=== PATIENT | male | born 1985 ===

== ENCOUNTER → 2018-02-19 09:27 | Outpatient (CLI) | payer MEDICAID, SELFPAY ==
[2018-02-19 10:21] LABS: Abs Immature Grans 0.01 k/cumm (0.0-0.09); Absolute Basophil Count 0.02 k/cumm (0.0-0.2); Absolute Eosinophil Count 0.19 k/cumm (0.0-0.7); Absolute Lymphocyte Count 2.47 k/cumm (1.2-3.4); Absolute Monocyte Count 0.42 k/cumm (0.11-0.7); Absolute Neutrophil Count 3.96 k/cumm (1.2-6.7); Basophils % 0.3; Eosinophils % 2.7; HCT 43.7 % (40.0-50.0); HGB 14.6 g/dL (13.5-17.5); Immature Grans % 0.1; Lymphocytes % 34.9; Mean Corp. HGB Concentration 33.4 g/dL (32.0-36.0); Mean Corpuscular Hemoglobin 29.4 pg (27.0-33.0); Mean Corpuscular Volume 87.9 fL (80-95); Mean Platelet Volume 10.5 fL (8.0-11.0); Monocytes % 5.9; Neutrophils % 56.1; Platelet Count 153 x1000/uL (130-400); RBC 4.97 m/cumm (4.50-6.00); RBC Distribution Width 15.4 % (11.8-14.1); White Blood Cell Count 7.07 k/cumm (4.4-10.8)
== END ==
PROVIDERS: PCP Nurse Practitioner Family; Visit Provider Nurse Practitioner Psychiatric/Mental Health
DX: F90.2 Attention-deficit hyperactivity disorder, combined type (principal); Z13.6 Encounter for screening for cardiovascular disorders
CPT/HCPCS: 36415; 85025; 93005; 93010

== ENCOUNTER 2018-04-18 22:06 | Emergency (ER) | payer MEDICAID, SELFPAY ==
[2018-04-18 22:11] VITALS: BP 121/86; PULSE 86; RESP 20; TEMP 36.8; O2SAT 100
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
[2018-04-18 22:25] LABS: Abs Immature Grans 0.01 k/cumm (0.0-0.09); Absolute Basophil Count 0.02 k/cumm (0.0-0.2); Absolute Eosinophil Count 0.11 k/cumm (0.0-0.7); Absolute Lymphocyte Count 2.84 k/cumm (1.2-3.4); Absolute Monocyte Count 0.55 k/cumm (0.11-0.7); Absolute Neutrophil Count 4.73 k/cumm (1.2-6.7); Basophils % 0.2; Eosinophils % 1.3; HCT 46.1 % (40.0-50.0); HGB 15.5 g/dL (13.5-17.5); Immature Grans % 0.1; Lymphocytes % 34.4; Mean Corp. HGB Concentration 33.6 g/dL (32.0-36.0); Mean Corpuscular Hemoglobin 30.3 pg (27.0-33.0); Mean Corpuscular Volume 90.2 fL (80-95); Mean Platelet Volume 10.6 fL (8.0-11.0); Monocytes % 6.7; Neutrophils % 57.3; Platelet Count 200 x1000/uL (130-400); RBC 5.11 m/cumm (4.50-6.00); RBC Distribution Width 14.5 % (11.8-14.1); White Blood Cell Count 8.26 k/cumm (4.4-10.8)
[2018-04-18 22:40] LABS: ALT 124 U/L (12-78); AST 61 U/L (15-37); Albumin 3.8 g/dL (3.4-5.0); Alkaline Phosphatase 101 U/L (46-116); Anion Gap 6.6 mmol/L (3-11); BUN 9 mg/dL (7-18); Bilirubin, Direct 0.39 mg/dL (0.00-0.20); Bilirubin, Total 2.4 mg/dL (0.2-1.0); CO2 30.4 mmol/L (21.0-32.0); CREATININE 0.87 mg/dL (0.70-1.30); Calcium 8.7 mg/dL (8.5-10.1); Chloride 100 mmol/L (98-107); Glucose 94 mg/dL (70-100); Lipase 182 U/L (73-393); Potassium 3.4 mmol/L (3.5-5.1); Sodium 137 mmol/L (136-145); Total Protein 7.3 g/dL (6.4-8.2)
[2018-04-18] MEDS: Omnipaque 350 MG/ML 100 ML BTL IJ (23:02)
[2018-04-18] MEDS: Normal Saline 1,000 ML 1000 ML IV (23:03)
[2018-04-18 23:14] LABS: Bilirubin Negative (Negative); Blood Negative (Negative); Clarity Clear; Glucose Negative (Negative); Ketones Negative (Negative); Leukocyte Esterase Negative (Negative); Nitrite Negative (Negative); Urobilinogen 0.2 EU/dL (Up TO 0.2)
--- NOTE | 2018-04-18 23:29 | DI.VRAD_ITS ---
EXAM: CT Abdomen and Pelvis With Intravenous Contrast EXAM DATE/TIME: 04/18/2018 10:17 PM CLINICAL HISTORY: 32 years old, male; Pain; Abdominal pain; Localized; Right TECHNIQUE: Axial computed tomography images of the abdomen and pelvis with intravenous contrast. All CT scans at this facility use at least one of these dose optimization techniques: automated exposure control; mA and/or kV adjustment per patient size (includes targeted exams where dose is matched to clinical indication); or iterative reconstruction. Coronal and sagittal reformatted images were created and reviewed. COMPARISON: No relevant prior studies available. FINDINGS: Lower thorax: There is mild atelectasis and scarring in the right lung base. ABDOMEN: Liver: Normal. No mass. Gallbladder and bile ducts: Status post cholecystectomy. Cholecystectomy. Pancreas: Normal. No ductal dilation. Spleen: Normal. No splenomegaly. Adrenals: Normal. No mass. Kidneys and ureters: Normal. No hydronephrosis. Stomach and bowel: Normal. No obstruction. No mucosal thickening. Appendix: No evidence of appendicitis. PELVIS: Bladder: Unremarkable as visualized. Reproductive: Unremarkable as visualized. ABDOMEN and PELVIS: Intraperitoneal space: Normal. No free air. No significant fluid collection. Bones/joints: Dense foreign bodies are seen in the region of spine at T10 with a large metallic density in the spinal canal at T10. Posttraumatic changes of the left hip and pelvis are noted with heterotopic ossification. Soft tissues: Unremarkable. Vasculature: Normal. No abdominal aortic aneurysm. Lymph nodes: Normal. No enlarged lymph nodes. IMPRESSION: 1. No acute intra-abdominal findings. 2. Metallic foreign body in the spinal canal at T10. Dictated and Authenticated by: Gilberto Pinzon MD. Ordering:CRISTINE DOMINIQUE MD
[2018-04-18 23:30] VITALS: BP 120/59; PULSE 79; RESP 14; TEMP 37.1; O2SAT 100
[2018-04-19 00:12] VITALS: BP 120/59; PULSE 79; RESP 14; O2SAT 100
== END 2018-04-19 00:11 | disposition home or self-care (01) ==
PROVIDERS: Emergency Provider Emergency Medicine; PCP Nurse Practitioner Family
DX: R10.11 Right upper quadrant pain (principal); R11.0 Nausea; G82.20 Paraplegia, unspecified
CPT/HCPCS: 36415; 80053; 80076; 83690; 96360; 99285; 74177; 81003; 85025; J3490

== ENCOUNTER 2018-06-23 14:28 | Emergency (ER) | payer MEDICAID, SELFPAY ==
[2018-06-23 14:45] VITALS: BP 155/92; PULSE 113; RESP 16; TEMP 36; O2SAT 96
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
[2018-06-23 15:50] VITALS: PULSE 103; TEMP 37
[2018-06-23 16:01] VITALS: BP 150/92; PULSE 105; RESP 18; TEMP 37; O2SAT 96
== END 2018-06-23 16:12 | disposition home or self-care (01) ==
PROVIDERS: Emergency Provider Physician Assistant; PCP Nurse Practitioner Family
DX: S80.822A Blister (nonthermal), left lower leg, initial encounter (principal); X58.XXXA Exposure to other specified factors, initial encounter; G82.20 Paraplegia, unspecified; S24.13 Anterior cord syndrome of thoracic spinal cord; W34.00XS Accidental discharge from unspecified firearms or gun, sequela
CPT/HCPCS: 99283; 99284

== ENCOUNTER 2021-02-20 17:26 | Emergency (ER) | payer MEDICAID, SELFPAY ==
[2021-02-20 17:35] VITALS: BP 161/94; PULSE 99; RESP 16; TEMP 36.6; O2SAT 95
[2021-02-20] MEDS: Cephalexin 500 MG CAP PO (18:34)
[2021-02-20 18:42] LABS: Bilirubin Negative (Negative); Blood Negative (Negative); Clarity Clear (Clear); Glucose Negative (Negative); Ketones Negative (Negative); Leukocyte Esterase Small (Negative); Nitrite Negative (Negative); Urobilinogen 0.2 EU/dL (Up TO 0.2)
[2021-02-20 18:42] LABS: Abs Immature Grans 0.03 10^3/uL (0.0-0.06); Absolute Basophil Count 0.08 10^3/uL (0.0-0.2); Absolute Eosinophil Count 0.21 10^3/uL (0.0-0.7); Absolute Lymphocyte Count 2.46 10^3/uL (1.2-3.4); Absolute Monocyte Count 0.57 10^3/uL (0.1-0.8); Absolute Neutrophil Count 4.96 10^3/uL (1.2-6.7); Eosinophils % 2.5; HCT 43.8 % (40.0-50.0); HGB 14.8 g/dL (13.5-17.5); Immature Grans % 0.4; Lymphocytes % 29.6; MCHC 33.8 % (32.0-36.0); MCV 103.5 fL (80-95); MPV 9.9 fL (8.0-11.0); Monocytes % 6.9; Neutrophils % 59.6; Nucleated RBC 0 %; Platelet Count 208 10^3/uL (130-400); RBC 4.23 10^6/uL (4.36-5.78); RDW 14.9 % (11.8-14.1); RDW-SD 56.9 fL; WBC 8.31 10^3/uL (4.4-10.8)
[2021-02-20 18:52] LABS: Bacteria Many HPF (Negative); C & S Indicated? Yes; Crystals Negative HPF (Negative); Epithelial Cells Few HPF (Negative); Mucus Negative (Negative); RBC Negative HPF (0-2)
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
[2021-02-20 19:00] LABS: Anion Gap 12.6 mmol/L (3-11); BUN 2 mg/dL (7-18); CO2 26.4 mmol/L (21.0-32.0); CREATININE 0.8 mg/dL (0.70-1.30); Chloride 97 mmol/L (98-107); Glucose 101 mg/dL (74-106); Sodium 136 mmol/L (136-145)
[2021-02-20] MEDS: Potassium Chloride 20 MEQ TABCR 40 MEQ PO (20:09)
[2021-02-20] MEDS: Cephalexin 500 MG CAP, 2 CAPS/BTL PO (20:09)
== END 2021-02-20 20:20 | disposition home or self-care (01) ==
PROVIDERS: Emergency Provider Emergency Medicine; PCP Nurse Practitioner Family
DX: L03.116 Cellulitis of left lower limb (principal); L03.115 Cellulitis of right lower limb; R60.0 Localized edema; E87.6 Hypokalemia
CPT/HCPCS: 36415; 51701; 80048; 87077; 99283; 81003; 81015; 85025; 87086; 87186

== ENCOUNTER 2021-08-13 15:43 | Outpatient (REF) | payer MEDICAID, SELFPAY ==
[2021-08-13 18:22] LABS: HCT 48.4 % (40.0-50.0); MCH 34.3 pg (27.0-33.0); MCHC 33.1 % (32.0-36.0); MCV 103.6 fL (80-95); MPV 11.1 fL (8.0-11.0); Platelet Count 179 10^3/uL (130-400); RBC 4.67 10^6/uL (4.36-5.78); RDW 13.2 % (11.8-14.1); RDW-SD 50.5 fL; WBC 5.33 10^3/uL (4.4-10.8)
[2021-08-13 18:50] LABS: ALT 60 U/L (16-63); AST 57 U/L (15-37); Albumin 4.3 g/dL (3.4-5.0); Alkaline Phosphatase 96 U/L (46-116); Anion Gap 11.8 mmol/L (3-11); BUN 9 mg/dL (7-18); Bilirubin, Total 2.4 mg/dL (0.2-1.0); CO2 28.2 mmol/L (21.0-32.0); CREATININE 0.9 mg/dL (0.70-1.30); Calcium 9.5 mg/dL (8.5-10.1); Calculated LDL 122 mg/dL (<100); Chloride 100 mmol/L (98-107); Cholesterol 185 mg/dL (<200); Glucose 107 mg/dL (74-106); HDL Cholesterol 39 mg/dL (40-60); Potassium 4.2 mmol/L (3.5-5.1); Sodium 140 mmol/L (136-145); Total Protein 7.8 g/dL (6.4-8.2); Triglyceride 120 mg/dL (<150)
[2021-08-15 11:59] LABS: HCV RNA Qualitative Undetected (Undetected)
== END 2021-08-13 15:44 | disposition home or self-care (01) ==
LOC: NCHCN 15:43
PROVIDERS: PCP Physician Assistant; Visit Provider Physician Assistant
DX: B19.20 Unspecified viral hepatitis C without hepatic coma (principal); I10 Essential (primary) hypertension; F10.20 Alcohol dependence, uncomplicated
CPT/HCPCS: 80053; 80061; 85027; 87522

== ENCOUNTER 2021-10-02 21:16 | Outpatient (REF) | payer MEDICAID, SELFPAY ==
[2021-10-02 21:20] LABS: Bilirubin Negative (Negative); Blood Negative (Negative); Clarity Sl Cloudy (Clear); Glucose Negative (Negative); Ketones Negative (Negative); Leukocyte Esterase Negative (Negative); Nitrite Negative (Negative); Specific Gravity >= 1.030 (1.005-1.025); Urobilinogen 0.2 EU/dL (Up TO 0.2)
== END 2021-10-02 21:17 | disposition home or self-care (01) ==
LOC: NCHCN 21:16
PROVIDERS: PCP Physician Assistant; Visit Provider Physician Assistant
DX: G82.21 Paraplegia, complete (principal)
CPT/HCPCS: 81003

== ENCOUNTER 2022-08-06 17:03 | Outpatient (REF) | payer MEDICAID, SELFPAY ==
[2022-08-06 20:07] LABS: Bilirubin Negative (Negative); Blood Negative (Negative); Clarity Cloudy (Clear); Glucose Negative (Negative); Ketones Negative (Negative); Leukocyte Esterase Small (Negative); Nitrite Positive (Negative); Specific Gravity >= 1.030 (1.005-1.025); pH 5.5 (5-8)
[2022-08-06 20:25] LABS: Bacteria Many HPF (Negative); C & S Indicated? Yes; Crystals Negative HPF (Negative); Epithelial Cells Few HPF (Negative); Mucus Trace (Negative); RBC 0-2 HPF (0-2)
== END 2022-08-06 17:04 | disposition home or self-care (01) ==
LOC: NCHCN 17:03
PROVIDERS: PCP Physician Assistant; Visit Provider Physician Assistant
DX: N31.9 Neuromuscular dysfunction of bladder, unspecified (principal); R82.998 Other abnormal findings in urine
CPT/HCPCS: 87077; 81003; 81015; 87086; 87186

== ENCOUNTER 2022-09-17 17:51 | Outpatient (REF) | payer MEDICAID, SELFPAY | END 2022-09-17 17:52 | disposition home or self-care (01) | LOC: NCHCN 17:51 | PROVIDERS: PCP Physician Assistant; Visit Provider Physician Assistant | DX: N31.9 Neuromuscular dysfunction of bladder, unspecified (principal); R82.998 Other abnormal findings in urine; Z87.440 Personal history of urinary (tract) infections | CPT/HCPCS: 87077; 87086; 87186 ==

== ENCOUNTER 2023-01-28 12:20 | Outpatient (REF) | payer MEDICAID, SELFPAY ==
[2023-01-28 17:20] LABS: Bilirubin Small (Negative); Blood Negative (Negative); Glucose Negative (Negative); Ketones Trace mg/dL (Negative); Leukocyte Esterase Trace (Negative); Nitrite Negative (Negative); Specific Gravity 1.025 (1.005-1.025); pH 5.5 (5-8)
[2023-01-28 17:35] LABS: Clarity Cloudy (Clear)
[2023-01-28 17:36] LABS: Bacteria Few HPF (Negative); C & S Indicated? Yes; Casts Negative LPF (Negative); Crystals Few Calcium Oxalate HPF (Negative); Epithelial Cells Rare HPF (Negative); Mucus Negative (Negative); RBC 0-2 HPF (0-2)
== END 2023-01-28 12:21 | disposition home or self-care (01) ==
LOC: NCHCN 12:20
PROVIDERS: PCP Physician Assistant; Visit Provider Physician Assistant
DX: N39.0 Urinary tract infection, site not specified (principal)
CPT/HCPCS: 87077; 87186; 81003; 81015; 87086

== ENCOUNTER 2023-02-17 14:55 | Outpatient (REF) | payer MEDICAID, SELFPAY ==
[2023-02-17 16:08] LABS: BUN 12 mg/dL (7-18); CREATININE 0.7 mg/dL (0.70-1.30); Calcium 9.2 mg/dL (8.5-10.1); Chloride 100 mmol/L (98-107); Estimated GFR 122.47 (mL/min/1.73m2); Glucose 123 mg/dL (74-106); Sodium 136 mmol/L (136-145)
== END 2023-02-17 14:56 | disposition home or self-care (01) ==
LOC: NCHCN 14:55
PROVIDERS: PCP Physician Assistant; Visit Provider Physician Assistant
DX: I10 Essential (primary) hypertension (principal)
CPT/HCPCS: 80048

== ENCOUNTER 2023-09-23 15:20 | Outpatient (REF) | payer MEDICAID, SELFPAY | END 2023-09-23 15:21 | disposition home or self-care (01) | LOC: NCHCN 15:20 | PROVIDERS: PCP Physician Assistant; Visit Provider Physician Assistant | DX: N39.0 Urinary tract infection, site not specified (principal); R82.89 Other abnormal findings on cytological and histological examination of urine | CPT/HCPCS: 87077; 87086; 87186 ==

== ENCOUNTER 2024-05-25 11:11 | Outpatient (REF) | payer MEDICAID, SELFPAY ==
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
--- OUTSIDE RECORDS SUMMARY | 2024-05-25 11:13 | XMS_ITS | Encounter Summary ---
Author Organization [facility] Address [facility] [place] [address] Care Team Providers Care Electric Meter Repairer Apprentice Name Role Phone Efe Pelletier MD Primary Care Provider Unav ailable Encounter Details Date Type Department Care Team (Latest Contact Info) Description 04/11/2016 - 04/11/2016 11:59 PM EDT Hospital Encounter Radiology Library at [facility] [place] [phone] Efe Pelletier MD Pain Discharge Disposition: Home Social History Tobacco Use Types Packs/Day Years Used Date Smoking Tobacco: Former Smokeless Tobacco: Never Comments:quit november 2013 Alcohol Use Standard Drinks/Week Comments No 0 (1 standard drink = 0.6 oz pur e alcohol) Sex and Gender Information Value Date Recorded Sex Assigned at Not on file Gender Identity Not on file Sexual Orientation Not on file documented as of this encounter Medications at Time of Discharge Medication Sig Dispensed Refills Start Date End Date docusate sodium (COLACE) 100 mg Capsule Take 100 mg by mouth 2 times daily. Reported on 06/25/2016 nortriptyline (PAMELOR) 25 mg Capsule Take 25 mg by mouth every morning. nortriptyline (PAMELOR) 50 mg Capsule Take 50 mg by mouth nightly. cyclobenzaprine (FLEXERIL) 5 mg Tablet Take 5 mg by mouth 3 times daily as needed for Muscle spasms. Reported on 06/25/2016 sertraline (ZOLOFT) 100 mg Tablet Take 200 mg by mouth daily. white petrolatum-mineral oil (EUCERIN) Cream Apply topically 2 times daily. Reported on 09/10/2016 LORazepam (ATIVAN) 0.5 mg tablet Take 1-2 tablets by mouth every 4 hours as needed for Anxiety. 30 tablet 0 01/05/2014 aspirin 81 mg Tablet, Delayed Release (E.C.) Take 81 mg by mouth daily. Reported on 06/25/2016 06/25/2016 pantoprazole (PROTONIX) 40 mg Tablet, Delayed Release (E.C.) Take 40 mg by mouth daily. Reported on 06/25/2016 06/25/2016 ibuprofen (ADVIL;MOTRIN) 600 mg Tablet Take 600 mg by mouth 3 times daily. 08/21/2016 gabapentin (NEURONTIN) 300 mg capsule Take 1 capsule by mouth 3 times daily. 90 capsule 12 01/05/2014 06/25/2016 documented as of this encounter Plan of Treatment Not on file documented as of this encounter Procedures Procedure Name Priority Date/Time Associated Diagnosis Comments FILM LIBRARY STORAGE ONLY CT ABDOMEN AND PELVIS Routine 04/11/2016 12:00 AM EDT Pain documented in this encounter Results * Film Library- Storage Only CT Abdomen & Pelvis (04/11/2016 12:00 AM EDT) Narrative [facility] - 05/28/2016 8:47 AM EST This exam is for storage only and is auto-finalizing. Efe Pelletier MD IMG FILM LIBRARY OR DERABLES [place], [place] documented in this encounter Visit Diagnoses Diagnosis Pain Generalized pain documented in this encounter Care Teams Electric Meter Repairer Apprentice Relationship Specialty Start Date End Date Efe Pelletier MD PCP - General 02/09/15 documented as of this encounter
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
--- OUTSIDE RECORDS SUMMARY | 2024-05-25 11:13 | XMS_ITS | Encounter Summary ---
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 Intravenous, EVERY 6 HOURS SCHEDULED, 20 doses, First dose on Edie 08/21/16 at 1200, Last dose on Thu08/26/16 at 0600, Routine 1139 (Given - Provid er: Karissa Wolff RN) Continuous Medication Order 08/19/2016 08/20/2016 08/21/2016 lactated ringers infusion 1,000 mL 1,000 mL, at 100 mL/hr, Intravenous, CONTINUOUS, Starting on Edie 08/21/16 at 0715, Until Edie 08/21/16 at 1320, Day of Surgery (Day of Procedure) 0715 (New Bag - Prov ider: Genie Saldivar RN)0724 (New Bag - Provider: Sakina Caro CRNA)0800 (Anesthesia Volume Adjustment - Provider: Sakina Caro CRNA)0830 (Anesthesia Volume Adjustment - Provider: Sakina Caro CRNA)0900 (Anesthesia Volume Adjustment - Provider: Sakina Caro CRNA)1000 (Anesthesia Volume Adjustment - Provider: Sakina Caro CRNA)1050 (Stopped - Provider: Sakina Caro CRNA) PRN Medication Order 08/19/2016 08/20/2016 08/21/2016 BUpivacaine (PF) (MARCAINE) 0.25 % (2.5 mg/mL) injection (CANCELED) ONCE PRN, Starting on Edie 08/21/16 at 0834, Until Edie 08/21/16 at 1524, Intra-Operative (Intra-Procedure), Routine 0834 (Given - Provid er: Debbie Romo MD) fentaNYL (PF) 50 mcg/mL 2mL syringe(Linked Group 1) 25 mcg, Intravenous, EVERY 5 MIN PRN, Pain, for 1-4 pain score, Starting on Edie 08/21/16 at 1008, Until Edie 08/21/16 at 1320, for 1-4 pain score Hold for respiratory rate less than 10 per minute. Maximum dose: 250 mcg over one hour., PACU Recovery 1102 (See Alternativ e - Provider: Karissa Wolff RN)1113 (See Alternative - Provider: Karissa Wolff RN)1137 (See Alternative - Provider: Karissa Wolff RN)1157 (See Alternative - Provider: Karissa Wolff RN) fentaNYL (PF) 50 mcg/mL 2mL syringe(Linked Group 1) 50 mcg, Intravenous, EVERY 5 MIN PRN, Pain, for 5-10 pain score, Starting on Edie 08/21/16 at 1008, Until Edie 17 at 1320, for 5-10 pain score Hold for respiratory rate less than 10 per minute. Maximum dose: 250 mcg over one hour., PACU Recovery 1102 (Given - Provid er: Karissa Wolff RN)1113 (Given - Provider: Karissa Wolff RN)1137 (Given - Provider: Karissa Wolff RN)1157 (Given - Provider: Karissa Wolff RN) iohexol (OMNIPAQUE) 300 mg/mL solution (CANCELED) ONCE PRN, Starting on Edie 08/21/16 at 0925, Until Edie 08/21/16 at 1524, Intra-Operative (Intra-Procedure), Routine 0925 (Given - Provid er: Debbie Romo MD) lidocaine (XYLOCAINE) 10 mg/mL (1 %) injection 3 mg 3 mg (0.3 mL), Subcutaneous, ONCE PRN, 1 dose, Starting on Edie 08/21/16 at 0651, Until Edie 08/21/16 at 1320, for discomfort with PIV insertion, Day of Surgery (Day of Procedure), Routine ondansetron (ZOFRAN) injection 4 mg 4 mg, Intravenous, EVERY 30 MIN PRN, Starting on Edie 08/21/16 at 1008, Until Edie 08/21/16 at 1320, Nausea, May repeat 4 mg once in 30 minutes. If multiple antiemetics ordered, use ondansetron first and if ineffective use prochlorperazine second and if ineffective use promethazine, PACU Recovery oxyCODONE (ROXICODONE) immediate release tablet 5-10 mg 5-10 mg, Oral, EVERY 6 HOURS PRN, Starting on Edie 08/21/16 at 1045, Until Edie 08/21/16 at 1524, Pain, Give 5mg for moderate (3-7) and 10mg for severe (8-10) pain, Routine 1122 (Given - Provid er: Karissa Wolff RN) sodium chloride 0.9 % flush 5-20 mL 5-20 mL, Intravenous, EVERY 1 MIN PRN, Starting on Edie 08/21/16 at 0651, Until Edie 08/21/16 at 1320, flush, Flush pertains to all indwelling lines. Flush per protocol found in the job aid using the link provided on this medication record., Day of Surgery (Day of Procedure), Routine No Frequency Medication Order 08/19/2016 08/20/2016 08/21/2016 ketorolac (TORADOL) 15 mg/mL injection 1 dose, Starting on Edie 08/21/16 at 1133, Until Edie 08/21/16 at 1524, KARISSA WOLFF: cabinet override 1145 (Due) Linked Groups Order Group 1: fentaNYL (PF) 50 mcg/mL 2mL syringeJump to med 25 mcg, Intravenous, EVERY 5 MIN PRN, Pain, for 1-4 pain score, Starting on Edie 08/21/16 at 1008, Until Edie 08/21/16 at 1320, for 1-4 pain score Hold for respiratory rate less than 10 per minute. Maximum dose: 250 mcg over one hour., PACU Recovery Or fentaNYL (PF) 50 mcg/mL 2mL syringeJump to med 50 mcg, Intravenous, EVERY 5 MIN PRN, Pain, for 5-10 pain score, Starting on Edie 08/21/16 at 1008, Until Edie 08/21/16 at 1320, for 5-10 pain score Hold for respiratory rate less than 10 per minute. Maximum dose: 250 mcg over one hour., PACU Recovery documented in this encounter Care Teams Machining Supervisor Relationship Specialty Start Date End Date Efe Pelletier MD PCP - General 02/09/15 documented as of this encounter
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
--- OUTSIDE RECORDS SUMMARY | 2024-05-25 11:13 | XMS_ITS | Encounter Summary ---
Author Organization [facility] [place] [address] Care Team Providers Care Car Top Bolter Name Role Phone Efe Pelletier MD Primary Care Provider Unav ailable Encounter Details Date Type Department Care Team (Late st Contact Info) Description 05/09/2016 Abstract [facility] Information Services [address] [place] [phone] Provider, His MD [place] Social History Tobacco Use Types Packs/Day Years [...] Sign Reading Time Taken Comments Blood Pressure 131/87 05/09/2016 9:00 AM EDT Sourced from [place] Conversion Pulse 102 05/09/2016 9:00 AM EDT Sourced from [place] Conversion Temperature - - Respiratory Rate - - Oxygen Saturation - - Inhaled Oxygen Concentration - - Weight 170.1 kg (375 lb) 05/09/2016 9:0 0 AM EDT Sourced from [place] Conversion Height 188 cm (6' 2) 05/09/2016 9:00 AM EDT Sourced from [place] Conversion Body Mass Index 48.15 05/09/2016 9:00 AM EDT documented in this encounter Plan of Treatment Not on file documented as of this encounter Visit Diagnoses Not on filedocumented in this encounter Care Teams Car Top Bolter Relationship Specialty Start Date End Date Efe Pelletier MD PCP - General 02/09/15 documented as of this encounter
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
--- OUTSIDE RECORDS SUMMARY | 2024-05-25 11:13 | XMS_ITS | Encounter Summary ---
Author Organization [facility] Address [facility] [place] [address] Care Team Providers Care Ice Hockey Coach Name Role Phone Efe Pelletier MD Primary Care Provider Unav ailable Encounter Details Date Type Department Care Team (Latest Contact Info) Description 01/21/2018 - 01/21/2018 11:59 PM EDT Hospital Encounter Radiology Library at [facility] [place] [id number] Albert Boogie MD [facility] [place] [place] [address] Discharge Disposition: Home Social History Tobacco Use [...] needed for Anxiety. 30 tablet 0 01/05/2014 documented as of this encounter Plan of Treatment Not on file documented as of this encounter Procedures Procedure Name Priority Date/Time Associated Diagnosis Comments FILM LIBRARY STORAGE ONLY DX SPINE Routine 01/21/2018 12:00 AM EDT documented in this encounter Results * Film Library- Storage Only DX Spine (01/21/2018 12:00 AM EDT) Narrative [facility] - 01/22/2018 2:27 PM EDT This exam is for storage only and is auto-finalizing. Albert Boogie MD IMG FILM LIBRARY ORD ERABLES [place], [place] documented in this encounter Visit Diagnoses Not on filedocumented in this encounter Care Teams Ice Hockey Coach Relationship Specialty Start Date End Date Efe Pelletier MD PCP - General 02/09/15 documented as of this encounter
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
--- OUTSIDE RECORDS SUMMARY | 2024-05-25 11:14 | XMS_ITS | Encounter Summary ---
Author Organization [facility] Address 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, subsequent encounter Julio Mcqueen MD [facility] [place] [address] Referral ID Status Reason Start Date Expiration Date V isits Requested Visits Authorized [id number] Evaluate and Treat 08/16/2015 02/12/2016 12 12 Reason for Visit * Reason Comments Hand Injury Encounter Details Date Type Department Care Team (Late st Contact Info) Description 08/10/2015 3:00 PM EST Office [place] [address] Julio Mcqueen MD [facility] [place] [address] 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 He is known to the plastic surgery clinic from prior treatment with Dr. Abrams. He presents today to discuss further surgery for tendon transfers. He reports that his pain is controlled with nerve pain medication. Examination: Patient is alert, conversant, comfortable, ambulating Full feeling in median dist Good sensation in radial aspect of ring finger Some sensation on ulnar aspect of ring finger No sensation in small finger Weak abduction Wartenberg sign, abduction of small finger hyperexten of ring and little finger at MPJ Flexion of ring and small fingers at IPJ Atrophy of first dorsal interosseous Atrohy of hypothenar Lacks morillo pinch Has froments sign Fingers are supple, full passive ROM Impression: Ulnar nerve palsy, right hand. Plan for multiple tendon transfers to correct his hyperextension of his MPJ ring and small fingers and to provide extension of IP joints or ring and small finger. This would be a transfer of FDS of ring finger to be transfered to ring and small finger. Transfer FDS of long finger to thumb ad ductor. Plan: Schedule for multiple tendon transfers Dr Mcqueen & Jose Alberto Duration: 2 hours Timeframe: Next available Coordinated with: Jose Alberto Procedure: Tendon transfers CPT: 62252, 40726 Surgical site: Hand Side: Right Anesthesia: General Follow up: 2 weeks (ok with alex) coord w/ OT for splint PAT: No I, Rehana Cerna, am acting as scribe for Dr Mcqueen. All work documented was performed by Dr Mcqueen. ???I performed the above scribed service and agree with the accuracy of the note?? 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
--- OUTSIDE RECORDS SUMMARY | 2024-05-25 11:14 | XMS_ITS | Encounter Summary ---
Author Organization [facility] [place] [address] Care Team Providers Care Deoiling Machine Operator Name Role Phone Efe Pelletier MD Primary Care Provider Unav ailable Reason for Referral * Occupational Therapy (Routine) - Closed Specialty Diagnoses / Procedures Referred By Contdebi t Referred To Contact Occupational Therapy Diagnoses Surgery follow-up Isabella Lomeli APRN [facility] [place] [address] [address] [address] [place] [address] Referral ID Status Reason Start Date Expiration Date V isits Requested Visits Authorized [id number] Closed Evaluate and Treat 01/11/2016 01/10/2017 1 1 Reason for Visit * Reason Comments Follow Up Surgery f/u tendon release d os 12/28/15 Encounter Details Date Type Department Care Team (Late st Contact Info) Description 01/11/2016 9:00 AM EDT Office [place] [address] Isabella Lomeli [facility] [address] [place] [address] Surgery follow-up Social History Tobacco Use Types Packs/Day Years Used Date Smoking Tobacco: Former Smokeless Tobacco: Never Comments:quit november 2013 Alcohol Use Standard Drinks/Week Comments No 0 (1 standard drink = 0.6 oz pur e alcohol) Sex and Gender Information Value Date Recorded Sex Assigned at Not on file Gender Identity Not on file Sexual Orientation Not on file documented as of this encounter Patient Instructions * Patient Instructions* Isabella Lomeli APRN - 01/11/2016 9:42 AM EDT 1. Follow up: 2 weeks coordinated with appointment with hand therapy to develop plan to execute at the half-way 2. Continue splint around the clock until next appointment documented in this encounter Progress Notes * Isabella Lomeli APRN - 01/11/2016 9:09 AM EDT Plastic Surgery Post Op Note Reason for visit: F/U status post procedure Date of surgery: 12/28/15 Procedure(s): FDS of the right ring finger to be transferred to the ring and small finger, and a transfer FDS of the long finger to the thumb adductor Complications: None reported Pain: 12/20 HPI: Pt arrives accompanied by guards today. He reports he is doing well. Having moderate pain. Examination: Patient is alert, conversant, comfortable, ambulating Incisions: CDI, healing well. No collection, no erythema, no evidence of cellulitis. Sutures removed today Impression: Joni Ponce is a 30 y.o. male who was seen today for follow-up after the above procedure. Please see the operative note for details. He is doing well without complaints. Plan: 1. Follow up: 2 weeks coordinated with appointment with hand therapy to develop plan to execute at the half-way 2. Continue splint around the clock until next appointment Dr. Bedolla was in to examine the patient today. He agrees with this assessment and plan. I, Celine Goodman, am acting as scribe for Isabella Lomeli APRN . All work documented was performed by Isabella Lomeli APRN. ???I performed the above scribed service and agree with the accuracy of the note?? ISABELLA LOMELI APRN. documented in this encounter Plan of Treatment Scheduled Referrals Name Type Priority Associated Diagnoses Order Schedule Referral to Occupational Therapy Outpatient Referral Routine Surgery follow-up Ordered: 01/11/2016 documented as of this encounter Visit Diagnoses Diagnosis Surgery follow-up Follow-up examination, following unspecified surgery documented in this encounter Care Teams Deoiling Machine Operator Relationship Specialty Start Date End Date Efe Pelletier MD PCP - General 02/09/15 documented as of this encounter
--- OUTSIDE RECORDS SUMMARY | 2024-05-25 11:14 | XMS_ITS | Encounter Summary ---
Author Organization [facility] [place] [address] Care Team Providers Care Mobile Disc Jockey Name Role Phone Efe Pelletier MD Primary Care Provider Unav ailable Reason for Visit * Reason Onset Date Comments Appointment 09/06/2015 missed appointme nt on 09/06/15 at 1pm. Left message with Felisa who schedules his appts and asked if they would like to reschedule and [phone] to call back. Encounter Details Date Type Department Care Team (Late st Contact Info) Description 09/06/2015 Telephone [place] [phone] Starr Demarco Appointment (missed appointment on 09/06/15 at 1pm. Left message with Felisa who schedules his appts and asked if they would like to reschedule and [phone] to call back.) Social History Tobacco Use Types Packs/Day Years Used Date Smoking Tobacco: Former Smokeless Tobacco: Never Comments:quit november 2013 Alcohol Use Standard Drinks/Week Comments No 0 (1 standard drink = 0.6 oz pur e alcohol) Sex and Gender Information Value Date Recorded Sex Assigned at Not on file Gender Identity Not on file Sexual Orientation Not on file documented as of this encounter Miscellaneous Notes * Telephone Encounter - Starr Demarco - 09/06/2015 2:21 PM EST missed appointment on 09/06/15 at 1pm. Left message with Felisa who schedules his appts and asked if they would like to reschedule and [phone] to call back. documented in this encounter Plan of Treatment Not on file documented as of this encounter Visit Diagnoses Not on filedocumented in this encounter Care Teams Mobile Disc Jockey Relationship Specialty Start Date End Date Efe Pelletier MD PCP - General 02/09/15 documented as of this encounter
--- OUTSIDE RECORDS SUMMARY | 2024-05-25 11:14 | XMS_ITS | Encounter Summary ---
Author Organization [facility] Address [facility] [place] [address] Care Team Providers Care Credit Front Office Developer Name Role Phone Efe Pelletier MD Primary Care Provider Unav ailable Reason for Visit * Reason Comments Dressing Change left foot Encounter Details Date Type Department Care Team (Late st Contact Info) Description 11/29/2014 2:00 PM EDT Follow-[place] [address] Diaz Rangel DPM [facility] [place] [address] Bone infection of left foot (Primary Dx); Ulcer of heel and midfoot, left, with necrosis of bone; Spinal cord injury Discharge Disposition: Home Social History Tobacco Use [...] Sign Reading Time Taken Comments Blood Pressure 119/73 11/29/2014 2:37 PM EDT Pulse 92 11/29/2014 2:37 PM EDT Temperature - - Respiratory Rate - - Oxygen Saturation 97% 11/29/2014 2:37 PM EDT Inhaled Oxygen Concentration - - Weight - - Height - - Body Mass Index - - documented in this encounter Patient Instructions * Patient Instructions* Diaz Rangel DPM - 11/29/2014 3:06 PM EDT Wound care instructions: Every day, or prn, based on amount of drainage Remove dressing Irrigate wound with normal saline and gauze. Cut a piece of Aquacel Ag to fill the wound bed. Cover with mepilex 4x4 or 6x6 border dressing or gauze dressing. Can wipe the edges of the dressing on top with skin prep to help it adhere. Tubigrip- size F if this is comfortable, to address the edema. Continue with offloading boot. documented in this encounter Progress Notes * Diaz Rangel DPM - 11/29/2014 3:08 PM EDT Images from the original note were not included. Outpatient Podiatry Clinic Note Name: Joni Ponce Age:29 y.o. MR#: [id number] Date of Service: 11/29/2014 Chief Complaint: Follow up left heel ulceration HPI: Joni Ponce is a 29 y.o. year old incarcerated male who presents today for follow up of left heel ulceration. Patient states he has been receiving wound care at the facility on a regular basis Since his last appointment on 11/09/[address]. Doyle from the orthopedic department wherewe had discussed treatment options moving forward including repeat bone biopsy and IV antibiotic therapy for 6-8 weeks and below-knee amputation. He is currently taking Bactrim for a urinary tract infection. Patient states he has not noticed any significant changes to his left lower extremity. He has no pain to the left foot. He presents today with 2 guards from the facility. Patient states he still has not received new offloading boots for his heels. ROS: Denies F/C/N/V/CP/SOB/cough. Patient's medications, allergies, past medical, surgical, social and family histories were reviewedand updated as appropriate. Physical Exam: Vitals: Blood pressure 119/73, pulse 92, SpO2 97 %. Gen: WD, alert, oriented. NAD. Sitting in wheelchair with handcuffs on. Derm: Ulceration to plantar left heel - wound 1. Skin is otherwise warm dry and supple. No interdigital macerations. Nails appear to be within normal limits with well healed borders of the hallux. Wound 1 Size: 3.4cm x 3.2cm x 0.5cm Location: plantar left heel Base: granulation with some fibrous tissue, calcaneus at base Probing: to calcaneus Undermining: None Drainage: serous, no purulence noted Periwound: no erythema, maceration present Malodor: improved Vasc: DP/PT pulses palpable. CFT < 3 seconds digits 1-5 bilateral. Hair present to digits bilateral. Neuro: Epicritic sensation absent to light touch bilateral. Protective sensation absent to digits with [place] 5.07/10g monofilament. MSK: No gross deformities noted. Muscle strength 0/5 all groups bilateral. Bone biopsy results 07/14/14: Pathology: Ulceration, granulation tissue and underlying bone with changes compatible with subacuteto chronic osteomyelitis. Micro: Rare S. aureus, MSSA S to cefazolin. Assessment/Plan: Joni Ponce is a 29 y.o. year old incarcerated male who presents today for follow up of left heel ulceration and calcaneal osteomyelitis and wound care. The ulceration to the leftheel appears stable and continues to probe to bone. Patient is currently on bactrim for a UTI and has been taking this for about 3 days. Patient is still waiting for his motion to be considered/approved for possibly being transferred home to be able to receive IV antibiotics at home for his calcaneal osteomyelitis. Patient would like to wait for the motion process to be completed and he may know something as early as December 15, 2014. Patient states if he is able to return home he would like to proc eed with surgical debridement and bone biopsy, IV antibiotics for 6-8 weeks in an attempt to eradicate his bone infection. I discussed again with the patient that even with this treatment he may continue to have bone infection of his heel and may end up with a below-knee amputation. Patient relatesunderstanding of this. I debrided the heel ulcer and macerated periwound border, see procedure below. Will continue with local wound care of Aquacel Ag packed into left heel ulcer followed by dry dressing to be changed daily. Patient to have heels offloaded at all times and continue with his current boot. Patient will followup for wound care. Procedure: Performed debridement of ulcer x 1 left foot of non-viable and devitalized tissue down to and including subcutaneous tissue to reveal healthier bleeding base with tissue nipper. documented in this encounter Plan of Treatment Not on file documented as of this encounter Visit Diagnoses Diagnosis Bone infection of left foot- Primary Unspecified infection of bone, ankle and foot Ulcer of heel and midfoot, left, with necrosis of bone Spinal cord injury Unspecified site of spinal cord injury without evidence of spinal bone injury documented in this encounter Care Teams Credit Front Office Developer Relationship Specialty Start Date End Date Efe Pelletier MD PCP - General 10/24/14 02/01/15 documented as of this encounter
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
--- OUTSIDE RECORDS SUMMARY | 2024-05-25 11:14 | XMS_ITS | Encounter Summary ---
Author Organization [facility] [place] [address] Care Team Providers Care Coal And Ash Supervisor Name Role Phone Prabhu De Souza MD, [facility] Primary Care Provider [phone] Encounter Details Date Type Department Care Team (Late st Contact Info) Description 09/25/2014 Orders [place] [address] Sea Abrams MD [facility] [address] Social History Tobacco Use Types Packs/Day Years [...] as of this encounter Plan of Treatment Scheduled Orders Name Type Priority Associated Diagnoses Orde r Schedule SUTURE MAJOR PERIPHERAL NERVE,ARM, W/ TRANSPOSITION, NOT SCIATIC Procedures Routine One Time for 1 Occurrences starting 09/25/2014 until 09/25/2014 documented as of this encounter Visit Diagnoses Not on filedocumented in this encounter Care Teams Coal And Ash Supervisor Relationship Specialty Start Date End Date Gabo Pelletier MD [address] [id number] PCP - General 07/11/14 10/23/14 documented as of this encounter
--- OUTSIDE RECORDS SUMMARY | 2024-05-25 11:14 | XMS_ITS | Encounter Summary ---
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 Unit), Routine 1630 (Not Given - Provider: Angelika Schneider Rn, RN - Reason: Medication not available)2156 (Given - Provider: Sushma Khan RN) 0813 (Given - Provider: Conchis Taylor RN)1534 (Given - Provider: Alma Meyers RN) nortriptyline (PAMELOR) capsule 25 mg (CANCELED) 25 mg, Oral, EVERY MORNING, First dose on Edie 10/26/14 at 0700, Until Discontinued, Recovery (Recovery-Hospital Unit), Routine 0814 (Given - Provid er: Conchis Taylor RN) nortriptyline (PAMELOR) capsule 50 mg (CANCELED) 50 mg, Oral, NIGHTLY, First dose on Thu10/25/14 at 2100, Until Discontinued, Recovery (Recovery-Hospital Unit), Routine 215 (Given - Provider: Sushma Khan, RN) sertraline (ZOLOFT) tablet 200 mg (CANCELED) 200 mg, Oral, DAILY, First dose on Edie 10/26/14 at 0900, Until Discontinued, Recovery (Recovery-Hospital Unit), Routine 0814 (Given - Provid er: Conchis Taylor RN) sodium chloride 0.9 % flush 5 mL (CANCELED) 5 mL, Intravenous, 2 TIMES DAILY, First dose on Thu10/25/14 at 2100, Until Discontinued, Recovery (Recovery-Hospital Unit), Routine 220 (Given - Provider: Sushma Khan RN) 0900 (Not Given - Provider: Conchis Taylor RN - Reason: See comment - Comment: IV fluids infusing) Continuous Medication Order 10/24/2014 10/25/2014 10/26/2014 lactated ringers infusion 1,000 mL (CANCELED) 1,000 mL, at 100 mL/hr, Intravenous, CONTINUOUS, Starting on Thu10/25/14 at 0715, Until Thu10/25/14 at 1748, Day of Surgery (Day of Procedure) 0715 (New Bag - Provider: Hali King, RN) lactated ringers infusion (CANCELED) 50 mL/hr, Intravenous, CONTINUOUS, Starting on Thu10/25/14 at 1630, Until Edie 10/26/14 at 1145, Recovery (Recovery-Hospital Unit) 1638 (New Bag - Provider: Angelika Schneider Rn, RN) morphine 1 mg/mL ENTRY LEVEL PROJECT COORDINATOR 30 mL (CANCELED) Intravenous, ENTRY LEVEL PROJECT COORDINATOR ONLY, Starting on Thu10/25/14 at 1630, Until Edie 10/26/14 at 1015, Recovery (Recovery-Hospital Unit) 1636 (New Syringe/Cartridge - Provider: Angelika Schneider Rn, RN) 0124 (New Syringe/Cartridge - Provider: Sushma Khan, RN) PRN Medication Order 10/24/2014 10/25/2014 10/26/2014 BUpivacaine-EPINEPHrine 0.25 %-1:200,000 injection (CANCELED) ONCE PRN, Starting on Thu10/25/14 at 0850, Until Thu10/25/14 at 1748, Intra-Operative (Intra-Procedure), Routine 0850 (Given - Provider: Sea Abrams MD)1200 (Given - Provider: Sea Abrams MD - Comment: 4 ml injected into right Leg.) cyclobenzaprine (FLEXERIL) tablet 5 mg (CANCELED) 5 mg, Oral, 3 TIMES DAILY PRN, Starting on Thu10/25/14 at 1811, Until Edie 10/26/14 at 1941, Muscle spasms, Recovery (Recovery-Hospital Unit), Routine 0811 (Given - Provid er: Conchis Taylor RN) fentaNYL (PF) 50 mcg/mL 2mL syringe (CANCELED) 25 mcg, Intravenous, EVERY 5 MIN PRN, Pain, for breakthrough pain, Starting on Thu10/25/14 at 1600, Until Thu10/25/14 at 1748, Hold for respiratory rate less than 10 per minute. Maximum dose: 250 mcg over one hour., PACU Recovery 1605 (Given - Provider: Angelika Schneider Rn, RN)1610 (Given - Provider: Angelika Schneider Rn, RN)1615 (Given - Provider: Angelika Schneider Rn, RN)1622 (Given - Provider: Angelika Schneider Rn, RN)1627 (Given - Provider: Angelika Schneider Rn, RN)1631 (Given - Provider: Angelika Schneider Rn, RN)1635 (Given - Provider: Angelika Schneider Rn, RN)1641 (Given - Provider: Angelika Schneider Rn, RN) HYDROmorphone (DILAUDID) syringe 0.2-0.4 mg (CANCELED) 0.2-0.4 mg, Intravenous, EVERY 5 MIN PRN, Pain, Starting on Thu10/25/14 at 1600, Until Thu10/25/14 at 1748, For moderate pain (4-6) give: 0.2 mg every 5 minute prn For severe pain (7-10) give: 0.4 mg every 5 minutes prn Maximum dose: 4 mg per hour Hold for respiratory rate less than 10 per minute., PACU Recovery 1559 (Given - Provider: Angelika Schneider Rn, RN)1605 (Given - Provider: Angelika Schneider Rn, RN)1610 (Given - Provider: Angelika Schneider Rn, RN)1615 (Given - Provider: Angelika Schneider Rn, RN)1620 (Given - Provider: Angelika Schneider Rn, RN)1625 (Given - Provider: Angelika Schneider Rn, RN)1630 (Given - Provider: Angelika Schneider Rn, RN)1651 (Given - Provider: Vanessa Calles RN) LORazepam (ATIVAN) tablet 1 mg (CANCELED) 1 mg, Oral, 2 TIMES DAILY PRN, Starting on Thu10/25/14 at 1609, Until Edie 10/26/14 at 1941, Anxiety, Recovery (Recovery-Hospital Unit), Routine 0813 (Given - Provid er: Conchis Taylor RN) morphine 10 mg/5 mL oral solution 50 mg (CANCELED) 50 mg, Oral, EVERY 4 HOURS PRN, Starting on Thu10/25/14 at 1609, Until Edie 10/26/14 at 1941, Pain, Recovery (Recovery-Hospital Unit), Routine 0923 (Given - Provid er: Conchis Taylor RN)1332 (Given - Provider: Conchis Taylor RN) documented in this encounter Care Teams Spinner Box Relationship Specialty Start Date End Date Efe Calero MD PCP - General 10/24/14 02/01/15 documented as of this encounter
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
--- OUTSIDE RECORDS SUMMARY | 2024-05-25 11:14 | XMS_ITS | Encounter Summary ---
Author Organization [facility] [place] [address] Care Team Providers Care Cardiothoracic Physiotherapist Name Role Phone Efe Pelletier MD Primary Care Provider Unav ailable Encounter Details Date Type Department Care Team (Late st Contact Info) Description 09/20/2015 [place] [address] Starr Demarco Social History Tobacco Use Types Packs/Day Years [...] * Telephone Encounter - Starr Demarco - 09/20/2015 3:15 PM EST Left message on Felisa from coordination at the [facility], Joni missed 2nd appointment at wound center. Left [phone] number to call back. documented in this encounter Plan of Treatment Not on file documented as of this encounter Visit Diagnoses Not on filedocumented in this encounter Care Teams Cardiothoracic Physiotherapist Relationship Specialty Start Date End Date Efe Pelletier MD PCP - General 02/09/15 documented as of this encounter
--- OUTSIDE RECORDS SUMMARY | 2024-05-25 11:14 | XMS_ITS | Encounter Summary ---
Author Organization [facility] [place] [address] Care Team Providers Care Armed Guard Name Role Phone Efe Pelletier MD Primary Care Provider Unav ailable Encounter Details Date Type Department Care Team (Late st Contact Info) Description 01/10/2015 [place] [address] Starr Demarco Social History Tobacco Use Types [...] * Telephone Encounter - Starr Demarco - 01/10/2015 9:52 AM EDT requesting a phone call back from the facility in regards to Mr. Ponce and trying to get an updated phone number for him. We would like to continue care for him at the [facility] even though he is no longer there. documented in this encounter Plan of Treatment Not on file documented as of this encounter Visit Diagnoses Not on filedocumented in this encounter Care Teams Armed Guard Relationship Specialty Start Date End Date Efe Pelletier MD PCP - General 10/24/14 02/01/15 documented as of this encounter
--- OUTSIDE RECORDS SUMMARY | 2024-05-25 11:14 | XMS_ITS | Encounter Summary ---
Author Organization [facility] Address [facility] [place] [address] Care Team Providers Care Poke In Name Role Phone Prabhu De Souza MD, Gabo Primary Care Provider [phone] Reason for Visit * Reason Onset Date Comments New Medication Request 07/24/2014 Encounter Details Date Type Department Care Team (Late st Contact Info) Description 07/24/2014 Telephone Orthopaedics at [facility] [place] [address] Diaz Rangel [facility] [place] [address] New Medication Request Social History Tobacco Use Types Packs/Day Years [...] encounter Miscellaneous Notes * Telephone Encounter - Jamila Hand LPN - 07/24/2014 2:10 PM EST Stephanie at the correctional facility was called. She states that the patient did not get the answer he wanted this morning concerning the start of abx and called his mother. His mother promptly called the hospital. Stephanie states that the correctional facility is waiting to order the correct abx for the patient and will inform him when it is time. * Telephone Encounter - Ally Scruggs - 07/24/2014 11:38 AM EST When was your procedure? 07/17/14 Who was your surgeon? DR. ROBERTS What procedure did you have done? Left heel osteomyelitis What is the question you would like to ask the nurse? CIRILO'S MOTHER CALLED THIS MORNING STATING CIRILO HAS SPOKEN TO HER ABOUT AN ANTIBIOTIC HE SHOULD START WITH THE PICC LINE IN PLACE. I ASSURED THE MOTHER WE WOULD CALL THE FACILITY HE IS CURRENTLY STAYING. I DID NOT DISCLOSE ANY OTHER INFORMATION TO THE MOTHER. Best number to reach you # [facility], ASK FOR [facility] NURSE [phone] The nurse continuously monitors all messages and will return your call before the end of the day. The nurse may need to consult the surgeon about your question which may delay the return call by 24hrs. <DELETE THIS LINE AND BELOW PRIOR TO CLOSING> If this post procedure call fits into any of the other more specific categories then please use that category. documented in this encounter Plan of Treatment Not on file documented as of this encounter Visit Diagnoses Not on filedocumented in this encounter Care Teams Poke In Relationship Specialty Start Date End Date Gabo Pelletier MD [address] [address] PCP - General 07/11/14 10/23/14 documented as of this encounter
--- OUTSIDE RECORDS SUMMARY | 2024-05-25 11:14 | XMS_ITS | Encounter Summary ---
Author Organization [facility] Address [facility] [place] [address] Care Team Providers Care Shift Boss Name Role Phone Prabhu De Souza MD, Gabo Primary Care Provider [phone] Encounter Details Date Type Department Care Team (Late st Contact Info) Description 07/17/2014 Tele[place] [id number] Diaz Rangel DPM [facility] [place] [address] Social History Tobacco Use Types Packs/Day Years [...] encounter Miscellaneous Notes * Telephone Encounter - Diaz Rangel DPM - 07/24/2014 3:00 PM EST . documented in this encounter Plan of Treatment Not on file documented as of this encounter Visit Diagnoses Not on filedocumented in this encounter Care Teams Shift Boss Relationship Specialty Start Date End Date Gabo Pelletier MD [address] [address] PCP - General 07/11/14 10/23/14 documented as of this encounter
--- OUTSIDE RECORDS SUMMARY | 2024-05-25 11:14 | XMS_ITS | Encounter Summary ---
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 Patient is an inmate at the [facility]. CURRENT SYMPTOMS: Patient presents with stiffness and [...] ROM MP PIP DIP DPC thumb 0/45 +10/57 Index 0/80 0/90 0/70 Long +5/95 30/85 0/70 Ring +40/65 30/85 0/70 Small +30/85 90/85 0/60 STRENGTH: Land Economist Testing with Dynamometer setting #2 Pinch Testing with Pinch Gauge TREATMENT TODAY: Seen with 2 guards today from [facility]: ASSESSMENT AT 8 weeks s/p tendon transfer: splint is d/c'ed today. Ready to progress with active and passive mobility of his digits: particularly PIP joint extension - passive and actively Educated patient in etiology and biomechanics as related to patient's symptoms Instructed patient in: joint protection strategies, proper posture and positioning and scar tissue mobilization and desensitization Fabricate a hand based ulnar blocking splint for positioning of his MCP joints to allow for active extension of his IP joints for strengthening and functional use Range of Motion Exercises: of his wrist and digits every 3hours/day See scanned document for home program exercises and restrictions I To discuss with correction facility regarding therapy care. ASSESSMENT: Joni Ponce presents today with functional limitations due to limited active grasp of his right hand. 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 Joni Ponce is able todemonstrate home exercises with written instructions provided. Joni Ponce has fair potential for gains with therapy with identified needs for skilled therapy for treatment. Screen Examiner Goals (to be met by discharge): Date [...] can be offered on-site or transportation to [facility] will be available. (X) Joni Ponce participated in the evaluation, collaborated on treatment goals, and agrees to the treatment plan . 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
--- OUTSIDE RECORDS SUMMARY | 2024-05-25 11:14 | XMS_ITS | Encounter Summary ---
Author Organization [facility] Address [facility] [place] [address] Care Team Providers Care Special Client Bus Driver Name Role Phone Prabhu De Souza MD, Gabo Primary Care Provider [phone] Reason for Visit * Reason Onset Date Comments Other 08/16/2014 Encounter Details Date Type Department Care Team (Late st Contact Info) Description 08/16/2014 Telephone [place] [address] Diaz Rangel [facility] [place] [address] Other Social History Tobacco Use Types Packs/Day Years [...] Telephone Encounter - Jamila Hand LPN - 08/16/2014 10:[address] Rangel will call Ana Elkins and discuss the dressing change and picc line. * Telephone Encounter - Trish Mason - 08/16/2014 9:31 AM EST Ruddy calling from [facility] because patient is messing with his pick line and keeps taking the cap off it. Wondering if they should just stop the antibiotics and take pick line out? Also what they should be doing about wound care changing? Please call Ruddy kay @ [phone] documented in this encounter Plan of Treatment Not on file documented as of this encounter Visit Diagnoses Not on filedocumented in this encounter Care Teams Special Client Bus Driver Relationship Specialty Start Date End Date Gabo Pelletier MD [address] [address] PCP - General 07/11/14 10/23/14 documented as of this encounter
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
--- OUTSIDE RECORDS SUMMARY | 2024-05-25 11:14 | XMS_ITS | Encounter Summary ---
Author Organization [facility] [place] [address] Care Team Providers Care Purchasing Agent Name Role Phone Efe Calero MD Primary Care Provider Unav ailable Reason for Visit * Reason Comments Wound Care Encounter Details Date Type Department Care Team (Late st Contact Info) Description 09/28/2015 2:00 PM EDT Office [place] [address] Leonor Pandya APRN [facility] [place] [address] Ulcer of heel and midfoot, unspecified laterality, limited to breakdown of skin Social History Tobacco Use Types Packs/Day Years [...] Sign Reading Time Taken Comments Blood Pressure 148/92 09/28/2015 2:03 PM EDT Pulse 100 09/28/2015 2:03 PM EDT Temperature 36.8 ??C (98.2 ??F) 09/28/2015 2:03 PM ED T Respiratory Rate - - Oxygen Saturation 100% 09/28/2015 2:03 PM EDT Inhaled Oxygen Concentration - - Weight - - Height - - Body Mass Index - - documented in this encounter Progress Notes * Leonor Pandya APRN - 09/28/2015 2:15 PM EDT Images from the original note were not included. [facility] Progress Note HPI: Joni Ponce is a 30 y.o. male returns for follow up assessment of left plantar heel pressure ulcer. Hx osteomyelitis, treated with surgical debridement and IV, oral abx. [facility] Pertinent labs/tests: 07/17/14- CRP 47.3 ESR 29 Bone culture- no growth 07/17/14 pathology ?---Pathologic Diagnosis--- ?Bone and soft tissue, left heel, debridement: ? - Ulceration, granulation tissue and underlying bone with changes ?compatible with subacute to chronic osteomyelitis, see ?comment ROS: Negative for constitutional symptoms, reports occasional night sweats Appetite:good, denies n, v Pain: denies Wears heel offloading boot at all times when out of bed. Wheelchair bound PE: Pleasant, obese male .in NAD.In wheelchair. Accompanied by 2 guards No edema, erythema. insensate DP/PT pulses: ++ Dry tissue at previous ulcer site, absence of fat pad Treatment: Cleanse the area with normal saline and gauze. Removed loose tissue with forceps. Covered with Mepilex border dressing Assessment/Plan: Joni Ponce is a 30 y.o. male with history of chronic calcaneal osteomyelitis. The ulcer is fully healed and he is feeling well. We have discussed symptoms that would warrant his return: Re-opening of ulcer, erythema, drainage. Follow up: as needed Cc: Efe Calero MD [address] [place] [address] EFE CALERO MD documented in this encounter Plan of Treatment Not on file documented as of this encounter Visit Diagnoses Diagnosis Ulcer of heel and midfoot, unspecified laterality, limited to breakdown of skin documented in this encounter Care Teams Purchasing Agent Relationship Specialty Start Date End Date Efe Calero MD PCP - General 02/09/15 documented as of this encounter
--- OUTSIDE RECORDS SUMMARY | 2024-05-25 11:14 | XMS_ITS | Encounter Summary ---
Author Organization [facility] [place] [address] Care Team Providers Care Jumpbasting Lining Baster Name Role Phone Efe Pelletier MD Primary Care Provider Unav ailable Encounter Details Date Type Department Care Team (Late st Contact Info) Description 11/13/2014 Telephone [place] [phone] Louise Crum, OT [facility] PHYSICAL MEDICINE & [place] [address] Social History Tobacco Use Types Packs/Day Years [...] encounter Miscellaneous Notes * Telephone Encounter - Louise Crum, OT - 11/13/2014 9:16 AM EDT Received a phone call from the [facility]. He had questions about the protocol I had sent him regarding progression of splint use and AROM. 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 The PT seeing him does not fabricate splinst so would need to have him come back to see us to have this made. The next follow up appointment with Dr Abrams is not until February. Plan: I will contact Dr Abrams to request OT orders for hand based anti claw deformity splint post nerve repair/graft. Will then have our secretarial staff call and make an appointment with me to makethe splint. documented in this encounter Plan of Treatment Not on file documented as of this encounter Visit Diagnoses Not on filedocumented in this encounter Care Teams Jumpbasting Lining Baster Relationship Specialty Start Date End Date Efe Pelletier MD PCP - General 10/24/14 02/01/15 documented as of this encounter
--- OUTSIDE RECORDS SUMMARY | 2024-05-25 11:14 | XMS_ITS | Encounter Summary ---
Author Organization [facility] [place] [address] Care Team Providers Care Senior Production Planner Name Role Phone Efe Pelletier MD Primary Care Provider Unav ailable Encounter Details Date Type Department Care Team (Late st Contact Info) Description 08/15/2015 Orders [place] [address] Diaz Rangel, [facility] [place] [address] Social History Tobacco Use Types Packs/Day Years [...] on filedocumented in this encounter Care Teams Senior Production Planner Relationship Specialty Start Date End Date Efe Pelletier MD PCP - General 02/09/15 documented as of this encounter
--- OUTSIDE RECORDS SUMMARY | 2024-05-25 11:14 | XMS_ITS | Encounter Summary ---
Author Organization [facility] Address [facility] [place] [address] Care Team Providers Care Television News Video Editor Name Role Phone Prabhu De Souza MD, Gabo Primary Care Provider [phone] Encounter Details Date Type Department Care Team (Late st Contact Info) Description 08/30/2014 1:45 PM EST Office [place] [phone] Cecil Dean MD [facility] [place] [address] Ulnar neuropathy, right Discharge Disposition: Home Social History Tobacco Use [...] Sign Reading Time Taken Comments Blood Pressure 142/77 08/30/2014 1:35 PM EST Pulse 99 08/30/2014 1:35 PM EST Temperature - - Respiratory Rate - - Oxygen Saturation - - Inhaled Oxygen Concentration - - Weight 127 kg (280 lb) 08/30/2014 1:35 PM EST Height 188 cm (6' 2) 08/30/2014 1:35 PM EST Body Mass Index 35.95 08/30/2014 1:35 PM EST documented in this encounter Progress Notes * Ellie Matias MD - 08/30/2014 2:02 PM EST Joni Ponce referred for EDX studies by Sea Abrams MD [facility] [place] [address] to look for evidence of ulnar neuropathy. Report scanned into EDH. 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 Mild to moderate median neuropathy at the wrist. Gerry Matias DO Clinical Neurophysiology Fellow I participated in the EDX studies and agree with the report. documented in this encounter Plan of Treatment Not on file documented as of this encounter Visit Diagnoses Diagnosis Ulnar neuropathy, right documented in this encounter Care Teams Television News Video Editor Relationship Specialty Start Date End Date Gabo Pelletier MD [address] [address] PCP - General 07/11/14 10/23/14 documented as of this encounter
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
--- OUTSIDE RECORDS SUMMARY | 2024-05-25 11:14 | XMS_ITS | Encounter Summary ---
Author Organization [facility] [place] [address] Care Team Providers Care User Support Specialist Name Role Phone Prabhu De Souza MD, Gabo Primary Care Provider [phone] Encounter Details Date Type Department Care Team ([facility] st Contact Info) Description 10/12/2014 Telephone Plastic Surgery at [facility] [place] [phone] Swapnil White Social History Tobacco Use Types Packs/Day Years [...] encounter Miscellaneous Notes * Telephone Encounter - Swapnil White - 10/12/2014 10:08 AM EDT Called for a 3rd time finally reached Felisa - coordinator for [facility] (she stated she was out sick on Thursday and I was on her call-back list) . She requested that I fax over notes pertaining to the case to have her doctor review and she would call me back later today. documented in this encounter Plan of Treatment Not on file documented as of this encounter Visit Diagnoses Not on filedocumented in this encounter Care Teams User Support Specialist Relationship Specialty Start Date End Date Gabo Pelletier MD [address] [address] PCP - General 07/11/14 10/23/14 documented as of this encounter
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
--- OUTSIDE RECORDS SUMMARY | 2024-05-25 11:14 | XMS_ITS | Encounter Summary ---
Author Organization [facility] Address [facility] [place] [address] Care Team Providers Care Ammonia Print Operator Name Role Phone Efe Pelletier MD Primary Care Provider Unav ailable Reason for Visit * Reason Onset Date Comments Appointment 08/13/2015 Encounter Details Date Type Department Care Team (Late st Contact Info) Description 08/13/2015 Telephone [place] [id number] Diaz Rangel DPM [facility] [place] [address] Appointment Social History Tobacco Use Types Packs/Day Years [...] encounter Miscellaneous Notes * Telephone Encounter - Hattie Urbina - 08/31/2015 8:36 AM EST Not going forward with the MRI, patient having a repeat XR. [facility] * Telephone Encounter - Hattie Urbina - 08/29/2015 11:19 AM EST LM#5 to schedule MRI and lab work * Telephone Encounter - Hattie Urbina - 08/27/2015 9:43 AM EST LM#4 to schedule MRI, LAB - patient has been seen in wound care for follow up * Telephone Encounter - Gianfranco Steve - 08/22/2015 9:46 AM EST LM #3 to schedule * Telephone Encounter - Hattie Urbina - 08/20/2015 9:00 AM EST Spoke with the [facility], faxing over the list of MRI safety questions for them to go over with patient. They will contact back once complete to schedule MRI, labs, and follow up with Dr Rangel same day * Telephone Encounter - Marilu Flores - 08/15/2015 8:49 AM EST LM# 2 to coordinate MRI, Labs and follow up with Dr. Rangel later this week or early next week. * Telephone Encounter - Hattie Urbina - 08/13/2015 1:35 PM EST LM#1 to coordinate MRI, labs, and follow up with Dr Rangel later this week or early next week. documented in this encounter Plan of Treatment Not on file documented as of this encounter Visit Diagnoses Not on filedocumented in this encounter Care Teams Ammonia Print Operator Relationship Specialty Start Date End Date Efe Pelletier MD PCP - General 02/09/15 documented as of this encounter
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
--- OUTSIDE RECORDS SUMMARY | 2024-05-25 11:14 | XMS_ITS | Encounter Summary ---
Author Organization [facility] [place] [address] Care Team Providers Care Labor Relations Consultant Name Role Phone Prabhu De Souza MD, Gabo Primary Care Provider [phone] Encounter Details Date Type Department Care Team (Late st Contact Info) Description 10/11/2014 1:00 PM EDT [place] [address] Diaz Rangel DPM [facility] [place] [address] Bone infection of left foot (Primary Dx); [...] as of this encounter Progress Notes * Diaz Rangel DPM - 10/12/2014 11:39 AM EDT Soft patient in conjunction with Alma Pandya APRN - see note for wound details. In brief, Joni Ponce is a 29 y.o. year old incarcerated male who presents today for follow up of left heel ulceration with calcaneal osteomyelitis. Plan is for patient to discuss treatment options with orthopedic surgeon. He has no pain to the left foot. [facility] presents with an offloading boot. ROS: Denies F/C/N/V/CP/SOB/cough. Bone biopsy results: Pathology: Ulceration, granulation tissue and underlying bone with changes compatible with subacuteto chronic osteomyelitis. Micro: Rare S. aureus, MSSA. S to cefazolin. Assessment/Plan: Joni Ponce is a 29 y.o. year old incarcerated male who presents today for follow up of left heel ulceration and calcaneal osteomyelitis. The ulceration to the left heel continuesto have nonviable base and probe to bone. Patient to have heels offloaded at all times. Will continue with local wound care of [employer] packed into left heel ulcer followed by dry dressing to be changed daily for now until patient can be seen by orthopedic surgeon for possible surgical intervention (amputation). Will work on coordinating this. documented in this encounter Plan of Treatment Not on file documented as of this encounter Visit Diagnoses Diagnosis Bone infection of left foot- Primary Unspecified infection of bone, ankle and foot Ulcer of heel and midfoot, left, with necrosis of bone documented in this encounter Care Teams Labor Relations Consultant Relationship Specialty Start Date End Date Gabo Pelletier MD [address] [address] PCP - General 07/11/14 10/23/14 documented as of this encounter
--- OUTSIDE RECORDS SUMMARY | 2024-05-25 11:14 | XMS_ITS | Encounter Summary ---
Author Organization [facility] [place] [address] Care Team Providers Care Microsoft Dynamics Manager Architect Name Role Phone Prabhu De Souza MD, Gabo Primary Care Provider [phone] Encounter Details Date Type Department Care Team (Late st Contact Info) Description 08/31/2014 External [place] [address] Cecil Dean MD [facility] [place] [place] [address] Social History Tobacco Use Types Packs/Day Years [...] Procedure Name Priority Date/Time Associated Diagnosis Comments EMG SCAN Routine 08/30/2014 documented in this encounter Results * Scan Doc: EMG (08/30/2014) Cecil Dean MD MEDIA MGR SCAN EXT O RDR/RSLT documented in this encounter Visit Diagnoses Not on filedocumented in this encounter Care Teams [employer] Dynamics Manager Architect Relationship Specialty Start Date End Date Gabo Pelletier MD [address] [address] PCP - General 07/11/14 10/23/14 documented as of this encounter
--- OUTSIDE RECORDS SUMMARY | 2024-05-25 11:14 | XMS_ITS | Encounter Summary ---
Author Organization [facility] Address [facility] [place] [address] Care Team Providers Care Food Processing Chemist Name Role Phone Prabhu De Souza MD, Gabo Primary Care Provider Reason for Visit * Reason Comments Dressing Change Left heel Encounter Details Date Type Department Care Team (Late st Contact Info) Description 09/26/2014 2:00 PM EDT [place] [address] Diaz Rangel DPM [facility] [place] [address] Ulcer of heel and midfoot, left, with necrosis of bone (Primary Dx); Bone infection of left foot; Ingrowing nail Discharge Disposition: Home Social History [...] Sign Reading Time Taken Comments Blood Pressure 123/59 09/26/2014 2:36 PM EDT Pulse 94 09/26/2014 2:36 PM EDT Temperature 36.8 ??C (98.2 ??F) 09/26/2014 2:36 PM ED T Respiratory Rate 20 09/26/2014 2:36 PM EDT Oxygen Saturation 99% 09/26/2014 2:36 PM EDT Inhaled Oxygen Concentration - - Weight - - Height - - Body Mass Index - - documented in this encounter Patient Instructions * Patient Instructions* Diaz Rangel DPM - 09/28/2014 9:24 AM EDT Continue with current wound care of Aquacel Ag to left heel followed by dry sterile dressing to be changed daily. Continue with oral antibiotics per Dr. Pelletier. Ok to dress left great toe with antibiotic ointment and bandaid. Continue offloading heels at all times. Facility to order new heel offloading boots. documented in this encounter Progress Notes * Diaz Rangel DPM - 09/28/2014 9:25 AM EDT Outpatient Podiatry Clinic Note Name: Joni Ponce Age:29 y.o. MR#: [id number] Date of Service: 09/26/2014 Chief Complaint: Follow up left heel ulceration, again with new left great ingrown toenail, medial border HPI: Joni Ponce is a 29 y.o. year old incarcerated male who presents today for follow up of left heel ulceration and also has an ingrowing left great toenail on the opposite side compared to lasttime. Patient was last seen here in the wound center on 07/31/14 for further wound care and management of his calcaneal osteomyelitis. Reports from the facility where that the patient was placing himself at risk of infection and a safety concern removing caps off his PICC line. I discussed the case with Ruddy at the facility as well as a nurse practitioner in the wound center here and with infectious disease regarding changes to antibiotic therapy. Patient was placed on Levaquin 750 mg for 6 weeks due to PICC line removal. Patient did have a few followup appointments with me here in the wound center that reportedly he refused to attend. It is now approximately 2 months after the last appointment that I am again seeing Mr. Ponce. Patient states he believes he is still taking the antibiotic, there are no reports/med list for me to confirm whether he is still taking the antibiotic. Again it is approximately 2 months after my last appointment with Mr. Ponce (the original prescriptionwould've been for 6 weeks of oral Levaquin). Patient states that he occasionally picks at his toenails and skin and has noticed some redness anddrainage from around the nail. He believes the nail great toenail started draining and crusting over after he picked at the corner of it. He has no pain to the left foot. He presents today with 2 guards from the facility. Patient states he still has not received new offloading boots for his heels. ROS: Denies F/C/N/V/CP/SOB/cough. Patient's medications, allergies, past medical, surgical, social and family histories were reviewedand updated as appropriate. Physical Exam: Vitals: Blood pressure 123/59, pulse 94, temperature 36.8 ??C (98.2 ??F), temperature source Oral, resp. rate 20, SpO2 99 %. Gen: WD, alert, oriented. NAD. Sitting in wheelchair with handcuffs on. Derm: Medial border left hallux nail only slightly incurvated. Serous drainage and crust present tomedial border. Minimal erythema noted and small amount of purulence expressed from proximal nail fold. After nail avulsion (see procedure below), no additional drainage encountered. No pain due to spinal cord injury. Ulceration to plantar left heel - wound 1. Wound 1 Size: 4.2cm x 3.8cm x 3.5cm Location: plantar left heel Base: mostly lainez, devitalized granulation tissue, calcaneus at base Probing: to calcaneus Undermining: None Drainage: none Periwound: minimal erythema, maceration present Malodor: ++ Vasc: DP/PT pulses palpable. CFT < 3 seconds digits 1-5 bilateral. Hair present to digits bilateral. Neuro: Epicritic sensation absent to light touch bilateral. Protective sensation absent to digits with [place]-Kodi 5.07/10g monofilament. MSK: No gross deformities noted. Muscle strength 0/5 all groups bilateral. Bone biopsy results: Pathology: Ulceration, granulation tissue and underlying bone with changes compatible with subacuteto chronic osteomyelitis. Micro: Rare S. aureus, MSSA. S to cefazolin. Assessment/Plan: Joni Ponce is a 29 y.o. year old incarcerated male who presents today for follow up of left heel ulceration and calcaneal osteomyelitis, wound care and for further evaluation andtreatment of left great ingrowing toenail. The ulceration to the left heel does appear somewhat smaller in size however the base of the ulcer is much more devitalized and has some malodor. I debrideda great deal of the devitalized tissue and macerated periwound border, see procedure below. Will continue with local wound care of Aquacel Ag packed into left heel ulcer followed by dry dressing to be changed daily for now. Unclear at this time as to whether patient is still receiving any antimicrobial therapy for his calcaneal osteomyelitis as it has been 8 weeks since the last time I saw him and prior recommendations were for 6 weeks of oral Levaquin 750 mg per day. Patient to have heels offloaded at all times. Discussed need for removal of offending nail border to relieve issues with greattoe. Patient amenable to nail procedure today, see procedure note below. Left great toe to be dressed with antibiotic ointment and bandaid daily. Patient will followup in one week for further wound care and discussion on future treatment options. Procedure: Performed debridement of ulcer x 1 left foot of non-viable and devitalized tissue down to and including subcutaneous tissue to reveal healthier bleeding base with tissue nipper. Joni Ponce was appropriately identified, allergies reviewed and confirmed prior to procedure and the appropriate toe and nail border(s) identified. Joni Ponce has elected to have a partial temporary nail avulsion of the left hallux medial nailborder. No anesthesia required due to patient's history of spinal cord injury. The affected digit was prepped with betadine solution. A curette was used to free the affected nail border from under- and overlying soft tissue from distal to proximal under the eponychium. Next, an [place] anvil was used to split the affected 1/4 of the nail longitudinally from distal to proximal under the eponychium. A straight hemostat was used to grasp the offending nail border, which was removed from the nail fold. A curette was used to ensure the entire offending border was removed and no nail spicule was left behind. Bacitracin ointment was applied, and a dry, sterile bulky compression dressing was applied. Joni Ponce was instructed and the facility was given orders on proper care of the toe. He is toremove the dressing after about 24 hours. He may shower/bathe/soak the toe in warm, soapy water andremove any crusting material present in the nail fold and can dress the area with an antibiotic ointment and Bandaid daily. Joni Ponce will RTC in 7-10 days for a nail check. documented in this encounter Plan of Treatment Not on file documented as of this encounter Visit Diagnoses Diagnosis Ulcer of heel and midfoot, left, with necrosis of bone- Primary Bone infection of left foot Unspecified infection of bone, ankle and foot Ingrowing nail documented in this encounter Care Teams Food Processing Chemist Relationship Specialty Start Date End [place] [address] PCP - General 07/11/14 10/23/14 documented as of this encounter
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
--- OUTSIDE RECORDS SUMMARY | 2024-05-25 11:14 | XMS_ITS | Encounter Summary ---
Author Organization [facility] [place] [address] Care Team Providers Care It Risk Advisor Name Role Phone Prabhu De Souza MD, Gabo Primary Care Provider [phone] Encounter Details Date Type Department Care Team (Late st Contact Info) Description 08/16/2014 [place] [id number] Diaz Rangel DPM [facility] [place] [address] Social History Tobacco Use Types Packs/Day Years [...] Telephone Encounter - Diaz Rangel DPM - 08/16/2014 5:36 PM EST Discussed Joni Ponce's care with Ruddy at facility. Patient playing and taking caps off PICC line presents patient safety and infection control issue. Facility wondering about potential for change in antibiotics and removal of PICC line. Patient currently refusing to attend wound center appointments but is not refusing IV antibiotics at this time. Discussed with Ruddy that standard of care for infection of bone is 6-8 weeks of IV antibiotics. Discussed case with Alma Pandya APRN and infectious disease re: possible PO antibiotic. Recommendation was levofloxacin 750mg PO daily x 6 weeks. Have also faxed documentation re: length of PICC line (46cm) for verification at time of removal. Joni Ponce to follow up in 1 week for wound care left heel. documented in this encounter Plan of Treatment Not on file documented as of this encounter Visit Diagnoses Not on filedocumented in this encounter Care Teams It Risk Advisor Relationship Specialty Start Date End [place] [address] PCP - General 07/11/14 10/23/14 documented as of this encounter
--- OUTSIDE RECORDS SUMMARY | 2024-05-25 11:14 | XMS_ITS | Encounter Summary ---
Author Organization [facility] [place] [address] Care Team Providers Care Finishing Machine Operator Name Role Phone Efe Pelletier MD Primary Care Provider Unav ailable Reason for Visit * Reason Comments Dressing Change heel ulcer Encounter Details Date Type Department Care Team (Late st Contact Info) Description 08/23/2015 11:00 AM EST Office [place] [address] Susanna Pritchett RN Ingrowing nail; Ulcer of heel and midfoot, unspecified laterality, with unspecified severity Social History Tobacco Use [...] Sign Reading Time Taken Comments Blood Pressure 128/83 08/23/2015 11:11 AM EST Pulse 101 08/23/2015 11:11 AM EST Temperature 36.6 ??C (97.9 ??F) 08/23/2015 11:[address] Respiratory Rate 16 08/23/2015 11:11 AM EST Oxygen Saturation 99% 08/23/2015 11:11 AM EST Inhaled Oxygen Concentration - - Weight - - Height - - Body Mass Index - - documented in this encounter Patient Instructions * Patient Instructions* Susanna Aragon RN - 08/23/2015 11:33 AM EST Ok to stop soaking the left hallux Continue with bacitracin and a band aid daily for an additional week Cleanse area with normal saline, remove any dried exudate or crusting with gauze Apply bacitracin and a band aid Mepilex border dressing to left heel Change every 3 days and as needed We applied silver nitrate to the area today. There may be black/marroquin discoloration on the dressing due to the silver nitrate application. documented in this encounter Progress Notes * Susanna Aragon RN - 08/23/2015 11:07 AM EST Images from the original note were not included. [facility] Progress Note HPI: Cirilo Ponce is a 30 y.o. male referred by Dr. Diaz Rangel DPM for follow up assessment of left hallux. He is s/p temporary?? partial nail avulsion of the medial and lateral nail border of the left Hallux on 08/10/15. He is also returning for follow up assessment of left plantar heel pressure ulcer. He reports labs were drawn at the long-term and he has done the MRI questionnaire. SUBJECTIVE: Offers no complaints [facility] staff have been changing mepilex border dressing to heel daily, soaking left toe and applying abx ointment and a band aid daily Denies fever/chills/sweats Awaiting MRI PE: Alert, in NAD. Arrives via wheelchair, accompanied by 2 long-term guards Band aid removed from left hallux, there is no erythema. Small amount of crusted drainage along both borders. Mepilex border dressing removed from left heel, no drainage. No surrounding erythema, callus present to luciano wound with small area of dark maroon center Treatment Analgesia provided: None, patient insensate Dried crusted exudate removed from bilateral left nail borders. Site cleansed w/NS. Bacitracin and a band aid applied. Left heel wound callus was debrided, revealing a continued small wound. Old maroon colored blood drained from the area with debridement, followed by active bleeding. Wound measures 0.1 cm X 0.5 cm X 0.1 cm. Does not probe deeply, appears to have a thin layer of tissue granulated over the bone. Wound bed is pink and moist. Bleeding treated with silver nitrate. Wound cleansed with NS. Mepilex border 4x4 dressing applied. Pain Reassessment (0-10): 0/10 Left heel Left hallux Assessment/Plan: Cirilo Ponce is a 30 y.o. incarcerated male with history of paraplegia and stageIV left heel pressure ulcer w/history of osteomyelitis. Left hallux is healing well, continue with plan as outlined below. Left plantar heel with small open wound remaining at this time. He is awaiting MRI to assess for continued osteomyelitis. Reviewed labs obtained at long-term on 08/15/15: CRP 0.7 ESR 35 Last set of labs: Results for CIRILO PONCE ( ) as of 08/23/2015 15:55 Ref. Range 06/30/2014 11:50 07/17/2014 10:06 Sed Rate Latest Ref Range: 0-15 mm/hr 30 (H) 29 (H) Results for CIRILO PONCE ( ) as of 08/23/2015 15:55 Ref. Range 12/29/2013 03:14 06/30/2014 11:50 07/17/2014 10:06 CRP High Sens Latest Units: mg/L 53.4 39.3 47.3 Follow Up: 2-3 weeks (difficult to get to weekly appts, wound is stable) Patient was given written instructions on wound care to the guard for the staff at the long-term. Ok to stop soaking the left hallux Continue with bacitracin and a band aid daily for an additional week Cleanse area with normal saline, remove any dried exudate or crusting with gauze Apply bacitracin and a band aid Mepilex border dressing to left heel Change every 3 days and as needed We applied silver nitrate to the area today. There may be black/marroquin discoloration on the dressing due to the silver nitrate application. documented in this encounter Plan of Treatment Not on file documented as of this encounter Visit Diagnoses Diagnosis Ingrowing nail Ulcer of heel and midfoot, unspecified laterality, with unspecified severity documented in this encounter Care Teams Finishing Machine Operator Relationship Specialty Start Date End Date Efe Pelletier MD PCP - General 02/09/15 documented as of this encounter
--- OUTSIDE RECORDS SUMMARY | 2024-05-25 11:14 | XMS_ITS | Encounter Summary ---
Author Organization [facility] Address [facility] [place] [address] Care Team Providers Care Product Manager E Commerce Name Role Phone Efe Pelletier MD Primary Care Provider Unav ailable Reason for Visit * Auth/Cert Specialty Diagnoses / Procedures Referred By Bharath t Referred To Contact Diagnoses ulnar nerve palsy Procedures PRO FINGER TENDON TRANSFER, 4-5 FINGRS TRANSFER TENDON TO RESTORE INSTRINSIC FUNCTION, RING & SMALL FINGER Referral ID Status Reason Start Date Expiration Date Visits Re quested Visits Authorized [id number] 1 1 Encounter Details Date Type Department Care Team (Late st Contact Info) Description 12/28/2015 8:30 AM EDT - 12/28/2015 10:29 AM EDT Surgery [place] [address] Julio Bedolla MD [facility] [place] [address] TRANSFER TENDON TO RESTORE INSTRINSIC FUNCTION, RING & SMALL FINGER (WRVU 9.76) Social History Tobacco Use Types Packs/Day Years [...] Reading Time Taken Comments Blood Pressure 127/62 12/28/2015 8:03 AM EDT Pulse 97 12/28/2015 8:03 AM EDT Temperature 36.8 ??C (98.2 ??F) 12/28/2015 8 :03 AM EDT Respiratory Rate 18 12/28/2015 8:03 AM EDT Oxygen Saturation 97% 12/28/2015 8:0 3 AM EDT Inhaled Oxygen Concentration - - [...] about scheduling, please contact our administrative officesat [phone] For clinical questions, please call our nurses at [phone] Both offices are open Thursday thru Thursday 8a - 5p. With emergencies after hours, call the hospital tractor sweeper operator at [phone] and ask for the Plastic Surgery Resident customer service professional. documented in this encounter Medications at Time [...] Operative Note Patient Name: Joni Ponce : [id number] MR#: [id number] Case Date: 12/28/2015 Surgeon: Surgeon(s) and Role: [...] team members agreed to proceed according to [facility] [place]. The procedure was begun by making [...] Hedrick MD - 12/28/2015 5:22 PM EDT [facility] Oper[place] Note Patient Name: Joni Ponce : [id number] MR#: [id number] Case Date: 12/28/2015 Surgeon: Surgeon(s) and Role: [...] team members agreed to proceed according to [facility] protocol. The procedure was begun by making [...] Operative Note Patient Name: Joni Ponce : [id number] MR#: [id number] Case Date: 12/28/2015 Surgeon: Surgeon(s) and Role: [...] Date Dose Rate Site BUpivacaine (PF) (MARCAINE) 0.5 % (5 mg/mL) injection ONCE PRN, Starting on Thu12/28/15 at 1237, Until Thu12/28/15 at 1746, Intra-Operative (Intra-Procedure), Routine Given 12/28/2015 12:37 PM EDT 20 mLs 19- Surgical Site fentaNYL (PF) 50 mcg/mL 2mL syringe [...] Recovery documented in this encounter Care Teams Product Manager E Commerce Relationship Specialty Start Date End Date Efe Pelletier MD PCP - General 02/09/15 documented as of this encounter
--- OUTSIDE RECORDS SUMMARY | 2024-05-25 11:14 | XMS_ITS | Encounter Summary ---
Author Organization [facility] Address [facility] [place] [address] Care Team Providers Care Clinical Assistant Name Role Phone Efe Pelletier MD Primary Care Provider Unav ailable Reason for Visit * Reason Comments Follow Up Surgery 3 month f/u s/p righ t ulnar nerve graft Encounter Details Date Type Department Care Team (Late st Contact Info) Description 02/26/2015 3:15 PM EDT [place] [address] Sea Abrams MD [facility] [place] [address] Ulnar nerve injury, right, subsequent encounter Discharge [...] Progress Notes * Sea Abrams MD - 02/26/2015 3:38 PM EDT Plastic Surgery Follow Up Note CC:: Right ulnar nerve repair HPI: Patient arrives today accompanied by two guards from the [facility] where he is presently an inmate.Mr. Ponce reports it has been hard for him to keep his weight down and is aware that he is at risk for pressure sores. He checks his buttocks regularly. He also reports that [facility] is being [facility] from [facility] in the near future and will be moving in with his Mother. Examination: Patient is alert, conversant, comfortable Sensation on ulnar aspect of right hand to the mid portion of the hand with a tinels Unable to make a complete fist PIPJ, MCP joints supple-full ROM Impression: Joni Ponce is a 29 y.o. male who was seen today for follow-up. We discussed the importance of watching his diet and calorie intake as he is at high risk for chronic pressure sores. I advised him that we will continue to floow his recovery but it is likely he will need tendon transfers. Plan: 1. Follow up: [address] Abrams 2. Schedule follow up with Dr. Diaz Rangel I , Louise Snyder am acting as [...] encounter documented in this encounter Care Teams Clinical Assistant Relationship Specialty Start Date End Date Efe Pelletier MD PCP - General 02/09/15 documented as of this encounter
--- OUTSIDE RECORDS SUMMARY | 2024-05-25 11:14 | XMS_ITS | Encounter Summary ---
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 [address] [place] [address] Referral ID Status Reason Start Date Expiration Date V isits Requested Visits Authorized [id number] Evaluate and Treat 02/04/2016 02/03/2017 1 1 Encounter Details Date Type Department Care Team (Late st Contact Info) Description 02/04/2016 2:30 PM EDT Office Visit Occupational Therapy at 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 Chioma [...] guards. Patient is an inmate at the [facility]. CURRENT SYMPTOMS: Patient presents with stiffness and limited mobility/range of motion. He has fully healing surgical incisions but they remain tight and his PIP joints rest in flexion contractures of his long, ring, and small fingers. He reports his hand is in a better position than it was prior to surgery. He is seen by his MD today and the protective splint was discharged today. PAIN: (Assessed using the visual analog scale) [...] 4.0cm Small Finger 10/70 45/70 0/10 3.5cm STRENGTH: Maid Housekeeper Testing with Dynamometer setting #2 Pinch Testing with Pinch Gauge TREATMENT TODAY: Evaluation today at 5 weeks s/p tendon transfer: splint is d/c'ed today. Ready to progress with active and passive mobility of his digits: particularly PIP joint extension - passive and actively Educated patient in etiology and biomechanics as related to patient's symptoms Instructed patient in: joint protection strategies, proper posture and positioning and scar tissue mobilization and desensitization Range of Motion Exercises: of his wrist and digits every 3hours/day See scanned document for home program exercises Issued pink sponge for grasping To discuss with correction facility regarding therapy care. Reports they have an in-house physical therapist but may also benefit from hand therapy every 2-3 weeks ; if weekly care can be provided ASSESSMENT: Joni Ponce presents today with functional limitations due to limited active grasp of his right hand. 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 Joni Ponce is able todemonstrate home exercises with written instructions provided. Joni Ponce has fair potential for gains with therapy with identified needs for skilled therapy for treatment of deficits noted during evaluation today, to maximize functional performance during daily activities. Nursing Home Goals (to be met by discharge): [...] The patient would benefit from skill therapy 2-3x/week for next 4 weeks. To determine whethertherapy services can be offered on-site or transportation to [facility] will be available. (X) Joni Ponce participated in the evaluation, collaborated on treatment goals, and agrees to the treatment plan . 

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
--- OUTSIDE RECORDS SUMMARY | 2024-05-25 11:14 | XMS_ITS | Encounter Summary ---
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, unspecified laterality, subsequent encounter Julio Mcqueen MD [facility] [place] [address] [facility] [address] [place] [address] Referral ID Status Reason Start Date Expiration Date V isits Requested Visits Authorized [id number] Evaluate and Treat 02/04/2016 02/03/2017 1 1 Reason for Visit * Reason Comments Follow Up Surgery f/u tendon release Encounter Details Date Type Department Care Team (Late st Contact Info) Description 02/04/2016 1:30 PM EDT Office [place] [address] Julio Mcqueen MD [facility] [place] [address] 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 He reports he has been well, he feels his fingers are improving. Examination: Patient is alert, conversant, comfortable Incisions: CDI, healing well. No collection, no erythema, no evidence of cellulitis. Good ROM Still hyperextension of ring and little fingers Hyperextension not evident with wrist extension Good sensation with decresead little and ulnar side of ring finger 3/5 abduction of fingers Wasting flexor digitorum of FDI 3/5 strength of FDI Lacks adduction of thumb to index finger Impression: Joni Ponce is a 30 y.o. male who was seen today for follow-up after the above procedure. Please see the operative note for details. He will benefit from therapy to increase his ROM. We discussed that after some healing time he may benefit from fat grafting into the areas of hypertrophy. Plan: 1. Follow up: 1 month. My office to call the [facility] to set up. 2. May discontinue splint 3. Referral placed to hand therapy for ROM. I, Sienna Verdin, am acting as scribe for Dr. Mcqueen. All work documented was performed by Dr. Mcqueen. ???I performed the above scribed service [...] encounter documented in this encounter Care Teams Foundry Molder Relationship Specialty Start Date End Date Efe Pelletier MD PCP - General 02/09/15 documented as of this encounter
--- OUTSIDE RECORDS SUMMARY | 2024-05-25 11:14 | XMS_ITS | Encounter Summary ---
Author Organization [facility] [place] [address] Care Team Providers Care Manager Of Network Name Role Phone Prabhu De Souza MD, Gabo Primary Care Provider [phone] Encounter Details Date Type Department Care Team (Late st Contact Info) Description 10/09/2014 Telephone [place] [phone] Swapnil White Social History Tobacco Use Types [...] * Telephone Encounter - Swapnil White - 10/09/2014 1:26 PM EDT Left message on phone number listed to get surgery scheduled for patient. 2nd message left (first message left on 10/05) documented in this encounter Plan of Treatment Not on file documented as of this encounter Visit Diagnoses Not on filedocumented in this encounter Care Teams Manager Of Network Relationship Specialty Start Date End Date Gabo Pelletier MD [address] [address] PCP - General 07/11/14 10/23/14 documented as of this encounter
--- OUTSIDE RECORDS SUMMARY | 2024-05-25 11:14 | XMS_ITS | Encounter Summary ---
Author Organization [facility] [place] [address] Care Team Providers Care Photograph Finisher Name Role Phone Efe Pelletier MD Primary Care Provider Unav ailable Reason for Visit * Reason Onset Date Comments Appointment 03/07/2015 Left msg for Felisa Castano medical coordinator to call and schedule a follow up appointment coordinated with Ortho. Msgs left on 02/27 03/02 (spoke with her on this date, she had closed her computer and was leaving the office) 03/06 and 03/07 letter sent from ED Encounter Details Date Type Department Care Team (Late st Contact Info) Description 03/07/2015 Telephone [place] [phone] Crystal Garcia Appointment (Left msg for Felisa Castano medical coordinator to call and schedule a follow up appointment coordinated with Ortho. Msgs left on 02/27 03/02 (spoke with her on this date, she had closed her computer and was leaving the office) 03/06 and 03/07 letter sent from ED) Social History Tobacco Use Types Packs/Day Years [...] encounter Miscellaneous Notes * Telephone Encounter - Crystal Garcia - 03/07/2015 3:39 PM EDT Trying to schedule a followup Multiple msgs left for Felisa Castano... Sent letter from [facility] documented in this encounter Plan of Treatment Not on file documented as of this encounter Visit Diagnoses Not on filedocumented in this encounter Care Teams Photograph Finisher Relationship Specialty Start Date End Date Efe Pelletier MD PCP - General 02/09/15 documented as of this encounter
--- OUTSIDE RECORDS SUMMARY | 2024-05-25 11:14 | XMS_ITS | Encounter Summary ---
Author Organization [facility] [place] [address] Care Team Providers Care Locomotive Electrician Name Role Phone Efe Pelletier MD Primary Care Provider Unav ailable Encounter Details Date Type Department Care Team (Late st Contact Info) Description 10/25/2014 8:00 AM EDT Procedure [place] [phone] Social History Tobacco Use Types Packs/Day Years [...] on filedocumented in this encounter Care Teams Locomotive Electrician Relationship Specialty Start Date End Date Efe Pelletier MD PCP - General 10/24/14 02/01/15 documented as of this encounter
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
--- OUTSIDE RECORDS SUMMARY | 2024-05-25 11:15 | XMS_ITS | Encounter Summary ---
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 debridement: ?- Ulceration, granulation tissue and underlying bone with changes ? compatible with subacute to chronic osteomyelitis, see ? comment ? 07/20/14 ? KDL ? 07/20/14 Verified by: ? Kaiden HAYNES, Angel Luis Briceño ? Dermatopathologist , Bone & Soft Tissue ? Pathologist ? (Electronic Signature) ? The attending pathologist whose signature appears on this report has ? reviewed all diagnostic slides and has edited the gross and/or ? microscopic portion of the report in rendering the final pathologic ? diagnosis. ? ---Comment--- ? Correlation with microbiological studies is recommended. ? ---Gross Description--- ? A - Labeled/Fixative: Left heel necrotic tissue, rule out osteomyelitis, ? fresh. ? Quantity/Size: Fragments, collectively 2.2 x 1.5 x 0.6 cm. ? Tissue Description: Portions of hemorrhagic, red-ramos soft tissue and ? minimal fragments of bone. ? Sections/Processin g:Blocks submitted for decalcification: ??(A1). ??(T1) ??ejr ? ---Clinical Information--- ? Specimen Submitted: ? A - Left heel necrotic tissue, r/o osteomyelitis ? Clinical History: ? Left heel osteomyelitis ? Clinical Diagnosis: ? Same 07/20/2014 4:38 PM EST [facility] SOFT TISSUE MASS / Unknown 07/17/2014 1:23 PM EST 07/17/2014 1:23 PM EST Froilan Bernard MD PATHOLOGY/CYTOLOGY ORDERABLES Performing Organization Address City/[facility] Co de Phone Number XOCHITL JULIUSTIGISTAV [facility] [place] [place] [address] * Specimen to Pathology (surgical or derm) (07/17/2014 1:23 PM EST) AP Specimen 07/17/2014 1:23 PM EST 07/17/2014 1:23 PM EST Narrative XOCHITL JULIUSTIGISTIUM - 07/17/2014 1:23 PM EST Specimen requisition ordered. ??Separate Pathology report to follow Froilan Bernard MD PATHOLOGY/CYTOLOGY ORDERABLES Performing Organization Address [facility] Phone Number XOCHITL WHITAKER * Protein, total (07/17/2014 10:06 AM EST) Protein, Total 7.6 6.4 - 8.3 gm/dL MARBINHELENA WHITAKER Blood specimen (specimen) 07/17/2014 10:06 AM EST 07/17/2014 10:17 AM EST Narrative Resulting Agency Comment Spec In Lab Dyane E Delray DPM CHEMISTRY ORDERABLES Performing Organization Address [facility] de Phone Number XOCHITL SHELBYIUM * Albumin Level (07/17/2014 10:06 AM EST) Albumin 3.9 3.2 - 5.2 gm/dL XOCHITL JULIANNE Blood specimen (specimen) 07/17/2014 10:06 AM EST 07/17/2014 10:17 AM EST Narrative Resulting Agency Comment Spec In Lab Dyane E Delray DPM CHEMISTRY ORDERABLES Performing Organization Address [facility] Co de Phone Number XOCHITL SHELBYIUM * Prothrombin Time (07/17/2014 10:06 AM EST) Prothrombin Time 14.2 12.5 - 15.5 sec [facility] Comment: [facility] Transfusion Committee Guidelines: INR less than 2.0, PTT less than OR equal to 43.5 seconds, or Fibrinogen greater than or equal to 100 mg/dl indicate adequate procoagulant activity for hemostasis in patients without underlying bleeding disorders. International Normalization Ratio 1.0 0.9 - 1.1 [facility] Blood specimen (specimen) 07/17/2014 10:06 AM EST 07/17/2014 10:17 AM EST Narrative Resulting Agency Comment Spec In Lab [facility] [employer] [facility] HEMATOLOGY ORDERABLE S Performing Organization Address [facility] Phone Number [facility] * (ABNORMAL) Sedimentation rate (07/17/2014 10:06 AM EST) Sedimentation Rate Automated 29(H) 0 - 15 mm/hr [facility] Blood specimen (specimen) 07/17/2014 10:06 AM EST 07/17/2014 10:17 AM EST Narrative Resulting Agency Comment Spec In Lab [facility] HEMATOLOGY ORDERABLE S Performing Organization Address [facility] Phone Number [facility] * High Sensitivity CRP (07/17/2014 10:06 AM EST) C-Reactive Protein High Sensitivity 47.3 mg/L [facility] Comment: Interpretations: 1) For accurate cardiac risk assessment, the average of 2 values >2 weeks apart should be obtained (ref 1&2). A value >10 mg/L indicates an inflammatory condition, concentrations >10 mg/L should not be used for cardiac risk assessment. ?<1.0 mg/L: low risk ?1.0 - 3.0 mg/L: moderate risk ?>3.0 mg/L: high risk groups for future cardiovascular events 2) The general reference range of apparently healthy individuals using this test is <5.0 mg/L (derived from the test package insert) References: 1. Jose Antonio JEAN et. al. ??AHA/CDC Scientific Statement: Markers of Inflammation and Cardiovascular Disease. ??Circulation 2003; 107:499-511 2. Quique PM. ??Clinical applications of C-reactive protein for cardiovascular disease detection and prevention. ??Circulation 2003; 107:363-369 Blood specimen (specimen) 07/17/2014 10:06 AM EST 07/17/2014 10:17 AM EST Narrative Resulting Agency Comment Spec In Lab Popeyedeven Rangel DPLilia CHEMISTRY ORDERABLES CERNER MILLENNIUM * (ABNORMAL) Basic Metabolic Panel (non-fasting) (07/17/2014 10:06 AM EST) Glucose 99 60 - 199 mg/dL [facility] MILLENNIUM Comment:Diabetes: >=200 mg/d L plus symptoms Blood Urea Nitrogen 9(L) 10 - 20 mg/dL CERNER MILLENNIUM Creatinine 0.63(L) 0.80 - 1.50 mg/dL [facility]ERN[facility] MILLENNIUM Comment: Please note that the pediatric reference intervals supplied above were not validated at [facility] [place]. Results from pediatric patients should be interpreted in conjunction to the patient's age, height and muscle mass. Sodium 139 135 - 145 mmol/L CERNER MILLENNIUM Potassium 4.7 3.5 - 5.0 mmol/L [facility]ERN[facility] MILLENNIUM Comment: Please note: ??Patients with WBC >100,000 may have falsely elevated Potassium levels. ??For accurate Potassium quantification in these patients send serum separator tube (gold top) for subsequent determinations. ??Contact the Clinical Chemistry Laboratory if there are any questions. Chloride 96(L) 98 - 107 mmol/L CERNER MILLENNIUM Carbon Dioxide 32(H) 22 - 31 mmol/L CERNER MILLENNIUM Anion Gap 11 5 - 15 mmol/L CERNER MILLENNIUM Calcium 9.8 8.5 - 10.5 mg/dL CERNER MILLENNIUM Est Glomerular Filtration Rate >60 >=60 [facility]ERN[facility] MILLENNIUM Comment: This estimated GFR (eGFR) value was calculated using the MDRD equation which has been validated on patients between the ages of 18 and 70. The MDRD should not be used to assess kidney function in patients < 18 years of age or in patients with extremes of body mass, or in patients with acute kidney failure. This value should be multiplied by 1.2 for patients. For further information please copy and paste the following links into your internet browser. [email or web address] Blood specimen (specimen) 07/17/2014 10:06 AM EST 07/17/2014 10:17 AM EST Narrative Resulting Agency Comment Spec In Lab Diaz Rangel DPLilia CHEMISTRY ORDERABLES XOCHITL MADRIDPhurnace SoftwareFORMERLY [facility] documented in this encounter Visit Diagnoses Not on filedocumented in this encounter Administered Medications Inactive Administered Medications - up to 3 most recent administrations Medication Order MAR Action Action Date Dose Rate Site vancomycin 1 g in dextrose 5% 200 mL 1,000 mg (1 g), Intravenous, ONCE, 1 dose, On Thu07/17/14 at 1400, Maximum infusion rate is 1 gram/hour. If flushing of the face, neck, upper body, arms, and/or back occurs decrease infusion rate by 50% to reduce the severity of symptoms. This medication may have an associated drug lab level. Please see MAR for scheduled level., Routine, Indication for (Active or Suspected): Bone/Joint Given 07/17/2014 1:47 PM EST 1,000 mg documented in this encounter Active and Recently Administered Medications Times are shown in EST. Scheduled Medication Order 07/15/2014 07/16/2014 07/17/2014 vancomycin 1 g in dextrose 5% 200 mL (COMPLETED) 1,000 mg (1 g), Intravenous, ONCE, 1 dose, On Thu07/17/14 at 1400, Maximum infusion rate is 1 gram/hour. If flushing of the face, neck, upper body, arms, and/or back occurs decrease infusion rate by 50% to reduce the severity of symptoms. This medication may have an associated drug lab level. Please see MAR for scheduled level., Routine, Indication for (Active or Suspected): Bone/Joint 1347 (Given - Provid er: Yun Jonas RN) Continuous Medication Order 07/15/2014 07/16/2014 07/17/2014 lactated ringers infusion 1,000 mL (CANCELED) 1,000 mL, at 100 mL/hr, Intravenous, CONTINUOUS, Starting on Thu07/17/14 at 1100, Until Thu07/17/14 at 1545, Day of Surgery (Day of Procedure) 1303 (New Bag - Prov ider: Albert Moore CRNA)1325 (Anesthesia Volume Adjustment - Provider: Albert Moore CRNA) documented in this encounter Care Teams Iron Worker Relationship Specialty Start Date End [place] [address] PCP - General 07/11/14 10/23/14 documented as of this encounter
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
--- OUTSIDE RECORDS SUMMARY | 2024-05-25 11:15 | XMS_ITS | Encounter Summary ---
Author Organization [facility] [place] [address] Care Team Providers Care Charging Machine Operator Name Role Phone None Primary Care Provider Unavailabl e Encounter Details Date Type Department Care Team (Late st Contact Info) Description 05/02/2014 Abstract [place] [address] Quirino Rosa MD [facility] [address] [place] [address] Social History Tobacco Use Types Packs/Day Years [...] on filedocumented in this encounter Care Teams Charging Machine Operator Relationship Specialty Start Date End Date None None PCP - General 12/07/13 07/10/14 documented as of this encounter
--- OUTSIDE RECORDS SUMMARY | 2024-05-25 11:15 | XMS_ITS | Encounter Summary ---
Author Organization [facility] [place] [address] Care Team Providers Care Cocktail Waitress Name Role Phone None Primary Care Provider Unavailabl e Reason for Visit * Reason Comments Blurred Vision NPW - Mac edema OD e pia, sent by Dr White. Distorted Vision Encounter Details Date Type Department Care Team (Late st Contact Info) Description 04/20/2014 9:45 AM EDT Office [place] [address] Mitra Cardenas MD Macular hole of right eye (Primary Dx) Discharge Disposition: Home Social History [...] as of this encounter Progress Notes * Mitra Cardenas MD - 04/20/2014 1:41 PM EDT OD: healed macular commotio. OD: traumatic macular hole with 20.70 vision. Plan: Refer to Dr. Rosa for consideration of macular hole repair per his opinion. documented in this encounter Plan of Treatment Not on file documented as of this encounter Visit Diagnoses Diagnosis Macular hole of right eye- Primary Macular cyst, hole, or pseudohole of retina documented in this encounter Care Teams Cocktail Waitress Relationship Specialty Start Date End Date None None PCP - General 12/07/13 07/10/14 documented as of this encounter
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
--- OUTSIDE RECORDS SUMMARY | 2024-05-25 11:15 | XMS_ITS | Encounter Summary ---
Author Organization [facility] [place] [address] Care Team Providers Care Manager Mobility Name Role Phone Prabhu De Souza MD, Gabo Primary Care Provider [phone] Encounter Details Date Type Department Care Team (Late st Contact Info) Description 07/17/2014 Tele[place] [address] Staci Hurley Social History Tobacco Use Types Packs/Day Years [...] encounter Miscellaneous Notes * Telephone Encounter - Staci Hurley - 07/17/2014 2:34 PM EST Patient is at [facility]. Appointment arranged. Milagros Burden MD - f/u [address] Rangel, no xrays, left foot wound debridement >','<< Less Detail',event) [email or web address];>More Detail >> f/u [address] Rangel, no xrays, left foot wound debridement Milagros Burden MD Sent: ThuJuly 17, 2014 1:39 PM To: [facility] [place] Message Date of Service/Surgery: 07/17/2014 Injury: left foot wound s/p debridement Date of Injury: 07/17/2014 May Need Surgery: Unknown Workers Comp: no Follow Up:f/u [address] Rangel Cast Room / Tech: no Clinic to follow-up in:home documented in this encounter Plan of Treatment Not on file documented as of this encounter Visit Diagnoses Not on filedocumented in this encounter Care Teams Manager Mobility Relationship Specialty Start Date End Date Gabo Pelletier MD [address] [address] PCP - General 07/11/14 10/23/14 documented as of this encounter
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
--- OUTSIDE RECORDS SUMMARY | 2024-05-25 11:15 | XMS_ITS | Encounter Summary ---
Author Organization [facility] [place] [address] Care Team Providers Care Crust Sorter Name Role Phone Prabhu De Souza MD, Gabo Primary Care Provider [phone] Encounter Details Date Type Department Care Team (Latest Contact Info) Description 07/17/2014 9:51 AM EST - 07/17/2014 2:05 PM EST Hospital Encounter [place] [address] Froilan Bernard MD [facility] [place] [address] Ulcer of heel and midfoot, left, with necrosis of bone (Primary Dx); Bone infection of left foot Discharge Disposition: [...] Sign Reading Time Taken Comments Blood Pressure 127/67 07/17/2014 1:45 PM EST Pulse 93 07/17/2014 1:45 PM EST Temperature 36.8 ??C (98.2 ??F) 07/17/2014 1:32 PM ES T Respiratory Rate 17 07/17/2014 1:45 PM EST Oxygen Saturation 99% 07/17/2014 1:45 PM EST Inhaled Oxygen Concentration - - [...] change it as needed. Call your doctor (#[phone]) if you develop: 1. fevers greater than 100.5 2. severe nausea or vomiting 3. increasing pain not controlled by pain medications 4. increasing redness or drainage from incisions 5. Change in sensation FOLLOWUP APPOINTMENTS: 1. You will have followup appointments at [facility] as indicated in Future Appointment and [...] the nurse at the infirmary at the [facility]. Add: Patient sent to xray with [...] to the planned procedure. Hand Hygiene: The computer network and systems engineer did perform hand hygiene prior to line insertion. Catheter type: PICC Lot number: [id number] Procedure Technique: Skin was prepped with chlorhexidine. [...] Health Knowledge, Opportunity for Enhanced (Adult, NICU, , Obstetrics, Pediatric) Goal: Knowledgeable about Health Subject/Topic Patient will demonstrate the desired outcomes. Outcome: Outcome (s) achieved Date Met: 07/17/14 Peripherally Inserted Central Catheter (PICC) Teaching Sheet Peripherally inserted central catheters ([id number]-gd-wulx) (PICC) are used when you need IV [...] midline catheter? PICC lines are used for detention treatments. PICC lines may be used for [...] can be set up via the nurse Pharmacy Technician Trainee to help you. What are possible complications [...] Vascular Access Device Selection, Insertion, and Management, [employer] Access Systems 04/16. A Review of the Efficacy, Safety, Use, and Administration of [employer], [employer] 2005 * Op Note - Froilan Bernard MD - 07/17/2014 2:23 PM EST [facility] Operative Note Patient Name: Cirilo Ponce : [id number] MR#: [id number] Case Date: 07/17/2014 Surgeon: Surgeon(s) and Role: [...] Operative Note Patient Name: Cirilo Ponce : [id number] MR#: [id number] Case Date: 07/17/2014 Surgeon: Surgeon(s) and Role: [...] PONCE ?Ordered By: FROILAN BERNARD ? MR#: [id number] ?LOC: ??SDP ? /Sex: ??1985 (29 years), [...] anaerobic organisms isolated to date ? [facility] MADRIDENNIUM Specimen from bone (specimen) TOPOGRAPHY UNKNOWN / Unknown 07/17/2014 1:34 PM EST 07/17/2014 1:41 PM EST Comment:LEFT CALCANEOUS BONE CULTURE #2 Narrative Resulting Agency Comment Spec In Lab Froilan Bernard MD MICROBIOLOGY - GENE RAL ORDERABLES XOCH[facility]L SHELBYIUM * Bone Culture (07/17/2014 1:34 PM EST) Bone Culture ? Patient Name: CIRILO PONCE ?Ordered By: FROILAN BERNARD ? MR#: [id number] ?LOC: ??SDP ? /Sex: ??1985 (29 years), [...] silvia ? Patient: CIRILO PONCE ? MR#: [id number] ? SUSCEPTIBILITY RESULTS ? Staphylococcus aureus ? [...] (1) ? Gentamicin is not appropriate for Snyder-therapy. ? (2) ? Penicillin resistant, Nafcillin susceptible Staphylococci are resistant to ? B-lactamase labile ? Penicillins including Ampicillin and Piperacillin, but susceptible to B- ? lactamase bjorn Penicillins ? (Nafcillin), B-lactamase inhibitor combinations, first and second ? generation Cephalosporins including ? Cefazolin, and to Cefepime and Meropenem. ? [facility] Specimen from bone (specimen) TOPOGRAPHY UNKNOWN / Unknown 07/17/2014 1:34 PM EST 07/17/2014 1:41 PM EST Comment:LEFT CALCANEOUS BONE CULTURE #2 Narrative Resulting Agency Comment Spec In Lab Froilan Bernard MD MICROBIOLOGY - GENE RAL ORDERABLES [facility] * Anaerobic Culture (07/17/2014 1:34 PM EST) Anaerobic Culture ? Patient Name: CIRILO PONCE ?Ordered By: FROILAN BERNARD ? MR#: [id number] ?LOC: ??SDP ? /Sex: ??1985 (29 years), [...] No anaerobic organisms isolated to date ? CERNER MILLENNIUM Specimen from bone (specimen) TOPOGRAPHY UNKNOWN / Unknown 07/17/2014 1:34 PM EST 07/17/2014 1:43 PM EST Comment:LEFT CALCANEOUS BONE CULTURE Narrative Resulting Agency Comment Spec In Lab Froilan Bernard MD MICROBIOLOGY - GENE RAL ORDERABLES XOCHITL MADRIDENNIUM * Bone Culture (07/17/2014 1:34 PM EST) Bone Culture ? Patient Name: CIRILO PONCE ?Ordered By: FROILAN BERNARD ? MR#: [id number] ?LOC: ??SDP ? /Sex: ??1985 (29 years), [...] Staphylococcus aureus ? Susceptibilities previously reported ? XOCHITL MADRIDENNIUM Specimen from bone (specimen) TOPOGRAPHY UNKNOWN / Unknown 07/17/2014 1:34 PM EST 07/17/2014 1:43 PM EST Comment:LEFT CALCANEOUS BONE CULTURE Narrative Resulting Agency Comment Spec In Lab Froilan Bernard MD MICROBIOLOGY - GENE RAL ORDERABLES XOCHITL WHITAKER * Surgical Pathology Report (07/17/2014 1:23 PM EST) Final Diagnosis ? [facility] ? Provider: ?? FROILAN BERNARD ??Pt. Name: ?? CIRILO PONCE ? Acc #: ?[id number] ?Pt. ? Col Date: ?? 07/17/2014 ?/Sex: [...] Diagnosis: ? Same 07/20/2014 4:38 PM EST [facility] SOFT TISSUE MASS / Unknown 07/17/2014 1:23 PM EST 07/17/2014 1:23 PM EST Froilan Bernard MD PATHOLOGY/CYTOLOGY ORDERABLES Performing Organization Address City/[facility] Co de Phone Number [facility] [place] [address] * Specimen to Pathology (surgical or derm) (07/17/2014 1:23 PM EST) AP Specimen 07/17/2014 1:23 PM EST 07/17/2014 1:23 PM EST Narrative [facility] - 07/17/2014 1:23 PM EST Specimen requisition ordered. ??Separate Pathology report to follow Froilan Bernard MD PATHOLOGY/CYTOLOGY ORDERABLES Performing Organization Address [facility] de Phone Number [facility] * Protein, total (07/17/2014 10:06 AM EST) Protein, Total 7.6 6.4 - 8.3 gm/dL [facility] Blood specimen (specimen) 07/17/2014 10:06 AM EST 07/17/2014 10:17 AM EST Narrative Resulting Agency Comment Spec In Lab Diaz Rangel DPM CHEMISTRY ORDERABLES Performing Organization Address [facility] de Phone Number [facility] * Albumin Level (07/17/2014 10:06 AM EST) Albumin 3.9 3.2 - 5.2 gm/dL [facility] Blood specimen (specimen) 07/17/2014 10:06 AM EST 07/17/2014 10:17 AM EST Narrative Resulting Agency Comment Spec In Lab Diaz Rangel DPM CHEMISTRY ORDERABLES Performing Organization Address [facility] Co de Phone Number XOCHITL WHITAKER * Prothrombin Time (07/17/2014 10:06 AM EST) Prothrombin Time 14.2 12.5 - 15.5 sec XOCHITL WHITAKER Comment: [facility] Transfusion Committee Guidelines: INR less than 2.0, PTT less than OR equal to 43.5 seconds, or Fibrinogen greater than or equal to 100 mg/dl indicate adequate procoagulant activity for hemostasis in patients without underlying bleeding disorders. International Normalization Ratio 1.0 0.9 - 1.1 XOCHITL WHITAKER Blood specimen (specimen) 07/17/2014 10:06 AM EST 07/17/2014 10:17 AM EST Narrative Resulting Agency Comment Spec In Lab [facility] Sonya [facility] HEMATOLOGY ORDERABLE S Performing Organization Address [facility] Co de Phone Number XOCHITL WHITAKER * (ABNORMAL) Sedimentation rate (07/17/2014 10:06 AM EST) Sedimentation Rate Automated 29(H) 0 - 15 mm/hr XOCHITL WHITAKER Blood specimen (specimen) 07/17/2014 10:06 AM EST 07/17/2014 10:17 AM EST Narrative Resulting Agency Comment Spec In Lab [facility] Sonya [facility] HEMATOLOGY ORDERABLE S Performing Organization Address [facility] Co id Phone Number XOCHITL WHITAKER * High Sensitivity CRP (07/17/2014 10:06 AM EST) C-Reactive Protein High Sensitivity 47.3 mg/L XOCHITL WHITAKER Comment: Interpretations: 1) For accurate cardiac risk [...] Resulting Agency Comment Spec In Lab Diaz [place] CHEMISTRY ORDERABLES [facility] * (ABNORMAL) Basic Metabolic Panel (non-fasting) (07/17/2014 10:06 AM EST) Pathologist [facility] Glucose 99 60 - 199 mg/dL CERNER MILLENNIUM Comment:Diabetes: >=200 mg/d L plus symptoms Blood Urea Nitrogen 9(L) 10 - 20 mg/dL CERNER MILLENNIUM Creatinine 0.63(L) 0.80 - 1.50 mg/dL CERNER MILLENNIUM Comment: Please note that the pediatric reference intervals supplied above were not validated at [facility]. Results from pediatric patients should be [...] the following links into your internet browser. [email or web address] Blood specimen (specimen) 07/17/2014 10:06 AM EST 07/17/2014 10:17 AM EST Narrative Resulting Agency Comment Spec In Lab Diaz Rangel DP CHEMISTRY ORDERABLES Performing Organization Address City/State/ZIP Co id Phone Number [facility] documented in this encounter Visit Diagnoses Diagnosis Ulcer of heel and midfoot, left, with necrosis of bone- Primary Bone infection of left foot Unspecified infection of bone, ankle and foot documented in this encounter Administered Medications Inactive [...] CRNA) documented in this encounter Care Teams Crust Sorter Relationship Specialty Start Date End [place] [address] PCP - General 07/11/14 10/23/14 documented as of this encounter
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
--- OUTSIDE RECORDS SUMMARY | 2024-05-25 11:15 | XMS_ITS | Encounter Summary ---
Author Organization [facility] Address [facility] [place] [address] Care Team Providers Care Surface Boss Name Role Phone Prabhu De Souza MD, Gabo Primary Care Provider [phone] Encounter Details Date Type Department Care Team (Latest Contact Info) Description 07/17/2014 9:58 AM EST - 07/17/2014 11:59 PM [facility] Hospital [place] [address] Diaz Rangel DPM [facility] [place] [address] Bone infection of left foot; Ulcer of heel and midfoot, left, with [...] 01/05/2014 10/24/2014 documented as of this encounter Plan of Treatment Not on file documented as of this encounter Procedures Procedure Name Priority Date/Time Associated Diagnosis Comments HEMOGRAM Routine 07/17/2014 10:06 AM EST Bone infection of left foot Ulcer of heel and midfoot, left, with necrosis of bone DIFFERENTIAL, AUTOMATED Routine 07/17/2014 10:06 AM EST Bone infection of left foot Ulcer of heel and midfoot, left, with necrosis of bone SEDIMENTATION RATE Routine 07/17/2014 10 :06 AM EST Bone infection of left foot Ulcer of heel and midfoot, left, with necrosis of bone PROTHROMBIN TIME Routine 07/17/2014 10:0 6 AM EST Bone infection of left foot Ulcer of heel and midfoot, left, with necrosis of bone CBC (WITH DIFF) Routine 07/17/2014 10:06 AM EST Bone infection of left foot Ulcer of heel and midfoot, left, with necrosis of bone CRP, CARDIAC RISK (HS CRP) Routine 07/17/2014 10:06 AM EST Bone infection of left foot Ulcer of heel and midfoot, left, with necrosis of bone PROTEIN, TOTAL Routine 07/17/2014 10:06 AM EST Bone infection of left foot Ulcer of heel and midfoot, left, with necrosis of bone ALBUMIN LEVEL Routine 07/17/2014 10:06 AM EST Bone infection of left foot Ulcer of heel and midfoot, left, with necrosis of bone BASIC METABOLIC PANEL Routine 07/17/2014 10:06 AM EST Bone infection of left foot Ulcer of heel and midfoot, left, with necrosis of bone documented in this encounter Results * Differential, Automated (07/17/2014 10:06 AM EST) Neutrophil % 69.6 % CERNER MILLENNIUM Neutrophil Absolute 4.73 1.50 - 6.30 x10(3)/mcL CERNER MILLENNIUM Lymph % 21.9 % CERNER MILLENNIUM Lymphocytes Abs 1.5 1.0 - 3.6 x10(3)/mcL CERNER MILLENNIUM Monocyte % 5.9 % CERNER MILLENNIUM Monocyte Abs 0.4 0.2 - 1.0 x10(3)/mcL CERNER MILLENNIUM Eos % 2.4 % CERNER MILLENNIUM Eosinophils Abs 0.2 0.0 - 0.5 x10(3)/mcL CERNER MILLENNIUM Basophil % 0.1 % CERNER MILLENNIUM Baso Absolute 0.0 0.0 - 0.2 x10(3)/mcL CERNER MILLENNIUM Immature Gran % 0.10 % CERN ER MILLENNIUM Comment: Immature granulocytes(IG's)percentage and absolute count will include metamyelocytes, myelocytes, and promyelocytes. Blood smears from CBCs yielding IG's will be scanned manually for concordance. If this scan disagrees with the automated IG or if promyelocytes are noted, a manual differential will be performed. Immature Gran Absolute 0.01 0.00 - 0.05 x10(3)/mcL CERNER MILLENNIUM Blood specimen (specimen) 07/17/2014 10:06 AM EST 07/17/2014 10:17 AM EST Narrative Resulting Agency Comment Spec In Lab Popeyedeven Hassan Stuart [facility] ORDERABLE S CERNER MILLENNIUM * (ABNORMAL) Hemogram (07/17/2014 10:06 AM EST) White Blood Cell 6.8 4.0 - 10.0 x10(3)/mc L CERNER MILLENNIUM Red Blood Cell 4.87 4.63 - 6.08 x10(6)/mc L CERNER MILLENNIUM Hemoglobin 11.0(L) 13.7 - 17.5 gm/dL CERNER MILLENNIUM Hematocrit 35.9(L) 40.0 - 51.0 % CERNER MILLENNIUM Mean Cell Volume 73.7(L) 79.0 - 92.0 fL CERNER MILLENNIUM Mean Cell Hemoglobin 22.6(L) 25.6 - 32.2 pg CERNER MILLENNIUM Mean Cell Hemoglobin Concentration 30.6(L) 32.0 - 36.5 gm/dL CERNER MILLENNIUM Platelet 220 145 - 370 x10(3)/mc L CERNER MILLENNIUM RDW Standard Deviation 51.3(H) 35.0 - 46.0 fL CERNER MILLENNIUM RDW coefficient of variation 19.3(H) 10.9 - 14.4 % CERNER MILLENNIUM Mean Platelet Volume 9.6 9.0 - 12.0 fL CERNER MILLENNIUM Blood specimen (specimen) 07/17/2014 10:06 AM EST 07/17/2014 10:17 AM EST Narrative Resulting Agency Comment Spec In Lab Dyane E Stuart DPM HEMATOLOGY ORDERABLE S Performing Organization Address City/State/[facility] Co de Phone Number XOCHITL SHELBYIUM * Protein, total (07/17/2014 10:06 AM EST) Protein, Total 7.6 6.4 - 8.3 gm/dL XOCHITL MADRIDENNIUM Blood specimen (specimen) 07/17/2014 10:06 AM EST 07/17/2014 10:17 AM EST Narrative Resulting Agency Comment Spec In Lab [employer] E Stuart DPM CHEMISTRY ORDERABLES XOCHITL SHELBYIUM * Albumin Level (07/17/2014 10:06 AM EST) Albumin 3.9 3.2 - 5.2 gm/dL CERHELENA MADRIDENNIUM Blood specimen (specimen) 07/17/2014 10:06 AM EST 07/17/2014 10:17 AM EST Narrative Resulting Agency Comment Spec In Lab Diaz Rangel DPM CHEMISTRY ORDERABLES Performing Organization Address [facility] Phone Number XOCHITL WHITAKER * Prothrombin Time (07/17/2014 10:06 AM EST) Prothrombin Time 14.2 12.5 - 15.5 sec XOCHITL WHITAKER Comment: [facility] Transfusion Committee Guidelines: INR less than 2.0, PTT less than OR equal to 43.5 seconds, or Fibrinogen greater than or equal to 100 mg/dl indicate adequate procoagulant activity for hemostasis in patients without underlying bleeding disorders. International Normalization Ratio 1.0 0.9 - 1.1 XOCHITL SHELBYIUM Blood specimen (specimen) 07/17/2014 10:06 AM EST 07/17/2014 10:17 AM EST Narrative Resulting Agency Comment Spec In Lab Diaz Tavareser DPM HEMATOLOGY ORDERABLE S Performing Organization Address [facility] Phone Number XOCHITL WHITAKER * (ABNORMAL) Sedimentation rate (07/17/2014 10:06 AM EST) Sedimentation Rate Automated 29(H) 0 - 15 mm/hr XOCHITL SHELBYIUM Blood specimen (specimen) 07/17/2014 10:06 AM EST 07/17/2014 10:17 AM EST Narrative Resulting Agency Comment Spec In Lab Diaz Tavareser DPM HEMATOLOGY ORDERABLE S Performing Organization Address [facility] Phone Number XOCHITL WHITAKER * High Sensitivity CRP (07/17/2014 10:06 AM EST) C-Reactive Protein High Sensitivity 47.3 mg/L [facility] Comment: Interpretations: 1) For accurate cardiac risk [...] Resulting Agency Comment Spec In Lab Popeyedeven Hassan Stuart [facility] ORDERABLES [facility] TrialScope * (ABNORMAL) Basic Metabolic Panel (non-fasting) (07/17/2014 10:06 AM EST) [facility] Glucose 99 60 - 199 mg/dL CERNER [...] the following links into your internet browser. [email or web address] Blood specimen (specimen) 07/17/2014 10:06 AM EST 07/17/2014 10:17 AM EST Narrative Resulting Agency Comment Spec In Lab Diaz Sonya Juan Carlos DPM CHEMISTRY ORDERABLES XOCHITL WHITAKER documented in this encounter Visit Diagnoses Diagnosis Bone infection of left foot Unspecified infection of bone, ankle and foot Ulcer of heel and midfoot, left, with necrosis of bone documented in this encounter Care Teams Surface Boss Relationship Specialty Start Date [place] [address] PCP - General 07/11/14 10/23/14 documented as of this encounter
--- OUTSIDE RECORDS SUMMARY | 2024-05-25 11:15 | XMS_ITS | Encounter Summary ---
Author Organization Formerly [facility] Address [facility] [place] [address] Care Team Providers Care Director Auto Name Role Phone None Primary Care Provider Unavailabl e Encounter Details Date Type Department Care Team (Latest Contact Info) Description 06/30/2014 11:57 AM EST - 06/30/2014 11:59 PM [facility] Hospital Encounter MRI at [facility] [place] [id number] Foot ulcer, left, with necrosis of muscle Social History Tobacco Use Types Packs/Day Years [...] @ hs 10/24/2014 ciprofloxacin (CIPRO) 500 mg TabletIndications:F oot ulcer, left, with necrosis of muscle,Bone infection of left foot Take 1 tablet by mouth 2 times daily for 42 days. 60 tablet 1 06/30/2014 07/31/2014 morphine (MS CONTIN) 100 mg Tablet Sustained Release Take 100 mg by mouth 3 times daily. 07/11/2014 acetaminophen (TYLENOL) 325 mg tablet Take 650 mg by mouth 2 times daily as needed. 10/24/2014 pantoprazole (PROTONIX) 40 mg tablet Take 40 mg by mouth daily. 07/11/2014 senna (SENOKOT) 8.6 mg tablet Take 1 tablet by mouth daily. 07/31/2014 bisacodyl (DULCOLAX) [address] 1 suppository rectally daily. 60 suppository 3 01/05/2014 07/11/2014 gabapentin (NEURONTIN) 300 mg capsule Take 1 capsule by mouth 3 times daily. 90 capsule 12 01/05/2014 06/25/2016 warfarin (COUMADIN) 5 mg tablet Take 1-3 tablets by mouth daily. 90 tablet 12 01/05/2014 10/24/2014 documented as of this encounter Plan of Treatment Not on file documented as of this encounter Procedures Procedure Name Priority Date/Time Associated Diagnosis Comments MRI FOOT WITH/WO CONTRAST Routine 06/30/2014 2:26 PM EST documented in this encounter Results * MRI foot with/WO contrast (06/30/2014 2:26 PM EST) Anatomical Region Laterality Modality Foot Magnetic Resonan ce 06/30/2014 2:26 PM EST Impressions 06/30/2014 4:50 PM EST IMPRESSION: Heel ulcer not reaching bone. Enhancing inflammatory or infectious heel fat pad deep to the ulcer abuts on the calcaneus which has normal enhancing marrow signal accompanied by destruction of the plantar calcaneal cortex represents osteomyelitis. No abscess seen Interrupted plantar fascia insertion. Narrative 06/30/2014 4:50 PM EST EXAMINATION: MR FOOT WITH/WITHOUT GD CLINICAL HISTORY: Osteomyelitis ??? Extent of disease for surgical planning ulcer [...] likely represents phlegmonous change or necrotic foci. ??The area of abnormal fat signal is at least 44 x 43 mm. This abnormal signal abuts on the plantar calcaneal cortex which has become indistinct. No fluid collections seen. Bone & Marrow: 1. ??Calcaneus-the marrow signal of the body and the posterior calcaneal tuberosity are replaced by enhancing bright STIR signal suggesting osteomyelitis. 2. ??The rest of osseous structures-normal signal. Muscles: Part of the abductor pollicis, flexor digitorum brevis and abductor digiti mini ??muscles located near this ulcer has slightly bright T2 signal with enhancement likely representing reactive inflammation or infection. Plantar fascia: the plantar fascia attachment to the calcaneal tuberosity is interrupted with a 12 mm defect. Tendons: Not interrupted. Procedure Note Noemí Bloom MD - 06/30/2014 EXAMINATION: MR FOOT WITH/WITHOUT GD CLINICAL HISTORY: Osteomyelitis ? Extent of disease for surgical planningulcer in heel COMPARISON: Radiographs from the same date TECHNIQUE: Pre and postcontrast MRI of the left hindfoot was performed. CONTRAST: 11 ml Gadavist was administered FINDINGS: Some series are limited because of motion. Ulcer: The heel ulcer is 34 x 46 mm. It does not reach bone. The fatsignal beneath the ulcer is replaced by dark T1, bright T2 signal that that andhas nonuniform enhancement. The nonenhancing area likely representsphlegmonous change or necrotic foci. The area of abnormal fat signal is at least 44 x43 mm. This abnormal signal abuts on the plantar calcaneal cortex which hasbecome indistinct. No fluid collections seen. Bone & Marrow: 1. Calcaneus-the marrow signal of the body and the posterior calcaneal tuberosity are replaced by enhancing bright STIR signal suggesting osteomyelitis. 2. The rest of osseous structures-normal signal. Muscles: Part of the abductor pollicis, flexor digitorum brevis andabductor digiti mini muscles located near this ulcer has slightly bright T2 signalwith enhancement likely representing reactive inflammation or infection. Plantar fascia: the plantar fascia attachment to the calcaneal tuberosityis interrupted with a 12 mm defect. Tendons: Not interrupted. IMPRESSION IMPRESSION: Heel ulcer not reaching bone. Enhancing inflammatory or infectious heel fat pad deep to the ulcer abutson the calcaneus which has normal enhancing marrow signal accompanied bydestruction of the plantar calcaneal cortex represents osteomyelitis. No abscess seen Interrupted plantar fascia insertion. Jamin Garrett MD IMG MRI ORDERABLES documented in this encounter Visit Diagnoses Diagnosis Foot ulcer, left, with necrosis of muscle documented in this encounter Administered Medications Inactive Administered Medications - up to 3 most recent administrations Medication Order MAR Action Action Date Dose Rate Site gadobutrol (GADAVIST) 10 mmol/10 mL (1 mmol/mL) injection 11.34 mL 11.34 mL (0.1 mL/kg/dose ? 113.4 kg Order-specific weight), Intravenous, ONCE PRN, 1 dose, Starting on Thu06/30/14 at 1355, Until Thu06/30/14 at 1300, Per Protocol, Routine Given 06/30/2014 1:00 PM EST 11 mLs documented in this encounter Care Teams Director Auto Relationship Specialty Start Date End Date None None PCP - General 12/07/13 07/10/14 documented as of this encounter
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
--- OUTSIDE RECORDS SUMMARY | 2024-05-25 11:15 | XMS_ITS | Encounter Summary ---
Author Organization [facility] Address [facility] [place] [place] [address] Care Team Providers Care Campus Supervisor Name Role Phone None Primary Care Provider Unavailabl e Encounter Details Date Type Department Care Team (Latest Contact Info) Description 06/30/2014 10:01 AM EST - 06/30/2014 11:37 AM [facility] Encounter XRay at [address] [place] [address] Foot ulcer, left, with necrosis of muscle [...] Name Priority Date/Time Associated Diagnosis Comments XR FOOT MINIMUM 3 VIEWS Routine 06/30/2014 10:33 AM EST Foot ulcer, left, with necrosis of muscle documented in this encounter Results * XR foot minimum 3 views (06/30/2014 [...] muscle documented in this encounter Care Teams Campus Supervisor Relationship Specialty Start Date End Date None None PCP - General 12/07/13 07/10/14 documented as of this encounter
--- OUTSIDE RECORDS SUMMARY | 2024-05-25 11:15 | XMS_ITS | Encounter Summary ---
Author Organization [facility] Address [facility] [place] [address] Care Team Providers Care Gasoline Service Attendant Name Role Phone Prabhu De Souza MD, Gabo Primary Care Provider [phone] Reason for Visit * Reason Onset Date Comments Follow-up 07/11/2014 Encounter Details Date Type Department Care Team (Late st Contact Info) Description 07/11/2014 Telephone [place] [address] [facility] [place] [address] Follow-up Social History Tobacco Use Types Packs/Day Years [...] encounter Miscellaneous Notes * Telephone Encounter - Trish Stearns - 07/14/2014 1:[address] Rangel is making surgical plans for this patient. Follow up on Thursday is not needed. We will be in contact with Felisa to discuss the surgical booking. * Telephone Encounter - Trish Stearns - 07/11/2014 4:12 PM EST Left message with Felisa at [facility] - this patient MUST be seen back in clinic 1/5at 8am PER DR. RANGEL, she will most likely admit the patient overnight. I have scheduled the appointment and left the information in the message. documented in this encounter Plan of Treatment Not on file documented as of this encounter Visit Diagnoses Not on filedocumented in this encounter Care Teams Gasoline Service Attendant Relationship Specialty Start Date End Date [place] [address] PCP - General 07/11/14 10/23/14 documented as of this encounter
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
--- OUTSIDE RECORDS SUMMARY | 2024-05-25 11:15 | XMS_ITS | Encounter Summary ---
Author Organization [facility] Address [facility] [place] [address] Care Team Providers Care Line Repairer Name Role Phone Prabhu De Souza MD, Gabo Primary Care Provider Reason for Visit * Reason Onset Date Comments Other 07/11/2014 FOOT ULCER Encounter Details Date Type Department Care Team (Late st Contact Info) Description 07/11/2014 Telephone [place] [address] Tim Cary MD [facility] [place] [address] Other (FOOT ULCER) Social History Tobacco Use Types Packs/Day Years [...] encounter Miscellaneous Notes * Telephone Encounter - Tari Ramirez RN - 07/11/2014 9:20 AM EST Discuss with Emil Fink RN and appointment scheduled with Dr. Rangel for 3 pm following appt with Dr. Trevino. * Telephone Encounter - Trish Mason - 07/11/2014 8:20 AM EST [facility] an appointment needs to be set up for as soon as possible with Dr Cary for patient. The ulcer on his heel has got much worse. And she is not sure what the next step Dr Pelletier should take before seeing Dr. Cary Please call Felisa back @ [phone] documented in this encounter Plan of Treatment Not on file documented as of this encounter Visit Diagnoses Not on filedocumented in this encounter Care Teams Line Repairer Relationship Specialty Start Date End [place] [address] PCP - General 07/11/14 10/23/14 documented as of this encounter
--- OUTSIDE RECORDS SUMMARY | 2024-05-25 11:15 | XMS_ITS | Encounter Summary ---
Author Organization [facility] Address [facility] [place] [address] Care Team Providers Care Rest Room Attendant Name Role Phone None Primary Care Provider Unavailabl e Encounter Details Date Type Department Care Team (Latest Contact Info) Description 06/30/2014 11:38 AM EST - 06/30/2014 11:59 PM [facility] [place] [address] Jamin Garrett MD [facility] [place] [address] Foot ulcer, left, with necrosis of muscle; [...] Priority Date/Time Associated Diagnosis Comments HEMOGRAM Routine 06/30/2014 11:50 AM EST Foot ulcer, left, with necrosis of muscle Bone infection of left foot DIFFERENTIAL, AUTOMATED Routine 06/30/2014 11:50 AM EST Foot ulcer, left, with necrosis of muscle Bone infection of left foot SEDIMENTATION RATE Routine 06/30/2014 11 :50 AM EST Foot ulcer, left, with necrosis of muscle Bone infection of left foot CBC (WITH DIFF) Routine 06/30/2014 11:50 AM EST Foot ulcer, left, with necrosis of muscle Bone infection of left foot CRP, CARDIAC RISK (HS CRP) Routine 06/30/2014 11:50 AM EST Foot ulcer, left, with necrosis of muscle Bone infection of left foot documented in this encounter Results * Differential, Automated (06/30/2014 11:50 AM EST) Neutrophil % 59.2 % CERNER MILLENNIUM Neutrophil Absolute 3.10 1.50 - 6.30 x10(3)/mcL CERNER MILLENNIUM Lymph % 33.5 % CERNER MILLENNIUM Lymphocytes Abs 1.8 1.0 - 3.6 x10(3)/mcL CERNER MILLENNIUM Monocyte % 5.0 % CERNER MILLENNIUM Monocyte Abs 0.3 0.2 - 1.0 x10(3)/mcL CERNER MILLENNIUM Eos % 2.1 % CERNER MILLENNIUM Eosinophils Abs 0.1 0.0 - 0.5 x10(3)/mcL CERNER MILLENNIUM Basophil % 0.2 % CERNER MILLENNIUM Baso Absolute 0.0 0.0 - 0.2 x10(3)/mcL CERNER MILLENNIUM Immature Gran % 0.00 % CERN ER MILLENNIUM Comment: Immature granulocytes(IG's)percentage and absolute count will include metamyelocytes, myelocytes, and promyelocytes. Blood smears from CBCs yielding IG's will be scanned manually for concordance. If this scan disagrees with the automated IG or if promyelocytes are noted, a manual differential will be performed. Immature Gran Absolute 0.00 0.00 - 0.05 x10(3)/mcL CERNER MILLENNIUM Blood specimen (specimen) 06/30/2014 11:50 AM EST 06/30/2014 11:57 AM EST Narrative Resulting Agency Comment Spec In Lab Jamin Garrett MD HEMATOLOGY ORDERABLE S CERNER MILLENNIUM * (ABNORMAL) Hemogram (06/30/2014 11:50 AM EST) White Blood Cell 5.2 4.0 - 10.0 x10(3)/mc L CERNER MILLENNIUM Red Blood Cell 5.10 4.63 - 6.08 x10(6)/mc L CERNER MILLENNIUM Hemoglobin 11.4(L) 13.7 - 17.5 gm/dL CERNER MILLENNIUM Hematocrit 37.7(L) 40.0 - 51.0 % CERNER MILLENNIUM Mean Cell Volume 73.9(L) 79.0 - 92.0 fL CERNER MILLENNIUM Mean Cell Hemoglobin 22.4(L) 25.6 - 32.2 pg CERNER MILLENNIUM Mean Cell Hemoglobin Concentration 30.2(L) 32.0 - 36.5 gm/dL CERNER MILLENNIUM Platelet 224 145 - 370 x10(3)/mc L CERNER MILLENNIUM RDW Standard Deviation 50.5(H) 35.0 - 46.0 fL CERNER MILLENNIUM RDW coefficient of variation 18.6(H) 10.9 - 14.4 % CERNER MILLENNIUM Mean Platelet Volume 9.5 9.0 - 12.0 fL CERHELENA MILLENNIUM Blood specimen (specimen) 06/30/2014 11:50 AM EST 06/30/2014 11:57 AM EST Narrative Resulting Agency Comment Spec In Lab Jamin Garrett MD HEMATOLOGY ORDERABLE S Performing Organization Address [facility] Co de Phone Number XOCHITL WHITAKER * High Sensitivity CRP (06/30/2014 11:50 AM EST) [facility] C-Reactive Protein High Sensitivity 39.3 mg/L CERHELENA MADRIDENNIUM Comment: Interpretations: 1) For accurate cardiac risk [...] Garrett MD CHEMISTRY ORDERABLES Performing Organization Address [facility] Co de Phone Number XOCHITL WHITAKER * (ABNORMAL) Sedimentation rate (06/30/2014 11:50 AM EST) Sedimentation Rate Automated 30(H) 0 - 15 mm/hr XOCHITL [id number] Blood specimen (specimen) 06/30/2014 11:50 AM EST 06/30/2014 11:57 AM EST Narrative Resulting Agency Comment Spec In Lab Jamin Garrett MD HEMATOLOGY ORDERABLE S XOCHITL WHITAKER documented in this encounter Visit Diagnoses Diagnosis Foot ulcer, left, with necrosis of muscle Bone infection of left foot Unspecified infection of bone, ankle and foot documented in this encounter Care Teams Rest Room Attendant Relationship Specialty Start Date End Date None None PCP - General 12/07/13 07/10/14 documented as of this encounter
--- OUTSIDE RECORDS SUMMARY | 2024-05-25 11:15 | XMS_ITS | Encounter Summary ---
Author [facility] Address [facility] [place] [address] Care Team Providers Care Sales Associate Fishing Name Role Phone Prabhu De Souza MD, Gabo Primary Care Provider [phone] Reason for Visit * Reason Onset Date Comments Questions 07/12/2014 Encounter Details Date Type Department Care Team (Late st Contact Info) Description 07/12/2014 [place] [address] Diaz Rangel [facility] [place] [address] Questions Social History Tobacco Use Types Packs/Day Years [...] encounter Miscellaneous Notes * Telephone Encounter - Tyler Handalize Valente LPN - 07/12/2014 2:51 PM EST Felisa's call was returned, she is the cork insulator and needs to know if the patient's coumadin should bestopped. The call was asked to be transferred to the nurse, Stephanie. 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 Dr. Pelletier recommends that the coumadin is stopped and he will stop it today, 07/12/14 until after surgery. * Telephone Encounter - Nitza Lema - 07/12/2014 2:02 PM EST [facility] to [facility] if Joni needs to stop his Coumadin beforehis appointment on Thursday. She is leaving in 15 minutes. Please call her back at [phone]. documented in this encounter Plan of Treatment Not on file documented as of this encounter Visit Diagnoses Not on filedocumented in this encounter Care Teams Sales Associate Fishing Relationship Specialty Start Date End Date Gabo Pelletier MD [address] [address] PCP - General 07/11/14 10/23/14 documented as of this encounter
--- OUTSIDE RECORDS SUMMARY | 2024-05-25 11:18 | XMS_ITS | Encounter Summary ---
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 15.5 sec CERNER MILLENNIUM Comment: [facility] Transfusion Committee Guidelines: INR less than 2.0, PTT less than OR equal to 43.5 seconds, or Fibrinogen greater than or equal to 100 mg/dl indicate adequate procoagulant activity for hemostasis in patients without underlying bleeding disorders. International Normalization Ratio 1.2(H) 0.9 - 1.1 CERNER MILLENNIUM Blood specimen (specimen) 01/04/2014 4:05 AM EDT 01/04/2014 4:26 AM EDT Narrative Resulting Agency Comment Spec In Lab Kristen Zarate III, MD HEMATOLOGY OR DERABLES Performing Organization Address [facility] Phone Number CERNER MILLENNIUM * (ABNORMAL) Prothrombin Time (01/03/2014 8:01 AM EDT) Prothrombin Time 15.4(H) 12.0 - 15.0 sec CERNER MILLENNIUM Comment: [facility] Transfusion Committee Guidelines: INR less than 2.0, PTT less than OR equal to 43.5 seconds, or Fibrinogen greater than or equal to 100 mg/dl indicate adequate procoagulant activity for hemostasis in patients without underlying bleeding disorders. International Normalization Ratio 1.2(H) 0.9 - 1.1 CERNER MILLENNIUM Blood specimen (specimen) 01/03/2014 8:01 AM EDT 01/03/2014 8:08 AM EDT Narrative Resulting Agency Comment Spec In Lab Kristen Zarate III, MD HEMATOLOGY OR DERABLES Performing Organization Address [facility] de Phone Number [facility] JULIUSENNIUM * (ABNORMAL) Differential, Automated (01/02/2014 6:26 AM EDT) Neutrophil % 73.8(H) 34.0 - 71.0 % CERNER MILLENNIUM Neutrophil Absolute 5.98 1.50 - 6.30 x10(3)/mc L CERNER MILLENNIUM Lymph % 16.3(L) 19.0 - 53.0 % CERNER MILLENNIUM Lymphocytes Abs 1.3 1.0 - 3.6 x10(3)/mc L CERNER MILLENNIUM Monocyte % 7.0 4.0 - 13.0 % CERNER MILLENNIUM Monocyte Abs 0.6 0.2 - 1.0 x10(3)/mc L CERNER MILLENNIUM Eos % 2.3 0.0 - 7.0 % CERNER MILLENNIUM Eosinophils Abs 0.2 0.0 - 0.5 x10(3)/mc L CERNER MILLENNIUM Basophil % 0.2 0.0 - 2.0 % CERNER MILLENNIUM Baso Absolute 0.0 0.0 - 0.2 x10(3)/mc L CERNER MILLENNIUM Immature Gran % 0.40 0.00 - 0.66 % CERNER MILLENNIUM Comment: Immature granulocytes(IG's)percentage and absolute count will include metamyelocytes, myelocytes, and promyelocytes. Blood smears from CBCs yielding IG's will be scanned manually for concordance. If this scan disagrees with the automated IG or if promyelocytes are noted, a manual differential will be performed. Immature Gran Absolute 0.03 0.00 - 0.05 x10(3)/mc L CERNER MILLENNIUM Blood specimen (specimen) 01/02/2014 6:26 AM EDT 01/02/2014 6:38 AM EDT Narrative Resulting Agency Comment Spec In Lab Kristen Zarate III, MD HEMATOLOGY OR DERABLES XOCHITL SHELBYIUM * (ABNORMAL) Hemogram (01/02/2014 6:26 AM EDT) White Blood Cell 8.1 4.0 - 10.0 x10(3)/mc L CERNER MILLENNIUM Red Blood Cell 4.19(L) 4.63 - 6.08 x10(6)/mc L CERNER MILLENNIUM Hemoglobin 11.1(L) 13.7 - 17.5 gm/dL CERNER MILLENNIUM Hematocrit 36.7(L) 40.0 - 51.0 % CERNER MILLENNIUM Mean Cell Volume 87.6 79.0 - 92.0 fL CERNER MILLENNIUM Mean Cell Hemoglobin 26.5 25.6 - 32.2 pg CERNER MILLENNIUM Mean Cell Hemoglobin Concentration 30.2(L) 32.0 - 36.5 gm/dL CERNER MILLENNIUM Platelet 278 145 - 370 x10(3)/mc L CERNER MILLENNIUM RDW Standard Deviation 48.2(H) 35.0 - 46.0 fL CERNER MILLENNIUM RDW coefficient of variation 15.1(H) 10.9 - 14.4 % CERNER MILLENNIUM Mean Platelet Volume 9.8 9.0 - 12.0 fL CERNER MILLENNIUM Blood specimen (specimen) 01/02/2014 6:26 AM EDT 01/02/2014 6:38 AM EDT Narrative Resulting Agency Comment Spec In Lab Kristen Zarate III, MD HEMATOLOGY OR DERABLES Performing Organization Address [facility] de Phone Number XOCHITL SHELBYIUM * Prothrombin Time (01/02/2014 6:26 AM EDT) Prothrombin Time 14.6 12.0 - 15.0 sec CERHELENA MILLENNIUM Comment: [facility] Transfusion Committee Guidelines: INR less than 2.0, PTT less than OR equal to 43.5 seconds, or Fibrinogen greater than or equal to 100 mg/dl indicate adequate procoagulant activity for hemostasis in patients without underlying bleeding disorders. International Normalization Ratio 1.1 0.9 - 1.1 CERHELENA MADRIDENNIUM Blood specimen (specimen) 01/02/2014 6:26 AM EDT 01/02/2014 6:38 AM EDT Narrative Resulting Agency Comment Spec In Lab Kristen Zarate III, MD HEMATOLOGY OR DERABLES Performing Organization Address [facility] Co de Phone Number XOCHITL SHELBYIUM * (ABNORMAL) Basic Metabolic Panel (non-fasting) (01/02/2014 6:26 AM EDT) Glucose 106 60 - 199 mg/dL [facility] MILLENNIUM Comment:Diabetes: >=200 mg/d L plus symptoms Blood Urea Nitrogen 20 10 - 20 mg/dL [facility] MILLENNIUM Creatinine 0.52(L) 0.80 - 1.50 mg/dL CERNER MILLENNIUM Comment: Please note that the pediatric reference intervals supplied above were [place] [facility] [place] Results from pediatric patients should be interpreted in conjunction to the patient's age, height and muscle mass. Sodium 137 135 - 145 mmol/L CERNER MILLENNIUM Potassium 4.1 3.5 - 5.0 mmol/L CERNER MILLENNIUM Comment: Please note: ??Patients with WBC >100,000 may have falsely elevated Potassium levels. ??For accurate Potassium quantification in these patients send serum separator tube (gold top) for subsequent determinations. ??Contact the Clinical Chemistry Laboratory if there are any questions. Chloride 100 98 - 107 mmol/L CERNER MILLENNIUM Carbon Dioxide 27 22 - 31 mmol/L CERNER MILLENNIUM Anion Gap 10 5 - 15 mmol/L CERNER MILLENNIUM Calcium 9.3 8.5 - 10.5 mg/dL CERNER MILLENNIUM Est [...] the following links into your internet browser. [email or web address] Blood specimen (specimen) 01/02/2014 6:26 AM EDT 01/02/2014 6:38 AM EDT Narrative Resulting Agency Comment Spec In Lab Kristen Zarate III, MD CHEMISTRY ORD ERABLES CERNER MILLENNIUM * (ABNORMAL) Differential, Automated (01/01/2014 11:12 AM EDT) Neutrophil % 76.4(H) 34.0 - 71.0 % CERNER MILLENNIUM Neutrophil Absolute 5.78 1.50 - 6.30 x10(3)/mc L CERNER MILLENNIUM Lymph % 15.5(L) 19.0 - 53.0 % CERNER MILLENNIUM Lymphocytes Abs 1.2 1.0 - 3.6 x10(3)/mc L CERNER MILLENNIUM Monocyte % 5.2 4.0 - 13.0 % CERNER MILLENNIUM Monocyte Abs 0.4 0.2 - 1.0 x10(3)/mc L CERNER MILLENNIUM Eos % 2.2 0.0 - 7.0 % CERNER MILLENNIUM Eosinophils Abs 0.2 0.0 - 0.5 x10(3)/mc L CERNER MILLENNIUM Basophil % 0.3 0.0 - 2.0 % CERNER MILLENNIUM Baso Absolute 0.0 0.0 - 0.2 x10(3)/mc L CERNER MILLENNIUM Immature Gran % 0.40 0.00 - 0.66 % CERNER MILLENNIUM Comment: Immature granulocytes(IG's)percentage and absolute count will include metamyelocytes, myelocytes, and promyelocytes. Blood smears from CBCs yielding IG's will be scanned manually for concordance. If this scan disagrees with the automated IG or if promyelocytes are noted, a manual differential will be performed. Immature Gran Absolute 0.03 0.00 - 0.05 x10(3)/mc L CERNER MILLENNIUM Blood specimen (specimen) 01/01/2014 11:12 AM EDT 01/01/2014 11:17 AM EDT Narrative Resulting Agency Comment Spec In Lab Kristen Zarate III, MD HEMATOLOGY OR DERABLES XOCHITL MADRIDENNIUM * (ABNORMAL) Hemogram (01/01/2014 11:12 AM EDT) White Blood Cell 7.6 4.0 - 10.0 x10(3)/mc L CERNER MILLENNIUM Red Blood Cell 3.86(L) 4.63 - 6.08 x10(6)/mc L CERNER MILLENNIUM Hemoglobin 10.4(L) 13.7 - 17.5 gm/dL CERNER MILLENNIUM Hematocrit 33.6(L) 40.0 - 51.0 % CERNER MILLENNIUM Mean Cell Volume 87.0 79.0 - 92.0 fL CERNER MILLENNIUM Mean Cell Hemoglobin 26.9 25.6 - 32.2 pg CERNER MILLENNIUM Mean Cell Hemoglobin Concentration 31.0(L) 32.0 - 36.5 gm/dL CERNER MILLENNIUM Platelet 291 145 - 370 x10(3)/mc L CERNER MILLENNIUM RDW Standard Deviation 47.8(H) 35.0 - 46.0 fL CERNER MILLENNIUM RDW coefficient of variation 15.1(H) 10.9 - 14.4 % CERNER MILLENNIUM Mean Platelet Volume 9.6 9.0 - 12.0 fL CERNER MILLENNIUM Blood specimen (specimen) 01/01/2014 11:12 AM EDT 01/01/2014 11:17 AM EDT Narrative Resulting Agency Comment Spec In Lab Kristen Zarate III, MD HEMATOLOGY OR DERABLES Performing Organization Address [facility] de Phone Number XOCHITL WHITAKER * Prothrombin Time (01/01/2014 11:12 AM EDT) Prothrombin Time 15.0 12.0 - 15.0 sec [facility] SHELBYI[facility] Comment: [facility] Transfusion Committee Guidelines: INR less than 2.0, PTT less than OR equal to 43.5 seconds, or Fibrinogen greater than or equal to 100 mg/dl indicate adequate procoagulant activity for hemostasis in patients without underlying bleeding disorders. International Normalization Ratio 1.1 0.9 - 1.1 XOCHITL MADRIDENNIUM Blood specimen (specimen) 01/01/2014 11:12 AM EDT 01/01/2014 11:17 AM EDT Narrative Resulting Agency Comment Spec In Lab Kristen Zarate III, MD HEMATOLOGY OR DERABLES Performing Organization Address [facility] de Phone Number XOCHITL SHELBYFORMERLY [facility] * (ABNORMAL) Basic Metabolic Panel (non-fasting) (01/01/2014 11:12 AM EDT) Glucose 102 60 - 199 mg/dL [facility] SHELBYIUM Comment:Diabetes: >=200 mg/d L plus symptoms Blood Urea Nitrogen 21(H) 10 - 20 mg/dL CERNER MILLENNIUM Creatinine 0.49(L) 0.80 - 1.50 mg/dL CERNER MILLENNIUM Comment: Please note that the pediatric reference intervals supplied above were not [place] [facility] [place] Results from pediatric patients should be interpreted in conjunction to the patient's age, height and muscle mass. Sodium 134(L) 135 - 145 mmol/L CERNER MILLENNIUM Potassium 4.0 3.5 - 5.0 mmol/L CERNER MILLENNIUM Comment: Please note: ??Patients with WBC >100,000 may have falsely elevated Potassium levels. ??For accurate Potassium quantification in these patients send serum separator tube (gold top) for subsequent determinations. ??Contact the Clinical Chemistry Laboratory if there are any questions. Chloride 100 98 - 107 mmol/L CERNER MILLENNIUM Carbon Dioxide 26 22 - 31 mmol/L CERNER MILLENNIUM Anion Gap 8 5 - 15 mmol/L CERNER MILLENNIUM Calcium 9.2 8.5 - 10.5 mg/dL CERNER MILLENNIUM Est [...] the following links into your internet browser. [email or web address] [place] Blood specimen (specimen) 01/01/2014 11:12 AM EDT 01/01/2014 11:17 AM EDT Narrative Resulting Agency Comment Spec In Lab Kristen Zarate III, MD CHEMISTRY ORD ERABLES CERHELENA SHELBYIUM * POCT Glucose (01/01/2014 7:15 AM EDT) [facility] Signature Glucose, POC 104 60 - 199 mg/dL CERNER MILLENNIUM Comment: Supplemental ranges: <110 mg/dL before meals <200 mg/dL all other times of the day Blood specimen (specimen) 01/01/2014 7:15 AM EDT 01/01/2014 7:15 AM EDT Romulo Ramires MD POINT OF CARE TEST ORDERABLES CERNER MILLENNIUM * Differential, Automated (12/31/2013 3:59 AM EDT) Neutrophil % 68.9 34.0 - 71.0 % CERNER MILLENNIUM Neutrophil Absolute 5.40 1.50 - 6.30 x10(3)/mcL CERNER MILLENNIUM Lymph % 19.4 19.0 - 53.0 % CERNER MILLENNIUM Lymphocytes Abs 1.5 1.0 - 3.6 x10(3)/mcL CERNER MILLENNIUM Monocyte % 7.5 4.0 - 13.0 % CERNER MILLENNIUM Monocyte Abs 0.6 0.2 - 1.0 x10(3)/mcL CERNER MILLENNIUM Eos % 3.6 0.0 - 7.0 % CERNER MILLENNIUM Eosinophils Abs 0.3 0.0 - 0.5 x10(3)/mcL CERNER MILLENNIUM Basophil % 0.1 0.0 - 2.0 % CERNER MILLENNIUM Baso Absolute 0.0 0.0 - 0.2 x10(3)/mcL CERNER MILLENNIUM Immature Gran % 0.50 0.00 - 0.66 % CERNER MILLENNIUM Comment: Immature granulocytes(IG's)percentage and absolute count will include metamyelocytes, myelocytes, and promyelocytes. Blood smears from CBCs yielding IG's will be scanned manually for concordance. If this scan disagrees with the automated IG or if promyelocytes are noted, a manual differential will be performed. Immature Gran Absolute 0.04 0.00 - 0.05 x10(3)/mcL CERNER MILLENNIUM Blood specimen (specimen) 12/31/2013 3:59 AM EDT 12/31/2013 4:32 AM EDT Narrative Resulting Agency Comment Spec In Lab Kristen Zarate III, MD HEMATOLOGY OR DERABLES Performing Organization Address [facility] Co de Phone Number CERHELENA MADRIDENNIUM * (ABNORMAL) Hemogram (12/31/2013 3:59 AM EDT) White Blood Cell 7.8 4.0 - 10.0 x10(3)/mc L CERNER MILLENNIUM Red Blood Cell 3.82(L) 4.63 - 6.08 x10(6)/mc L CERNER MILLENNIUM Hemoglobin 10.2(L) 13.7 - 17.5 gm/dL CERNER MILLENNIUM Hematocrit 33.2(L) 40.0 - 51.0 % CERNER MILLENNIUM Mean Cell Volume 86.9 79.0 - 92.0 fL CERNER MILLENNIUM Mean Cell Hemoglobin 26.7 25.6 - 32.2 pg CERNER MILLENNIUM Mean Cell Hemoglobin Concentration 30.7(L) 32.0 - 36.5 gm/dL CERNER MILLENNIUM Platelet 318 145 - 370 x10(3)/mc L CERNER MILLENNIUM RDW Standard Deviation 48.8(H) 35.0 - 46.0 fL CERNER MILLENNIUM RDW coefficient of variation 15.3(H) 10.9 - 14.4 % CERNER MILLENNIUM Mean Platelet Volume 10.3 9.0 - 12.0 fL CERNER MILLENNIUM Blood specimen (specimen) 12/31/2013 3:59 AM EDT 12/31/2013 4:32 AM EDT Narrative Resulting Agency Comment Spec In Lab Kristen Zarate III, MD HEMATOLOGY OR DERABLES Performing Organization Address [facility] Co de Phone Number CERHELENA MADRIDENNIUM * (ABNORMAL) Basic Metabolic Panel (non-fasting) (12/31/2013 3:59 AM EDT) Glucose 110 60 - 199 mg/dL CERNER MILLENNIUM Comment:Diabetes: >=200 mg/d L plus symptoms Blood Urea Nitrogen 24(H) 10 - 20 mg/dL CERNER MILLENNIUM Creatinine 0.56(L) 0.80 - 1.50 mg/dL CERNER MILLENNIUM Comment: Please note that the pediatric reference intervals supplied above were not [place] [facility] [place] Results from pediatric patients should be interpreted in conjunction to the patient's age, height and muscle mass. Sodium 137 135 - 145 mmol/L CERNER MILLENNIUM Potassium 3.7 3.5 - 5.0 mmol/L CERNER MILLENNIUM Comment: Please note: ??Patients with WBC >100,000 may have falsely elevated Potassium levels. ??For accurate Potassium quantification in these patients send serum separator tube (gold top) for subsequent determinations. ??Contact the Clinical Chemistry Laboratory if there are any questions. Chloride 101 98 - 107 mmol/L CERNER MILLENNIUM Carbon Dioxide 25 22 - 31 mmol/L CERNER MILLENNIUM Anion Gap 11 5 - 15 mmol/L CERNER MILLENNIUM Calcium 9.3 8.5 - 10.5 mg/dL CERNER MILLENNIUM Est [...] the following links into your internet browser. [email or web address] Blood specimen (specimen) 12/31/2013 3:59 AM EDT 12/31/2013 4:32 AM EDT Narrative Resulting Agency Comment Spec In Lab Kristen Zarate III, MD CHEMISTRY ORD ERABLES XOCHITL WHITAKER * Prothrombin Time (12/31/2013 3:59 AM EDT) Prothrombin Time 14.2 12.0 - 15.0 sec CERNER MILLENNIUM Comment: [facility] Transfusion Committee Guidelines: INR less than 2.0, PTT less than OR equal to 43.5 seconds, or Fibrinogen greater than or equal to 100 mg/dl indicate adequate procoagulant activity for hemostasis in patients without underlying bleeding disorders. International Normalization Ratio 1.1 0.9 - 1.1 CERNER MILLENNIUM Blood specimen (specimen) 12/31/2013 3:59 AM EDT 12/31/2013 4:32 AM EDT Narrative Resulting Agency Comment Spec In Lab Kristen Zarate III, MD HEMATOLOGY OR DERABLES Performing Organization Address [facility] Phone Number [facility] * Prothrombin Time (12/30/2013 6:27 AM EDT) Prothrombin Time 14.4 12.0 - 15.0 sec [facility] Comment: [facility] Transfusion Committee Guidelines: INR less than 2.0, PTT less than OR equal to 43.5 seconds, or Fibrinogen greater than or equal to 100 mg/dl indicate adequate procoagulant activity for hemostasis in patients without underlying bleeding disorders. International Normalization Ratio 1.1 0.9 - 1.1 [facility] Blood specimen (specimen) 12/30/2013 6:27 AM EDT 12/30/2013 6:49 AM EDT Narrative Resulting Agency Comment Spec In Lab Kristen Zarate III, MD HEMATOLOGY OR DERABLES Performing Organization Address [facility] Phone Number [facility] * High Sensitivity CRP (12/29/2013 3:14 AM EDT) C-Reactive Protein High Sensitivity 53.4 mg/L [facility] Comment: Result rechecked. DA Interpretations: 1) For accurate cardiac risk assessment, [...] prevention. ??Circulation 2003; [phone] Blood specimen (specimen) 12/29/2013 3:14 AM EDT 12/29/2013 4:11 AM EDT Narrative Resulting Agency Comment Spec In Lab Kristen Zarate III, MD CHEMISTRY ORD ERABLES CERNER MILLENNIUM * (ABNORMAL) Differential, Automated (12/29/2013 3:14 AM EDT) Neutrophil % 73.2(H) 34.0 - 71.0 % CERNER MILLENNIUM Neutrophil Absolute 8.70(H) 1.50 - 6.30 x10(3)/mc L CERNER MILLENNIUM Lymph % 13.7(L) 19.0 - 53.0 % CERNER MILLENNIUM Lymphocytes Abs 1.6 1.0 - 3.6 x10(3)/mc L CERNER MILLENNIUM Monocyte % 9.2 4.0 - 13.0 % CERNER MILLENNIUM Monocyte Abs 1.1(H) 0.2 - 1.0 x10(3)/mc L CERNER MILLENNIUM Eos % 3.0 0.0 - 7.0 % CERNER MILLENNIUM Eosinophils Abs 0.4 0.0 - 0.5 x10(3)/mc L CERNER MILLENNIUM Basophil % 0.2 0.0 - 2.0 % CERNER MILLENNIUM Baso Absolute 0.0 0.0 - 0.2 x10(3)/mc L CERNER MILLENNIUM Immature Gran % 0.70(H) 0.00 - 0.66 % CERNER MILLENNIUM Comment: Immature granulocytes(IG's)percentage and absolute count will include metamyelocytes, myelocytes, and promyelocytes. Blood smears from CBCs yielding IG's will be scanned manually for concordance. If this scan disagrees with the automated IG or if promyelocytes are noted, a manual differential will be performed. Immature Gran Absolute 0.08(H) 0.00 - 0.05 x10(3)/mc L CERNER MILLENNIUM Blood specimen (specimen) 12/29/2013 3:14 AM EDT 12/29/2013 4:08 AM EDT Narrative Resulting Agency Comment Spec In Lab Kristen Zarate III, MD HEMATOLOGY OR DERABLES Performing Organization Address City/[facility] Co de Phone Number CERNER MILLENNIUM * (ABNORMAL) Hemogram (12/29/2013 3:14 AM EDT) White Blood Cell 11.9(H) 4.0 - 10.0 x10(3)/mc L CERNER MILLENNIUM Red Blood Cell 3.81(L) 4.63 - 6.08 x10(6)/mc L CERNER MILLENNIUM Hemoglobin 10.0(L) 13.7 - 17.5 gm/dL CERNER MILLENNIUM Hematocrit 33.1(L) 40.0 - 51.0 % CERNER MILLENNIUM Mean Cell Volume 86.9 79.0 - 92.0 fL CERNER MILLENNIUM Mean Cell Hemoglobin 26.2 25.6 - 32.2 pg CERNER MILLENNIUM Mean Cell Hemoglobin Concentration 30.2(L) 32.0 - 36.5 gm/dL CERNER MILLENNIUM Platelet 357 145 - 370 x10(3)/mc L CERNER MILLENNIUM RDW Standard Deviation 48.8(H) 35.0 - 46.0 fL CERNER MILLENNIUM RDW coefficient of variation 15.4(H) 10.9 - 14.4 % CERNER MILLENNIUM Mean Platelet Volume 10.5 9.0 - 12.0 fL CERNER MILLENNIUM Blood specimen (specimen) 12/29/2013 3:14 AM EDT 12/29/2013 4:08 AM EDT Narrative Resulting Agency Comment Spec In Lab Kristen Zarate III, MD HEMATOLOGY OR DERABLES XOCHITL MADRIDENNIUM * (ABNORMAL) Basic Metabolic Panel (non-fasting) (12/29/2013 3:14 AM EDT) Glucose 93 60 - 199 mg/dL CERNER MILLENNIUM Comment:Diabetes: >=200 mg/d L plus symptoms Blood Urea Nitrogen 25(H) 10 - 20 mg/dL CERNER MILLENNIUM Creatinine 0.58(L) 0.80 - 1.50 mg/dL CERNER MILLENNIUM Comment: Please note that the pediatric reference intervals supplied above were [place] [facility] [place] Results from pediatric patients should be interpreted in conjunction to the patient's age, height and muscle mass. Sodium 136 135 - 145 mmol/L CERNER MILLENNIUM Potassium 4.0 3.5 - 5.0 mmol/L CERNER MILLENNIUM Comment: Please note: ??Patients with WBC >100,000 may have falsely elevated Potassium levels. ??For accurate Potassium quantification in these patients send serum separator tube (gold top) for subsequent determinations. ??Contact the Clinical Chemistry Laboratory if there are any questions. Chloride 99 98 - 107 mmol/L CERNER MILLENNIUM Carbon Dioxide 26 22 - 31 mmol/L CERNER MILLENNIUM Anion Gap 11 5 - 15 mmol/L CERNER MILLENNIUM Calcium 9.1 8.5 - 10.5 mg/dL CERNER MILLENNIUM Est [...] the following links into your internet browser. [email or web address] Blood specimen (specimen) 12/29/2013 3:14 AM EDT 12/29/2013 4:08 AM EDT Narrative Resulting Agency Comment Spec In Lab Kristen Zarate III, MD CHEMISTRY ORD ERABLES CERNER AFSANEHIUM * Prothrombin Time (12/29/2013 3:14 AM EDT) Prothrombin Time 14.5 12.0 - 15.0 sec [facility] Comment: [facility] Transfusion Committee Guidelines: INR less than 2.0, PTT less than OR equal to 43.5 seconds, or Fibrinogen greater than or equal to 100 mg/dl indicate adequate procoagulant activity for hemostasis in patients without underlying bleeding disorders. International Normalization Ratio 1.1 0.9 - 1.1 [facility] Blood specimen (specimen) 12/29/2013 3:14 AM EDT 12/29/2013 4:08 AM EDT Narrative Resulting Agency Comment Spec In Lab Kristen Zarate III, MD HEMATOLOGY OR DERABLES Performing Organization Address [facility] de Phone Number [facility] * Prothrombin Time (12/28/2013 4:32 AM EDT) Prothrombin Time 14.0 12.0 - 15.0 sec [facility] Comment: [facility] Transfusion Committee Guidelines: INR less than 2.0, PTT less than OR equal to 43.5 seconds, or Fibrinogen greater than or equal to 100 mg/dl indicate adequate procoagulant activity for hemostasis in patients without underlying bleeding disorders. International Normalization Ratio 1.0 0.9 - 1.1 [facility] Blood specimen (specimen) 12/28/2013 4:32 AM EDT 12/28/2013 4:51 AM EDT Narrative Resulting Agency Comment Spec In Lab Kristen Zarate III, MD HEMATOLOGY OR DERABLES Performing Organization Address [facility] de Phone Number [facility] * POCT Glucose (12/27/2013 7:19 AM EDT) Glucose, POC 110 60 - 199 mg/dL [facility] Comment: Supplemental ranges: <110 mg/dL before meals <200 mg/dL all other times of the day Blood specimen (specimen) 12/27/2013 7:19 AM EDT 12/27/2013 7:19 AM EDT Romulo Ramires MD POINT OF CARE TEST ORDERABLES CERNER MILLENNIUM * (ABNORMAL) Differential, Automated (12/27/2013 4:02 AM EDT) Neutrophil % 68.0 34.0 - 71.0 % CERNER MILLENNIUM Neutrophil Absolute 6.40(H) 1.50 - 6.30 x10(3)/mc L CERNER MILLENNIUM Lymph % 18.3(L) 19.0 - 53.0 % CERNER MILLENNIUM Lymphocytes Abs 1.7 1.0 - 3.6 x10(3)/mc L CERNER MILLENNIUM Monocyte % 5.1 4.0 - 13.0 % CERNER MILLENNIUM Monocyte Abs 0.5 0.2 - 1.0 x10(3)/mc L CERNER MILLENNIUM Eos % 4.5 0.0 - 7.0 % CERNER MILLENNIUM Eosinophils Abs 0.4 0.0 - 0.5 x10(3)/mc L CERNER MILLENNIUM Basophil % 0.2 0.0 - 2.0 % CERNER MILLENNIUM Baso Absolute 0.0 0.0 - 0.2 x10(3)/mc L CERNER MILLENNIUM Immature Gran % 3.90(H) 0.00 - 0.66 % CERNER MILLENNIUM Comment: Immature granulocytes(IG's)percentage and absolute count will include metamyelocytes, myelocytes, and promyelocytes. Blood smears from CBCs yielding IG's will be scanned manually for concordance. If this scan disagrees with the automated IG or if promyelocytes are noted, a manual differential will be performed. Immature Gran Absolute 0.37(H) 0.00 - 0.05 x10(3)/mc L CERNER MILLENNIUM Blood specimen (specimen) 12/27/2013 4:02 AM EDT 12/27/2013 4:20 AM EDT Narrative Resulting Agency Comment Spec In Lab Bro Morgan MD HEMATOLOGY ORDERABLE S CERNER MILLENNIUM * (ABNORMAL) Hemogram (12/27/2013 4:02 AM EDT) White Blood Cell 9.4 4.0 - 10.0 x10(3)/mc L CERNER MILLENNIUM Red Blood Cell 3.78(L) 4.63 - 6.08 x10(6)/mc L CERNER MILLENNIUM Hemoglobin 9.9(L) 13.7 - 17.5 gm/dL CERNER MILLENNIUM Hematocrit 32.5(L) 40.0 - 51.0 % CERNER MILLENNIUM Mean Cell Volume 86.0 79.0 - 92.0 fL CERNER MILLENNIUM Mean Cell Hemoglobin 26.2 25.6 - 32.2 pg CERNER MILLENNIUM Mean Cell Hemoglobin Concentration 30.5(L) 32.0 - 36.5 gm/dL CERNER MILLENNIUM Platelet 394(H) 145 - 370 x10(3)/mc L CERNER MILLENNIUM RDW Standard Deviation 47.9(H) 35.0 - 46.0 fL CERNER MILLENNIUM RDW coefficient of variation 15.6(H) 10.9 - 14.4 % CERNER MILLENNIUM Mean Platelet Volume 9.6 9.0 - 12.0 fL CERNER MILLENNIUM Blood specimen (specimen) 12/27/2013 4:02 AM EDT 12/27/2013 4:20 AM EDT Narrative Resulting Agency Comment Spec In Lab Bro Morgan MD HEMATOLOGY ORDERABLE S XOCHITL SHELBYIUM * Prothrombin Time (12/27/2013 4:02 AM EDT) Prothrombin Time 14.5 12.0 - 15.0 sec CERNER MILLENNIUM Comment: [facility] Transfusion Committee Guidelines: INR less than 2.0, PTT less than OR equal to 43.5 seconds, or Fibrinogen greater than or equal to 100 mg/dl indicate adequate procoagulant activity for hemostasis in patients without underlying bleeding disorders. International Normalization Ratio 1.1 0.9 - 1.1 CERNER MILLENNIUM Blood specimen (specimen) 12/27/2013 4:02 AM EDT 12/27/2013 4:20 AM EDT Narrative Resulting Agency Comment Spec In Lab Kristen Zarate III, MD HEMATOLOGY OR DERABLES CERNER JULIUSENNIUM * (ABNORMAL) Basic Metabolic Panel (non-fasting) (12/27/2013 4:02 AM EDT) Glucose 105 60 - 199 mg/dL CERNER MILLENNIUM Comment:Diabetes: >=200 mg/d L plus symptoms Blood Urea Nitrogen 25(H) 10 - 20 mg/dL CERNER MILLENNIUM Creatinine 0.54(L) 0.80 - 1.50 mg/dL CERNER MILLENNIUM Comment: Please note that the pediatric reference intervals supplied above were not validated [place] [facility] [place] Results from pediatric patients should be interpreted in conjunction to the patient's age, height and muscle mass. Sodium 135 135 - 145 mmol/L CERNER MILLENNIUM Potassium 4.3 3.5 - 5.0 mmol/L CERNER MILLENNIUM Comment: Please note: ??Patients with WBC >100,000 may have falsely elevated Potassium levels. ??For accurate Potassium quantification in these patients send serum separator tube (gold top) for subsequent determinations. ??Contact the Clinical Chemistry Laboratory if there are any questions. Chloride 100 98 - 107 mmol/L CERNER MILLENNIUM Carbon Dioxide 26 22 - 31 mmol/L CERNER MILLENNIUM Anion Gap 9 5 - 15 mmol/L CERNER MILLENNIUM Calcium 8.9 8.5 - 10.5 mg/dL CERNER MILLENNIUM Est [...] the following links into your internet browser. [email or web address] [place] Blood specimen (specimen) 12/27/2013 4:02 AM EDT 12/27/2013 4:20 AM EDT Narrative Resulting Agency Comment Spec In Lab Bro Morgan MD CHEMISTRY ORDERABLES XOCHITL WHITAKER * Arterial Duplex Arm, Unilat (12/26/2013 10:52 AM EDT) VB Text Report Department: Vascular Surgery Lab Patient: [id number] (CIRILO PONCE) CPT Code: 91079 ICD-9: 903.8 Referring Physician: KRISTEN ZARATE Indication: ??s/p vein patch right brachial artery; evaluate right axillary, brachial, and radial arteries for stenosis ICD9 Diagnosis Code: 903.8 Findings: Right ?PSV (cm/s) ??EDV (cm/s) ?? Axillary Artery, Proximal ? 160 ? 0 ?? Axillary Artery, Distal ?64 ? 0 ?? Brachial Artery, Proximal ? 107 ? 0 ?? Brachial Artery, Distal ?92 ? 0 ?? Radial Artery, Proximal ?68 ? 0 ?? Radial Artery, ??Mid ?78 ? 0 ?? Radial Artery, Distal ?75 ? 0 ?? Interpretation: Patent right axillary, brachial, and radial arteries with normal triphasic Doppler waveforms. Limited visualization due to dressing in the mid/distal upper arm (mid brachial artery not scanned) and steri-strips in the forearm (limited visualization of the proximal radial artery); cannot exclude stenosis in these segments. Comparison: ??No previous study in our vascular lab database for comparison. Electronically Signed by: BABAR CARMICHAEL M.D. on 2013-12-28 04:58:30 PM V[facility] VB Text Report End of Report [facility] 12/26/2013 10:5 2 AM EDT Kristen Zarate III, MD VASCULAR BIBI ELY [facility] * (ABNORMAL) Differential, Automated (12/26/2013 3:16 AM EDT) Neutrophil % 65.9 34.0 - 71.0 % CERNER MILLENNIUM Neutrophil Absolute 6.51(H) 1.50 - 6.30 x10(3)/mc L CERNER MILLENNIUM Lymph % 17.3(L) 19.0 - 53.0 % CERNER MILLENNIUM Lymphocytes Abs 1.7 1.0 - 3.6 x10(3)/mc L CERNER MILLENNIUM Monocyte % 6.7 4.0 - 13.0 % CERNER MILLENNIUM Monocyte Abs 0.7 0.2 - 1.0 x10(3)/mc L CERNER MILLENNIUM Eos % 5.3 0.0 - 7.0 % CERNER MILLENNIUM Eosinophils Abs 0.5 0.0 - 0.5 x10(3)/mc L CERNER MILLENNIUM Basophil % 0.3 0.0 - 2.0 % CERNER MILLENNIUM Baso Absolute 0.0 0.0 - 0.2 x10(3)/mc L CERNER MILLENNIUM Immature Gran % 4.50(H) 0.00 - 0.66 % CERNER MILLENNIUM Comment: Immature granulocytes(IG's)percentage and absolute count will include metamyelocytes, myelocytes, and promyelocytes. Blood smears from CBCs yielding IG's will be scanned manually for concordance. If this scan disagrees with the automated IG or if promyelocytes are noted, a manual differential will be performed. Immature Gran Absolute 0.44(H) 0.00 - 0.05 x10(3)/mc L CERNER MILLENNIUM Blood specimen (specimen) 12/26/2013 3:16 AM EDT 12/26/2013 4:16 AM EDT Narrative Resulting Agency Comment Spec In Lab Bro Morgan MD HEMATOLOGY ORDERABLE S Performing Organization Address [facility] Co de Phone Number CERNER MILLENNIUM * (ABNORMAL) Hemogram (12/26/2013 3:16 AM EDT) White Blood Cell 9.9 4.0 - 10.0 x10(3)/mc L CERNER MILLENNIUM Red Blood Cell 3.53(L) 4.63 - 6.08 x10(6)/mc L CERNER MILLENNIUM Hemoglobin 9.3(L) 13.7 - 17.5 gm/dL CERNER MILLENNIUM Hematocrit 31.0(L) 40.0 - 51.0 % CERNER MILLENNIUM Mean Cell Volume 87.8 79.0 - 92.0 fL CERNER MILLENNIUM Mean Cell Hemoglobin 26.3 25.6 - 32.2 pg CERNER MILLENNIUM Mean Cell Hemoglobin Concentration 30.0(L) 32.0 - 36.5 gm/dL CERNER MILLENNIUM Platelet 412(H) 145 - 370 x10(3)/mc L CERNER MILLENNIUM RDW Standard Deviation 48.9(H) 35.0 - 46.0 fL CERNER MILLENNIUM RDW coefficient of variation 15.3(H) 10.9 - 14.4 % CERNER MILLENNIUM Mean Platelet Volume 10.4 9.0 - 12.0 fL CERNER MILLENNIUM Blood specimen (specimen) 12/26/2013 3:16 AM EDT 12/26/2013 4:16 AM EDT Narrative Resulting Agency Comment Spec In Lab Bro Morgan MD HEMATOLOGY ORDERABLE S CERNER MILLENNIUM * (ABNORMAL) Basic Metabolic Panel (non-fasting) (12/26/2013 3:16 AM EDT) Glucose 88 60 - 199 mg/dL CERNER MILLENNIUM Comment:Diabetes: >=200 mg/d L plus symptoms Blood Urea Nitrogen 23(H) 10 - 20 mg/dL CERNER MILLENNIUM Creatinine 0.52(L) 0.80 - 1.50 mg/dL CERNER MILLENNIUM Comment: Please note that the pediatric reference intervals supplied above were not validated [place] [facility] [place] Results from pediatric patients should be interpreted in conjunction to the patient's age, height and muscle mass. Sodium 138 135 - 145 mmol/L CERNER MILLENNIUM Potassium 4.0 3.5 - 5.0 mmol/L CERNER MILLENNIUM Comment: Please note: ??Patients with WBC >100,000 may have falsely elevated Potassium levels. ??For accurate Potassium quantification in these patients send serum separator tube (gold top) for subsequent determinations. ??Contact the Clinical Chemistry Laboratory if there are any questions. Chloride 102 98 - 107 mmol/L CERNER MILLENNIUM Carbon Dioxide 25 22 - 31 mmol/L CERNER MILLENNIUM Anion Gap 11 5 - 15 mmol/L CERNER MILLENNIUM Calcium 8.5 8.5 - 10.5 mg/dL CERNER MILLENNIUM Est [...] the following links into your internet browser. [email or web address] Blood specimen (specimen) 12/26/2013 3:16 AM EDT 12/26/2013 4:16 AM EDT Narrative Resulting Agency Comment Spec In Lab Bro Morgan MD CHEMISTRY ORDERABLES XOCHITL WHITAKER * POCT Glucose (12/25/2013 6:29 AM EDT) [facility] Signature Glucose, POC 118 60 - 199 mg/dL CERNER MILLENNIUM Comment: Supplemental ranges: <110 mg/dL before meals <200 mg/dL all other times of the day Blood specimen (specimen) 12/25/2013 6:29 AM EDT 12/25/2013 6:29 AM EDT Romulo Ramires MD POINT OF CARE TEST ORDERABLES CERNER MILLENNIUM * (ABNORMAL) Differential, Manual (12/25/2013 3:25 AM EDT) Neutrophil % Manual 80(H) 34 - 71 % CERNER MILLENNIUM Band % 4 0 - 12 % CERNER MILLENNIUM Lymphocyte Manual 7(L) 19 - 53 % CE RNER MILLENNIUM Monocyte Manual 3(L) 4 - 13 % CERN ER MILLENNIUM Eosinophil Manual 4 0 - 7 % CE RNER MILLENNIUM Metamyelocyte Manual 2(H) 0 - 0 % CERNER MILLENNIUM Neutrophil Absolute (ANC) - Manual 8.6(H) 1.5 - 6.3 x10(3)/mc L CERNER MILLENNIUM Band Abs 0.4 0.2 - 0.6 x10(3)/mc L CERNER MILLENNIUM Neutrophil Absolute (ANC) - Automated 8.98(H) 1.50 - 6.30 x10(3)/mc L CERNER MILLENNIUM Lymph Absolute Manual 0.8(L) 1.0 - 3.6 x10(3)/mc L CERNER MILLENNIUM Monocyte Absolute Manual 0.3 0.2 - 1.0 x10(3)/mc L CERNER MILLENNIUM Eos Absolute Manual 0.4 0.0 - 0.5 x10(3)/mc L CERNER MILLENNIUM [place] Absolute Manual 0.2(H) 0.0 - 0.0 x10(3)/mc L CERNER MILLENNIUM Total Cells Ct 100 CERNE R MILLENNIUM Plat estimate Increased CERNER MILLENNIUM RBC Morphology Abnormal CERNE R MILLENNIUM Polychromasia Present >5/HPF CERNER MILLENNIUM Ovalocytes 1-5 /HPF CERNER MILLENNIUM Tear Cell 1-5 /HPF CERNER MILLENNIUM Plat, Giant Less than 1 /HPF CERNER MILLENNIUM Blood specimen (specimen) 12/25/2013 3:25 AM EDT 12/25/2013 3:55 AM EDT Narrative Resulting Agency Comment Spec In Lab Bro Morgan MD HEMATOLOGY ORDERABLE S Performing Organization Address [facility] de Phone Number CERNER MILLENNIUM * (ABNORMAL) Hemogram (12/25/2013 3:25 AM EDT) White Blood Cell 10.7(H) 4.0 - 10.0 x10(3)/mc L CERNER MILLENNIUM Red Blood Cell 3.38(L) 4.63 - 6.08 x10(6)/mc L CERNER MILLENNIUM Hemoglobin 8.9(L) 13.7 - 17.5 gm/dL CERNER MILLENNIUM Hematocrit 29.6(L) 40.0 - 51.0 % CERNER MILLENNIUM Mean Cell Volume 87.6 79.0 - 92.0 fL CERNER MILLENNIUM Mean Cell Hemoglobin 26.3 25.6 - 32.2 pg CERNER MILLENNIUM Mean Cell Hemoglobin Concentration 30.1(L) 32.0 - 36.5 gm/dL CERNER MILLENNIUM Platelet 420(H) 145 - 370 x10(3)/mc L CERNER MILLENNIUM RDW Standard Deviation 49.2(H) 35.0 - 46.0 fL CERNER MILLENNIUM RDW coefficient of variation 15.4(H) 10.9 - 14.4 % CERNER MILLENNIUM Mean Platelet Volume 10.0 9.0 - 12.0 fL CERNER MILLENNIUM Blood specimen (specimen) 12/25/2013 3:25 AM EDT 12/25/2013 3:55 AM EDT Narrative Resulting Agency Comment Spec In Lab Bro Morgan MD HEMATOLOGY ORDERABLE S Performing Organization Address [facility]/ZIP Co de Phone Number CERNER MILLENNIUM * (ABNORMAL) Basic Metabolic Panel (non-fasting) (12/25/2013 3:25 AM EDT) Glucose 111 60 - 199 mg/dL CERNER MILLENNIUM Comment:Diabetes: >=200 mg/d L plus symptoms Blood Urea Nitrogen 22(H) 10 - 20 mg/dL CERNER MILLENNIUM Creatinine 0.48(L) 0.80 - 1.50 mg/dL CERNER MILLENNIUM Comment: Please note that the pediatric reference intervals supplied above were not validated [place] [facility] [place] Results from pediatric patients should be interpreted in conjunction to the patient's age, height and muscle mass. Sodium 138 135 - 145 mmol/L CERNER MILLENNIUM Potassium 3.8 3.5 - 5.0 mmol/L CERNER MILLENNIUM Comment: Please note: ??Patients with WBC >100,000 may have falsely elevated Potassium levels. ??For accurate Potassium quantification in these patients send serum separator tube (gold top) for subsequent determinations. ??Contact the Clinical Chemistry Laboratory if there are any questions. Chloride 106 98 - 107 mmol/L CERNER MILLENNIUM Carbon Dioxide 24 22 - 31 mmol/L CERNER MILLENNIUM Anion Gap 8 5 - 15 mmol/L CERNER MILLENNIUM Calcium 8.8 8.5 - 10.5 mg/dL CERNER MILLENNIUM Est [...] the following links into your internet browser. [email or web address] Blood specimen (specimen) 12/25/2013 3:25 AM EDT 12/25/2013 3:55 AM EDT Narrative Resulting Agency Comment Spec In Lab Bro Morgan MD CHEMISTRY ORDERABLES CERHELENA JULIUSJUN * POCT Glucose (12/24/2013 8:36 PM EDT) [facility] Glucose, POC 106 60 - 199 mg/dL CERNER MILLENNIUM Comment: Supplemental ranges: <110 mg/dL before meals <200 mg/dL all other times of the day Blood specimen (specimen) 12/24/2013 8:36 PM EDT 12/24/2013 8:36 PM EDT Romulo Ramires MD POINT OF CARE TEST ORDERABLES MARBINHELENA SHELBYIUM * POCT Glucose (12/24/2013 7:59 AM EDT) Glucose, POC 123 60 - 199 mg/dL CERNER JULIUSENNIUM Comment: Supplemental ranges: <110 mg/dL before meals <200 mg/dL all other times of the day Blood specimen (specimen) 12/24/2013 7:59 AM EDT 12/24/2013 7:59 AM EDT Romulo Ramires MD POINT OF CARE TEST ORDERABLES Performing Organization Address City/[facility] Co de Phone Number XOCHITL SHELBYIUM * (ABNORMAL) Differential, Automated (12/24/2013 2:44 AM EDT) Neutrophil % 72.5(H) 34.0 - 71.0 % CERNER MILLENNIUM Neutrophil Absolute 9.96(H) 1.50 - 6.30 x10(3)/mc L CERNER MILLENNIUM Lymph % 12.4(L) 19.0 - 53.0 % CERNER MILLENNIUM Lymphocytes Abs 1.7 1.0 - 3.6 x10(3)/mc L CERNER MILLENNIUM Monocyte % 8.3 4.0 - 13.0 % CERNER MILLENNIUM Monocyte Abs 1.1(H) 0.2 - 1.0 x10(3)/mc L CERNER MILLENNIUM Eos % 4.2 0.0 - 7.0 % CERNER MILLENNIUM Eosinophils Abs 0.6(H) 0.0 - 0.5 x10(3)/mc L CERNER MILLENNIUM Basophil % 0.4 0.0 - 2.0 % CERNER MILLENNIUM Baso Absolute 0.0 0.0 - 0.2 x10(3)/mc L CERNER MILLENNIUM Immature Gran % 2.20(H) 0.00 - 0.66 % CERNER MILLENNIUM Comment: Immature granulocytes(IG's)percentage and absolute count will include metamyelocytes, myelocytes, and promyelocytes. Blood smears from CBCs yielding IG's will be scanned manually for concordance. If this scan disagrees with the automated IG or if promyelocytes are noted, a manual differential will be performed. Immature Gran Absolute 0.30(H) 0.00 - 0.05 x10(3)/mc L CERNER MILLENNIUM Blood specimen (specimen) 12/24/2013 2:44 AM EDT 12/24/2013 3:05 AM EDT Narrative Resulting Agency Comment Spec In Lab rBo Morgan MD HEMATOLOGY ORDERABLE S CERNER MILLENNIUM * (ABNORMAL) Hemogram (12/24/2013 2:44 AM EDT) White Blood Cell 13.7(H) 4.0 - 10.0 x10(3)/mc L CERNER MILLENNIUM Red Blood Cell 3.21(L) 4.63 - 6.08 x10(6)/mc L CERNER MILLENNIUM Hemoglobin 8.7(L) 13.7 - 17.5 gm/dL CERNER MILLENNIUM Hematocrit 28.4(L) 40.0 - 51.0 % CERNER MILLENNIUM Mean Cell Volume 88.5 79.0 - 92.0 fL CERNER MILLENNIUM Mean Cell Hemoglobin 27.1 25.6 - 32.2 pg CERNER MILLENNIUM Mean Cell Hemoglobin Concentration 30.6(L) 32.0 - 36.5 gm/dL CERNER MILLENNIUM Platelet 390(H) 145 - 370 x10(3)/mc L CERNER MILLENNIUM RDW Standard Deviation 48.8(H) 35.0 - 46.0 fL CERNER MILLENNIUM RDW coefficient of variation 15.2(H) 10.9 - 14.4 % CERNER MILLENNIUM Mean Platelet Volume 10.4 9.0 - 12.0 fL CERNER MILLENNIUM Blood specimen (specimen) 12/24/2013 2:44 AM EDT 12/24/2013 3:05 AM EDT Narrative Resulting Agency Comment Spec In Lab Bro Morgan MD HEMATOLOGY ORDERABLE S CERNER MILLENNIUM * (ABNORMAL) Basic Metabolic Panel (non-fasting) (12/24/2013 2:44 AM EDT) Glucose 106 60 - 199 mg/dL CERNER MILLENNIUM Comment:Diabetes: >=200 mg/d L plus symptoms Blood Urea Nitrogen 20 10 - 20 mg/dL CERNER MILLENNIUM Creatinine 0.49(L) 0.80 - 1.50 mg/dL CERNER MILLENNIUM Comment: Please note that the pediatric reference intervals supplied above were not [place] [facility] [place] Results from pediatric patients should be interpreted in conjunction to the patient's age, height and muscle mass. Sodium 138 135 - 145 mmol/L CERNER MILLENNIUM Potassium 3.7 3.5 - 5.0 mmol/L CERNER MILLENNIUM Comment: Please note: ??Patients with WBC >100,000 may have falsely elevated Potassium levels. ??For accurate Potassium quantification in these patients send serum separator tube (gold top) for subsequent determinations. ??Contact the Clinical Chemistry Laboratory if there are any questions. Chloride 105 98 - 107 mmol/L CERNER MILLENNIUM Carbon Dioxide 24 22 - 31 mmol/L CERNER MILLENNIUM Anion Gap 9 5 - 15 mmol/L CERNER MILLENNIUM Calcium 8.4(L) 8.5 - 10.5 mg/dL CERNER MILLENNIUM Est [...] the following links into your internet browser. [email or web address] Blood specimen (specimen) 12/24/2013 2:44 AM EDT 12/24/2013 3:05 AM EDT Narrative Resulting Agency Comment Spec In Lab rBo Morgan MD CHEMISTRY ORDERABLES Performing Organization Address City/[facility]/ZIP Co de Phone Number CERHELENA SHELBYIUM * POCT Glucose (12/23/2013 8:06 PM EDT) Pathologist [facility] Glucose, POC 109 60 - 199 mg/dL CERNER MILLENNIUM Comment: Supplemental ranges: <110 mg/dL before meals <200 mg/dL all other times of the day Blood specimen (specimen) 12/23/2013 8:06 PM EDT 12/23/2013 8:06 PM EDT Romulo Ramires MD POINT OF CARE TEST ORDERABLES Performing Organization Address City/[facility]/ZIP Co de Phone Number CERHELENA MADRIDENNIUM * Transfuse RBC (12/23/2013 5:33 AM EDT) Cirilo Olivas MD NURSING TREATMENT OR DERABLES - BLOOD ADMIN * (ABNORMAL) Differential, Automated (12/23/2013 3:20 AM EDT) Neutrophil % 83.5(H) 34.0 - 71.0 % CERNER MILLENNIUM Neutrophil Absolute 13.44(H) 1.50 - 6.30 x10(3)/mc L CERNER MILLENNIUM Lymph % 6.7(L) 19.0 - 53.0 % CERNER MILLENNIUM Lymphocytes Abs 1.1 1.0 - 3.6 x10(3)/mc L CERNER MILLENNIUM Monocyte % 6.7 4.0 - 13.0 % CERNER MILLENNIUM Monocyte Abs 1.1(H) 0.2 - 1.0 x10(3)/mc L CERNER MILLENNIUM Eos % 1.7 0.0 - 7.0 % CERNER MILLENNIUM Eosinophils Abs 0.3 0.0 - 0.5 x10(3)/mc L CERNER MILLENNIUM Basophil % 0.2 0.0 - 2.0 % CERNER MILLENNIUM Baso Absolute 0.0 0.0 - 0.2 x10(3)/mc L CERNER MILLENNIUM Immature Gran % 1.20(H) 0.00 - 0.66 % CERNER MILLENNIUM Comment: Immature granulocytes(IG's)percentage and absolute count will include metamyelocytes, myelocytes, and promyelocytes. Blood smears from CBCs yielding IG's will be scanned manually for concordance. If this scan disagrees with the automated IG or if promyelocytes are noted, a manual differential will be performed. Immature Gran Absolute 0.19(H) 0.00 - 0.05 x10(3)/mc L CERNER MILLENNIUM Blood specimen (specimen) 12/23/2013 3:20 AM EDT 12/23/2013 3:23 AM EDT Narrative Resulting Agency Comment Spec In Lab Cirilo Olivas MD HEMATOLOGY ORDERABLE S CERNER MILLENNIUM * (ABNORMAL) Hemogram (12/23/2013 3:20 AM EDT) White Blood Cell 16.1(H) 4.0 - 10.0 x10(3)/mc L CERNER MILLENNIUM Red Blood Cell 3.10(L) 4.63 - 6.08 x10(6)/mc L CERNER MILLENNIUM Hemoglobin 8.5(L) 13.7 - 17.5 gm/dL CERNER MILLENNIUM Hematocrit 27.3(L) 40.0 - 51.0 % CERNER MILLENNIUM Mean Cell Volume 88.1 79.0 - 92.0 fL CERNER MILLENNIUM Mean Cell Hemoglobin 27.4 25.6 - 32.2 pg CERNER MILLENNIUM Mean Cell Hemoglobin Concentration 31.1(L) 32.0 - 36.5 gm/dL CERNER MILLENNIUM Platelet 389(H) 145 - 370 x10(3)/mc L CERNER MILLENNIUM RDW Standard Deviation 48.5(H) 35.0 - 46.0 fL CERNER MILLENNIUM RDW coefficient of variation 15.0(H) 10.9 - 14.4 % CERNER MILLENNIUM Mean Platelet Volume 10.0 9.0 - 12.0 fL CERNER MILLENNIUM Blood specimen (specimen) 12/23/2013 3:20 AM EDT 12/23/2013 3:23 AM EDT Narrative Resulting Agency Comment Spec In Lab Cirilo Olivas MD HEMATOLOGY ORDERABLE S CERNER MILLENNIUM * (ABNORMAL) Basic Metabolic Panel (non-fasting) (12/23/2013 3:20 AM EDT) [facility] Signature Glucose 138 60 - 199 mg/dL CERNER MILLENNIUM Comment:Diabetes: >=200 mg/d L plus symptoms Blood Urea Nitrogen 19 10 - 20 mg/dL CERNER MILLENNIUM Creatinine 0.51(L) 0.80 - 1.50 mg/dL CERNER MILLENNIUM Comment: Please note that the pediatric reference intervals supplied above were [place] [facility] [place] Results from pediatric patients should be interpreted in conjunction to the patient's age, height and muscle mass. Sodium 140 135 - 145 mmol/L CERNER MILLENNIUM Potassium 4.1 3.5 - 5.0 mmol/L CERNER MILLENNIUM Comment: Please note: ??Patients with WBC >100,000 may have falsely elevated Potassium levels. ??For accurate Potassium quantification in these patients send serum separator tube (gold top) for subsequent determinations. ??Contact the Clinical Chemistry Laboratory if there are any questions. Chloride 103 98 - 107 mmol/L CERNER MILLENNIUM Carbon Dioxide 25 22 - 31 mmol/L CERNER MILLENNIUM Anion Gap 12 5 - 15 mmol/L CERNER MILLENNIUM Calcium 8.7 8.5 - 10.5 mg/dL CERNER MILLENNIUM Est [...] the following links into your internet browser. [email or web address] Blood specimen (specimen) 12/23/2013 3:20 AM EDT 12/23/2013 3:23 AM EDT Narrative Resulting Agency Comment Spec In Lab Bro Morgan MD CHEMISTRY ORDERABLES CERNER MILLENNIUM * (ABNORMAL) Differential, Automated (12/22/2013 3:15 AM EDT) Neutrophil % 81.0(H) 34.0 - 71.0 % CERNER MILLENNIUM Neutrophil Absolute 10.45(H) 1.50 - 6.30 x10(3)/mc L CERNER MILLENNIUM Lymph % 8.8(L) 19.0 - 53.0 % CERNER MILLENNIUM Lymphocytes Abs 1.1 1.0 - 3.6 x10(3)/mc L CERNER MILLENNIUM Monocyte % 5.7 4.0 - 13.0 % CERNER MILLENNIUM Monocyte Abs 0.7 0.2 - 1.0 x10(3)/mc L CERNER MILLENNIUM Eos % 3.0 0.0 - 7.0 % CERNER MILLENNIUM Eosinophils Abs 0.4 0.0 - 0.5 x10(3)/mc L CERNER MILLENNIUM Basophil % 0.3 0.0 - 2.0 % CERNER MILLENNIUM Baso Absolute 0.0 0.0 - 0.2 x10(3)/mc L CERNER MILLENNIUM Immature Gran % 1.20(H) 0.00 - 0.66 % CERNER MILLENNIUM Comment: Immature granulocytes(IG's)percentage and absolute count will include metamyelocytes, myelocytes, and promyelocytes. Blood smears from CBCs yielding IG's will be scanned manually for concordance. If this scan disagrees with the automated IG or if promyelocytes are noted, a manual differential will be performed. Immature Gran Absolute 0.15(H) 0.00 - 0.05 x10(3)/mc L CERNER MILLENNIUM Blood specimen (specimen) 12/22/2013 3:15 AM EDT 12/22/2013 3:21 AM EDT Narrative Resulting Agency Comment Spec In Lab Cirilo Olivas MD HEMATOLOGY ORDERABLE S Performing Organization Address [facility] Co de Phone Number CERNER MILLENNIUM * (ABNORMAL) Hemogram (12/22/2013 3:15 AM EDT) White Blood Cell 12.9(H) 4.0 - 10.0 x10(3)/mc L CERNER MILLENNIUM Red Blood Cell 2.91(L) 4.63 - 6.08 x10(6)/mc L CERNER MILLENNIUM Hemoglobin 7.9(L) 13.7 - 17.5 gm/dL CERNER MILLENNIUM Hematocrit 24.9(L) 40.0 - 51.0 % CERNER MILLENNIUM Mean Cell Volume 85.6 79.0 - 92.0 fL CERNER MILLENNIUM Mean Cell Hemoglobin 27.1 25.6 - 32.2 pg CERNER MILLENNIUM Mean Cell Hemoglobin Concentration 31.7(L) 32.0 - 36.5 gm/dL CERNER MILLENNIUM Platelet 354 145 - 370 x10(3)/mc L CERNER MILLENNIUM RDW Standard Deviation 46.2(H) 35.0 - 46.0 fL CERNER MILLENNIUM RDW coefficient of variation 14.7(H) 10.9 - 14.4 % CERNER MILLENNIUM Mean Platelet Volume 9.8 9.0 - 12.0 fL CERNER MILLENNIUM Blood specimen (specimen) 12/22/2013 3:15 AM EDT 12/22/2013 3:21 AM EDT Narrative Resulting Agency Comment Spec In Lab Cirilo Olivas MD HEMATOLOGY ORDERABLE S Performing Organization Address [facility]/ZIP Co de Phone Number CERHELENA MILLENNIUM * (ABNORMAL) Basic Metabolic Panel (non-fasting) (12/22/2013 3:15 AM EDT) Glucose 130 60 - 199 mg/dL CERNER MILLENNIUM Comment:Diabetes: >=200 mg/d L plus symptoms Blood Urea Nitrogen 17 10 - 20 mg/dL CERNER MILLENNIUM Creatinine 0.50(L) 0.80 - 1.50 mg/dL CERNER MILLENNIUM Comment: Please note that the pediatric reference intervals supplied above were not validated [place] [facility] [place] Results from pediatric patients should be interpreted in conjunction to the patient's age, height and muscle mass. Sodium 135 135 - 145 mmol/L CERNER MILLENNIUM Potassium 4.1 3.5 - 5.0 mmol/L CERNER MILLENNIUM Comment: Please note: ??Patients with WBC >100,000 may have falsely elevated Potassium levels. ??For accurate Potassium quantification in these patients send serum separator tube (gold top) for subsequent determinations. ??Contact the Clinical Chemistry Laboratory if there are any questions. Chloride 99 98 - 107 mmol/L CERNER MILLENNIUM Carbon Dioxide 27 22 - 31 mmol/L CERNER MILLENNIUM Anion Gap 9 5 - 15 mmol/L CERNER MILLENNIUM Calcium 8.0(L) 8.5 - 10.5 mg/dL CERNER MILLENNIUM Est [...] the following links into your internet browser. [email or web address] Blood specimen (specimen) 12/22/2013 3:15 AM EDT 12/22/2013 3:21 AM EDT Narrative Resulting Agency Comment Spec In Lab Bro Morgan MD CHEMISTRY ORDERABLES XOCHITL MADRIDENNIUM * Blood culture (12/21/2013 10:50 PM EDT) Blood Culture ? Patient Name: CIRILO PONCE ?Ordered By: BRO MORGAN ? MR#: [id number] ?LOC: ??3WST ? /Sex: ??1985 (28 years), ? Male ? PROCEDURE: Blood Culture ?SOURCE: Blood ? COLLECTED: 12/21/2013 22:50 ? STARTED: 12/21/2013 23:22 ? FINAL REPORT ? Final Report ? Verified:2013 07:01 ? No growth at 5 days. ? PRELIMINARY REPORT ? Preliminary Report ? Verified:2013 07:01 ? No growth at 4 days. ? XOCHITL SHELBYIUM Blood specimen (specimen) 12/21/2013 10:50 PM EDT 12/21/2013 11:22 PM EDT Narrative Resulting Agency Comment Spec In Lab Bro Morgan MD MICROBIOLOGY - BLOOD ORDERABLES XOCHITL WHITAKER * Blood culture (12/21/2013 10:50 PM EDT) Blood Culture ? Patient Name: CIRILO PONCE ?Ordered By: BRO MORGAN ? MR#: [id number] ?LOC: ??3WST ? /Sex: ??1985 (28 years), ? Male ? PROCEDURE: Blood Culture ?SOURCE: Blood ? COLLECTED: 12/21/2013 22:50 ? STARTED: 12/21/2013 23:22 ? FINAL REPORT ? Final Report ? Verified:2013 07:01 ? No growth at 5 days. ? PRELIMINARY REPORT ? Preliminary Report ? Verified:2013 07:01 ? No growth at 4 days. ? XOCHITL MADRIDENNIUM Blood specimen (specimen) 12/21/2013 10:50 PM EDT 12/21/2013 11:22 PM EDT Narrative Resulting Agency Comment Spec In Lab Bro Morgan MD MICROBIOLOGY - BLOOD ORDERABLES XOCHITL WHITAKER * Urine culture Indwelling Catheter Urine (12/21/2013 10:24 PM EDT) Urine Culture ? Patient Name: DAVID CIRILO D ?Ordered By: BRO MORGAN ? MR#: [id number] ?LOC: ??ICUS ? /Sex: ?? 6 (28 years), ? Male ? PROCEDURE: Urine Culture ?SOURCE: U ICath ? COLLECTED: 12/21/2013 22:24 ? STARTED: 12/21/2013 22:45 ? FINAL REPORT ? Final Report ? Verified: 15:02 ? No growth (Less than 1,000 cfu/ml). ? _[facility]rine specimen obtained via indwelling urinary catheter (specimen) 12/21/2013 10:24 PM EDT 12/21/2013 10:45 PM EDT Narrative Resulting Agency Comment Spec In Lab Bro Morgan MD MICROBIOLOGY - GENER AL ORDERABLES [facility] * XR chest PA or AP- 1 view (12/21/2013 3:59 PM EDT) Anatomical Region Laterality Modality Chest N/A Radiographic Kathy ging 12/21/2013 3:59 PM EDT Narrative 12/21/2013 4:13 PM EDT Examination CHEST AP/XPORT Clinical History s/p RIGHT chest tube removal Comparison 12/21/2013. Technique Findings A the previously seen right-sided chest tube has been removed. ??No pneumothorax or other interval change is seen. ??Again noted are nonspecific hazy opacity in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 % CERNER MILLENNIUM Baso Absolute 0.0 0.0 - 0.2 x10(3)/mc L CERNER MILLENNIUM Immature Gran % 0.70(H) 0.00 - 0.66 % CERNER MILLENNIUM Comment: Immature granulocytes(IG's)percentage and absolute count will include metamyelocytes, myelocytes, and promyelocytes. Blood smears from CBCs yielding IG's will be scanned manually for concordance. If this scan disagrees with the automated IG or if promyelocytes are noted, a manual differential will be performed. Immature Gran Absolute 0.11(H) 0.00 - 0.05 x10(3)/mc L CERNER MILLENNIUM Blood specimen (specimen) 12/18/2013 4:02 AM EDT 12/18/2013 4:11 AM EDT Narrative Resulting Agency Comment Spec In Lab Romulo Ramires MD HEMATOLOGY ORDERAB LES CERHELENA MADRIDENNIUM * (ABNORMAL) Hemogram (12/18/2013 4:02 AM EDT) White Blood Cell 14.7(H) 4.0 - 10.0 x10(3)/mc L CERNER MILLENNIUM Red Blood Cell 2.71(L) 4.63 - 6.08 x10(6)/mc L CERNER MILLENNIUM Hemoglobin 7.7(L) 13.7 - 17.5 gm/dL CERNER MILLENNIUM Hematocrit 23.8(L) 40.0 - 51.0 % CERNER MILLENNIUM Mean Cell Volume 87.8 79.0 - 92.0 fL CERNER MILLENNIUM Mean Cell Hemoglobin 28.4 25.6 - 32.2 pg CERNER MILLENNIUM Mean Cell Hemoglobin Concentration 32.4 32.0 - 36.5 gm/dL CERNER MILLENNIUM Platelet 260 145 - 370 x10(3)/mc L CERNER MILLENNIUM RDW Standard Deviation 45.6 35.0 - 46.0 fL CERNER MILLENNIUM RDW coefficient of variation 14.6(H) 10.9 - 14.4 % CERNER MILLENNIUM Mean Platelet Volume 10.3 9.0 - 12.0 fL CERNER MILLENNIUM Blood specimen (specimen) 12/18/2013 4:02 AM EDT 12/18/2013 4:11 AM EDT Narrative Resulting Agency Comment Spec In Lab Romulo Ramires MD HEMATOLOGY ORDERAB LES CERHELENA MADRIDENNIUM * (ABNORMAL) Basic Metabolic Panel (non-fasting) (12/18/2013 4:02 AM EDT) [facility] Signature Glucose 108 60 - 199 mg/dL CERNER MILLENNIUM Comment:Diabetes: >=200 mg/d L plus symptoms Blood Urea Nitrogen 11 10 - 20 mg/dL CERNER MILLENNIUM Creatinine 0.63(L) 0.80 - 1.50 mg/dL CERNER MILLENNIUM Comment: Please note that the pediatric reference intervals supplied above were not validated [place] [facility] [place] Results from pediatric patients should be interpreted in conjunction to the patient's age, height and muscle mass. Sodium 134(L) 135 - 145 mmol/L CERNER MILLENNIUM Potassium 3.6 3.5 - 5.0 mmol/L CERNER MILLENNIUM Comment: Please note: ??Patients with WBC >100,000 may have falsely elevated Potassium levels. ??For accurate Potassium quantification in these patients send serum separator tube (gold top) for subsequent determinations. ??Contact the Clinical Chemistry Laboratory if there are any questions. Chloride 98 98 - 107 mmol/L CERNER MILLENNIUM Carbon Dioxide 27 22 - 31 mmol/L CERNER MILLENNIUM Anion Gap 9 5 - 15 mmol/L CERNER MILLENNIUM Calcium 8.0(L) 8.5 - 10.5 mg/dL CERNER MILLENNIUM Est [...] the following links into your internet browser. [email or web address] Blood specimen (specimen) 12/18/2013 4:02 AM EDT 12/18/2013 4:11 AM EDT Narrative Resulting Agency Comment Spec In Lab Romulo Ramirse MD CHEMISTRY ORDERABL ES Performing Organization Address [facility] de Phone Number XOCHITL WHITAKER * (ABNORMAL) Prothrombin Time (12/18/2013 4:02 AM EDT) Prothrombin Time 15.7(H) 12.0 - 15.0 sec CERNER MILLENNIUM Comment: [facility] Transfusion Committee Guidelines: INR less than 2.0, PTT less than OR equal to 43.5 seconds, or Fibrinogen greater than or equal to 100 mg/dl indicate adequate procoagulant activity for hemostasis in patients without underlying bleeding disorders. International Normalization Ratio 1.2(H) 0.9 - 1.1 CERNER MILLENNIUM Blood specimen (specimen) 12/18/2013 4:02 AM EDT 12/18/2013 4:11 AM EDT Narrative Resulting Agency Comment Spec In Lab Romulo Ramires MD HEMATOLOGY ORDERAB LES Performing Organization Address [facility] de Phone Number XOCHITL WHITAKER * Blood culture (12/17/2013 8:50 PM EDT) Blood Culture ? Patient Name: CIRILO PONCE ?Ordered By: BRENDON CIRILO D ? MR#: [id number] ?LOC: ??ICUS ? /Sex: ??1985 (28 years), ? Male ? PROCEDURE: Blood Culture ?SOURCE: Blood ? COLLECTED: 12/17/2013 20:50 ?FREE TEXT SOURCE: L HAND ? STARTED: 12/17/2013 21:13 ? FINAL REPORT ? Final Report ? Verified:2013 23:01 ? No growth at 5 days. ? PRELIMINARY REPORT ? Preliminary Report ? Verified:2013 23:01 ? No growth at 4 days. ? XOCHITL MADRIDENNIUM Blood specimen (specimen) 12/17/2013 8:50 PM EDT 12/17/2013 9:13 PM EDT Comment:L HAND Narrative Resulting Agency Comment Spec In Lab Cirilo Olivas MD MICROBIOLOGY - BLOOD ORDERABLES XOCHITL WHITAKER * Blood culture (12/17/2013 8:45 PM EDT) Blood Culture ? Patient Name: DAVID CIRILO Briceño ?Ordered By: CIRILO OLIVAS ? MR#: [id number] ?LOC: ??ICUS ? /Sex: ??1985 (28 years), ? Male ? PROCEDURE: Blood Culture ?SOURCE: Blood ? COLLECTED: 12/17/2013 20:45 ?FREE TEXT SOURCE: L ANTECUBITAL ? STARTED: 12/17/2013 21:14 ? FINAL REPORT ? Final Report ? Verified:2013 23:01 ? No growth at 5 days. ? PRELIMINARY REPORT ? Preliminary Report ? Verified:2013 23:01 ? No growth at 4 days. ? XOCHITL WHITAKER Blood specimen (specimen) 12/17/2013 8:45 PM EDT 12/17/2013 9:14 PM EDT Comment:L ANTECUBITAL Narrative Resulting Agency Comment Spec In Lab Cirilo Olivas MD MICROBIOLOGY - BLOOD ORDERABLES [facility] * Urine culture Indwelling Catheter Urine (12/17/2013 8:35 PM EDT) Urine Culture ? Patient Name: CIRILO PONCE ?Ordered By: CIRILO OLIVAS ? MR#: [id number] ?LOC: ??ICUS ? /Sex: ?? 6 (28 years), ? Male ? PROCEDURE: Urine Culture ?SOURCE: U ICa ? COLLECTED: 12/17/2013 20:35 ? STARTED: 12/17/2013 21:13 ? FINAL REPORT ? Final Report ? Verified: 15:11 ? No growth (Less than 1,000 cfu/ml). ? ____ CERNER MILLENNIUM Urine specimen obtained via indwelling urinary catheter (specimen) 12/17/2013 8:35 PM EDT 12/17/2013 9:13 PM EDT Narrative Resulting Agency Comment Spec In Lab Cirilo Olivas MD MICROBIOLOGY - GENER AL ORDERABLES CERNER MILLENNIUM * (ABNORMAL) Urinalysis with microscopic (12/17/2013 5:37 PM EDT) Glucose, Urine Dipstick Negative Negative mg/dL CERNER MILLENNIUM Protein, Urine Dipstick Trace(A) Neg mg/dL CERNER MILLENNIUM Bilirubin, Urine Dipstick Negative Negative mg/dL CERNER MILLENNIUM Comment: Clinical correlation required for positive Urine Bilirubin results as false positive may occur with some drugs and drug related products. If a false positive is suspected a serum total bilirubin should be considered if clinically indicated. Urobilinogen, Urine Dipstick 8.0(A) Normal mg/dL CERNER MILLENNIUM pH, Urn (dipstick) 7.0 5.0 - 8.0 CERNER MILLENNIUM Blood, Urine Dipstick Negative mg/dL CERNER MILLENNIUM Ketone, Urine Dipstick 40(A) Neg mg/dL CERNER MILLENNIUM Nitrite, Urine Dipstick Negative CERNER MILLENNIUM Leukocytes, Urine Dipstick Negative mcL CERNER MILLENNIUM Appearance, Urine Dipstick Cloudy(A) Clear CERNER MILLENNIUM Specific [place] Urine Automated 1.018 1.002 - 1.030 CERNER MILLENNIUM Color, Urine Dipstick Yellow Yellow CERNER MILLENNIUM RBC, Urine Not Present 0 - 3 CERNER MILLENNIUM WBC, Urine Not Present 0 - 3 CERNER MILLENNIUM Bacteria, Urine Rare(A) None /HPF CERN ER MILLENNIUM Amorphous Crystals, Urine Many /HPF CERNER MILLENNIUM Urine specimen (specimen) 12/17/2013 5:37 PM EDT 12/17/2013 5:46 PM EDT Narrative Resulting Agency Comment Spec In Lab Cirilo Olivas MD URINE ORDERABLES CERHELENA MADRIDENNIUM * POCT Glucose (12/17/2013 5:34 PM EDT) Glucose, POC 118 60 - 199 mg/dL CERNER MILLENNIUM Comment: Supplemental ranges: <110 mg/dL before meals <200 mg/dL all other times of the day Blood specimen (specimen) 12/17/2013 5:34 PM EDT 12/17/2013 5:34 PM EDT Romulo Ramires MD POINT OF CARE TEST ORDERABLES CERNER JULIUSENNIUM * (ABNORMAL) Differential, Automated (12/17/2013 5:00 PM EDT) Neutrophil % 86.9(H) 34.0 - 71.0 % CERNER MILLENNIUM Neutrophil Absolute 12.32(H) 1.50 - 6.30 x10(3)/mc L CERNER MILLENNIUM Lymph % 7.0(L) 19.0 - 53.0 % CERNER MILLENNIUM Lymphocytes Abs 1.0 1.0 - 3.6 x10(3)/mc L CERNER MILLENNIUM Monocyte % 3.2(L) 4.0 - 13.0 % CERNER MILLENNIUM Monocyte Abs 0.5 0.2 - 1.0 x10(3)/mc L CERNER MILLENNIUM Eos % 2.0 0.0 - 7.0 % CERNER MILLENNIUM Eosinophils Abs 0.3 0.0 - 0.5 x10(3)/mc L CERNER MILLENNIUM Basophil % 0.1 0.0 - 2.0 % CERNER MILLENNIUM Baso Absolute 0.0 0.0 - 0.2 x10(3)/mc L CERNER MILLENNIUM Immature Gran % 0.80(H) 0.00 - 0.66 % CERNER MILLENNIUM Comment: Immature granulocytes(IG's)percentage and absolute count will include metamyelocytes, myelocytes, and promyelocytes. Blood smears from CBCs yielding IG's will be scanned manually for concordance. If this scan disagrees with the automated IG or if promyelocytes are noted, a manual differential will be performed. Immature Gran Absolute 0.11(H) 0.00 - 0.05 x10(3)/mc L CERNER MILLENNIUM Blood specimen (specimen) 12/17/2013 5:00 PM EDT 12/17/2013 5:06 PM EDT Narrative Resulting Agency Comment Spec In Lab Romulo Ramires MD HEMATOLOGY ORDERAB LES CERNER JULIUSENNIUM * (ABNORMAL) Hemogram (12/17/2013 5:00 PM EDT) White Blood Cell 14.2(H) 4.0 - 10.0 x10(3)/mc L CERNER MILLENNIUM Red Blood Cell 2.94(L) 4.63 - 6.08 x10(6)/mc L CERNER MILLENNIUM Hemoglobin 8.3(L) 13.7 - 17.5 gm/dL CERNER MILLENNIUM Hematocrit 25.8(L) 40.0 - 51.0 % CERNER MILLENNIUM Mean Cell Volume 87.8 79.0 - 92.0 fL CERNER MILLENNIUM Mean Cell Hemoglobin 28.2 25.6 - 32.2 pg CERNER MILLENNIUM Mean Cell Hemoglobin Concentration 32.2 32.0 - 36.5 gm/dL CERNER MILLENNIUM Platelet 247 145 - 370 x10(3)/mc L CERNER MILLENNIUM RDW Standard Deviation 46.1(H) 35.0 - 46.0 fL CERNER MILLENNIUM RDW coefficient of variation 14.5(H) 10.9 - 14.4 % CERNER MILLENNIUM Mean Platelet Volume 10.3 9.0 - 12.0 fL CERNER MILLENNIUM Blood specimen (specimen) 12/17/2013 5:00 PM EDT 12/17/2013 5:06 PM EDT Narrative Resulting Agency Comment Spec In Lab Romulo Ramires MD HEMATOLOGY ORDERAB LES XOCHITL SHELBYIUM * (ABNORMAL) Basic Metabolic Panel (non-fasting) (12/17/2013 5:00 PM EDT) Glucose 104 60 - 199 mg/dL CERNER MILLENNIUM Comment:Diabetes: >=200 mg/d L plus symptoms Blood Urea Nitrogen 12 10 - 20 mg/dL CERNER MILLENNIUM Creatinine 0.61(L) 0.80 - 1.50 mg/dL CERNER MILLENNIUM Comment: Please note that the pediatric reference intervals supplied above were not validated [place] [facility] [place] Results from pediatric patients should be interpreted in conjunction to the patient's age, height and muscle mass. Sodium 136 135 - 145 mmol/L CERNER MILLENNIUM Potassium 4.0 3.5 - 5.0 mmol/L CERNER MILLENNIUM Comment: Please note: ??Patients with WBC >100,000 may have falsely elevated Potassium levels. ??For accurate Potassium quantification in these patients send serum separator tube (gold top) for subsequent determinations. ??Contact the Clinical Chemistry Laboratory if there are any questions. Chloride 97(L) 98 - 107 mmol/L CERNER MILLENNIUM Carbon Dioxide 27 22 - 31 mmol/L CERNER MILLENNIUM Anion Gap 12 5 - 15 mmol/L CERNER MILLENNIUM Calcium 8.3(L) 8.5 - 10.5 mg/dL CERNER MILLENNIUM Est [...] the following links into your internet browser. [email or web address] Blood specimen (specimen) 12/17/2013 5:00 PM EDT 12/17/2013 5:06 PM EDT Narrative Resulting Agency Comment Spec In Lab Romulo Ramires MD CHEMISTRY ORDERABL ES Performing Organization Address [facility] de Phone Number XOCHITL WHITAKER * EKG 12 Lead (12/17/2013 7:22 AM EDT) Ventricular rate 74 BPM MUSE SYSTEM Atrial Rate 74 BPM MUSE SYSTEM P-R Interval 148 ms MUSE SYSTEM QRS Duration 88 ms MUSE SYSTEM Q-T Interval 426 ms MUSE SYSTEM QTC Calculated (Bezet) 472 ms MUSE SYSTEM Calculated P [place] 47 degrees MUSE SYSTEM Calculated R [place] 62 degrees MUSE SYSTEM Calculated T [place] 23 degrees MUSE SYSTEM INTERPRETATION Normal sinus rhythm Normal ECG No previous ECGs available Confirmed by Bradley Basilio MD ([id number]) on 12/17/2013 1:26:14 PM MUSE SYSTEM 12/17/2013 7:22 AM EDT 12/17/2013 1:26 PM EDT Cirilo Olivas MD ECG ORDERABLES Performing Organization Address [facility] de Phone Number MUSE SYSTEM * Percutaneous Gastrostomy (12/17/2013 6:38 AM EDT) Narrative Cirilo Olivas MD - 12/17/2013 6:38 AM EDT Butch Walker MD ? 12/16/2013 ??5:51 PM A time out was performed prior to beginning. The patient was given sedation with propofol and midazolam. He was given a paralytic once adquately sedated. ??The esophagus was intubated using an endoscope. The stomach was entered and insufflated. The OGT was removed at that time. Under 1:1 transillumination, an area in the left upper quadrant of the abdomen was identified. 3 cc of 1% lidocaine was injected intradermally. A finder needle was used to enter the stomach and the guide wire was fed through the needle. This was secured endoscopically with a lasso snare and withdrawn. A skin incision was made using a #11 scalpel. The McVie tube was secured and pulled through into the stomach and the flange was secured at 2 cm at the skin. The stomach was intubated with the endoscope, confirming placement of the gastrostomy tube. At the end of the procedure, all instruments, sharps and sponges were accounted for. Dr. Olivas was scrubbed and present throughout the entire procedure. Procedure Note Butch Walker MD - 12/16/2013 5:38 PM EDT A time out was performed prior to beginning. The patient was givensedation with propofol and midazolam. He was given a paralytic onceadquately sedated. The esophagus was intubated using an endoscope. Thestomach was entered and insufflated. The OGT was removed at that time.Under 1:1 transillumination, an area in the left upper quadrant of theabdomen was identified. 3 cc of 1% lidocaine was injected intradermally. Afinder needle was used to enter the stomach and the guide wire was fedthrough the needle. This was secured endoscopically with a lasso snare andwithdrawn. A skin incision was made using a #11 scalpel. The McVie tubewas secured and pulled through into the stomach and the flange was securedat 2 cm at the skin. The stomach was intubated with the endoscope,confirming placement of the gastrostomy tube. At the end of the procedure, all instruments, sharps and sponges wereaccounted for. Dr. Olivas was scrubbed and present throughout the entireprocedure. Cirilo Olivas MD PROCEDURE/MINOR SURG ICAL ORDERABLES * (ABNORMAL) Differential, Automated (12/17/2013 3:30 AM EDT) Neutrophil % 82.4(H) 34.0 - 71.0 % CERNER MILLENNIUM Neutrophil Absolute 9.45(H) 1.50 - 6.30 x10(3)/mc L CERNER MILLENNIUM Lymph % 10.2(L) 19.0 - 53.0 % CERNER MILLENNIUM Lymphocytes Abs 1.2 1.0 - 3.6 x10(3)/mc L CERNER MILLENNIUM Monocyte % 3.5(L) 4.0 - 13.0 % CERNER MILLENNIUM Monocyte Abs 0.4 0.2 - 1.0 x10(3)/mc L CERNER MILLENNIUM Eos % 3.1 0.0 - 7.0 % CERNER MILLENNIUM Eosinophils Abs 0.4 0.0 - 0.5 x10(3)/mc L CERNER MILLENNIUM Basophil % 0.2 0.0 - 2.0 % CERNER MILLENNIUM Baso Absolute 0.0 0.0 - 0.2 x10(3)/mc L CERNER MILLENNIUM Immature Gran % 0.60 0.00 - 0.66 % CERNER MILLENNIUM Comment: Immature granulocytes(IG's)percentage and absolute count will include metamyelocytes, myelocytes, and promyelocytes. Blood smears from CBCs yielding IG's will be scanned manually for concordance. If this scan disagrees with the automated IG or if promyelocytes are noted, a manual differential will be performed. Immature Gran Absolute 0.07(H) 0.00 - 0.05 x10(3)/mc L CERNER MILLENNIUM Blood specimen (specimen) 12/17/2013 3:30 AM EDT 12/17/2013 3:37 AM EDT Narrative Resulting Agency Comment Spec In Lab Romulo Ramires MD HEMATOLOGY ORDERAB LES CERNER MILLENNIUM * (ABNORMAL) Hemogram (12/17/2013 3:30 AM EDT) White Blood Cell 11.5(H) 4.0 - 10.0 x10(3)/mc L CERNER MILLENNIUM Red Blood Cell 2.51(L) 4.63 - 6.08 x10(6)/mc L CERNER MILLENNIUM Hemoglobin 7.1(L) 13.7 - 17.5 gm/dL CERNER MILLENNIUM Hematocrit 22.1(L) 40.0 - 51.0 % CERNER MILLENNIUM Mean Cell Volume 88.0 79.0 - 92.0 fL CERNER MILLENNIUM Mean Cell Hemoglobin 28.3 25.6 - 32.2 pg CERNER MILLENNIUM Mean Cell Hemoglobin Concentration 32.1 32.0 - 36.5 gm/dL CERNER MILLENNIUM Platelet 211 145 - 370 x10(3)/mc L CERNER MILLENNIUM RDW Standard Deviation 46.0 35.0 - 46.0 fL CERNER MILLENNIUM RDW coefficient of variation 14.3 10.9 - 14.4 % CERNER MILLENNIUM Mean Platelet Volume 10.3 9.0 - 12.0 fL CERNER MILLENNIUM Blood specimen (specimen) 12/17/2013 3:30 AM EDT 12/17/2013 3:37 AM EDT Narrative Resulting Agency Comment Spec In Lab Romulo Ramires MD HEMATOLOGY ORDERAB LES CERNER MILLENNIUM * (ABNORMAL) Basic Metabolic Panel (non-fasting) (12/17/2013 3:30 AM EDT) Glucose 96 60 - 199 mg/dL CERNER MILLENNIUM Comment:Diabetes: >=200 mg/d L plus symptoms Blood Urea Nitrogen 13 10 - 20 mg/dL CERNER MILLENNIUM Creatinine 0.61(L) 0.80 - 1.50 mg/dL CERNER MILLENNIUM Comment: Please note that the pediatric reference intervals supplied above were [place] [facility] [place] Results from pediatric patients should be interpreted in conjunction to the patient's age, height and muscle mass. Sodium 137 135 - 145 mmol/L CERNER MILLENNIUM Potassium 4.0 3.5 - 5.0 mmol/L CERNER MILLENNIUM Comment: Please note: ??Patients with WBC >100,000 may have falsely elevated Potassium levels. ??For accurate Potassium quantification in these patients send serum separator tube (gold top) for subsequent determinations. ??Contact the Clinical Chemistry Laboratory if there are any questions. Chloride 100 98 - 107 mmol/L CERNER MILLENNIUM Carbon Dioxide 27 22 - 31 mmol/L CERNER MILLENNIUM Anion Gap 10 5 - 15 mmol/L CERNER MILLENNIUM Calcium 8.2(L) 8.5 - 10.5 mg/dL CERNER MILLENNIUM Est [...] the following links into your internet browser. [email or web address] Blood specimen (specimen) 12/17/2013 3:30 AM EDT 12/17/2013 3:37 AM EDT Narrative Resulting Agency Comment Spec In Lab Romulo Ramires MD CHEMISTRY ORDERABL ES Performing Organization Address [facility] de Phone Number CERNER MILLENNIUM * (ABNORMAL) Prothrombin Time (12/17/2013 3:30 AM EDT) Prothrombin Time 15.4(H) 12.0 - 15.0 sec CERNER MILLENNIUM Comment: [facility] Transfusion Committee Guidelines: INR less than 2.0, PTT less than OR equal to 43.5 seconds, or Fibrinogen greater than or equal to 100 mg/dl indicate adequate procoagulant activity for hemostasis in patients without underlying bleeding disorders. International Normalization Ratio 1.2(H) 0.9 - 1.1 CERNER MILLENNIUM Blood specimen (specimen) 12/17/2013 3:30 AM EDT 12/17/2013 3:37 AM EDT Narrative Resulting Agency Comment Spec In Lab Romulo Ramires MD HEMATOLOGY ORDERAB LES Performing Organization Address [facility] de Phone Number CERNER MILLENNIUM * Scan, Peripheral Blood (12/16/2013 3:40 PM EDT) Plat estimate Normal CERNER MILLENNIUM RBC Morphology Abnormal CERNE R MILLENNIUM Rouleaux Present CERNER MILLENNIUM Plat, Giant Less than 1 /HPF CERNER MILLENNIUM Blood specimen (specimen) 12/16/2013 3:40 PM EDT 12/16/2013 3:46 PM EDT Narrative Resulting Agency Comment Spec In Lab Romulo Ramires MD HEMATOLOGY ORDERAB LES Performing Organization Address [facility] Co de Phone Number CERNER MILLENNIUM * (ABNORMAL) Differential, Automated (12/16/2013 3:40 PM EDT) Neutrophil % 81.3(H) 34.0 - 71.0 % CERNER MILLENNIUM Neutrophil Absolute 9.62(H) 1.50 - 6.30 x10(3)/mc L CERNER MILLENNIUM Lymph % 9.6(L) 19.0 - 53.0 % CERNER MILLENNIUM Lymphocytes Abs 1.1 1.0 - 3.6 x10(3)/mc L CERNER MILLENNIUM Monocyte % 5.5 4.0 - 13.0 % CERNER MILLENNIUM Monocyte Abs 0.6 0.2 - 1.0 x10(3)/mc L CERNER MILLENNIUM Eos % 2.5 0.0 - 7.0 % CERNER MILLENNIUM Eosinophils Abs 0.3 0.0 - 0.5 x10(3)/mc L CERNER MILLENNIUM Basophil % 0.3 0.0 - 2.0 % CERNER MILLENNIUM Baso Absolute 0.0 0.0 - 0.2 x10(3)/mc L CERNER MILLENNIUM Immature Gran % 0.80(H) 0.00 - 0.66 % CERNER MILLENNIUM Comment: Immature granulocytes(IG's)percentage and absolute count will include metamyelocytes, myelocytes, and promyelocytes. Blood smears from CBCs yielding IG's will be scanned manually for concordance. If this scan disagrees with the automated IG or if promyelocytes are noted, a manual differential will be performed. Immature Gran Absolute 0.10(H) 0.00 - 0.05 x10(3)/mc L CERNER MILLENNIUM Blood specimen (specimen) 12/16/2013 3:40 PM EDT 12/16/2013 3:46 PM EDT Narrative Resulting Agency Comment Spec In Lab Romulo Ramires MD HEMATOLOGY ORDERAB LES XOCHITL SHELBYIUM * (ABNORMAL) Hemogram (12/16/2013 3:40 PM EDT) White Blood Cell 11.8(H) 4.0 - 10.0 x10(3)/mc L CERNER MILLENNIUM Red Blood Cell 2.73(L) 4.63 - 6.08 x10(6)/mc L CERNER MILLENNIUM Hemoglobin 7.8(L) 13.7 - 17.5 gm/dL CERNER MILLENNIUM Hematocrit 24.2(L) 40.0 - 51.0 % CERNER MILLENNIUM Mean Cell Volume 88.6 79.0 - 92.0 fL CERNER MILLENNIUM Mean Cell Hemoglobin 28.6 25.6 - 32.2 pg CERNER MILLENNIUM Mean Cell Hemoglobin Concentration 32.2 32.0 - 36.5 gm/dL CERNER MILLENNIUM Platelet 232 145 - 370 x10(3)/mc L CERNER MILLENNIUM RDW Standard Deviation 46.8(H) 35.0 - 46.0 fL CERNER MILLENNIUM RDW coefficient of variation 14.5(H) 10.9 - 14.4 % CERNER MILLENNIUM Mean Platelet Volume 10.6 9.0 - 12.0 fL CERNER MILLENNIUM Blood specimen (specimen) 12/16/2013 3:40 PM EDT 12/16/2013 3:46 PM EDT Narrative Resulting Agency Comment Spec In Lab Romulo Ramires MD HEMATOLOGY ORDERAB LES [facility] * (ABNORMAL) Basic Metabolic Panel (non-fasting) (12/16/2013 3:40 PM EDT) [facility] Glucose 95 60 - 199 mg/dL CERNER MILLENNIUM Comment:Diabetes: >=200 mg/d L plus symptoms Blood Urea Nitrogen 15 10 - 20 mg/dL CERNER MILLENNIUM Creatinine 0.52(L) 0.80 - 1.50 mg/dL CERNER MILLENNIUM Comment: Please note that the pediatric reference intervals supplied above were [place] [facility] [place] Results from pediatric patients should be interpreted in conjunction to the patient's age, height and muscle mass. Sodium 139 135 - 145 mmol/L CERNER MILLENNIUM Potassium 4.4 3.5 - 5.0 mmol/L CERNER MILLENNIUM Comment: Please note: ??Patients with WBC >100,000 may have falsely elevated Potassium levels. ??For accurate Potassium quantification in these patients send serum separator tube (gold top) for subsequent determinations. ??Contact the Clinical Chemistry Laboratory if there are any questions. Chloride 102 98 - 107 mmol/L CERNER MILLENNIUM Carbon Dioxide 28 22 - 31 mmol/L CERNER MILLENNIUM Anion Gap 9 5 - 15 mmol/L CERNER MILLENNIUM Calcium 8.3(L) 8.5 - 10.5 mg/dL CERNER MILLENNIUM Est [...] the following links into your internet browser. [email or web address] Blood specimen (specimen) 12/16/2013 3:40 PM EDT 12/16/2013 3:46 PM EDT Narrative Resulting Agency Comment Spec In Lab Romulo Ramires MD CHEMISTRY ORDERABL ES [facility] * Echocardiogram Transthoracic(Leb) (12/16/2013 3:31 PM EDT) EF 61 HEARTLAB SYSTEM Anatomical Region Laterality Modality Other 12/16/2013 Narrative 12/16/2013 3:48 PM EDT Amended Report Procedure: ? Transthoracic Echocardiogram Patient: ? DAVID KERR D ? (Age): 1985(28) Med Rec#: ?[id number] ? Sex: ?M ? Site Loc: ?[facility] ? Ht / Wt: ??190(cm)/124.4(k Pt. Loc: ? Adult Floor ?BSA: ?2.56 Study Date: ?12/16/2013 ? Pt. Type: Inpatient Tape: ? Referring: Cirilo Olivas MD Referring: KAYLEEN [employer] Assembly Supervisor: Virginia Granados [employer] Assembly Supervisor 2: Cristopher Mays ([id number]) Interpreting Fellow: Cristopher Mays ([id number]) Diagnosis:CPT Code(s): ??Echo Full (38942), ??Spectral Doppler (73494), Color Doppler (48339), ??Saline Contrast (000), Indication(s): ??Hypoxia Rhythm: HR ?BP ?109/76 ?? SUMMARY: 1. Regarding hypoxemia, there is no evidence of right to left shunt by bubble study. 2. The left ventricular chamber size is normal. The quantitative left ventricular ejection fraction by biplane White's method is 61% with no left ventricular segmental wall motion abnormalities. 3. Right ventricular chamber size, wall thickness, and systolic function are within normal limits. 4. Both atria are mildly dilated. 5. There is no hemodynamically significant valve disease. 6. The pericardium appears normal and there is no evidence of a pericardial effusion. FINDINGS: Study Quality ?Technically limited Left Ventricle ?The left ventricular chamber size is normal. ?Borderline concentric left ventricular hypertrophy is observed. ?There is no evidence of LVOT obstruction. ?There is normal global left ventricular systolic function. ?The quantitative left ventricular ejection fraction by biplane White's method is 61%. ?There are no left ventricular segmental wall motion abnormalities. ?Doppler assessment is consistent with normal left sided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 EDT) Neutrophil % 75.0(H) 34.0 - 71.0 % CERNER MILLENNIUM Neutrophil Absolute 6.60(H) 1.50 - 6.30 x10(3)/mc L CERNER MILLENNIUM Lymph % 12.9(L) 19.0 - 53.0 % CERNER MILLENNIUM Lymphocytes Abs 1.1 1.0 - 3.6 x10(3)/mc L CERNER MILLENNIUM Monocyte % 8.4 4.0 - 13.0 % CERNER MILLENNIUM Monocyte Abs 0.7 0.2 - 1.0 x10(3)/mc L CERNER MILLENNIUM Eos % 3.3 0.0 - 7.0 % CERNER MILLENNIUM Eosinophils Abs 0.3 0.0 - 0.5 x10(3)/mc L CERNER MILLENNIUM Basophil % 0.1 0.0 - 2.0 % CERNER MILLENNIUM Baso Absolute 0.0 0.0 - 0.2 x10(3)/mc L CERNER MILLENNIUM Immature Gran % 0.30 0.00 - 0.66 % CERNER MILLENNIUM Comment: Immature granulocytes(IG's)percentage and absolute count will include metamyelocytes, myelocytes, and promyelocytes. Blood smears from CBCs yielding IG's will be scanned manually for concordance. If this scan disagrees with the automated IG or if promyelocytes are noted, a manual differential will be performed. Immature Gran Absolute 0.03 0.00 - 0.05 x10(3)/mc L CERNER MILLENNIUM Blood specimen (specimen) 12/14/2013 12:30 PM EDT 12/14/2013 1:05 PM EDT Narrative Resulting Agency Comment Spec In Lab Romulo Ramires MD HEMATOLOGY ORDERAB LES CERNER MILLENNIUM * (ABNORMAL) Hemogram (12/14/2013 12:30 PM EDT) White Blood Cell 8.8 4.0 - 10.0 x10(3)/mc L CERNER MILLENNIUM Red Blood Cell 2.35(L) 4.63 - 6.08 x10(6)/mc L CERNER MILLENNIUM Hemoglobin 6.7(L) 13.7 - 17.5 gm/dL CERNER MILLENNIUM Hematocrit 21.2(L) 40.0 - 51.0 % CERNER MILLENNIUM Mean Cell Volume 90.2 79.0 - 92.0 fL CERNER MILLENNIUM Mean Cell Hemoglobin 28.5 25.6 - 32.2 pg CERNER MILLENNIUM Mean Cell Hemoglobin Concentration 31.6(L) 32.0 - 36.5 gm/dL CERNER MILLENNIUM Platelet 181 145 - 370 x10(3)/mc L CERNER MILLENNIUM RDW Standard Deviation 47.4(H) 35.0 - 46.0 fL CERNER MILLENNIUM RDW coefficient of variation 14.4 10.9 - 14.4 % CERNER MILLENNIUM Mean Platelet Volume 10.3 9.0 - 12.0 fL CERNER MILLENNIUM Blood specimen (specimen) 12/14/2013 12:30 PM EDT 12/14/2013 1:05 PM EDT Narrative Resulting Agency Comment Spec In Lab Romulo Ramires MD HEMATOLOGY ORDERAB LES Performing Organization Address [facility] Co de Phone Number XOCHITL SHELBYIUM * Vancomycin, trough (12/14/2013 12:30 PM EDT) Pathologist [facility] Vancomycin, Trough 10.0 mg/L C ERNER MILLENNIUM Comment: Therapeutic range for complicated infections such as bacteremia, endocarditis, osteomyelitis, meningitis, and hospital-acquired pneumonia caused by S. aureus: 15-20 mg/L Therapeutic range for other indications: 10-15 mg/L Toxic: >25mg/L Reference: Vancomycin Therapeutic Monitoring: Review and Recommendations from the ASHP, IDSA and SIDP Task Force. ??Am J Health-Syst Pharm. 2009; 66:82-98 Blood specimen (specimen) 12/14/2013 12:30 PM EDT 12/14/2013 1:05 PM EDT Narrative Resulting Agency Comment Spec In Lab Cirilo Olivas MD CHEMISTRY ORDERABLES Performing Organization Address [facility] de Phone Number XOCHITL WHITAKER * (ABNORMAL) Basic Metabolic Panel (non-fasting) (12/14/2013 12:30 PM EDT) Pathologist [facility] Glucose 96 60 - 199 mg/dL [facility] Comment:Diabetes: >=200 mg/d L plus symptoms Blood Urea Nitrogen 15 10 - 20 mg/dL CERNER MILLENNIUM Creatinine 0.61(L) 0.80 - 1.50 mg/dL CERNER MILLENNIUM Comment: Please note that the pediatric reference intervals supplied above were not validated [place] [facility] [place] Results from pediatric patients should be interpreted in conjunction to the patient's age, height and muscle mass. Sodium 139 135 - 145 mmol/L CERNER MILLENNIUM Potassium 4.0 3.5 - 5.0 mmol/L CERNER MILLENNIUM Comment: Please note: ??Patients with WBC >100,000 may have falsely elevated Potassium levels. ??For accurate Potassium quantification in these patients send serum separator tube (gold top) for subsequent determinations. ??Contact the Clinical Chemistry Laboratory if there are any questions. Chloride 103 98 - 107 mmol/L CERNER MILLENNIUM Carbon Dioxide 28 22 - 31 mmol/L CERNER MILLENNIUM Anion Gap 8 5 - 15 mmol/L CERNER MILLENNIUM Calcium 8.0(L) 8.5 - 10.5 mg/dL CERNER MILLENNIUM Est [...] the following links into your internet browser. http://www.nkdep.nih.gov/lab-evaluation.shtml http://www.kidney.org/professionals/ Blood specimen (specimen) 12/14/2013 12:30 PM EDT 12/14/2013 1:05 PM EDT Narrative Resulting Agency Comment Spec In Lab Romulo Ramires MD CHEMISTRY ORDERABL ES Performing Organization Address City/[facility]/ZIP Co de Phone Number XOCHITL WHITAKER * Beta 2 Transferrin Body Fluid Pleural fluid (12/14/2013 8:48 AM EDT) Beta-2 Trans Bf (NOVEMBER) Negative CERNER MILLENNIUM Comment: -- REFERENCE VALUE -- Negative, no beta-2 transferrin (spinal fluid) detected. Test Performed by: [facility] [place] [address] [employer] Pastor: Cameron Hansen III, M.D. Body fluid specimen (specimen) 12/14/2013 8:48 AM EDT 12/14/2013 10:22 AM EDT Narrative Resulting Agency Comment Spec In Lab Cirilo Olivas MD LAB SEND OUT ORDERAB LES XOCHITL SHELBYIUM * Blood culture (12/14/2013 12:35 AM EDT) Blood Culture ? Patient Name: CIRILO PONCE ?Ordered By: BRENDON CIRILO Keyanna ? MR#: [id number] ?LOC: ??ICUS ? /Sex: ??1985 (28 years), ? Male ? PROCEDURE: Blood Culture ?SOURCE: Blood ? COLLECTED: 12/14/2013 00:35 ?FREE TEXT SOURCE: #2 central line ? STARTED: 12/14/2013 02:10 ? FINAL REPORT ? Final Report ? Verified:2013 07:01 ? No growth at 5 days. ? PRELIMINARY REPORT ? Preliminary Report ? Verified:2013 07:01 ? No growth at 4 days. ? XOCHITL MADRIDJUN Blood specimen (specimen) 12/14/2013 12:35 AM EDT 12/14/2013 2:10 AM EDT Comment:#2 CENTRAL LINE Narrative Resulting Agency Comment Spec In Lab Cirilo Olivas MD MICROBIOLOGY - BLOOD ORDERABLES XOCHITL WHITAKER * Blood culture (12/14/2013 12:30 AM EDT) Blood Culture ? Patient Name: CIRILO PONCE ?Ordered By: CIRILO OLIVAS ? MR#: [id number] ?LOC: ??ICUS ? /Sex: ??1985 (28 years), ? Male ? PROCEDURE: Blood Culture ?SOURCE: Blood ? COLLECTED: 12/14/2013 00:30 ?FREE TEXT SOURCE: #1 la ? STARTED: 12/14/2013 02:10 ? FINAL REPORT ? Final Report ? Verified:2013 07:01 ? No growth at 5 days. ? PRELIMINARY REPORT ? Preliminary Report ? Verified:2013 07:01 ? No growth at 4 days. ? XOCHITL SHELBYIUM Blood specimen (specimen) 12/14/2013 12:30 AM EDT 12/14/2013 2:09 AM EDT Comment:#1 LA Narrative Resulting Agency Comment Spec In Lab Cirilo Olivas MD MICROBIOLOGY - BLOOD ORDERABLES XOCHITL SHELBYIUM * Scan, Peripheral Blood (12/14/2013 12:20 AM EDT) Plat estimate Normal CERNER MILLENNIUM RBC Morphology Normal CERNE R MILLENNIUM Blood specimen (specimen) 12/14/2013 12:20 AM EDT 12/14/2013 12:26 AM EDT Narrative Resulting Agency Comment Spec In Lab Romulo Ramires MD HEMATOLOGY ORDERAB LES CERNER MILLENNIUM * (ABNORMAL) Differential, Automated (12/14/2013 12:20 AM EDT) Neutrophil % 76.8(H) 34.0 - 71.0 % CERNER MILLENNIUM Neutrophil Absolute 7.68(H) 1.50 - 6.30 x10(3)/mc L CERNER MILLENNIUM Lymph % 10.5(L) 19.0 - 53.0 % CERNER MILLENNIUM Lymphocytes Abs 1.0 1.0 - 3.6 x10(3)/mc L CERNER MILLENNIUM Monocyte % 8.2 4.0 - 13.0 % CERNER MILLENNIUM Monocyte Abs 0.8 0.2 - 1.0 x10(3)/mc L CERNER MILLENNIUM Eos % 3.4 0.0 - 7.0 % CERNER MILLENNIUM Eosinophils Abs 0.3 0.0 - 0.5 x10(3)/mc L CERNER MILLENNIUM Basophil % 0.2 0.0 - 2.0 % CERNER MILLENNIUM Baso Absolute 0.0 0.0 - 0.2 x10(3)/mc L CERNER MILLENNIUM Immature Gran % 0.90(H) 0.00 - 0.66 % CERNER MILLENNIUM Comment: Immature granulocytes(IG's)percentage and absolute count will include metamyelocytes, myelocytes, and promyelocytes. Blood smears from CBCs yielding IG's will be scanned manually for concordance. If this scan disagrees with the automated IG or if promyelocytes are noted, a manual differential will be performed. Immature Gran Absolute 0.09(H) 0.00 - 0.05 x10(3)/mc L CERNER MILLENNIUM Blood specimen (specimen) 12/14/2013 12:20 AM EDT 12/14/2013 12:26 AM EDT Narrative Resulting Agency Comment Spec In Lab Romulo Ramires MD HEMATOLOGY ORDERAB LES CERNER MILLENNIUM * (ABNORMAL) Hemogram (12/14/2013 12:20 AM EDT) Pathologist [facility] White Blood Cell 8.9 4.0 - 10.0 x10(3)/mc L CERNER MILLENNIUM Red Blood Cell 2.46(L) 4.63 - 6.08 x10(6)/mc L CERNER MILLENNIUM Hemoglobin 7.1(L) 13.7 - 17.5 gm/dL CERNER MILLENNIUM Hematocrit 22.2(L) 40.0 - 51.0 % CERNER MILLENNIUM Mean Cell Volume 90.2 79.0 - 92.0 fL CERNER MILLENNIUM Mean Cell Hemoglobin 28.9 25.6 - 32.2 pg CERNER MILLENNIUM Mean Cell Hemoglobin Concentration 32.0 32.0 - 36.5 gm/dL CERNER MILLENNIUM Platelet 175 145 - 370 x10(3)/mc L CERNER MILLENNIUM RDW Standard Deviation 47.2(H) 35.0 - 46.0 fL CERNER MILLENNIUM RDW coefficient of variation 14.5(H) 10.9 - 14.4 % CERNER MILLENNIUM Mean Platelet Volume 10.2 9.0 - 12.0 fL CERNER MILLENNIUM Blood specimen (specimen) 12/14/2013 12:20 AM EDT 12/14/2013 12:26 AM EDT Narrative Resulting Agency Comment Spec In Lab Romulo Ramires MD HEMATOLOGY ORDERAB LES Performing Organization Address City/[facility]/ZIP Co de Phone Number CERNER MILLENNIUM * (ABNORMAL) Basic Metabolic Panel (non-fasting) (12/14/2013 12:20 AM EDT) Pathologist [facility] Glucose 104 60 - 199 mg/dL CERNER MILLENNIUM Comment:Diabetes: >=200 mg/d L plus symptoms Blood Urea Nitrogen 18 10 - 20 mg/dL CERNER MILLENNIUM Creatinine 0.68(L) 0.80 - 1.50 mg/dL CERNER MILLENNIUM Comment: Please note that the pediatric reference intervals supplied above were not validated [place] [facility] [place] Results from pediatric patients should be interpreted in conjunction to the patient's age, height and muscle mass. Sodium 139 135 - 145 mmol/L CERNER MILLENNIUM Potassium 4.0 3.5 - 5.0 mmol/L CERNER MILLENNIUM Comment: Please note: ??Patients with WBC >100,000 may have falsely elevated Potassium levels. ??For accurate Potassium quantification in these patients send serum separator tube (gold top) for subsequent determinations. ??Contact the Clinical Chemistry Laboratory if there are any questions. Chloride 103 98 - 107 mmol/L CERNER MILLENNIUM Carbon Dioxide 29 22 - 31 mmol/L CERNER MILLENNIUM Anion Gap 7 5 - 15 mmol/L CERNER MILLENNIUM Calcium 8.1(L) 8.5 - 10.5 mg/dL CERNER MILLENNIUM Est [...] the following links into your internet browser. http://www.nkdep.nih.gov/lab-evaluation.shtml http://www.kidney.org/professionals/ Blood specimen (specimen) 12/14/2013 12:20 AM EDT 12/14/2013 12:26 AM EDT Narrative Resulting Agency Comment Spec In Lab Romulo Ramires MD CHEMISTRY ORDERABL ES CERNER Sav[employer]ifyENNIUM * (ABNORMAL) Prothrombin Time (12/14/2013 12:20 AM EDT) Prothrombin Time 15.4(H) 12.0 - 15.0 sec CERNER MILLENNIUM Comment: [facility] Transfusion Committee Guidelines: INR less than 2.0, PTT less than OR equal to 43.5 seconds, or Fibrinogen greater than or equal to 100 mg/dl indicate adequate procoagulant activity for hemostasis in patients without underlying bleeding disorders. International Normalization Ratio 1.2(H) 0.9 - 1.1 CERNER MILLENNIUM Blood specimen (specimen) 12/14/2013 12:20 AM EDT 12/14/2013 12:26 AM EDT Narrative Resulting Agency Comment Spec In Lab Romulo Ramires MD HEMATOLOGY ORDERAB LES Performing Organization Address [address] [facility] de Phone Number CERNER MILLENNIUM * CSF Cell Count (12/13/2013 6:41 PM EDT) Tube # counted 1 CERNE R MILLENNIUM Total Nucleated Cell Count, CSF 0 0 - 5 /mcl CERNER MILLENNIUM Comment: If Nucleated Cell Count equals zero, No Scan or Differential is performed. If Nucleated Cell Count equals 1-5, Smear is scanned but no results are reported unless abnormalities are seen. If Nucleated Cell Count equals 6 or greater, Differential is reported. Nucleated Cell Count results are correlated with body fluid type and clinical condition. RBC Count CSF 6604 /mcl CERNER MILLENNIUM Cerebrospinal fluid specimen (specimen) 12/13/2013 6:41 PM EDT 12/13/2013 6:57 PM EDT Narrative Resulting Agency Comment Spec In Lab Cirilo Olivas MD BODY FLUIDS AND STOO LS ORDERABLES Performing Organization Address [facility] de Phone Number CERNER MILLENNIUM * CSF DESC 1 (12/13/2013 6:41 PM EDT) Tube Num CSF #1 1 CERNER MILLENNIUM Color, CSF [place] CERNER MILLENNIUM Appearance, CSF Hazy Clear CERNER MILLENNIUM Total Vol, CSF 4.0 mL CERNE R MILLENNIUM Cerebrospinal fluid specimen (specimen) 12/13/2013 6:41 PM EDT 12/13/2013 6:57 PM EDT Narrative Resulting Agency Comment Spec In Lab Cirilo Olivas MD BODY FLUIDS AND STOO LS ORDERABLES Performing Organization Address [facility] de Phone Number CERNER MILLENNIUM * CSF Culture (12/13/2013 6:41 PM EDT) Central Nervous System Culture ? Patient Name: CIRILO PONCE ?Ordered By: CIRLIO OLIVAS ? MR#: [id number] ?LOC: ??ICUS ? /Sex: ??1985 (28 years), ? Male ? PROCEDURE: Central Nervous System Culture ?SOURCE: CSF ? COLLECTED: 12/13/2013 18:41 ? STARTED: 12/13/2013 19:13 ? STAINS / PREPARATIONS ? Gram Stain Report ? Verified:12/14/19 14 20:25 ? Cytocentrifuge Gram Stain performed ? White Blood Cells seen ? No microorganisms seen. ? FINAL REPORT ? Final Report ? Verified:12/17/19 14 11:29 ? No growth ? PRELIMINARY REPORT ? Preliminary Report ? Verified:12/15/19 14 07:37 ? No growth to date. ? CERNER MILLENNIUM Cerebrospinal fluid specimen (specimen) 12/13/2013 6:41 PM EDT 12/13/2013 7:13 PM EDT Narrative Resulting Agency Comment Spec In Lab Cirilo Olivas MD MICROBIOLOGY - GENER AL ORDERABLES Performing Organization Address [facility] de Phone Number [facility] JULIANNE * Glucose Level CSF (12/13/2013 6:40 PM EDT) Glucose, CSF 55 mg/dL [facility] Comment:CSF at equilibrium e quals approximately 60-80% of plasma glucose. Cerebrospinal fluid specimen (specimen) 12/13/2013 6:40 PM EDT 12/13/2013 6:56 PM EDT Narrative Resulting Agency Comment Spec In Lab Cirilo Olivas MD BODY FLUIDS AND STOO LS ORDERABLES Performing Organization Address [facility] de Phone Number [facility] * (ABNORMAL) Protein Level CSF (12/13/2013 6:40 PM EDT) Protein, CSF 380(H) 15 - 45 mg/dL [facility] Comment: RBC CT= 6604 If CSF red cells are due to traumatic tap, the measured CSF Total Protein will be increased by approximately 1 mg/dL for every 1000 RBC/UL, assuming normal serum protein, hematocrit and peripheral RBC Xanthochromia Slight [facility] Cerebrospinal fluid specimen (specimen) 12/13/2013 6:40 PM EDT 12/13/2013 6:56 PM EDT Narrative Resulting Agency Comment Spec In Lab Cirilo Olivas MD BODY FLUIDS AND STOO LS ORDERABLES Performing Organization Address [facility] de Phone Number [facility] * XR chest PA or AP- 1 view (12/13/2013 2:04 PM EDT) Anatomical Region Laterality Modality Chest N/A Radiographic Kathy ging 12/13/2013 2:04 PM EDT Narrative 12/13/2013 2:12 PM EDT Examination CHEST AP/XPORT Clinical History R chest tube placement, R SCV CVC placement, R IJ introducer removal Comparison 12/13/2013 1220 hr. Technique Portable AP chest radiograph on 12/13/2013 1345 hr. Findings Right IJ line has been removed. ??Other equipment in unchanged position. There appears to be a tiny right apical pneumothorax, unchanged. No other interval findings allowing for portion of the right hemithorax is excluded from the radiographic field of view and blurring from respiratory motion artifact. Procedure Note Rosa Schwab MD - 12/13/2013 Examination CHEST AP/XPORT Clinical History R chest tube placement, R SCV CVC placement, R IJ introducer removal Comparison 12/13/2013 1220 hr. Technique Portable AP chest radiograph on 12/13/2013 1345 hr. Findings Right IJ line has been removed. Other equipment in unchanged position.There appears to be a tiny right apical pneumothorax, unchanged. No otherinterval findings allowing for portion of the right hemithorax is excluded from the radiographic field of view and blurring from respiratory motionartifact. Erich Vincent MD G DX ORDERABLES * XR chest PA or AP- 1 view (12/13/2013 1:27 PM EDT) Anatomical Region Laterality Modality Chest N/A Radiographic Kathy ging 12/13/2013 1:27 PM EDT Narrative 12/13/2013 2:13 PM EDT Examination CHEST AP/XPORT Clinical History new R CXT, and subclavian central line Comparison 12/13/2013 at 1135 hours. Technique Portable AP chest radiograph on 12/13/2013 at 07/05/2012 20 hours. Findings New right subclavian line tip in mid SVC. ??Other equipment in unchanged position. Unchanged to slightly decreased tiny right apical pneumothorax. ??No other interval findings. Procedure Note Rosa Schwab MD - 12/13/2013 Examination CHEST AP/XPORT Clinical History new R CXT, and subclavian central line Comparison 12/13/2013 at 1135 hours. Technique Portable AP chest radiograph on 12/13/2013 at 07/05/2012 20 hours. Findings New right subclavian line tip in mid SVC. Other equipment in unchanged position. Unchanged to slightly decreased tiny right apical pneumothorax.No other interval findings. Cirilo Olivas MD IMG DX ORDERABLES * XR chest PA or AP- 1 view (12/13/2013 11:39 AM EDT) Anatomical Region Laterality Modality Chest N/A Radiographic Kathy ging 12/13/2013 11:3 9 AM EDT Narrative 12/13/2013 11:54 AM EDT Examination CHEST AP/XPORT Clinical History increased o2 demand Comparison December 12, 2013. Technique Single portable AP semi upright view of the chest. Findings Small right-sided pneumothorax, which is new in comparison to the prior exam. ?? As described before the side hole of the right-sided chest tube is outside the chest in the subcutaneous tissues. Increased opacification at the left lung base, which now obscures the left hemidiaphragm. ??Considering the relatively acute change in comparison to the prior exam, this most likely represents atelectasis, possibly due to mucous plugging. Somewhat unusual course of the right IJ central venous line, which ends at the junction between the right IJ and subclavian vein (see prior report). ??Stable tracheostomy tube. ??Stable tube along the esophagus with tip below the inferior border of the image. Impression Malpositioned right chest tube with new small right-sided pneumothorax. Worsening airspace opacification at the left base, which may be due to atelectasis. Procedure Note Ary Espitia MD - 12/13/2013 Examination CHEST AP/XPORT Clinical History increased o2 demand Comparison December 12, 2013. Technique Single portable AP semi upright view of the chest. Findings Small right-sided pneumothorax, which is new in comparison to the priorexam. As described before the side hole of the right-sided chest tube is outsidethe chest in the subcutaneous tissues. Increased opacification at the left lung base, which now obscures the left hemidiaphragm. Considering the relatively acute change in comparison tothe prior exam, this most likely represents atelectasis, possibly due tomucous plugging. Somewhat unusual course of the right IJ central venous line, which ends atthe junction between the right IJ and subclavian vein (see prior report).Stable tracheostomy tube. Stable tube along the esophagus with tip below theinferior border of the image. Impression Malpositioned right chest tube with new small right-sided pneumothorax. Worsening airspace opacification at the left base, which may be due to atelectasis. Cirilo D Brendon MD IMG DX ORDERABLES * (ABNORMAL) Differential, Automated (12/13/2013 11:38 AM EDT) Neutrophil % 75.0(H) 34.0 - 71.0 % CERNER MILLENNIUM Neutrophil Absolute 8.31(H) 1.50 - 6.30 x10(3)/mc L CERNER MILLENNIUM Lymph % 12.4(L) 19.0 - 53.0 % CERNER MILLENNIUM Lymphocytes Abs 1.4 1.0 - 3.6 x10(3)/mc L CERNER MILLENNIUM Monocyte % 8.1 4.0 - 13.0 % CERNER MILLENNIUM Monocyte Abs 0.9 0.2 - 1.0 x10(3)/mc L CERNER MILLENNIUM Eos % 3.4 0.0 - 7.0 % CERNER MILLENNIUM Eosinophils Abs 0.4 0.0 - 0.5 x10(3)/mc L CERNER MILLENNIUM Basophil % 0.3 0.0 - 2.0 % CERNER MILLENNIUM Baso Absolute 0.0 0.0 - 0.2 x10(3)/mc L CERNER MILLENNIUM Immature Gran % 0.80(H) 0.00 - 0.66 % CERNER MILLENNIUM Comment: Immature granulocytes(IG's)percentage and absolute count will include metamyelocytes, myelocytes, and promyelocytes. Blood smears from CBCs yielding IG's will be scanned manually for concordance. If this scan disagrees with the automated IG or if promyelocytes are noted, a manual differential will be performed. Immature Gran Absolute 0.09(H) 0.00 - 0.05 x10(3)/mc L CERNER MILLENNIUM Blood specimen (specimen) 12/13/2013 11:38 AM EDT 12/13/2013 11:49 AM EDT Narrative Resulting Agency Comment Spec In Lab Romulo Ramires MD HEMATOLOGY ORDERAB LES CERNER MILLENNIUM * (ABNORMAL) Hemogram (12/13/2013 11:38 AM EDT) Pathologist [facility] White Blood Cell 11.1(H) 4.0 - 10.0 x10(3)/mc L CERNER MILLENNIUM Red Blood Cell 2.78(L) 4.63 - 6.08 x10(6)/mc L CERNER MILLENNIUM Hemoglobin 8.1(L) 13.7 - 17.5 gm/dL CERNER MILLENNIUM Hematocrit 25.2(L) 40.0 - 51.0 % CERNER MILLENNIUM Mean Cell Volume 90.6 79.0 - 92.0 fL CERNER MILLENNIUM Mean Cell Hemoglobin 29.1 25.6 - 32.2 pg CERNER MILLENNIUM Mean Cell Hemoglobin Concentration 32.1 32.0 - 36.5 gm/dL CERNER MILLENNIUM Platelet 195 145 - 370 x10(3)/mc L CERNER MILLENNIUM RDW Standard Deviation 47.4(H) 35.0 - 46.0 fL CERNER MILLENNIUM RDW coefficient of variation 14.5(H) 10.9 - 14.4 % CERNER MILLENNIUM Mean Platelet Volume 11.0 9.0 - 12.0 fL CERNER MILLENNIUM Blood specimen (specimen) 12/13/2013 11:38 AM EDT 12/13/2013 11:49 AM EDT Narrative Resulting Agency Comment Spec In Lab Romulo Ramires MD HEMATOLOGY ORDERAB LES [facility] * (ABNORMAL) Basic Metabolic Panel (non-fasting) (12/13/2013 11:38 AM EDT) [facility] Glucose 95 60 - 199 mg/dL CERNER MILLENNIUM Comment:Diabetes: >=200 mg/d L plus symptoms Blood Urea Nitrogen 19 10 - 20 mg/dL CERNER MILLENNIUM Creatinine 0.60(L) 0.80 - 1.50 mg/dL CERNER MILLENNIUM Comment: Please note that the pediatric reference intervals supplied above were [place] [facility] [place] Results from pediatric patients should be interpreted in conjunction to the patient's age, height and muscle mass. Sodium 139 135 - 145 mmol/L CERNER MILLENNIUM Potassium 4.2 3.5 - 5.0 mmol/L CERNER MILLENNIUM Comment: Please note: ??Patients with WBC >100,000 may have falsely elevated Potassium levels. ??For accurate Potassium quantification in these patients send serum separator tube (gold top) for subsequent determinations. ??Contact the Clinical Chemistry Laboratory if there are any questions. Chloride 103 98 - 107 mmol/L CERNER MILLENNIUM Carbon Dioxide 29 22 - 31 mmol/L CERNER MILLENNIUM Anion Gap 7 5 - 15 mmol/L CERNER MILLENNIUM Calcium 8.4(L) 8.5 - 10.5 mg/dL CERNER MILLENNIUM Est [...] the following links into your internet browser. http://www.nkdep.nih.gov/lab-evaluation.shtml http://www.kidney.org/professionals/ Blood specimen (specimen) 12/13/2013 11:38 AM EDT 12/13/2013 11:49 AM EDT Narrative Resulting Agency Comment Spec In Lab Romulo Ramires MD CHEMISTRY ORDERABL ES XOCHITL WHITAKER * IR all drainage procedures (12/13/2013 11:33 AM EDT) Anatomical Region Laterality Modality X-Ray Angiograph y 12/13/2013 11:3 3 AM EDT Impressions 12/15/2013 7:43 PM EDT Impression: No RIGHT pleural fluid unable to safely place a chest tube. ?? Plan: Trauma service notified ?? Images obtained by Irma Phillips PA-C ?? Attending: Brenden ?? Narrative 12/15/2013 7:43 PM EDT VIR Procedure Note ?? Limited US RIGHT pleural space ?? [id number] ?? Indication: Worsening respiratory status, increasing O2 requirements on vent with small apical PTX ?? Technique: ?? Limited US of RIGHT pleural space shows no significant pleural fluid. ?? Procedure Note Cirilo Wilcox MD - 12/15/2013 VIR Procedure Note Limited US RIGHT pleural space A#[id number] Indication: Worsening respiratory status, increasing O2 requirements onvent with small apical PTX Technique: Limited US of RIGHT pleural space shows no significant pleural fluid. IMPRESSION Impression: No RIGHT pleural fluid unable to safely place a chest tube. Plan: Trauma service notified Images obtained by Irma Phillips PA-C Attending: Brenden Cirilo Olivas MD IMG IR ORDERABLES * POCT Glucose (12/13/2013 7:46 AM EDT) Pathologist [facility] Glucose, POC 110 60 - 199 mg/dL CERNER MILLENNIUM Comment: Supplemental ranges: <110 mg/dL before meals <200 mg/dL all other times of the day Blood specimen (specimen) 12/13/2013 7:46 AM EDT 12/13/2013 7:46 AM EDT Romulo Ramires MD POINT OF CARE TEST ORDERABLES CERNER MILLENNIUM * (ABNORMAL) Differential, Automated (12/13/2013 2:14 AM EDT) Neutrophil % 77.7(H) 34.0 - 71.0 % CERNER MILLENNIUM Neutrophil Absolute 7.48(H) 1.50 - 6.30 x10(3)/mc L CERNER MILLENNIUM Lymph % 9.3(L) 19.0 - 53.0 % CERNER MILLENNIUM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 CERNER MILLENNIUM Comment: Please note: Patients with WBC >100,000 may have falsely elevated Potassium levels. Contact the Clinical Chemistry Laboratory if there are any questions. ICa Whole Blood 1.14(L) mmol/L CERN ER MILLENNIUM Comment: Reference Ranges: ?? < 19 yrs: 1.22 - 1.37 mmol/L ? Adults: 1.15 - 1.33 mmol/L Note: ??Total bilirubin higher than 20 mg/dL may lead to falsely low ionized calcium. CL Whole Blood 108(H) mmol/L CERNE R MILLENNIUM Gluc Whole Bld 116 mg/dL CERNE R MILLENNIUM Comment:Diabetes: >=200 mg/d L plus symptoms. FIO2 Art 70 % CERNER MILLENNIUM PF Ratio Art 89 CERNER MILLENNIUM Blood specimen (specimen) 12/12/2013 5:35 AM EDT 12/12/2013 5:35 AM EDT Romulo Ramires MD POINT OF CARE TEST ORDERABLES CERNER MILLENNIUM * (ABNORMAL) Differential, Automated (12/12/2013 2:00 AM EDT) Neutrophil % 71.1(H) 34.0 - 71.0 % CERNER MILLENNIUM Neutrophil Absolute 4.92 1.50 - 6.30 x10(3)/mc L CERNER MILLENNIUM Lymph % 14.5(L) 19.0 - 53.0 % CERNER MILLENNIUM Lymphocytes Abs 1.0 1.0 - 3.6 x10(3)/mc L CERNER MILLENNIUM Monocyte % 9.5 4.0 - 13.0 % CERNER MILLENNIUM Monocyte Abs 0.7 0.2 - 1.0 x10(3)/mc L CERNER MILLENNIUM Eos % 3.9 0.0 - 7.0 % CERNER MILLENNIUM Eosinophils Abs 0.3 0.0 - 0.5 x10(3)/mc L CERNER MILLENNIUM Basophil % 0.1 0.0 - 2.0 % CERNER MILLENNIUM Baso Absolute 0.0 0.0 - 0.2 x10(3)/mc L CERNER MILLENNIUM Immature Gran % 0.90(H) 0.00 - 0.66 % CERNER MILLENNIUM Comment: Immature granulocytes(IG's)percentage and absolute count will include metamyelocytes, myelocytes, and promyelocytes. Blood smears from CBCs yielding IG's will be scanned manually for concordance. If this scan disagrees with the automated IG or if promyelocytes are noted, a manual differential will be performed. Immature Gran Absolute 0.06(H) 0.00 - 0.05 x10(3)/mc L CERNER MILLENNIUM Blood specimen (specimen) 12/12/2013 2:00 AM EDT 12/12/2013 2:14 AM EDT Narrative Resulting Agency Comment Spec In Lab Romulo Ramires MD HEMATOLOGY ORDERAB LES CERHELEAN MADRIDENNIUM * (ABNORMAL) Hemogram (12/12/2013 2:00 AM EDT) White Blood Cell 6.9 4.0 - 10.0 x10(3)/mc L CERNER MILLENNIUM Red Blood Cell 2.49(L) 4.63 - 6.08 x10(6)/mc L CERNER MILLENNIUM Hemoglobin 7.1(L) 13.7 - 17.5 gm/dL CERNER MILLENNIUM Hematocrit 21.7(L) 40.0 - 51.0 % CERNER MILLENNIUM Mean Cell Volume 87.1 79.0 - 92.0 fL CERNER MILLENNIUM Mean Cell Hemoglobin 28.5 25.6 - 32.2 pg CERNER MILLENNIUM Mean Cell Hemoglobin Concentration 32.7 32.0 - 36.5 gm/dL CERNER MILLENNIUM Platelet 130(L) 145 - 370 x10(3)/mc L CERNER MILLENNIUM RDW Standard Deviation 45.9 35.0 - 46.0 fL CERNER MILLENNIUM RDW coefficient of variation 14.6(H) 10.9 - 14.4 % CERNER MILLENNIUM Mean Platelet Volume 10.3 9.0 - 12.0 fL CERNER MILLENNIUM Blood specimen (specimen) 12/12/2013 2:00 AM EDT 12/12/2013 2:14 AM EDT Narrative Resulting Agency Comment Spec In Lab Romulo Ramires MD HEMATOLOGY ORDERAB LES CERNER MILLENNIUM * (ABNORMAL) Basic Metabolic Panel (non-fasting) (12/12/2013 2:00 AM EDT) [facility] Glucose 104 60 - 199 mg/dL CERNER MILLENNIUM Comment:Diabetes: >=200 mg/d L plus symptoms Blood Urea Nitrogen 18 10 - 20 mg/dL CERNER MILLENNIUM Creatinine 0.59(L) 0.80 - 1.50 mg/dL CERNER MILLENNIUM Comment: Please note that the pediatric reference intervals supplied above were [place] [facility] [place] Results from pediatric patients should be interpreted in conjunction to the patient's age, height and muscle mass. Sodium 142 135 - 145 mmol/L CERNER MILLENNIUM Potassium 4.0 3.5 - 5.0 mmol/L CERNER MILLENNIUM Comment: Please note: ??Patients with WBC >100,000 may have falsely elevated Potassium levels. ??For accurate Potassium quantification in these patients send serum separator tube (gold top) for subsequent determinations. ??Contact the Clinical Chemistry Laboratory if there are any questions. Chloride 106 98 - 107 mmol/L CERNER MILLENNIUM Carbon Dioxide 25 22 - 31 mmol/L CERNER MILLENNIUM Anion Gap 11 5 - 15 mmol/L CERNER MILLENNIUM Calcium 8.2(L) 8.5 - 10.5 mg/dL CERNER MILLENNIUM Est [...] the following links into your internet browser. http://www.nkdep.nih.gov/lab-evaluation.shtml http://www.kidney.org/professionals/ Blood specimen (specimen) 12/12/2013 2:00 AM EDT 12/12/2013 2:14 AM EDT Narrative Resulting Agency Comment Spec In Lab Romulo Ramires MD CHEMISTRY ORDERABL ES Performing Organization Address City/[facility]/ZIP Co de Phone Number XOCHITL SHELBYIUM * Prothrombin Time (12/12/2013 2:00 AM EDT) [facility] Prothrombin Time 14.9 12.0 - 15.0 sec CERNER MILLENNIUM Comment: [facility] Transfusion Committee Guidelines: INR less than 2.0, PTT less than OR equal to 43.5 seconds, or Fibrinogen greater than or equal to 100 mg/dl indicate adequate procoagulant activity for hemostasis in patients without underlying bleeding disorders. International Normalization Ratio 1.1 0.9 - 1.1 CERNER MILLENNIUM Blood specimen (specimen) 12/12/2013 2:00 AM EDT 12/12/2013 2:14 AM EDT Narrative Resulting Agency Comment Spec In Lab Romulo Ramires MD HEMATOLOGY ORDERAB LES XOCHITL MADRIDENNIUM * (ABNORMAL) Differential, Automated (12/11/2013 2:00 PM EDT) Neutrophil % 74.4(H) 34.0 - 71.0 % CERNER MILLENNIUM Neutrophil Absolute 5.27 1.50 - 6.30 x10(3)/mc L CERNER MILLENNIUM Lymph % 14.1(L) 19.0 - 53.0 % CERNER MILLENNIUM Lymphocytes Abs 1.0 1.0 - 3.6 x10(3)/mc L CERNER MILLENNIUM Monocyte % 7.1 4.0 - 13.0 % CERNER MILLENNIUM Monocyte Abs 0.5 0.2 - 1.0 x10(3)/mc L CERNER MILLENNIUM Eos % 3.4 0.0 - 7.0 % CERNER MILLENNIUM Eosinophils Abs 0.2 0.0 - 0.5 x10(3)/mc L CERNER MILLENNIUM Basophil % 0.3 0.0 - 2.0 % CERNER MILLENNIUM Baso Absolute 0.0 0.0 - 0.2 x10(3)/mc L CERNER MILLENNIUM Immature Gran % 0.70(H) 0.00 - 0.66 % CERNER MILLENNIUM Comment: Immature granulocytes(IG's)percentage and absolute count will include metamyelocytes, myelocytes, and promyelocytes. Blood smears from CBCs yielding IG's will be scanned manually for concordance. If this scan disagrees with the automated IG or if promyelocytes are noted, a manual differential will be performed. Immature Gran Absolute 0.05 0.00 - 0.05 x10(3)/mc L CERNER MILLENNIUM Blood specimen (specimen) 12/11/2013 2:00 PM EDT 12/11/2013 2:12 PM EDT Narrative Resulting Agency Comment Spec In Lab Romulo Ramires MD HEMATOLOGY ORDERAB LES XOCHITL SHELBYIUM * (ABNORMAL) Hemogram (12/11/2013 2:00 PM EDT) White Blood Cell 7.1 4.0 - 10.0 x10(3)/mc L CERNER MILLENNIUM Red Blood Cell 2.55(L) 4.63 - 6.08 x10(6)/mc L CERNER MILLENNIUM Hemoglobin 7.4(L) 13.7 - 17.5 gm/dL CERNER MILLENNIUM Hematocrit 22.3(L) 40.0 - 51.0 % CERNER MILLENNIUM Mean Cell Volume 87.5 79.0 - 92.0 fL CERNER MILLENNIUM Mean Cell Hemoglobin 29.0 25.6 - 32.2 pg CERNER MILLENNIUM Mean Cell Hemoglobin Concentration 33.2 32.0 - 36.5 gm/dL CERNER MILLENNIUM Platelet 128(L) 145 - 370 x10(3)/mc L CERNER MILLENNIUM RDW Standard Deviation 46.6(H) 35.0 - 46.0 fL CERNER MILLENNIUM RDW coefficient of variation 14.7(H) 10.9 - 14.4 % CERNER MILLENNIUM Mean Platelet Volume 10.0 9.0 - 12.0 fL CERNER MILLENNIUM Blood specimen (specimen) 12/11/2013 2:00 PM EDT 12/11/2013 2:12 PM EDT Narrative Resulting Agency Comment Spec In Lab Romulo Ramires MD HEMATOLOGY ORDERAB LES CERNER MILLENNIUM * (ABNORMAL) Basic Metabolic Panel (non-fasting) (12/11/2013 2:00 PM EDT) [facility] Glucose 97 60 - 199 mg/dL CERNER MILLENNIUM Comment:Diabetes: >=200 mg/d L plus symptoms Blood Urea Nitrogen 15 10 - 20 mg/dL CERNER MILLENNIUM Creatinine 0.60(L) 0.80 - 1.50 mg/dL CERNER MILLENNIUM Comment: Please note that the pediatric reference intervals supplied above were not validated [place] [facility] [place] Results from pediatric patients should be interpreted in conjunction to the patient's age, height and muscle mass. Sodium 142 135 - 145 mmol/L CERNER MILLENNIUM Potassium 4.1 3.5 - 5.0 mmol/L CERNER MILLENNIUM Comment: Please note: ??Patients with WBC >100,000 may have falsely elevated Potassium levels. ??For accurate Potassium quantification in these patients send serum separator tube (gold top) for subsequent determinations. ??Contact the Clinical Chemistry Laboratory if there are any questions. Chloride 108(H) 98 - 107 mmol/L CERNER MILLENNIUM Carbon Dioxide 26 22 - 31 mmol/L CERNER MILLENNIUM Anion Gap 8 5 - 15 mmol/L CERNER MILLENNIUM Calcium 7.9(L) 8.5 - 10.5 mg/dL CERNER MILLENNIUM Est [...] the following links into your internet browser. http://www.nkdep.nih.gov/lab-evaluation.shtml http://www.kidney.org/professionals/ Blood specimen (specimen) 12/11/2013 2:00 PM EDT 12/11/2013 2:12 PM EDT Narrative Resulting Agency Comment Spec In Lab Romulo Raimres MD CHEMISTRY ORDERABL ES XOCHITL WHITAKER * CT chest pulmonary embolism with contrast (12/11/2013 10:11 AM EDT) Anatomical Region Laterality Modality Chest Computed Tomogra phy 12/11/2013 10:1 1 AM EDT Addenda Addendum on 12/23/2013 1:42 PM EDT Addendum Begins MIP images were performed Addendum Ends Addendum on 12/23/2013 12:09 PM EDT Addendum Begins MIP images were performed Addendum Ends Narrative 12/11/2013 11:[address] Chest for Pulmonary Embolus With Contrast Clinical History desaturation, high risk for PE ====TN==== Comparison 11/29/2013. Technique Omnipaque 350, 95 mL. Findings Small right pneumothorax present. ??Respiratory motion degrades image quality. ?? Small opacities with cavitations present in left upper lobe. There is significant progression of left lower lobe collapse/consolidation, with modest improvement in right pleural effusion status post chest tube drainage, but progression of right lower lobe atelectasis or consolidation. ??No rib fractures seen. ??No evidence of pulmonary emboli to the 1st 3 orders of pulmonary arteries. Impression No evidence of pulmonary embolus in the 1st 3 orders of the pulmonary arteries. Significant respiratory motion degrades image quality somewhat. ??Status post right chest tube placement, decrease in right pleural effusion. ??Increasing bilateral lower lobe consolidation or atelectasis. Nodular cavitary lesions in the left upper lobe worrisome for posttraumatic pneumatoceles bold. ??Small right pneumothorax. Patient is intubated, ETT appropriate. Procedure Note Sol Acevedo MD - 12/23/[address] Chest for Pulmonary Embolus With Contrast Clinical History desaturation, high risk for PE ====TN==== Comparison 11/29/2013. Technique Omnipaque 350, 95 mL. Findings Small right pneumothorax present. Respiratory motion degrades imagequality. Small opacities with cavitations present in left upper lobe. There is significant progression of left lower lobe collapse/consolidation, withmodest improvement in right pleural effusion status post chest tube drainage, but progression of right lower lobe atelectasis or consolidation. No ribfractures seen. No evidence of pulmonary emboli to the 1st 3 orders of pulmonary arteries. Impression No evidence of pulmonary embolus in the 1st 3 orders of the pulmonaryarteries. Significant respiratory motion degrades image quality somewhat. Statuspost right chest tube placement, decrease in right pleural effusion.Increasing bilateral lower lobe consolidation or atelectasis. Nodular cavitarylesions in the left upper lobe worrisome for posttraumatic pneumatoceles bold. Small right pneumothorax. Patient is intubated, ETT appropriate. Romulo Ramires MD IM CT ORDERABLES * (ABNORMAL) Differential, Automated (12/11/2013 7:10 AM EDT) Neutrophil % 72.9(H) 34.0 - 71.0 % CERNER MILLENNIUM Neutrophil Absolute 4.62 1.50 - 6.30 x10(3)/mc L CERNER MILLENNIUM Lymph % 13.2(L) 19.0 - 53.0 % CERNER MILLENNIUM Lymphocytes Abs 0.8(L) 1.0 - 3.6 x10(3)/mc L CERNER MILLENNIUM Monocyte % 9.3 4.0 - 13.0 % CERNER MILLENNIUM Monocyte Abs 0.6 0.2 - 1.0 x10(3)/mc L CERNER MILLENNIUM Eos % 3.8 0.0 - 7.0 % CERNER MILLENNIUM Eosinophils Abs 0.2 0.0 - 0.5 x10(3)/mc L CERNER MILLENNIUM Basophil % 0.2 0.0 - 2.0 % CERNER MILLENNIUM Baso Absolute 0.0 0.0 - 0.2 x10(3)/mc L CERNER MILLENNIUM Immature Gran % 0.60 0.00 - 0.66 % CERNER MILLENNIUM Comment: Immature granulocytes(IG's)percentage and absolute count will include metamyelocytes, myelocytes, and promyelocytes. Blood smears from CBCs yielding IG's will be scanned manually for concordance. If this scan disagrees with the automated IG or if promyelocytes are noted, a manual differential will be performed. Immature Gran Absolute 0.04 0.00 - 0.05 x10(3)/mc L CERNER MILLENNIUM Blood specimen (specimen) 12/11/2013 7:10 AM EDT 12/11/2013 7:21 AM EDT Narrative Resulting Agency Comment Spec In Lab Romulo Ramires MD HEMATOLOGY ORDERAB LES CERNER MILLENNIUM * (ABNORMAL) Hemogram (12/11/2013 7:10 AM EDT) White Blood Cell 6.3 4.0 - 10.0 x10(3)/mc L CERNER MILLENNIUM Red Blood Cell 2.41(L) 4.63 - 6.08 x10(6)/mc L CERNER MILLENNIUM Hemoglobin 7.1(L) 13.7 - 17.5 gm/dL CERNER MILLENNIUM Hematocrit 21.1(L) 40.0 - 51.0 % CERNER MILLENNIUM Mean Cell Volume 87.6 79.0 - 92.0 fL CERNER MILLENNIUM Mean Cell Hemoglobin 29.5 25.6 - 32.2 pg CERNER MILLENNIUM Mean Cell Hemoglobin Concentration 33.6 32.0 - 36.5 gm/dL CERNER MILLENNIUM Platelet 117(L) 145 - 370 x10(3)/mc L CERNER MILLENNIUM RDW Standard Deviation 46.3(H) 35.0 - 46.0 fL CERNER MILLENNIUM RDW coefficient of variation 14.5(H) 10.9 - 14.4 % CERNER MILLENNIUM Mean Platelet Volume 10.1 9.0 - 12.0 fL CERNER MILLENNIUM Blood specimen (specimen) 12/11/2013 7:10 AM EDT 12/11/2013 7:21 AM EDT Narrative Resulting Agency Comment Spec In Lab Romulo Ramires MD HEMATOLOGY ORDERAB LES Performing Organization Address [facility]/ZIP Co de Phone Number CERHELENA MADRIDENNIUM * Potassium (12/11/2013 7:10 AM EDT) Potassium 3.9 3.5 - 5.0 mmol/L CERNER MILLENNIUM Comment: Please note: ??Patients with WBC >100,000 may have falsely elevated Potassium levels. ??For accurate Potassium quantification in these patients send serum separator tube (gold top) for subsequent determinations. ??Contact the Clinical Chemistry Laboratory if there are any questions. Blood specimen (specimen) 12/11/2013 7:10 AM EDT 12/11/2013 7:21 AM EDT Narrative Resulting Agency Comment Spec In Lab Romulo Ramires MD CHEMISTRY ORDERABL ES XOCHITL SHELBYIUM * (ABNORMAL) Differential, Automated (12/11/2013 1:15 AM EDT) Neutrophil % 76.8(H) 34.0 - 71.0 % CERNER MILLENNIUM Neutrophil Absolute 5.46 1.50 - 6.30 x10(3)/mc L CERNER MILLENNIUM Lymph % 13.5(L) 19.0 - 53.0 % CERNER MILLENNIUM Lymphocytes Abs 1.0 1.0 - 3.6 x10(3)/mc L CERNER MILLENNIUM Monocyte % 6.5 4.0 - 13.0 % CERNER MILLENNIUM Monocyte Abs 0.5 0.2 - 1.0 x10(3)/mc L CERNER MILLENNIUM Eos % 2.8 0.0 - 7.0 % CERNER MILLENNIUM Eosinophils Abs 0.2 0.0 - 0.5 x10(3)/mc L CERNER MILLENNIUM Basophil % 0.0 0.0 - 2.0 % CERNER MILLENNIUM Baso Absolute 0.0 0.0 - 0.2 x10(3)/mc L CERNER MILLENNIUM Immature Gran % 0.40 0.00 - 0.66 % CERNER MILLENNIUM Comment: Immature granulocytes(IG's)percentage and absolute count will include metamyelocytes, myelocytes, and promyelocytes. Blood smears from CBCs yielding IG's will be scanned manually for concordance. If this scan disagrees with the automated IG or if promyelocytes are noted, a manual differential will be performed. Immature Gran Absolute 0.03 0.00 - 0.05 x10(3)/mc L CERNER MILLENNIUM Blood specimen (specimen) 12/11/2013 1:15 AM EDT 12/11/2013 1:20 AM EDT Narrative Resulting Agency Comment Spec In Lab Romulo Ramires MD HEMATOLOGY ORDERAB LES CERHELENA MADRIDENNIUM * (ABNORMAL) Hemogram (12/11/2013 1:15 AM EDT) White Blood Cell 7.1 4.0 - 10.0 x10(3)/mc L CERNER MILLENNIUM Red Blood Cell 2.52(L) 4.63 - 6.08 x10(6)/mc L CERNER MILLENNIUM Hemoglobin 7.5(L) 13.7 - 17.5 gm/dL CERNER MILLENNIUM Hematocrit 22.0(L) 40.0 - 51.0 % CERNER MILLENNIUM Mean Cell Volume 87.3 79.0 - 92.0 fL CERNER MILLENNIUM Mean Cell Hemoglobin 29.8 25.6 - 32.2 pg CERNER MILLENNIUM Mean Cell Hemoglobin Concentration 34.1 32.0 - 36.5 gm/dL CERNER MILLENNIUM Platelet 112(L) 145 - 370 x10(3)/mc L CERNER MILLENNIUM RDW Standard Deviation 46.3(H) 35.0 - 46.0 fL CERNER MILLENNIUM RDW coefficient of variation 14.6(H) 10.9 - 14.4 % CERNER MILLENNIUM Mean Platelet Volume 10.6 9.0 - 12.0 fL CERNER MILLENNIUM Blood specimen (specimen) 12/11/2013 1:15 AM EDT 12/11/2013 1:20 AM EDT Narrative Resulting Agency Comment Spec In Lab Romulo Ramires MD HEMATOLOGY ORDERAB LES [facility] * (ABNORMAL) Basic Metabolic Panel (non-fasting) (12/11/2013 1:15 AM EDT) [facility] Glucose 117 60 - 199 mg/dL CERNER MILLENNIUM Comment:Diabetes: >=200 mg/d L plus symptoms Blood Urea Nitrogen 14 10 - 20 mg/dL CERNER MILLENNIUM Creatinine 0.66(L) 0.80 - 1.50 mg/dL CERNER MILLENNIUM Comment: Please note that the pediatric reference intervals supplied above were [place] [facility] [place] Results from pediatric patients should be interpreted in conjunction to the patient's age, height and muscle mass. Sodium 142 135 - 145 mmol/L CERNER MILLENNIUM Potassium 3.6 3.5 - 5.0 mmol/L CERNER MILLENNIUM Comment: Please note: ??Patients with WBC >100,000 may have falsely elevated Potassium levels. ??For accurate Potassium quantification in these patients send serum separator tube (gold top) for subsequent determinations. ??Contact the Clinical Chemistry Laboratory if there are any questions. Chloride 107 98 - 107 mmol/L CERNER MILLENNIUM Carbon Dioxide 26 22 - 31 mmol/L CERNER MILLENNIUM Anion Gap 9 5 - 15 mmol/L CERNER MILLENNIUM Calcium 7.8(L) 8.5 - 10.5 mg/dL CERNER MILLENNIUM Est [...] the following links into your internet browser. http://www.nkdep.nih.gov/lab-evaluation.shtml http://www.kidney.org/professionals/ Blood specimen (specimen) 12/11/2013 1:15 AM EDT 12/11/2013 1:20 AM EDT Narrative Resulting Agency Comment Spec In Lab Romulo Ramires MD CHEMISTRY ORDERABL ES Performing Organization Address [facility] de Phone Number XOCHITL MarkkitIUM * Prothrombin Time (12/11/2013 1:15 AM EDT) Prothrombin Time 14.2 12.0 - 15.0 sec CERNER MILLENNIUM Comment: [facility] Transfusion Committee Guidelines: INR less than 2.0, PTT less than OR equal to 43.5 seconds, or Fibrinogen greater than or equal to 100 mg/dl indicate adequate procoagulant activity for hemostasis in patients without underlying bleeding disorders. International Normalization Ratio 1.1 0.9 - 1.1 CERNER MILLENNIUM Blood specimen (specimen) 12/11/2013 1:15 AM EDT 12/11/2013 1:20 AM EDT Narrative Resulting Agency Comment Spec In Lab Romulo Ramires MD HEMATOLOGY ORDERAB LES Performing Organization Address [facility] Co de Phone Number CERHELENA MarkkitIUM * (ABNORMAL) Hepatic Function Panel (12/10/2013 7:50 PM EDT) Protein, Total 4.9(L) 6.4 - 8.3 gm/dL CERNER MILLENNIUM Albumin 2.3(L) 3.2 - 5.2 gm/dL CERNER MILLENNIUM Aspartate Aminotransferase 24 0 - 39 unit/L CERNER MILLENNIUM Alanine Aminotransferase 32 0 - 55 unit/L CERNER MILLENNIUM Alkaline Phosphatase 63 40 - 120 unit/L CERNER MILLENNIUM Bilirubin, Total 1.1 0.2 - 1.3 mg/dL CERNER MILLENNIUM Bilirubin, Direct 0.2 0.0 - 0.3 mg/dL CERNER MILLENNIUM Blood specimen (specimen) 12/10/2013 7:50 PM EDT 12/10/2013 8:05 PM EDT Narrative Resulting Agency Comment Spec In Lab Romulo Ramires MD CHEMISTRY ORDERABL ES Performing Organization Address [facility] Phone Number [facility]UL[facility]CLE[facility] * Lactate Dehydrogenase (12/10/2013 7:50 PM EDT) Lactate Dehydrogenase 149 110 - 220 unit/L [facility] MILLENNIUM Blood specimen (specimen) 12/10/2013 7:50 PM EDT 12/10/2013 8:05 PM EDT Narrative Resulting Agency Comment Spec In Lab Romulo Ramires MD CHEMISTRY ORDERABL ES Performing Organization Address [facility] Phone Number [facility] * (ABNORMAL) Haptoglobin (12/10/2013 7:50 PM EDT) Haptoglobin 302(H) 30 - 200 mg/dL [facility] MILLENNIUM Comment: Haptoglobin concentrations in newborns is low to undetectable; however, adult concentrations are usually attained by 4 months of age. ??No sex-related differences for haptoglobin have been detected. Blood specimen (specimen) 12/10/2013 7:50 PM EDT 12/10/2013 8:05 PM EDT Narrative Resulting Agency Comment Spec In Lab Romulo Ramires MD CHEMISTRY ORDERABL ES Performing Organization Address [facility] Co de Phone Number [facility] * Thrombin time (12/10/2013 7:50 PM EDT) Thrombin Time 16 15 - 20 sec CERNER MILLENNIUM Blood specimen (specimen) 12/10/2013 7:50 PM EDT 12/10/2013 8:05 PM EDT Narrative Resulting Agency Comment Spec In Lab Romulo Ramires MD HEMATOLOGY ORDERAB LES Performing Organization Address [facility] Co de Phone Number CERNER MILLENNIUM * (ABNORMAL) Fibrinogen (12/10/2013 7:50 PM EDT) Fibrinogen 591(H) 175 - 450 mg/dL CERNER MILLENNIUM Blood specimen (specimen) 12/10/2013 7:50 PM EDT 12/10/2013 8:05 PM EDT Narrative Resulting Agency Comment Spec In Lab Romulo Ramires MD HEMATOLOGY ORDERAB LES Performing Organization Address [facility] Phone Number CERNER MILLENNIUM * APTT (12/10/2013 7:50 PM EDT) Partial Thromboplastin Time 30 25 - 35 sec CERNER MILLENNIUM Comment: Recommended therapeutic PTT range for full dose unfractionated heparin is 80-114 seconds. Blood specimen (specimen) 12/10/2013 7:50 PM EDT 12/10/2013 8:05 PM EDT Narrative Resulting Agency Comment Spec In Lab Romulo Ramires MD HEMATOLOGY ORDERAB LES Performing Organization Address [facility] de Phone Number [facility] JULIUSEN[facility] * Prothrombin Time (12/10/2013 7:50 PM EDT) Prothrombin Time 14.3 12.0 - 15.0 sec CERNER MILLENNIUM Comment: [facility] Transfusion Committee Guidelines: INR less than 2.0, PTT less than OR equal to 43.5 seconds, or Fibrinogen greater than or equal to 100 mg/dl indicate adequate procoagulant activity for hemostasis in patients without underlying bleeding disorders. International Normalization Ratio 1.1 0.9 - 1.1 CERNER MILLENNIUM Blood specimen (specimen) 12/10/2013 7:50 PM EDT 12/10/2013 8:05 PM EDT Narrative Resulting Agency Comment Spec In Lab Romulo Ramires MD HEMATOLOGY ORDERAB LES CERNER JULIUSENNIUM * (ABNORMAL) Differential, Automated (12/10/2013 7:20 PM EDT) Neutrophil % 79.4(H) 34.0 - 71.0 % CERNER MILLENNIUM Neutrophil Absolute 6.91(H) 1.50 - 6.30 x10(3)/mc L CERNER MILLENNIUM Lymph % 12.9(L) 19.0 - 53.0 % CERNER MILLENNIUM Lymphocytes Abs 1.1 1.0 - 3.6 x10(3)/mc L CERNER MILLENNIUM Monocyte % 5.6 4.0 - 13.0 % CERNER MILLENNIUM Monocyte Abs 0.5 0.2 - 1.0 x10(3)/mc L CERNER MILLENNIUM Eos % 1.5 0.0 - 7.0 % CERNER MILLENNIUM Eosinophils Abs 0.1 0.0 - 0.5 x10(3)/mc L CERNER MILLENNIUM Basophil % 0.1 0.0 - 2.0 % CERNER MILLENNIUM Baso Absolute 0.0 0.0 - 0.2 x10(3)/mc L CERNER MILLENNIUM Immature Gran % 0.50 0.00 - 0.66 % CERNER MILLENNIUM Comment: Immature granulocytes(IG's)percentage and absolute count will include metamyelocytes, myelocytes, and promyelocytes. Blood smears from CBCs yielding IG's will be scanned manually for concordance. If this scan disagrees with the automated IG or if promyelocytes are noted, a manual differential will be performed. Immature Gran Absolute 0.04 0.00 - 0.05 x10(3)/mc L CERNER MILLENNIUM Blood specimen (specimen) 12/10/2013 7:20 PM EDT 12/10/2013 7:44 PM EDT Narrative Resulting Agency Comment Spec In Lab Romulo Ramires MD HEMATOLOGY ORDERAB LES CERNER MILLENNIUM * (ABNORMAL) Hemogram (12/10/2013 7:20 PM EDT) White Blood Cell 8.7 4.0 - 10.0 x10(3)/mc L CERNER MILLENNIUM Red Blood Cell 2.64(L) 4.63 - 6.08 x10(6)/mc L CERNER MILLENNIUM Hemoglobin 7.8(L) 13.7 - 17.5 gm/dL CERNER MILLENNIUM Hematocrit 23.0(L) 40.0 - 51.0 % CERNER MILLENNIUM Mean Cell Volume 87.1 79.0 - 92.0 fL CERNER MILLENNIUM Mean Cell Hemoglobin 29.5 25.6 - 32.2 pg CERNER MILLENNIUM Mean Cell Hemoglobin Concentration 33.9 32.0 - 36.5 gm/dL CERNER MILLENNIUM Platelet 115(L) 145 - 370 x10(3)/mc L CERNER MILLENNIUM RDW Standard Deviation 45.9 35.0 - 46.0 fL CERNER MILLENNIUM RDW coefficient of variation 14.6(H) 10.9 - 14.4 % CERNER MILLENNIUM Mean Platelet Volume 11.4 9.0 - 12.0 fL CERNER MILLENNIUM Blood specimen (specimen) 12/10/2013 7:20 PM EDT 12/10/2013 7:44 PM EDT Narrative Resulting Agency Comment Spec In Lab Romulo Ramires MD HEMATOLOGY ORDERAB LES CERNER MILLENNIUM * (ABNORMAL) Differential, Automated (12/10/2013 6:15 PM EDT) Neutrophil % 79.6(H) 34.0 - 71.0 % CERNER MILLENNIUM Neutrophil Absolute 5.76 1.50 - 6.30 x10(3)/mc L CERNER MILLENNIUM Lymph % 12.6(L) 19.0 - 53.0 % CERNER MILLENNIUM Lymphocytes Abs 0.9(L) 1.0 - 3.6 x10(3)/mc L CERNER MILLENNIUM Monocyte % 5.4 4.0 - 13.0 % CERNER MILLENNIUM Monocyte Abs 0.4 0.2 - 1.0 x10(3)/mc L CERNER MILLENNIUM Eos % 1.5 0.0 - 7.0 % CERNER MILLENNIUM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 granulocytes(IG's)percentage and absolute count will include metamyelocytes, myelocytes, and promyelocytes. Blood smears from CBCs yielding IG's will be scanned manually for concordance. If this scan disagrees with the automated IG or if promyelocytes are noted, a manual differential will be performed. Immature Gran Absolute 0.01 0.00 - 0.05 x10(3)/mc L CERNER MILLENNIUM Blood specimen (specimen) 12/09/2013 12:47 PM EDT 12/09/2013 12:47 PM EDT Narrative Resulting Agency Comment Spec In Lab Romulo Ramires MD HEMATOLOGY ORDERAB LES CERNER JULIUSENNIUM * (ABNORMAL) Hemogram (12/09/2013 12:47 PM EDT) White Blood Cell 6.3 4.0 - 10.0 x10(3)/mc L CERNER MILLENNIUM Red Blood Cell 2.15(L) 4.63 - 6.08 x10(6)/mc L CERNER MILLENNIUM Hemoglobin 6.2(L) 13.7 - 17.5 gm/dL CERNER MILLENNIUM Hematocrit 18.7(L) 40.0 - 51.0 % CERNER MILLENNIUM Mean Cell Volume 87.0 79.0 - 92.0 fL CERNER MILLENNIUM Mean Cell Hemoglobin 28.8 25.6 - 32.2 pg CERNER MILLENNIUM Mean Cell Hemoglobin Concentration 33.2 32.0 - 36.5 gm/dL CERNER MILLENNIUM Platelet 71(L) 145 - 370 x10(3)/mc L CERNER MILLENNIUM RDW Standard Deviation 46.0 35.0 - 46.0 fL CERNER MILLENNIUM RDW coefficient of variation 14.3 10.9 - 14.4 % CERNER MILLENNIUM Mean Platelet Volume 10.6 9.0 - 12.0 fL CERNER MILLENNIUM Blood specimen (specimen) 12/09/2013 12:47 PM EDT 12/09/2013 12:47 PM EDT Narrative Resulting Agency Comment Spec In Lab Romulo Ramires MD HEMATOLOGY ORDERAB LES [facility] * Urine culture Indwelling Catheter Urine (12/09/2013 12:21 PM EDT) Urine Culture ? Patient Name: CIRILO PONCE ?Ordered By: ROMULO RAMIRES ? MR#: [id number] ?LOC: ??ICUS ? /Sex: ?? 6 (28 years), ? Male ? PROCEDURE: Urine Culture ?SOURCE: U ICath ? COLLECTED: 12/09/2013 12:21 ? STARTED: 12/09/2013 12:58 ? FINAL REPORT ? Final Report ? Verified: 07:49 ? No growth (Less than 1,000 cfu/ml). ? ____ XOCHITL WHITAKER Urine specimen obtained via indwelling urinary catheter (specimen) 12/09/2013 12:21 PM EDT 12/09/2013 12:58 PM EDT Narrative Resulting Agency Comment Spec In Lab Romulo Ramires MD MICROBIOLOGY - GEN ERAL ORDERABLES Performing Organization Address [facility] de Phone Number [facility] * POCT Glucose (12/09/2013 12:02 PM EDT) Glucose, POC 117 60 - 199 mg/dL [facility] Comment: Supplemental ranges: <110 mg/dL before meals <200 mg/dL all other times of the day Blood specimen (specimen) 12/09/2013 12:02 PM EDT 12/09/2013 12:02 PM EDT Romulo Ramires MD POINT OF CARE TEST ORDERABLES Performing Organization Address [facility] de Phone Number [facility] * Prepare RBC (12/09/2013 6:40 AM EDT) Dispensed? Yes [facility] Blood specimen (specimen) 12/09/2013 6:40 AM EDT 12/09/2013 6:37 AM EDT Romulo Ramires MD BLOOD BANK PRODUCT ORDERABLES Performing Organization Address [facility] de Phone Number XOCHITL SHELBYIUM * APTT (12/09/2013 6:07 AM EDT) Partial Thromboplastin Time 34 25 - 35 sec XOCHITL MILLENNIUM Comment: Recommended therapeutic PTT range for full dose unfractionated heparin is 80-114 seconds. Blood specimen (specimen) 12/09/2013 6:07 AM EDT 12/09/2013 6:13 AM EDT Narrative Resulting Agency Comment Spec In Lab Romulo Ramires MD HEMATOLOGY ORDERAB LES Performing Organization Address [facility] Phone Number MARBINHELENA MADRIDENNIUM * (ABNORMAL) Prothrombin Time (12/09/2013 6:07 AM EDT) Prothrombin Time 15.5(H) 12.0 - 15.0 sec XOCHITL MILLENNIUM Comment: [facility] Transfusion Committee Guidelines: INR less than 2.0, PTT less than OR equal to 43.5 seconds, or Fibrinogen greater than or equal to 100 mg/dl indicate adequate procoagulant activity for hemostasis in patients without underlying bleeding disorders. International Normalization Ratio 1.2(H) 0.9 - 1.1 XOCHITL MILLENNIUM Blood specimen (specimen) 12/09/2013 6:07 AM EDT 12/09/2013 6:13 AM EDT Narrative Resulting Agency Comment Spec In Lab Romulo Ramires MD HEMATOLOGY ORDERAB LES Performing Organization Address [facility] Co de Phone Number MARBINHELENA SHELBYIUM * (ABNORMAL) Differential, Automated (12/09/2013 6:07 AM EDT) Neutrophil % 81.5(H) 34.0 - 71.0 % CERNER MILLENNIUM Neutrophil Absolute 6.83(H) 1.50 - 6.30 x10(3)/mc L CERNER MILLENNIUM Lymph % 11.9(L) 19.0 - 53.0 % CERNER MILLENNIUM Lymphocytes Abs 1.0 1.0 - 3.6 x10(3)/mc L CERNER MILLENNIUM Monocyte % 5.1 4.0 - 13.0 % CERNER MILLENNIUM Monocyte Abs 0.4 0.2 - 1.0 x10(3)/mc L CERNER MILLENNIUM Eos % 1.2 0.0 - 7.0 % CERNER MILLENNIUM Eosinophils Abs 0.1 0.0 - 0.5 x10(3)/mc L CERNER MILLENNIUM Basophil % 0.1 0.0 - 2.0 % CERNER MILLENNIUM Baso Absolute 0.0 0.0 - 0.2 x10(3)/mc L CERNER MILLENNIUM Immature Gran % 0.20 0.00 - 0.66 % CERNER MILLENNIUM Comment: Immature granulocytes(IG's)percentage and absolute count will include metamyelocytes, myelocytes, and promyelocytes. Blood smears from CBCs yielding IG's will be scanned manually for concordance. If this scan disagrees with the automated IG or if promyelocytes are noted, a manual differential will be performed. Immature Gran Absolute 0.02 0.00 - 0.05 x10(3)/mc L CERNER MILLENNIUM Blood specimen (specimen) 12/09/2013 6:07 AM EDT 12/09/2013 6:13 AM EDT Narrative Resulting Agency Comment Spec In Lab Romulo Ramires MD HEMATOLOGY ORDERAB LES CERHELENA MADRIDENNIUM * (ABNORMAL) Hemogram (12/09/2013 6:07 AM EDT) White Blood Cell 8.4 4.0 - 10.0 x10(3)/mc L CERNER MILLENNIUM Red Blood Cell 2.18(L) 4.63 - 6.08 x10(6)/mc L CERNER MILLENNIUM Hemoglobin 6.3(L) 13.7 - 17.5 gm/dL CERNER MILLENNIUM Hematocrit 19.0(L) 40.0 - 51.0 % CERNER MILLENNIUM Mean Cell Volume 87.2 79.0 - 92.0 fL CERNER MILLENNIUM Mean Cell Hemoglobin 28.9 25.6 - 32.2 pg CERNER MILLENNIUM Mean Cell Hemoglobin Concentration 33.2 32.0 - 36.5 gm/dL CERNER MILLENNIUM Platelet 83(L) 145 - 370 x10(3)/mc L CERNER MILLENNIUM RDW Standard Deviation 46.3(H) 35.0 - 46.0 fL CERNER MILLENNIUM RDW coefficient of variation 14.5(H) 10.9 - 14.4 % CERNER MILLENNIUM Mean Platelet Volume 10.5 9.0 - 12.0 fL CERNER MILLENNIUM Blood specimen (specimen) 12/09/2013 6:07 AM EDT 12/09/2013 6:13 AM EDT Narrative Resulting Agency Comment Spec In Lab Romulo Ramires MD HEMATOLOGY ORDERAB LES Performing Organization Address [facility] de Phone Number XOCHITL SHELBYIUM * Lactate, whole blood, send to lab (12/09/2013 6:07 AM EDT) Lactate WB 1.0 0.5 - 2.2 mmol/L XOCHITL MADRIDENNIUM Blood specimen (specimen) 12/09/2013 6:07 AM EDT 12/09/2013 6:13 AM EDT Narrative Resulting Agency Comment Spec In Lab Romulo Ramires MD CHEMISTRY ORDERABL ES Performing Organization Address [facility] Co de Phone Number XOCHITL SHELBYIUM * (ABNORMAL) Fibrinogen (12/09/2013 6:07 AM EDT) Fibrinogen 487(H) 175 - 450 mg/dL XOCHITL MADRIDENNIUM Blood specimen (specimen) 12/09/2013 6:07 AM EDT 12/09/2013 6:13 AM EDT Narrative Resulting Agency Comment Spec In Lab Romulo Ramires MD HEMATOLOGY ORDERAB LES Performing Organization Address City/[facility] Co de Phone Number CERNER MILLENNIUM * Thrombin time (12/09/2013 6:07 AM EDT) Thrombin Time 15 15 - 20 sec CERNER MILLENNIUM Blood specimen (specimen) 12/09/2013 6:07 AM EDT 12/09/2013 6:13 AM EDT Narrative Resulting Agency Comment Spec In Lab Romulo Ramires MD HEMATOLOGY ORDERAB LES CERNER MILLENNIUM * (ABNORMAL) Basic Metabolic Panel (non-fasting) (12/09/2013 6:07 AM EDT) Glucose 122 60 - 199 mg/dL CERNER MILLENNIUM Comment:Diabetes: >=200 mg/d L plus symptoms Blood Urea Nitrogen 8(L) 10 - 20 mg/dL CERNER MILLENNIUM Creatinine 0.82 0.80 - 1.50 mg/dL CERNER MILLENNIUM Comment: Please note that the pediatric reference intervals supplied above were [place] [facility] [place] Results from pediatric patients should be interpreted in conjunction to the patient's age, height and muscle mass. Sodium 138 135 - 145 mmol/L CERNER MILLENNIUM Potassium 3.5 3.5 - 5.0 mmol/L CERNER MILLENNIUM Comment: Please note: ??Patients with WBC >100,000 may have falsely elevated Potassium levels. ??For accurate Potassium quantification in these patients send serum separator tube (gold top) for subsequent determinations. ??Contact the Clinical Chemistry Laboratory if there are any questions. Chloride 103 98 - 107 mmol/L CERNER MILLENNIUM Carbon Dioxide 29 22 - 31 mmol/L CERNER MILLENNIUM Anion Gap 6 5 - 15 mmol/L CERNER MILLENNIUM Calcium 7.6(L) 8.5 - 10.5 mg/dL CERNER MILLENNIUM Est [...] the following links into your internet browser. http://www.nkdep.nih.gov/lab-evaluation.shtml http://www.kidney.org/professionals/ Blood specimen (specimen) 12/09/2013 6:07 AM EDT 12/09/2013 6:13 AM EDT Narrative Resulting Agency Comment Spec In Lab Romulo Ramires MD CHEMISTRY ORDERABL ES Performing Organization Address [facility] de Phone Number CERNER MILLENNIUM * (ABNORMAL) CK (12/09/2013 6:07 AM EDT) Creatine Kinase 673(H) 0 - 200 unit/L CERNER MILLENNIUM Blood specimen (specimen) 12/09/2013 6:07 AM EDT 12/09/2013 6:13 AM EDT Narrative Resulting Agency Comment Spec In Lab Romulo Ramires MD CHEMISTRY ORDERABL ES Performing Organization Address [facility] de Phone Number CERNER MILLENNIUM * (ABNORMAL) BLOOD GAS 2 VENOUS (12/09/2013 6:00 AM EDT) pH, Venous 7.42 CERNER MILLENNIUM PCO2, Venous 39(L) mmHg CERNER MILLENNIUM PO2, Venous 39 mmHg CERNER MILLENNIUM Bicarbonate, Venous 25.0 mmol/L CERNER MILLENNIUM Base Excess, Venous 0.6 mmol/L CERNER MILLENNIUM Hgb Blood Gas 6.0(L) gm/dL CERNER MILLENNIUM Comment: Total Hemoglobin (in gm/dL) ?Based [place] [facility] [place]ematology ranges: ?Age ?Reference Range Less than 3 days ?14.5 to 22.5 3 days to 2 weeks ? 12.5 to 20.5 2 weeks to 1 month ?10.0 to 18.0 1 to 6 months ?9.4 to 14.0 6 months to 2 years ? 10.5 to 13.5 2 to 6 years ?11.5 to 13.5 6 to 12 years ? 11.5 to 15.5 12 to 18 years (female) 12.0 to 16.0 ? (male) ?? 13.0 to 16.0 > 18 years ? (female) 11.2 to 15.7 ? (male) ?? 13.7 to 17.5 Oxyhemoglobin, Venous 70.8 % CERNER MILLENNIUM Carboxyhemoglo bin, Venous 1.9 % CERNER MILLENNIUM Comment: Nonsmokers: 0.5-1.5% COHB Smokers: Variable, but usually less than 10% Toxic: 20-30% COHB Lethal: Greater than 60% COHB Methemoglobin, Venous 1.4 % CERNER MILLENNIUM Na Whole Blood 137 mmol/L CERNE R MILLENNIUM K Whole Blood 3.0(Critica l) mmol/L CERNER MILLENNIUM Comment: Noted by brass instrument repair technician. Please note: Patients with WBC >100,000 may have falsely elevated Potassium levels. Contact the Clinical Chemistry Laboratory if there are any questions. ICa Whole Blood 1.03(L) mmol/L CERNER MILLENNIUM Comment: Reference Ranges: ?? < 19 yrs: 1.22 - 1.37 mmol/L ? Adults: 1.15 - 1.33 mmol/L Note: ??Total bilirubin higher than 20 mg/dL may lead to falsely low ionized calcium. CL Whole Blood 111(H) mmol/L CERNE R MILLENNIUM Gluc Whole Bld 108 mg/dL CERNE R MILLENNIUM Comment:Diabetes: >=200 mg/d L plus symptoms Fraction of Inspired Oxygen, Venous 45 % CERNER MILLENNIUM Blood Gas Source Central Venous CERNER MILLENNIUM Blood specimen (specimen) 12/09/2013 6:00 AM EDT 12/09/2013 6:00 AM EDT Romulo Ramires MD POINT OF CARE TEST ORDERABLES Performing Organization Address [facility] de Phone Number XOCHITL SHELBYIUM * APTT (12/09/2013 12:00 AM EDT) Partial Thromboplastin Time 34 25 - 35 sec CERNER MILLENNIUM Comment: Recommended therapeutic PTT range for full dose unfractionated heparin is 80-114 seconds. Blood specimen (specimen) 12/09/2013 12/09/2013 12:07 AM EDT Narrative Resulting Agency Comment Spec In Lab Romulo Ramires MD HEMATOLOGY ORDERAB LES Performing Organization Address [facility] de Phone Number XOCHITL SHELBYIUM * (ABNORMAL) Prothrombin Time (12/09/2013 12:00 AM EDT) Prothrombin Time 15.7(H) 12.0 - 15.0 sec CERNER MILLENNIUM Comment: [facility] Transfusion Committee Guidelines: INR less than 2.0, PTT less than OR equal to 43.5 seconds, or Fibrinogen greater than or equal to 100 mg/dl indicate adequate procoagulant activity for hemostasis in patients without underlying bleeding disorders. International Normalization Ratio 1.2(H) 0.9 - 1.1 CERNER MILLENNIUM Blood specimen (specimen) 12/09/2013 12/09/2013 12:07 AM EDT Narrative Resulting Agency Comment Spec In Lab Romulo Ramires MD HEMATOLOGY ORDERAB LES Performing Organization Address [facility] de Phone Number CERHELENA SHELBYIUM * (ABNORMAL) Differential, Automated (12/09/2013 12:00 AM EDT) Neutrophil % 79.5(H) 34.0 - 71.0 % CERNER MILLENNIUM Neutrophil Absolute 7.90(H) 1.50 - 6.30 x10(3)/mc L CERNER MILLENNIUM Lymph % 13.2(L) 19.0 - 53.0 % CERNER MILLENNIUM Lymphocytes Abs 1.3 1.0 - 3.6 x10(3)/mc L CERNER MILLENNIUM Monocyte % 6.2 4.0 - 13.0 % CERNER MILLENNIUM Monocyte Abs 0.6 0.2 - 1.0 x10(3)/mc L CERNER MILLENNIUM Eos % 0.6 0.0 - 7.0 % CERNER MILLENNIUM Eosinophils Abs 0.1 0.0 - 0.5 x10(3)/mc L CERNER MILLENNIUM Basophil % 0.1 0.0 - 2.0 % CERNER MILLENNIUM Baso Absolute 0.0 0.0 - 0.2 x10(3)/mc L CERNER MILLENNIUM Immature Gran % 0.40 0.00 - 0.66 % CERNER MILLENNIUM Comment: Immature granulocytes(IG's)percentage and absolute count will include metamyelocytes, myelocytes, and promyelocytes. Blood smears from CBCs yielding IG's will be scanned manually for concordance. If this scan disagrees with the automated IG or if promyelocytes are noted, a manual differential will be performed. Immature Gran Absolute 0.04 0.00 - 0.05 x10(3)/mc L CERNER MILLENNIUM Blood specimen (specimen) 12/09/2013 12/09/2013 12:07 AM EDT Narrative Resulting Agency Comment Spec In Lab Romulo Ramires MD HEMATOLOGY ORDERAB LES CERNER JULIUSENNIUM * (ABNORMAL) Hemogram (12/09/2013 12:00 AM EDT) White Blood Cell 9.9 4.0 - 10.0 x10(3)/mc L CERNER MILLENNIUM Red Blood Cell 2.43(L) 4.63 - 6.08 x10(6)/mc L CERNER MILLENNIUM Hemoglobin 7.0(L) 13.7 - 17.5 gm/dL CERNER MILLENNIUM Hematocrit 21.0(L) 40.0 - 51.0 % CERNER MILLENNIUM Mean Cell Volume 86.4 79.0 - 92.0 fL CERNER MILLENNIUM Mean Cell Hemoglobin 28.8 25.6 - 32.2 pg CERNER MILLENNIUM Mean Cell Hemoglobin Concentration 33.3 32.0 - 36.5 gm/dL CERNER MILLENNIUM Platelet 92(L) 145 - 370 x10(3)/mc L CERNER MILLENNIUM RDW Standard Deviation 45.4 35.0 - 46.0 fL CERNER MILLENNIUM RDW coefficient of variation 14.4 10.9 - 14.4 % CERNER MILLENNIUM Mean Platelet Volume 10.4 9.0 - 12.0 fL CERNER MILLENNIUM Blood specimen (specimen) 12/09/2013 12/09/2013 12:07 AM EDT Narrative Resulting Agency Comment Spec In Lab Romulo Ramires MD HEMATOLOGY ORDERAB LES Performing Organization Address [facility] Co de Phone Number [facility] MILLENNIUM * (ABNORMAL) CK (12/09/2013 12:00 AM EDT) Creatine Kinase 732(H) 0 - 200 unit/L [facility] MILLEN[facility]UM Blood specimen (specimen) 12/09/2013 12/09/2013 12:07 AM EDT Narrative Resulting Agency Comment Spec In Lab Romulo Ramires MD CHEMISTRY ORDERABL ES Performing Organization Address [facility] de Phone Number [facility] MILLENNIUM * (ABNORMAL) Basic Metabolic Panel (non-fasting) (12/09/2013 12:00 AM EDT) Pathologist [facility] Glucose 112 60 - 199 mg/dL [facility] MILLENNIUM Comment:Diabetes: >=200 mg/d L plus symptoms Blood Urea Nitrogen 8(L) 10 - 20 mg/dL CERNER MILLENNIUM Creatinine 0.80 0.80 - 1.50 mg/dL CERNER MILLENNIUM Comment: Please note that the pediatric reference intervals supplied above were [place] [facility] [place] Results from pediatric patients should be interpreted in conjunction to the patient's age, height and muscle mass. Sodium 139 135 - 145 mmol/L CERNER MILLENNIUM Potassium 3.4(L) 3.5 - 5.0 mmol/L CERNER MILLENNIUM Comment: Please note: ??Patients with WBC >100,000 may have falsely elevated Potassium levels. ??For accurate Potassium quantification in these patients send serum separator tube (gold top) for subsequent determinations. ??Contact the Clinical Chemistry Laboratory if there are any questions. Chloride 105 98 - 107 mmol/L CERNER MILLENNIUM Carbon Dioxide 27 22 - 31 mmol/L CERNER MILLENNIUM Anion Gap 7 5 - 15 mmol/L CERNER MILLENNIUM Calcium 7.4(L) 8.5 - 10.5 mg/dL CERNER MILLENNIUM Est [...] the following links into your internet browser. http://www.nkdep.nih.gov/lab-evaluation.shtml http://www.kidney.org/professionals/ Blood specimen (specimen) 12/09/2013 12/09/2013 12:07 AM EDT Narrative Resulting Agency Comment Spec In Lab Romulo Ramires MD CHEMISTRY ORDERABL ES Performing Organization Address [facility] Co de Phone Number [facility] * Thrombin time (12/09/2013 12:00 AM EDT) Thrombin Time 15 15 - 20 sec CERNER MILLENNIUM Blood specimen (specimen) 12/09/2013 12/09/2013 12:07 AM EDT Narrative Resulting Agency Comment Spec In Lab Romulo Ramires MD HEMATOLOGY ORDERAB LES Performing Organization Address [facility]/State/ZIP Co de Phone Number [facility] JULIUSCLEARSKY [facility] AVONDALEIUM * Fibrinogen (12/09/2013 12:00 AM EDT) Fibrinogen 443 175 - 450 mg/dL CERNER MILLENNIUM Blood specimen (specimen) 12/09/2013 12/09/2013 12:07 AM EDT Narrative Resulting Agency Comment Spec In Lab Romulo Ramires MD HEMATOLOGY ORDERAB LES CERNER MILLENNIUM * (ABNORMAL) BLOOD GAS 2 ARTERIAL (12/08/2013 6:30 PM EDT) pH, Arterial 7.48(H) CERNER MILLENNIUM PCO2, Arterial 40 mmHg CERNE R MILLENNIUM PO2, Arterial 63(L) mmHg CERNER MILLENNIUM Bicarbonate, Arterial 28.8(H) mmol/L CERNER MILLENNIUM Base Excess, Arterial 5.2(H) mmol/L CERNER MILLENNIUM Hgb Blood Gas 7.6(L) gm/dL CERNER MILLENNIUM Comment: Total Hemoglobin (in gm/dL) ?[place] [facility] [place]ematology ranges: ?Age ?Reference Range Less than 3 days ?14.5 to 22.5 3 days to 2 weeks ? 12.5 to 20.5 2 weeks to 1 month ?10.0 to 18.0 1 to 6 months ?9.4 to 14.0 6 months to 2 years ? 10.5 to 13.5 2 to 6 years ?11.5 to 13.5 6 to 12 years ? 11.5 to 15.5 12 to 18 years (female) 12.0 to 16.0 ? (male) ?? 13.0 to 16.0 > 18 years ? (female) 11.2 to 15.7 ? (male) ?? 13.7 to 17.5 Oxyhemoglobin, Arterial 90.9(L) % CERNER MILLENNIUM Carboxyhemoglob in, Arterial 1.7 % CERNER MILLENNIUM Comment: Nonsmokers: 0.5-1.5% COHB Smokers: Variable, but usually less than 10% Toxic: 20-30% COHB Lethal: Greater than 60% COHB Methemoglobin, Arterial 0.7 % CERNER MILLENNIUM Na Whole Blood 135 mmol/L CERNE R MILLENNIUM K Whole Blood 3.5 mmol/L CERNER MILLENNIUM Comment: Please note: Patients with WBC >100,000 may have falsely elevated Potassium levels. Contact the Clinical Chemistry Laboratory if there are any questions. ICa Whole Blood 1.12(L) mmol/L CERN ER MILLENNIUM Comment: Reference Ranges: ?? < 19 yrs: 1.22 - 1.37 mmol/L ? Adults: 1.15 - 1.33 mmol/L Note: ??Total bilirubin higher than 20 mg/dL may lead to falsely low ionized calcium. CL Whole Blood 107 mmol/L CERNE R MILLENNIUM Gluc Whole Bld 109 mg/dL CERNE R MILLENNIUM Comment:Diabetes: >=200 mg/d L plus symptoms. FIO2 Art 35 % CERNER MILLENNIUM PF Ratio Art 180 CERNER MILLENNIUM Blood specimen (specimen) 12/08/2013 6:30 PM EDT 12/08/2013 6:30 PM EDT Romulo Ramires MD POINT OF CARE TEST ORDERABLES CERNER MILLENNIUM * XR chest PA or AP- 1 view (12/08/2013 5:58 PM EDT) Anatomical Region Laterality Modality Chest N/A Radiographic Kathy ging 12/08/2013 5:58 PM EDT Narrative 12/08/2013 6:25 PM EDT Examination CHEST AP/XPORT Clinical History post op film returning to icu portable, confirm tube placement Comparison Chest x-ray 12/08/2013, 12/07/2013. Technique Portable AP supine chest x-ray at 1755 hours. Findings Tracheostomy tube, enteric catheter and right basilar chest tube, right IJ central venous catheter are in unchanged position. No obvious pneumothorax identified on this supine exam. ??There are hazy perihilar and bibasilar opacities, nonspecific may reflect mild pulmonary vascular congestion/early edema. ??No appreciable pleural effusions. ??Overall heart size unchanged. ?? Metallic fragments are seen projecting over the lower thoracic spine and about the imaged portion right clavicle. Impression Support lines and tubes in unchanged position, as above. Perihilar and bibasilar hazy opacities nonspecific may reflect mild pulmonary vascular congestion/early edema. Procedure Note Jamin Navarro MD - 12/08/2013 Examination CHEST AP/XPORT Clinical History post op film returning to icu portable, confirm tube placement Comparison Chest x-ray 12/08/2013, 12/07/2013. Technique Portable AP supine chest x-ray at 1755 hours. Findings Tracheostomy tube, enteric catheter and right basilar chest tube, right IJ central venous catheter are in unchanged position. No obvious pneumothorax identified on this supine exam. There are hazy perihilar and bibasilar opacities, nonspecific may reflect mild pulmonary vascularcongestion/early edema. No appreciable pleural effusions. Overall heart size unchanged. Metallic fragments are seen projecting over the lower thoracic spine andabout the imaged portion right clavicle. Impression Support lines and tubes in unchanged position, as above. Perihilar and bibasilar hazy opacities nonspecific may reflect mildpulmonary vascular congestion/early edema. Romulo Ramires MD IMG DX ORDERABLES * (ABNORMAL) CK (12/08/2013 5:30 PM EDT) [facility] Creatine Kinase 850(H) 0 - 200 unit/L [facility] Blood specimen (specimen) 12/08/2013 5:30 PM EDT 12/08/2013 5:54 PM EDT Narrative Resulting Agency Comment Spec In Lab Romulo Ramires MD CHEMISTRY ORDERABL ES [facility] MarkkitFORMERLY [facility] * (ABNORMAL) Prothrombin Time (12/08/2013 5:30 PM EDT) Pathologist [facility] Prothrombin Time 16.2(H) 12.0 - 15.0 sec [facility]OCHITL [facility] Comment: [facility] Transfusion Committee Guidelines: INR less than 2.0, PTT less than OR equal to 43.5 seconds, or Fibrinogen greater than or equal to 100 mg/dl indicate adequate procoagulant activity for hemostasis in patients without underlying bleeding disorders. International Normalization Ratio 1.3(H) 0.9 - 1.1 CERNER MILLENNIUM Blood specimen (specimen) 12/08/2013 5:30 PM EDT 12/08/2013 5:54 PM EDT Narrative Resulting Agency Comment Spec In Lab Romulo Ramires MD HEMATOLOGY ORDERAB LES Performing Organization Address City/[facility]/ZIP Co de Phone Number CERHELENA MADRIDENNIUM * APTT (12/08/2013 5:30 PM EDT) Partial Thromboplastin Time 34 25 - 35 sec CERNER MILLENNIUM Comment: Recommended therapeutic PTT range for full dose unfractionated heparin is 80-114 seconds. Blood specimen (specimen) 12/08/2013 5:30 PM EDT 12/08/2013 5:54 PM EDT Narrative Resulting Agency Comment Spec In Lab Romulo Ramires MD HEMATOLOGY ORDERAB LES Performing Organization Address [facility] Co de Phone Number CERHELENA MADRIDENNIUM * (ABNORMAL) Differential, Automated (12/08/2013 5:30 PM EDT) Neutrophil % 77.5(H) 34.0 - 71.0 % CERNER MILLENNIUM Neutrophil Absolute 6.20 1.50 - 6.30 x10(3)/mc L CERNER MILLENNIUM Lymph % 14.6(L) 19.0 - 53.0 % CERNER MILLENNIUM Lymphocytes Abs 1.2 1.0 - 3.6 x10(3)/mc L CERNER MILLENNIUM Monocyte % 6.9 4.0 - 13.0 % CERNER MILLENNIUM Monocyte Abs 0.6 0.2 - 1.0 x10(3)/mc L CERNER MILLENNIUM Eos % 0.5 0.0 - 7.0 % CERNER MILLENNIUM Eosinophils Abs 0.0 0.0 - 0.5 x10(3)/mc L CERNER MILLENNIUM Basophil % 0.4 0.0 - 2.0 % CERNER MILLENNIUM Baso Absolute 0.0 0.0 - 0.2 x10(3)/mc L CERNER MILLENNIUM Immature Gran % 0.10 0.00 - 0.66 % CERNER MILLENNIUM Comment: Immature granulocytes(IG's)percentage and absolute count will include metamyelocytes, myelocytes, and promyelocytes. Blood smears from CBCs yielding IG's will be scanned manually for concordance. If this scan disagrees with the automated IG or if promyelocytes are noted, a manual differential will be performed. Immature Gran Absolute 0.01 0.00 - 0.05 x10(3)/mc L CERNER MILLENNIUM Blood specimen (specimen) 12/08/2013 5:30 PM EDT 12/08/2013 5:54 PM EDT Narrative Resulting Agency Comment Spec In Lab Romulo Ramires MD HEMATOLOGY ORDERAB LES [facility] MILLENNI[facility] * (ABNORMAL) Hemogram (12/08/2013 5:30 PM EDT) White Blood Cell 8.0 4.0 - 10.0 x10(3)/mc L CERNER MILLENNIUM Red Blood Cell 2.54(L) 4.63 - 6.08 x10(6)/mc L CERNER MILLENNIUM Hemoglobin 7.5(L) 13.7 - 17.5 gm/dL CERNER MILLENNIUM Hematocrit 21.7(L) 40.0 - 51.0 % CERNER MILLENNIUM Mean Cell Volume 85.4 79.0 - 92.0 fL CERNER MILLENNIUM Mean Cell Hemoglobin 29.5 25.6 - 32.2 pg CERNER MILLENNIUM Mean Cell Hemoglobin Concentration 34.6 32.0 - 36.5 gm/dL CERNER MILLENNIUM Platelet 104(L) 145 - 370 x10(3)/mc L CERNER MILLENNIUM RDW Standard Deviation 46.1(H) 35.0 - 46.0 fL CERNER MILLENNIUM RDW coefficient of variation 14.6(H) 10.9 - 14.4 % CERNER MILLENNIUM Mean Platelet Volume 10.1 9.0 - 12.0 fL CERNER MILLENNIUM Blood specimen (specimen) 12/08/2013 5:30 PM EDT 12/08/2013 5:54 PM EDT Narrative Resulting Agency Comment Spec In Lab Romulo Ramires MD HEMATOLOGY ORDERAB LES CERNER MILLENNIUM * Fibrinogen (12/08/2013 5:30 PM EDT) Fibrinogen 402 175 - 450 mg/dL CERNER MILLENNIUM Blood specimen (specimen) 12/08/2013 5:30 PM EDT 12/08/2013 5:54 PM EDT Narrative Resulting Agency Comment Spec In Lab Romulo Ramires MD HEMATOLOGY ORDERAB LES [facility] JULIUSENNIUM * Thrombin time (12/08/2013 5:30 PM EDT) Thrombin Time 15 15 - 20 sec [facility] MILLENNIUM Blood specimen (specimen) 12/08/2013 5:30 PM EDT 12/08/2013 5:54 PM EDT Narrative Resulting Agency Comment Spec In Lab Romulo Ramires MD HEMATOLOGY ORDERAB LES Performing Organization Address City/[facility]/ZIP Co de Phone Number [facility] MILLENNIUM * (ABNORMAL) Basic Metabolic Panel (non-fasting) (12/08/2013 5:30 PM EDT) Glucose 110 60 - 199 mg/dL [facility] MILLENNIUM Comment:Diabetes: >=200 mg/d L plus symptoms Blood Urea Nitrogen 7(L) 10 - 20 mg/dL CERNER MILLENNIUM Creatinine 0.80 0.80 - 1.50 mg/dL CERNER MILLENNIUM Comment: Please note that the pediatric reference intervals supplied above were not validated [place] [facility] [place] Results from pediatric patients should be interpreted in conjunction to the patient's age, height and muscle mass. Sodium 139 135 - 145 mmol/L CERNER MILLENNIUM Potassium 3.5 3.5 - 5.0 mmol/L [facility] MILLENNIUM Comment: Please note: ??Patients with WBC >100,000 may have falsely elevated Potassium levels. ??For accurate Potassium quantification in these patients send serum separator tube (gold top) for subsequent determinations. ??Contact the Clinical Chemistry Laboratory if there are any questions. Chloride 105 98 - 107 mmol/L CERNER MILLENNIUM Carbon Dioxide 27 22 - 31 mmol/L CERNER MILLENNIUM Anion Gap 7 5 - 15 mmol/L CERNER MILLENNIUM Calcium 7.5(L) 8.5 - 10.5 mg/dL CERNER MILLENNIUM Est [...] the following links into your internet browser. http://www.nkdep.nih.gov/lab-evaluation.shtml http://www.kidney.org/professionals/ Blood specimen (specimen) 12/08/2013 5:30 PM EDT 12/08/2013 5:54 PM EDT Narrative Resulting Agency Comment Spec In Lab Romulo Ramires MD CHEMISTRY ORDERABL ES CERNER MILLENNIUM * Lactate, whole blood, send to lab (12/08/2013 5:30 PM EDT) Lactate WB 0.9 0.5 - 2.2 mmol/L CERNER MILLENNIUM Blood specimen (specimen) 12/08/2013 5:30 PM EDT 12/08/2013 5:57 PM EDT Narrative Resulting Agency Comment Spec In Lab Romulo Ramires MD CHEMISTRY ORDERABL ES CERNER MILLENNIUM * (ABNORMAL) Beta 2 Transferrin Body Fluid Other (12/08/2013 1:25 PM EDT) Beta-2 Trans Bf (MAY) Positive( A) XOCHITL SHELBYIUM Comment: -- REFERENCE VALUE -- Negative, no beta-2 transferrin (spinal fluid) detected. Test Performed by: [address] [address] [employer] Pastor: Cameron Hansen III, M.D. Body fluid specimen (specimen) 12/08/2013 1:25 PM EDT 12/08/2013 3:53 PM EDT Narrative Resulting Agency Comment Spec In Lab Romulo Ramires MD LAB SEND OUT ORDER SOSA XOCHITL WHITAKER * XR Fluoro Barium swallow (12/08/2013 11:57 AM EDT) Anatomical Region Laterality Modality N/A Radiographic Kathy ging 12/08/2013 11:5 7 AM EDT Narrative 12/08/2013 12:08 PM EDT Examination BARIUM SWALLOW Clinical History Looking for esophageal injury, please pull OGT back proximally and inject contrast through it to r/o leak Comparison None Technique A barium swallow was performed by injecting Omnipaque 300, water soluble nonionic contrast material through the patient's NG tube which had been pulled back 2 different levels of the esophagus. Following the study the tube was advanced again back into the stomach. Findings Preliminary assistant professor of criminal justice views of the chest and abdomen reveals a tracheostomy tube in the mid trachea and an orogastric tube well into the stomach. ??There is a right chest tube present without evidence of pneumothorax. There is airless lung at the left base medially and in the right perihilar region. ??Several metallic fragments are seen in the upper overlying the upper midline abdomen. There is been more than the usual amount of gas present in nondistended loops of small bowel. ??There is a normal colonic gas pattern. The esophagus is normal in caliber. No evidence of an esophageal leak or obstruction is seen. ?? Impression No evidence of esophageal leak. Procedure Note Sebas James MD - 12/08/2013 Examination BARIUM SWALLOW Clinical History Looking for esophageal injury, please pull OGT back proximally and inject contrast through it to r/o leak Comparison None Technique A barium swallow was performed by injecting Omnipaque 300, water soluble nonionic contrast material through the patient's NG tube which had beenpulled back 2 different levels of the esophagus. Following the study the tube was advanced again back into the stomach. Findings Preliminary assistant professor of criminal justice views of the chest and abdomen reveals a tracheostomytube in the mid trachea and an orogastric tube well into the stomach. There is aright chest tube present without evidence of pneumothorax. There is airless lungat the left base medially and in the right perihilar region. Severalmetallic fragments are seen in the upper overlying the upper midline abdomen. Thereis been more than the usual amount of gas present in nondistended loops ofsmall bowel. There is a normal colonic gas pattern. The esophagus is normal in caliber. No evidence of an esophageal leak or obstruction is seen. Impression No evidence of esophageal leak. Romulo Ramires MD IMG FLUORO ORDERAB LES * (ABNORMAL) Phosphorus (12/08/2013 10:54 AM EDT) Phosphorus 2.0(L) 2.5 - 4.5 mg/dL CERNER MILLENNIUM Blood specimen (specimen) 12/08/2013 10:54 AM EDT 12/08/2013 10:58 AM EDT Narrative Resulting Agency Comment Spec In Lab Romulo Ramires MD CHEMISTRY ORDERABL ES CERNER MILLENNIUM * (ABNORMAL) Magnesium (12/08/2013 10:54 AM EDT) Magnesium 0.62(L) 0.69 - 1.07 mmol/L CERNER MILLENNIUM Blood specimen (specimen) 12/08/2013 10:54 AM EDT 12/08/2013 10:58 AM EDT Narrative Resulting Agency Comment Spec In Lab Romulo Ramires MD CHEMISTRY ORDERABL ES CERHELENA MILLENNIUM * (ABNORMAL) Differential, Automated (12/08/2013 10:54 AM EDT) Neutrophil % 79.0(H) 34.0 - 71.0 % CERNER MILLENNIUM Neutrophil Absolute 6.35(H) 1.50 - 6.30 x10(3)/mc L CERNER MILLENNIUM Lymph % 13.2(L) 19.0 - 53.0 % CERNER MILLENNIUM Lymphocytes Abs 1.1 1.0 - 3.6 x10(3)/mc L CERNER MILLENNIUM Monocyte % 7.1 4.0 - 13.0 % CERNER MILLENNIUM Monocyte Abs 0.6 0.2 - 1.0 x10(3)/mc L CERNER MILLENNIUM Eos % 0.4 0.0 - 7.0 % CERNER MILLENNIUM Eosinophils Abs 0.0 0.0 - 0.5 x10(3)/mc L CERNER MILLENNIUM Basophil % 0.1 0.0 - 2.0 % CERNER MILLENNIUM Baso Absolute 0.0 0.0 - 0.2 x10(3)/mc L CERNER MILLENNIUM Immature Gran % 0.20 0.00 - 0.66 % CERNER MILLENNIUM Comment: Immature granulocytes(IG's)percentage and absolute count will include metamyelocytes, myelocytes, and promyelocytes. Blood smears from CBCs yielding IG's will be scanned manually for concordance. If this scan disagrees with the automated IG or if promyelocytes are noted, a manual differential will be performed. Immature Gran Absolute 0.02 0.00 - 0.05 x10(3)/mc L CERNER MILLENNIUM Blood specimen (specimen) 12/08/2013 10:54 AM EDT 12/08/2013 10:55 AM EDT Narrative Resulting Agency Comment Spec In Lab Romulo Ramires MD HEMATOLOGY ORDERAB LES XOCHITL WHITAKER * (ABNORMAL) Hemogram (12/08/2013 10:54 AM EDT) White Blood Cell 8.0 4.0 - 10.0 x10(3)/mc L CERNER MILLENNIUM Red Blood Cell 2.58(L) 4.63 - 6.08 x10(6)/mc L CERNER MILLENNIUM Hemoglobin 7.5(L) 13.7 - 17.5 gm/dL CERNER MILLENNIUM Hematocrit 21.9(L) 40.0 - 51.0 % CERNER MILLENNIUM Mean Cell Volume 84.9 79.0 - 92.0 fL CERNER MILLENNIUM Mean Cell Hemoglobin 29.1 25.6 - 32.2 pg CERNER MILLENNIUM Mean Cell Hemoglobin Concentration 34.2 32.0 - 36.5 gm/dL CERNER MILLENNIUM Platelet 101(L) 145 - 370 x10(3)/mc L CERNER MILLENNIUM RDW Standard Deviation 45.9 35.0 - 46.0 fL CERNER MILLENNIUM RDW coefficient of variation 14.7(H) 10.9 - 14.4 % CERNER MILLENNIUM Mean Platelet Volume 10.1 9.0 - 12.0 fL CERNER MILLENNIUM Blood specimen (specimen) 12/08/2013 10:54 AM EDT 12/08/2013 10:55 AM EDT Narrative Resulting Agency Comment Spec In Lab Romulo Ramires MD HEMATOLOGY ORDERAB LES Performing Organization Address [facility] de Phone Number XOCHITL WHITAKER * Thrombin time (12/08/2013 10:54 AM EDT) Thrombin Time 15 15 - 20 sec CERHELENA MADRIDENNIUM Blood specimen (specimen) 12/08/2013 10:54 AM EDT 12/08/2013 10:55 AM EDT Narrative Resulting Agency Comment Spec In Lab Romulo Ramires MD HEMATOLOGY ORDERAB LES Performing Organization Address [facility] Co de Phone Number XOCHITL SHELBYIUM * Fibrinogen (12/08/2013 10:54 AM EDT) Fibrinogen 374 175 - 450 mg/dL CERNER JULIUSENNIUM Blood specimen (specimen) 12/08/2013 10:54 AM EDT 12/08/2013 10:55 AM EDT Narrative Resulting Agency Comment Spec In Lab Romulo Ramires MD HEMATOLOGY ORDERAB LES Performing Organization Address [facility] Co de Phone Number XOCHITL SHELBYIUM * APTT (12/08/2013 10:54 AM EDT) Partial Thromboplastin Time 35 25 - 35 sec CERNER MILLENNIUM Comment: Recommended therapeutic PTT range for full dose unfractionated heparin is 80-114 seconds. Blood specimen (specimen) 12/08/2013 10:54 AM EDT 12/08/2013 10:55 AM EDT Narrative Resulting Agency Comment Spec In Lab Romulo Ramires MD HEMATOLOGY ORDERAB LES Performing Organization Address [facility] de Phone Number CERHELENA MADRIDENNIUM * (ABNORMAL) Prothrombin Time (12/08/2013 10:54 AM EDT) Prothrombin Time 16.3(H) 12.0 - 15.0 sec CERNER MILLENNIUM Comment: [facility] Transfusion Committee Guidelines: INR less than 2.0, PTT less than OR equal to 43.5 seconds, or Fibrinogen greater than or equal to 100 mg/dl indicate adequate procoagulant activity for hemostasis in patients without underlying bleeding disorders. International Normalization Ratio 1.3(H) 0.9 - 1.1 CERNER MILLENNIUM Blood specimen (specimen) 12/08/2013 10:54 AM EDT 12/08/2013 10:55 AM EDT Narrative Resulting Agency Comment Spec In Lab Romulo Ramires MD HEMATOLOGY ORDERAB LES Performing Organization Address [facility] Co de Phone Number XOCHITL MADRIDENNIUM * (ABNORMAL) CK (12/08/2013 10:54 AM EDT) Creatine Kinase 1034(H) 0 - 200 unit/L CERNER MILLENNIUM Blood specimen (specimen) 12/08/2013 10:54 AM EDT 12/08/2013 10:55 AM EDT Narrative Resulting Agency Comment Spec In Lab Romulo Ramires MD CHEMISTRY ORDERABL ES CERNER MILLENNIUM * (ABNORMAL) Basic Metabolic Panel (non-fasting) (12/08/2013 10:54 AM EDT) Glucose 129 60 - 199 mg/dL CERNER MILLENNIUM Comment:Diabetes: >=200 mg/d L plus symptoms Blood Urea Nitrogen 7(L) 10 - 20 mg/dL CERNER MILLENNIUM Creatinine 0.81 0.80 - 1.50 mg/dL CERNER MILLENNIUM Comment: Please note that the pediatric reference intervals supplied above were [place] [facility] [place] Results from pediatric patients should be interpreted in conjunction to the patient's age, height and muscle mass. Sodium 139 135 - 145 mmol/L CERNER MILLENNIUM Potassium 3.3(L) 3.5 - 5.0 mmol/L CERNER MILLENNIUM Comment: Please note: ??Patients with WBC >100,000 may have falsely elevated Potassium levels. ??For accurate Potassium quantification in these patients send serum separator tube (gold top) for subsequent determinations. ??Contact the Clinical Chemistry Laboratory if there are any questions. Chloride 106 98 - 107 mmol/L CERNER MILLENNIUM Carbon Dioxide 28 22 - 31 mmol/L CERNER MILLENNIUM Anion Gap 5 5 - 15 mmol/L CERNER MILLENNIUM Calcium 7.5(L) 8.5 - 10.5 mg/dL CERNER MILLENNIUM Est [...] the following links into your internet browser. http://www.nkdep.nih.gov/lab-evaluation.shtml http://www.kidney.org/professionals/ Blood specimen (specimen) 12/08/2013 10:54 AM EDT 12/08/2013 10:55 AM EDT Narrative Resulting Agency Comment Spec In Lab Romulo Ramires MD CHEMISTRY ORDERABL ES CERNER MILLENNIUM * (ABNORMAL) BLOOD GAS 2 VENOUS (12/08/2013 9:32 AM EDT) pH, Venous 7.41 CERNER MILLENNIUM PCO2, Venous 51 mmHg CERNER MILLENNIUM PO2, Venous 39 mmHg CERNER MILLENNIUM Bicarbonate, Venous 31.1 mmol/L CERNER MILLENNIUM Base Excess, Venous 6.5 mmol/L CERNER MILLENNIUM Hgb Blood Gas 8.1(L) gm/dL CERNER MILLENNIUM Comment: Total Hemoglobin (in gm/dL) ?[place] [facility] [place]ematology ranges: ?Age ?Reference Range Less than 3 days ?14.5 to 22.5 3 days to 2 weeks ? 12.5 to 20.5 2 weeks to 1 month ?10.0 to 18.0 1 to 6 months ?9.4 to 14.0 6 months to 2 years ? 10.5 to 13.5 2 to 6 years ?11.5 to 13.5 6 to 12 years ? 11.5 to 15.5 12 to 18 years (female) 12.0 to 16.0 ? (male) ?? 13.0 to 16.0 > 18 years ? (female) 11.2 to 15.7 ? (male) ?? 13.7 to 17.5 Oxyhemoglobin, Venous 70.4 % CERNER MILLENNIUM Carboxyhemoglo bin, Venous 1.3 % CERNER MILLENNIUM Comment: Nonsmokers: 0.5-1.5% COHB Smokers: Variable, but usually less than 10% Toxic: 20-30% COHB Lethal: Greater than 60% COHB Methemoglobin, Venous 1.0 % CERNER MILLENNIUM Na Whole Blood 137 mmol/L CERNE R MILLENNIUM K Whole Blood 3.2(L) mmol/L CERNER MILLENNIUM Comment: Please note: Patients with WBC >100,000 may have falsely elevated Potassium levels. Contact the Clinical Chemistry Laboratory if there are any questions. ICa Whole Blood 1.13(L) mmol/L CERNER MILLENNIUM Comment: Reference Ranges: ?? < 19 yrs: 1.22 - 1.37 mmol/L ? Adults: 1.15 - 1.33 mmol/L Note: ??Total bilirubin higher than 20 mg/dL may lead to falsely low ionized calcium. CL Whole Blood 106 mmol/L CERNE R MILLENNIUM Gluc Whole Bld 130 mg/dL CERNE R MILLENNIUM Comment:Diabetes: >=200 mg/d L plus symptoms Fraction of Inspired Oxygen, Venous 40 % CERNER MILLENNIUM Blood Gas Source Central Venous CERNER MILLENNIUM Temperature, Venous 37.6 Celsius CERNER MILLENNIUM Blood specimen (specimen) 12/08/2013 9:32 AM EDT 12/08/2013 9:32 AM EDT Romulo Ramires MD POINT OF CARE TEST ORDERABLES CERNER MILLENNIUM * (ABNORMAL) Hepatic Function Panel (12/08/2013 9:30 AM EDT) Protein, Total 4.0(L) 6.4 - 8.3 gm/dL CERNER MILLENNIUM Albumin 2.2(L) 3.2 - 5.2 gm/dL CERNER MILLENNIUM Aspartate Aminotransferase 66(H) 0 - 39 unit/L CERNER MILLENNIUM Alanine Aminotransferase 53 0 - 55 unit/L CERNER MILLENNIUM Alkaline Phosphatase 50 40 - 120 unit/L CERNER MILLENNIUM Bilirubin, Total 1.7(H) 0.2 - 1.3 mg/dL CERNER MILLENNIUM Bilirubin, Direct 0.3 0.0 - 0.3 mg/dL CERNER MILLENNIUM Blood specimen (specimen) 12/08/2013 9:30 AM EDT 12/08/2013 9:36 AM EDT Narrative Resulting Agency Comment Spec In Lab Romulo Ramires MD CHEMISTRY ORDERABL ES CERNER MILLENNIUM * (ABNORMAL) BLOOD GAS 2 ARTERIAL (12/08/2013 9:20 AM EDT) pH, Arterial 7.48(H) CERNER MILLENNIUM PCO2, Arterial 41 mmHg CERNE R MILLENNIUM PO2, Arterial 74(L) mmHg CERNER MILLENNIUM Bicarbonate, Arterial 30.0(H) mmol/L CERNER MILLENNIUM Base Excess, Arterial 6.5(H) mmol/L CERNER MILLENNIUM Hgb Blood Gas 7.9(L) gm/dL CERNER MILLENNIUM Comment: Total Hemoglobin (in gm/dL) ?[place] [facility] [place] ranges: ?Age ?Reference Range Less than 3 days ?14.5 to 22.5 3 days to 2 weeks ? 12.5 to 20.5 2 weeks to 1 month ?10.0 to 18.0 1 to 6 months ?9.4 to 14.0 6 months to 2 years ? 10.5 to 13.5 2 to 6 years ?11.5 to 13.5 6 to 12 years ? 11.5 to 15.5 12 to 18 years (female) 12.0 to 16.0 ? (male) ?? 13.0 to 16.0 > 18 years ? (female) 11.2 to 15.7 ? (male) ?? 13.7 to 17.5 Oxyhemoglobin, Arterial 93.6(L) % CERNER MILLENNIUM Carboxyhemoglob in, Arterial 1.1 % CERNER MILLENNIUM Comment: Nonsmokers: 0.5-1.5% COHB Smokers: Variable, but usually less than 10% Toxic: 20-30% COHB Lethal: Greater than 60% COHB Methemoglobin, Arterial 0.7 % CERNER MILLENNIUM Na Whole Blood 137 mmol/L CERNE R MILLENNIUM K Whole Blood 3.1(L) mmol/L CERNER MILLENNIUM Comment: Please note: Patients with WBC >100,000 may have falsely elevated Potassium levels. Contact the Clinical Chemistry Laboratory if there are any questions. ICa Whole Blood 1.11(L) mmol/L CERN ER MILLENNIUM Comment: Reference Ranges: ?? < 19 yrs: 1.22 - 1.37 mmol/L ? Adults: 1.15 - 1.33 mmol/L Note: ??Total bilirubin higher than 20 mg/dL may lead to falsely low ionized calcium. CL Whole Blood 108(H) mmol/L CERNE R MILLENNIUM Gluc Whole Bld 128 mg/dL CERNE R MILLENNIUM Comment:Diabetes: >=200 mg/d L plus symptoms. FIO2 Art 40 % CERNER MILLENNIUM PF Ratio Art 185 CERNER MILLENNIUM Temp Art 37.6 Celsius CERNER MILLENNIUM Blood specimen (specimen) 12/08/2013 9:20 AM EDT 12/08/2013 9:20 AM EDT Romulo Ramires MD POINT OF CARE TEST ORDERABLES CERNER MILLENNIUM * CT head & cervical spine WO contrast (12/08/2013 8:11 AM EDT) Anatomical Region Laterality Modality Head Computed Tomogra phy 12/08/2013 8:11 AM EDT Narrative 12/08/2013 11:[address] Head & Cervical, thoracic and lumbar Spine Without Contrast Clinical History SAH, follow-up Comparison CT head, chest, abdomen and pelvis December 07, 2013 ?? Technique Non contrast CT of the head and cervical, thoracic and lumbar spine ?? Findings Head: There is persistent subarachnoid blood within the right sylvian fissure. There are no new areas of intracranial hemorrhage. There is no midline shift and the ventricles are of unchanged size with patent basal cisterns. The lainez-white differentiation is preserved throughout. As seen previously, and better evaluated on the prior CT face examination of December 07, 2013 are numerous comminuted bilateral maxillary and ethmoid sinuses, right pterygoid plates, right zygoma and right mandibular ramus and coronoid with multiple metallic fragments. The previously seen air projecting in the pre pontine cistern and left anterior middle cranial fossa was no longer seen. ?? Cervical: Normal craniocervical and cervical vertebrae alignment. There is no vertebral fracture or epidural collection. ?? Thoracic: Normal alignment of the 12 thoracic vertebrae. There is a large metallic fragment centered in the spinal canal at the level of the T10 vertebra, with multiple adjacent smaller fragments particularly in the right transverse process. There is a comminuted fracture of the right T10 lamina, transverse process, spinous process and inferior articulating facet. Metallic artifact obscures complete evaluation of the epidural space, but no large epidural collection is seen. There are no additional fractures. There are unchanged incompletely evaluated opacities at both lung bases which may represent a combination of effusion, atelectasis and or contusion. There is a right-sided chest tube in place. The patient is also intubated. ?? Lumbar: Normal alignment of the 5 lumbar vertebrae. There is no fracture of the lumbar vertebra. There is a hemangioma in the L2 vertebral body. There is no epidural collection. There is a small metallic fragment at the level of the right T11-T12 intercostal space within the diaphragmatic crura. There is an additional metallic fragment just anterior to the right psoas at the level of the L2 vertebral body. There are multiple intraperitoneal metallic fragments anterior and superior to the left kidney. Impression Unchanged small focus of subarachnoid hemorrhage at the right sylvian fissure. Large metallic fragment projecting within the center of the spinal canal at the level of the T10 vertebra with comminuted fracture of the posterior T10 vertebral elements. ?? Multiple additional small metallic fragments as described above consistent with right-sided entrance wound from posterior lateral. Film and interpretation reviewed by the attending Procedure Note Casper Vale MD - 12/08/[address] Head & Cervical, thoracic and lumbar Spine Without Contrast Clinical History SAH, follow-up Comparison CT head, chest, abdomen and pelvis December 07, [address] of the head and cervical, thoracic and lumbar spine Findings Head: There is persistent subarachnoid blood within the right sylvianfissure. There are no new areas of intracranial hemorrhage. There is no midlineshift and the ventricles are of unchanged size with patent basal cisterns. The lainez-white differentiation is preserved throughout. As seen previously,and better evaluated on the prior CT face examination of December 07, 2013 arenumerous comminuted bilateral maxillary and ethmoid sinuses, right pterygoidplates, right zygoma and right mandibular ramus and coronoid with multiplemetallic fragments. The previously seen air projecting in the pre pontine cisternand left anterior middle cranial fossa was no longer seen. Cervical: Normal craniocervical and cervical vertebrae alignment. There isno vertebral fracture or epidural collection. Thoracic: Normal alignment of the 12 thoracic vertebrae. There is a large metallic fragment centered in the spinal canal at the level of the T10 vertebra, with multiple adjacent smaller fragments particularly in theright transverse process. There is a comminuted fracture of the right [id number], transverse process, spinous process and inferior articulating facet.Metallic artifact obscures complete evaluation of the epidural space, but no large epidural collection is seen. There are no additional fractures. There are unchanged incompletely evaluated opacities at both lung bases which may represent a combination of effusion, atelectasis and or contusion. Thereis a right-sided chest tube in place. The patient is also intubated. Lumbar: Normal alignment of the 5 lumbar vertebrae. There is no fractureof the lumbar vertebra. There is a hemangioma in the L2 vertebral body. There isno epidural collection. There is a small metallic fragment at the level ofthe right T11-T12 intercostal space within the diaphragmatic crura. There isan additional metallic fragment just anterior to the right psoas at the levelof the L2 vertebral body. There are multiple intraperitoneal metallicfragments anterior and superior to the left kidney. Impression Unchanged small focus of subarachnoid hemorrhage at the right sylvianfissure. Large metallic fragment projecting within the center of the spinal canalat the level of the T10 vertebra with comminuted fracture of the posterior T10 vertebral elements. Multiple additional small metallic fragments as described above consistentwith right-sided entrance wound from posterior lateral. Film and interpretation reviewed by the attending Romulo Ramires MD IMG CT ORDERABLES * CT thoracic spine WO contrast (12/08/2013 8:10 AM EDT) Anatomical Region Laterality Modality T-spine Computed Tomogra phy 12/08/2013 8:10 AM EDT Narrative 12/08/2013 11:[address] Head & Cervical, thoracic and lumbar Spine Without Contrast Clinical History SAH, follow-up Comparison CT head, chest, abdomen and pelvis December 07, 2013 ?? Technique Non contrast CT of the head and cervical, thoracic and lumbar spine ?? Findings Head: There is persistent subarachnoid blood within the right sylvian fissure. There are no new areas of intracranial hemorrhage. There is no midline shift and the ventricles are of unchanged size with patent basal cisterns. The lainez-white differentiation is preserved throughout. As seen previously, and better evaluated on the prior CT face examination of December 07, 2013 are numerous comminuted bilateral maxillary and ethmoid sinuses, right pterygoid plates, right zygoma and right mandibular ramus and coronoid with multiple metallic fragments. The previously seen air projecting in the pre pontine cistern and left anterior middle cranial fossa was no longer seen. ?? Cervical: Normal craniocervical and cervical vertebrae alignment. There is no vertebral fracture or epidural collection. ?? Thoracic: Normal alignment of the 12 thoracic vertebrae. There is a large metallic fragment centered in the spinal canal at the level of the T10 vertebra, with multiple adjacent smaller fragments particularly in the right transverse process. There is a comminuted fracture of the right T10 lamina, transverse process, spinous process and inferior articulating facet. Metallic artifact obscures complete evaluation of the epidural space, but no large epidural collection is seen. There are no additional fractures. There are unchanged incompletely evaluated opacities at both lung bases which may represent a combination of effusion, atelectasis and or contusion. There is a right-sided chest tube in place. The patient is also intubated. ?? Lumbar: Normal alignment of the 5 lumbar vertebrae. There is no fracture of the lumbar vertebra. There is a hemangioma in the L2 vertebral body. There is no epidural collection. There is a small metallic fragment at the level of the right T11-T12 intercostal space within the diaphragmatic crura. There is an additional metallic fragment just anterior to the right psoas at the level of the L2 vertebral body. There are multiple intraperitoneal metallic fragments anterior and superior to the left kidney. Impression Unchanged small focus of subarachnoid hemorrhage at the right sylvian fissure. Large metallic fragment projecting within the center of the spinal canal at the level of the T10 vertebra with comminuted fracture of the posterior T10 vertebral elements. ?? Multiple additional small metallic fragments as described above consistent with right-sided entrance wound from posterior lateral. Film and interpretation reviewed by the attending Procedure Note Casper Vale MD - 12/08/[address] Head & Cervical, thoracic and lumbar Spine Without Contrast Clinical History SAH, follow-up Comparison CT head, chest, abdomen and pelvis December 07, [address] of the head and cervical, thoracic and lumbar spine Findings Head: There is persistent subarachnoid blood within the right sylvianfissure. There are no new areas of intracranial hemorrhage. There is no midlineshift and the ventricles are of unchanged size with patent basal cisterns. The lainez-white differentiation is preserved throughout. As seen previously,and better evaluated on the prior CT face examination of December 07, 2013 arenumerous comminuted bilateral maxillary and ethmoid sinuses, right pterygoidplates, right zygoma and right mandibular ramus and coronoid with multiplemetallic fragments. The previously seen air projecting in the pre pontine cisternand left anterior middle cranial fossa was no longer seen. Cervical: Normal craniocervical and cervical vertebrae alignment. There isno vertebral fracture or epidural collection. Thoracic: Normal alignment of the 12 thoracic vertebrae. There is a large metallic fragment centered in the spinal canal at the level of the T10 vertebra, with multiple adjacent smaller fragments particularly in theright transverse process. There is a comminuted fracture of the right [id number], transverse process, spinous process and inferior articulating facet.Metallic artifact obscures complete evaluation of the epidural space, but no large epidural collection is seen. There are no additional fractures. There are unchanged incompletely evaluated opacities at both lung bases which may represent a combination of effusion, atelectasis and or contusion. Thereis a right-sided chest tube in place. The patient is also intubated. Lumbar: Normal alignment of the 5 lumbar vertebrae. There is no fractureof the lumbar vertebra. There is a hemangioma in the L2 vertebral body. There isno epidural collection. There is a small metallic fragment at the level ofthe right T11-T12 intercostal space within the diaphragmatic crura. There isan additional metallic fragment just anterior to the right psoas at the levelof the L2 vertebral body. There are multiple intraperitoneal metallicfragments anterior and superior to the left kidney. Impression Unchanged small focus of subarachnoid hemorrhage at the right sylvianfissure. Large metallic fragment projecting within the center of the spinal canalat the level of the T10 vertebra with comminuted fracture of the posterior T10 vertebral elements. Multiple additional small metallic fragments as described above consistentwith right-sided entrance wound from posterior lateral. Film and interpretation reviewed by the attending Romulo Ramires MD IMG CT ORDERABLES * CT lumbar spine WO contrast (12/08/2013 8:10 AM EDT) Anatomical Region Laterality Modality L-spine Computed Tomogra phy 12/08/2013 8:10 AM EDT Narrative 12/08/2013 11:[address] Head & Cervical, thoracic and lumbar Spine Without Contrast Clinical History SAH, follow-up Comparison CT head, chest, abdomen and pelvis December 07, 2013 ?? Technique Non contrast CT of the head and cervical, thoracic and lumbar spine ?? Findings Head: There is persistent subarachnoid blood within the right sylvian fissure. There are no new areas of intracranial hemorrhage. There is no midline shift and the ventricles are of unchanged size with patent basal cisterns. The lainez-white differentiation is preserved throughout. As seen previously, and better evaluated on the prior CT face examination of December 07, 2013 are numerous comminuted bilateral maxillary and ethmoid sinuses, right pterygoid plates, right zygoma and right mandibular ramus and coronoid with multiple metallic fragments. The previously seen air projecting in the pre pontine cistern and left anterior middle cranial fossa was no longer seen. ?? Cervical: Normal craniocervical and cervical vertebrae alignment. There is no vertebral fracture or epidural collection. ?? Thoracic: Normal alignment of the 12 thoracic vertebrae. There is a large metallic fragment centered in the spinal canal at the level of the T10 vertebra, with multiple adjacent smaller fragments particularly in the right transverse process. There is a comminuted fracture of the right T10 lamina, transverse process, spinous process and inferior articulating facet. Metallic artifact obscures complete evaluation of the epidural space, but no large epidural collection is seen. There are no additional fractures. There are unchanged incompletely evaluated opacities at both lung bases which may represent a combination of effusion, atelectasis and or contusion. There is a right-sided chest tube in place. The patient is also intubated. ?? Lumbar: Normal alignment of the 5 lumbar vertebrae. There is no fracture of the lumbar vertebra. There is a hemangioma in the L2 vertebral body. There is no epidural collection. There is a small metallic fragment at the level of the right T11-T12 intercostal space within the diaphragmatic crura. There is an additional metallic fragment just anterior to the right psoas at the level of the L2 vertebral body. There are multiple intraperitoneal metallic fragments anterior and superior to the left kidney. Impression Unchanged small focus of subarachnoid hemorrhage at the right sylvian fissure. Large metallic fragment projecting within the center of the spinal canal at the level of the T10 vertebra with comminuted fracture of the posterior T10 vertebral elements. ?? Multiple additional small metallic fragments as described above consistent with right-sided entrance wound from posterior lateral. Film and interpretation reviewed by the attending Procedure Note Casper Vale MD - 12/08/[address] Head & Cervical, thoracic and lumbar Spine Without Contrast Clinical History SAH, follow-up Comparison CT head, chest, abdomen and pelvis December 07, [address] of the head and cervical, thoracic and lumbar spine Findings Head: There is persistent subarachnoid blood within the right sylvianfissure. There are no new areas of intracranial hemorrhage. There is no midlineshift and the ventricles are of unchanged size with patent basal cisterns. The lainez-white differentiation is preserved throughout. As seen previously,and better evaluated on the prior CT face examination of December 07, 2013 arenumerous comminuted bilateral maxillary and ethmoid sinuses, right pterygoidplates, right zygoma and right mandibular ramus and coronoid with multiplemetallic fragments. The previously seen air projecting in the pre pontine cisternand left anterior middle cranial fossa was no longer seen. Cervical: Normal craniocervical and cervical vertebrae alignment. There isno vertebral fracture or epidural collection. Thoracic: Normal alignment of the 12 thoracic vertebrae. There is a large metallic fragment centered in the spinal canal at the level of the T10 vertebra, with multiple adjacent smaller fragments particularly in theright transverse process. There is a comminuted fracture of the right [id number], transverse process, spinous process and inferior articulating facet.Metallic artifact obscures complete evaluation of the epidural space, but no large epidural collection is seen. There are no additional fractures. There are unchanged incompletely evaluated opacities at both lung bases which may represent a combination of effusion, atelectasis and or contusion. Thereis a right-sided chest tube in place. The patient is also intubated. Lumbar: Normal alignment of the 5 lumbar vertebrae. There is no fractureof the lumbar vertebra. There is a hemangioma in the L2 vertebral body. There isno epidural collection. There is a small metallic fragment at the level ofthe right T11-T12 intercostal space within the diaphragmatic crura. There isan additional metallic fragment just anterior to the right psoas at the levelof the L2 vertebral body. There are multiple intraperitoneal metallicfragments anterior and superior to the left kidney. Impression Unchanged small focus of subarachnoid hemorrhage at the right sylvianfissure. Large metallic fragment projecting within the center of the spinal canalat the level of the T10 vertebra with comminuted fracture of the posterior T10 vertebral elements. Multiple additional small metallic fragments as described above consistentwith right-sided entrance wound from posterior lateral. Film and interpretation reviewed by the attending Romulo Ramires MD IMG CT ORDERABLES * Duplex Study for DVT, Bilat legs (12/08/2013 8:02 AM EDT) VB Text Report Department: Vascular Surgery Lab Patient: [id number] (CIRILO PONCE) CPT Code: 19949 ICD-9: 959.8 Referring Physician: ROMULO RAMIRES Indication: ?? trauma; DVT surveillance ICD9 Diagnosis Code: 959.8 RIGHT: Patent common femoral vein and popliteal vein with spontaneous, respirophasic Doppler waveforms that respond normally to augmentation maneuvers. The common femoral vein, saphenofemoral junction, femoral vein through the thigh and popliteal vein are fully compressible. Patent posterior tibial and peroneal veins with no evidence of thrombus. LEFT: Patent common femoral vein and popliteal vein with spontaneous, respirophasic Doppler waveforms that respond normally to augmentation maneuvers. The common femoral vein, saphenofemoral junction, femoral vein through the thigh and popliteal vein are fully compressible. Patent posterior tibial and peroneal veins with no evidence of thrombus. Interpretation: RIGHT: ??No evidence of lower extremity deep venous thrombosis. LEFT: ??No evidence of lower extremity deep venous thrombosis. Comparison: ??No previous study in our vascular lab database for comparison. Electronically Signed by: BABAR CARMICHAEL M.D. on 2013-12-08 04:21:01 PM [facility] VB Text Report End of Report [facility] 12/08/2013 8:02 AM EDT Romulo Ramires MD VASCULAR ORDERABLE S [facility] * (ABNORMAL) Differential, Automated (12/08/2013 6:16 AM EDT) Neutrophil % 73.5(H) 34.0 - 71.0 % CERNER MILLENNIUM Neutrophil Absolute 6.04 1.50 - 6.30 x10(3)/mc L CERNER MILLENNIUM Lymph % 17.9(L) 19.0 - 53.0 % CERNER MILLENNIUM Lymphocytes Abs 1.5 1.0 - 3.6 x10(3)/mc L CERNER MILLENNIUM Monocyte % 7.9 4.0 - 13.0 % CERNER MILLENNIUM Monocyte Abs 0.6 0.2 - 1.0 x10(3)/mc L CERNER MILLENNIUM Eos % 0.4 0.0 - 7.0 % CERNER MILLENNIUM Eosinophils Abs 0.0 0.0 - 0.5 x10(3)/mc L CERNER MILLENNIUM Basophil % 0.1 0.0 - 2.0 % CERNER MILLENNIUM Baso Absolute 0.0 0.0 - 0.2 x10(3)/mc L CERNER MILLENNIUM Immature Gran % 0.20 0.00 - 0.66 % CERNER MILLENNIUM Comment: Immature granulocytes(IG's)percentage and absolute count will include metamyelocytes, myelocytes, and promyelocytes. Blood smears from CBCs yielding IG's will be scanned manually for concordance. If this scan disagrees with the automated IG or if promyelocytes are noted, a manual differential will be performed. Immature Gran Absolute 0.02 0.00 - 0.05 x10(3)/mc L CERNER MILLENNIUM Blood specimen (specimen) 12/08/2013 6:16 AM EDT 12/08/2013 6:20 AM EDT Narrative Resulting Agency Comment Spec In Lab Romulo Ramires MD HEMATOLOGY ORDERAB LES Performing Organization Address [facility]/ZIP Co de Phone Number CERHELENA MADRIDENNIUM * (ABNORMAL) Hemogram (12/08/2013 6:16 AM EDT) White Blood Cell 8.2 4.0 - 10.0 x10(3)/mc L CERNER MILLENNIUM Red Blood Cell 2.60(L) 4.63 - 6.08 x10(6)/mc L CERNER MILLENNIUM Hemoglobin 7.7(L) 13.7 - 17.5 gm/dL CERNER MILLENNIUM Hematocrit 22.1(L) 40.0 - 51.0 % CERNER MILLENNIUM Mean Cell Volume 85.0 79.0 - 92.0 fL CERNER MILLENNIUM Mean Cell Hemoglobin 29.6 25.6 - 32.2 pg CERNER MILLENNIUM Mean Cell Hemoglobin Concentration 34.8 32.0 - 36.5 gm/dL CERNER MILLENNIUM Platelet 104(L) 145 - 370 x10(3)/mc L CERNER MILLENNIUM RDW Standard Deviation 45.5 35.0 - 46.0 fL CERNER MILLENNIUM RDW coefficient of variation 14.5(H) 10.9 - 14.4 % CERNER MILLENNIUM Mean Platelet Volume 10.1 9.0 - 12.0 fL CERNER MILLENNIUM Blood specimen (specimen) 12/08/2013 6:16 AM EDT 12/08/2013 6:20 AM EDT Narrative Resulting Agency Comment Spec In Lab Romulo Ramires MD HEMATOLOGY ORDERAB LES Performing Organization Address City/[facility]/ZIP Co de Phone Number CERHELENA MILLENNIUM * Thrombin time (12/08/2013 6:16 AM EDT) Thrombin Time 16 15 - 20 sec [facility] Blood specimen (specimen) 12/08/2013 6:16 AM EDT 12/08/2013 6:20 AM EDT Narrative Resulting Agency Comment Spec In Lab Romulo Ramires MD HEMATOLOGY ORDERAB LES Performing Organization Address [facility] Co de Phone Number [facility] * Fibrinogen (12/08/2013 6:16 AM EDT) Fibrinogen 322 175 - 450 mg/dL [facility] Blood specimen (specimen) 12/08/2013 6:16 AM EDT 12/08/2013 6:20 AM EDT Narrative Resulting Agency Comment Spec In Lab Romulo Ramires MD HEMATOLOGY ORDERAB LES Performing Organization Address [facility] Co de Phone Number [facility] * APTT (12/08/2013 6:16 AM EDT) Partial Thromboplastin Time 33 25 - 35 sec [facility] MILLENNIUM Comment: Recommended therapeutic PTT range for full dose unfractionated heparin is 80-114 seconds. Blood specimen (specimen) 12/08/2013 6:16 AM EDT 12/08/2013 6:20 AM EDT Narrative Resulting Agency Comment Spec In Lab Romulo Ramires MD HEMATOLOGY ORDERAB LES Performing Organization Address [facility] Co de Phone Number [facility] * (ABNORMAL) Prothrombin Time (12/08/2013 6:16 AM EDT) Prothrombin Time 16.1(H) 12.0 - 15.0 sec [facility] MILLEN[facility]UM Comment: [facility] Transfusion Committee Guidelines: INR less than 2.0, PTT less than OR equal to 43.5 seconds, or Fibrinogen greater than or equal to 100 mg/dl indicate adequate procoagulant activity for hemostasis in patients without underlying bleeding disorders. International Normalization Ratio 1.2(H) 0.9 - 1.1 CERNER MILLENNIUM Blood specimen (specimen) 12/08/2013 6:16 AM EDT 12/08/2013 6:20 AM EDT Narrative Resulting Agency Comment Spec In Lab Romulo Ramires MD HEMATOLOGY ORDERAB LES Performing Organization Address City/[facility]/ZIP Co de Phone Number CERNER MILLENNIUM * (ABNORMAL) CK (12/08/2013 6:16 AM EDT) Creatine Kinase 1164(H) 0 - 200 unit/L CERNER MILLENNIUM Blood specimen (specimen) 12/08/2013 6:16 AM EDT 12/08/2013 6:20 AM EDT Narrative Resulting Agency Comment Spec In Lab Romulo Ramires MD CHEMISTRY ORDERABL ES Performing Organization Address [facility] de Phone Number CERNER MILLENNIUM * (ABNORMAL) Basic Metabolic Panel (non-fasting) (12/08/2013 6:16 AM EDT) Glucose 121 60 - 199 mg/dL CERNER MILLENNIUM Comment:Diabetes: >=200 mg/d L plus symptoms Blood Urea Nitrogen 8(L) 10 - 20 mg/dL CERNER MILLENNIUM Creatinine 0.75(L) 0.80 - 1.50 mg/dL CERNER MILLENNIUM Comment: Please note that the pediatric reference intervals supplied above were [place] [facility] [place] Results from pediatric patients should be interpreted in conjunction to the patient's age, height and muscle mass. Sodium 140 135 - 145 mmol/L CERNER MILLENNIUM Potassium 3.3(L) 3.5 - 5.0 mmol/L CERNER MILLENNIUM Comment: Please note: ??Patients with WBC >100,000 may have falsely elevated Potassium levels. ??For accurate Potassium quantification in these patients send serum separator tube (gold top) for subsequent determinations. ??Contact the Clinical Chemistry Laboratory if there are any questions. Chloride 107 98 - 107 mmol/L CERNER MILLENNIUM Carbon Dioxide 26 22 - 31 mmol/L CERNER MILLENNIUM Anion Gap 7 5 - 15 mmol/L CERNER MILLENNIUM Calcium 7.4(L) 8.5 - 10.5 mg/dL CERNER MILLENNIUM Est [...] the following links into your internet browser. http://www.nkdep.nih.gov/lab-evaluation.shtml http://www.kidney.org/professionals/ Blood specimen (specimen) 12/08/2013 6:16 AM EDT 12/08/2013 6:20 AM EDT Narrative Resulting Agency Comment Spec In Lab Romulo Ramires MD CHEMISTRY ORDERABL ES CERNER MILLENNIUM * (ABNORMAL) BLOOD GAS 2 VENOUS (12/08/2013 6:15 AM EDT) pH, Venous 7.40 CERNER MILLENNIUM PCO2, Venous 29(L) mmHg CERNER MILLENNIUM PO2, Venous 46(H) mmHg CERNER MILLENNIUM Bicarbonate, Venous 17.8 mmol/L CERNER MILLENNIUM Base Excess, Venous -7.0 mmol/L CERNER MILLENNIUM Hgb Blood Gas 6.9(L) gm/dL CERNER MILLENNIUM Comment: Total Hemoglobin (in gm/dL) ?[place] [facility] [place]ematology ranges: ?Age ?Reference Range Less than 3 days ?14.5 to 22.5 3 days to 2 weeks ? 12.5 to 20.5 2 weeks to 1 month ?10.0 to 18.0 1 to 6 months ?9.4 to 14.0 6 months to 2 years ? 10.5 to 13.5 2 to 6 years ?11.5 to 13.5 6 to 12 years ? 11.5 to 15.5 12 to 18 years (female) 12.0 to 16.0 ? (male) ?? 13.0 to 16.0 > 18 years ? (female) 11.2 to 15.7 ? (male) ?? 13.7 to 17.5 Oxyhemoglobin, Venous 78.3 % CERNER MILLENNIUM Carboxyhemoglo bin, Venous 1.5 % CERNER MILLENNIUM Comment: Nonsmokers: 0.5-1.5% COHB Smokers: Variable, but usually less than 10% Toxic: 20-30% COHB Lethal: Greater than 60% COHB Methemoglobin, Venous 1.1 % CERNER MILLENNIUM Na Whole Blood 135 mmol/L CERNE R MILLENNIUM K Whole Blood 3.1(L) mmol/L CERNER MILLENNIUM Comment: Please note: Patients with WBC >100,000 may have falsely elevated Potassium levels. Contact the Clinical Chemistry Laboratory if there are any questions. ICa Whole Blood 1.08(L) mmol/L CERNER MILLENNIUM Comment: Reference Ranges: ?? < 19 yrs: 1.22 - 1.37 mmol/L ? Adults: 1.15 - 1.33 mmol/L Note: ??Total bilirubin higher than 20 mg/dL may lead to falsely low ionized calcium. CL Whole Blood 107 mmol/L CERNE R MILLENNIUM Gluc Whole Bld 80 mg/dL CERNE R MILLENNIUM Comment:Diabetes: >=200 mg/d L plus symptoms Fraction of Inspired Oxygen, Venous 50 % CERNER MILLENNIUM Blood Gas Source Central Venous CERNER MILLENNIUM Blood specimen (specimen) 12/08/2013 6:15 AM EDT 12/08/2013 6:15 AM EDT Romulo Ramires MD POINT OF CARE TEST ORDERABLES CERNER MILLENNIUM * (ABNORMAL) Blood Gas Arterial (12/08/2013 5:51 AM EDT) pH, Arterial 7.47(H) 7.35 - 7.45 CERNER MILLENNIUM PCO2, Arterial 42 35 - 45 mmHg CERNER MILLENNIUM PO2, Arterial 154(H) 85 - 104 mmHg CERNER MILLENNIUM Bicarbonate, Arterial 29.5(H) 20.0 - 26.0 mmol/L CERNER MILLENNIUM Base Excess, Arterial 5.8(H) -3.0 - 3.0 mmol/L CERNER MILLENNIUM Hgb Blood Gas 8.0(L) 13.7 - 17.5 gm/dL CERNER MILLENNIUM Comment: Total Hemoglobin (in gm/dL) ?[place] [facility] [place]ematology ranges: ?Age ?Reference Range Less than 3 days ?14.5 to 22.5 3 days to 2 weeks ? 12.5 to 20.5 2 weeks to 1 month ?10.0 to 18.0 1 to 6 months ?9.4 to 14.0 6 months to 2 years ? 10.5 to 13.5 2 to 6 years ?11.5 to 13.5 6 to 12 years ? 11.5 to 15.5 12 to 18 years (female) 12.0 to 16.0 ? (male) ?? 13.0 to 16.0 > 18 years ? (female) 11.2 to 15.7 ? (male) ?? 13.7 to 17.5 Oxyhemoglobin, Arterial 97.9(H) 94.0 - 97.0 % CERNER MILLENNIUM Carboxyhemoglob in, Arterial 0.9 % CERNER MILLENNIUM Comment: Nonsmokers: ??0.5-1.5% COHB Smokers: ??Variable, but usually less than 10% Toxic: 20 - 30% COHB Lethal: ??Greater than 60% COHB Methemoglobin, Arterial 0.2 <=1.5 % CERNER MILLENNIUM Na Whole Blood 135 135 - 145 mmol/L CERNER MILLENNIUM K Whole Blood 3.2(L) 3.5 - 5.0 mmol/L CERNER MILLENNIUM Comment: Please note: ??Patients with WBC >100,000 may have falsely elevated Potassium levels. ??Contact the Clinical Chemistry Laboratory if there are any questions. ICa Whole Blood 1.09(L) 1.15 - 1.33 mmol/L CERNER MILLENNIUM Comment: Reference Ranges: ?? < 19 yrs: 1.22 - 1.37 mmol/L ? Adults: 1.15 - 1.33 mmol/L Note: ??Total bilirubin higher than 20 mg/dL may lead to falsely low ionized calcium. CL Whole Blood 108(H) 98 - 107 mmol/L CERNER MILLENNIUM Gluc Whole Bld 122 60 - 199 mg/dL CERNER MILLENNIUM Comment:Diabetes: >=200 mg/d L plus symptoms. Lactate WB 1.0 0.5 - 2.2 mmol/L CERNER MILLENNIUM FIO2 Art 50 % CERNER MILLENNIUM PF Ratio Art 308 CERNER MILLENNIUM Blood specimen (specimen) 12/08/2013 5:51 AM EDT 12/08/2013 6:21 AM EDT Narrative Resulting Agency Comment Spec In Lab Julio Elkins MD CHEMISTRY ORDERABLES CERNER MILLENNIUM * (ABNORMAL) Differential, Automated (12/08/2013 12:23 AM EDT) Neutrophil % 79.5(H) 34.0 - 71.0 % CERNER MILLENNIUM Neutrophil Absolute 7.67(H) 1.50 - 6.30 x10(3)/mc L CERNER MILLENNIUM Lymph % 12.5(L) 19.0 - 53.0 % CERNER MILLENNIUM Lymphocytes Abs 1.2 1.0 - 3.6 x10(3)/mc L CERNER MILLENNIUM Monocyte % 7.9 4.0 - 13.0 % CERNER MILLENNIUM Monocyte Abs 0.8 0.2 - 1.0 x10(3)/mc L CERNER MILLENNIUM Eos % 0.0 0.0 - 7.0 % CERNER MILLENNIUM Eosinophils Abs 0.0 0.0 - 0.5 x10(3)/mc L CERNER MILLENNIUM Basophil % 0.0 0.0 - 2.0 % CERNER MILLENNIUM Baso Absolute 0.0 0.0 - 0.2 x10(3)/mc L CERNER MILLENNIUM Immature Gran % 0.10 0.00 - 0.66 % CERNER MILLENNIUM Comment: Immature granulocytes(IG's)percentage and absolute count will include metamyelocytes, myelocytes, and promyelocytes. Blood smears from CBCs yielding IG's will be scanned manually for concordance. If this scan disagrees with the automated IG or if promyelocytes are noted, a manual differential will be performed. Immature Gran Absolute 0.01 0.00 - 0.05 x10(3)/mc L CERNER MILLENNIUM Blood specimen (specimen) 12/08/2013 12:23 AM EDT 12/08/2013 12:28 AM EDT Narrative Resulting Agency Comment Spec In Lab Romulo Ramires MD HEMATOLOGY ORDERAB LES CERHELENA MADRIDENNIUM * (ABNORMAL) Hemogram (12/08/2013 12:23 AM EDT) White Blood Cell 9.6 4.0 - 10.0 x10(3)/mc L CERNER MILLENNIUM Red Blood Cell 2.76(L) 4.63 - 6.08 x10(6)/mc L CERNER MILLENNIUM Hemoglobin 8.1(L) 13.7 - 17.5 gm/dL CERNER MILLENNIUM Hematocrit 23.2(L) 40.0 - 51.0 % CERNER MILLENNIUM Mean Cell Volume 84.1 79.0 - 92.0 fL CERNER MILLENNIUM Mean Cell Hemoglobin 29.3 25.6 - 32.2 pg CERNER MILLENNIUM Mean Cell Hemoglobin Concentration 34.9 32.0 - 36.5 gm/dL CERNER MILLENNIUM Platelet 114(L) 145 - 370 x10(3)/mc L [facility] RDW Standard Deviation 44.0 35.0 - 46.0 fL [facility] RDW coefficient of variation 14.4 10.9 - 14.4 % [facility] Mean Platelet Volume 10.3 9.0 - 12.0 fL [facility] Blood specimen (specimen) 12/08/2013 12:23 AM EDT 12/08/2013 12:28 AM EDT Narrative Resulting Agency Comment Spec In Lab Romulo Ramires MD HEMATOLOGY ORDERAB LES [facility] * Thrombin time (12/08/2013 12:23 AM EDT) Thrombin Time 15 15 - 20 sec [facility] Blood specimen (specimen) 12/08/2013 12:23 AM EDT 12/08/2013 12:28 AM EDT Narrative Resulting Agency Comment Spec In Lab Romulo Ramires MD HEMATOLOGY ORDERAB LES Performing Organization Address City/[facility]/ZIP Co de Phone Number [facility] * Fibrinogen (12/08/2013 12:23 AM EDT) Fibrinogen 235 175 - 450 mg/dL [facility] Blood specimen (specimen) 12/08/2013 12:23 AM EDT 12/08/2013 12:28 AM EDT Narrative Resulting Agency Comment Spec In Lab Romulo Ramires MD HEMATOLOGY ORDERAB LES [facility] * APTT (12/08/2013 12:23 AM EDT) Partial Thromboplastin Time 32 25 - 35 sec [facility] Comment: Recommended therapeutic PTT range for full dose unfractionated heparin is 80-114 seconds. Blood specimen (specimen) 12/08/2013 12:23 AM EDT 12/08/2013 12:28 AM EDT Narrative Resulting Agency Comment Spec In Lab Romulo Ramires MD HEMATOLOGY ORDERAB LES Performing Organization Address [facility] de Phone Number CERHELENA MILLENNIUM * (ABNORMAL) Prothrombin Time (12/08/2013 12:23 AM EDT) Prothrombin Time 15.4(H) 12.0 - 15.0 sec CERNER MILLENNIUM Comment: [facility] Transfusion Committee Guidelines: INR less than 2.0, PTT less than OR equal to 43.5 seconds, or Fibrinogen greater than or equal to 100 mg/dl indicate adequate procoagulant activity for hemostasis in patients without underlying bleeding disorders. International Normalization Ratio 1.2(H) 0.9 - 1.1 CERNER MILLENNIUM Blood specimen (specimen) 12/08/2013 12:23 AM EDT 12/08/2013 12:28 AM EDT Narrative Resulting Agency Comment Spec In Lab Romulo Ramires MD HEMATOLOGY ORDERAB LES Performing Organization Address [facility] de Phone Number CERNER MILLENNIUM * (ABNORMAL) CK (12/08/2013 12:23 AM EDT) Creatine Kinase 1668(H) 0 - 200 unit/L CERNER MILLENNIUM Blood specimen (specimen) 12/08/2013 12:23 AM EDT 12/08/2013 12:28 AM EDT Narrative Resulting Agency Comment Spec In Lab Romulo Ramires MD CHEMISTRY ORDERABL ES Performing Organization Address [facility] Co de Phone Number CERNER MILLENNIUM * (ABNORMAL) Basic Metabolic Panel (non-fasting) (12/08/2013 12:23 AM EDT) Glucose 126 60 - 199 mg/dL CERNER MILLENNIUM Comment:Diabetes: >=200 mg/d L plus symptoms Blood Urea Nitrogen 8(L) 10 - 20 mg/dL CERNER MILLENNIUM Creatinine 0.74(L) 0.80 - 1.50 mg/dL CERNER MILLENNIUM Comment: Please note that the pediatric reference intervals supplied above were [place] [facility] [place] Results from pediatric patients should be interpreted in conjunction to the patient's age, height and muscle mass. Sodium 140 135 - 145 mmol/L CERNER MILLENNIUM Potassium 3.6 3.5 - 5.0 mmol/L CERNER MILLENNIUM Comment: Please note: ??Patients with WBC >100,000 may have falsely elevated Potassium levels. ??For accurate Potassium quantification in these patients send serum separator tube (gold top) for subsequent determinations. ??Contact the Clinical Chemistry Laboratory if there are any questions. Chloride 107 98 - 107 mmol/L CERNER MILLENNIUM Carbon Dioxide 25 22 - 31 mmol/L CERNER MILLENNIUM Anion Gap 8 5 - 15 mmol/L CERNER MILLENNIUM Calcium 7.4(L) 8.5 - 10.5 mg/dL CERNER MILLENNIUM Est [...] the following links into your internet browser. http://www.nkdep.nih.gov/lab-evaluation.shtml http://www.kidney.org/professionals/ Blood specimen (specimen) 12/08/2013 12:23 AM EDT 12/08/2013 12:28 AM EDT Narrative Resulting Agency Comment Spec In Lab Romulo Ramires MD CHEMISTRY ORDERABL ES [facility] * (ABNORMAL) BLOOD GAS 2 VENOUS (12/08/2013 12:17 AM EDT) pH, Venous 7.40 CERNER MILLENNIUM PCO2, Venous 41 mmHg CERNER MILLENNIUM PO2, Venous 39 mmHg CERNER MILLENNIUM Bicarbonate, Venous 25.0 mmol/L CERNER MILLENNIUM Base Excess, Venous 0.2 mmol/L CERNER MILLENNIUM Hgb Blood Gas 7.5(L) gm/dL CERNER MILLENNIUM Comment: Total Hemoglobin (in gm/dL) ?[place] [facility] [place]ematology ranges: ?Age ?Reference Range Less than 3 days ?14.5 to 22.5 3 days to 2 weeks ? 12.5 to 20.5 2 weeks to 1 month ?10.0 to 18.0 1 to 6 months ?9.4 to 14.0 6 months to 2 years ? 10.5 to 13.5 2 to 6 years ?11.5 to 13.5 6 to 12 years ? 11.5 to 15.5 12 to 18 years (female) 12.0 to 16.0 ? (male) ?? 13.0 to 16.0 > 18 years ? (female) 11.2 to 15.7 ? (male) ?? 13.7 to 17.5 Oxyhemoglobin, Venous 73.7 % CERNER MILLENNIUM Carboxyhemoglo bin, Venous 1.8 % CERNER MILLENNIUM Comment: Nonsmokers: 0.5-1.5% COHB Smokers: Variable, but usually less than 10% Toxic: 20-30% COHB Lethal: Greater than 60% COHB Methemoglobin, Venous 1.2 % CERNER MILLENNIUM Na Whole Blood 137 mmol/L CERNE R MILLENNIUM K Whole Blood 2.9(Critica l) mmol/L CERNER MILLENNIUM Comment: Noted by brass instrument repair technician. Please note: Patients with WBC >100,000 may have falsely elevated Potassium levels. Contact the Clinical Chemistry Laboratory if there are any questions. ICa Whole Blood 1.01(L) mmol/L CERNER MILLENNIUM Comment: Reference Ranges: ?? < 19 yrs: 1.22 - 1.37 mmol/L ? Adults: 1.15 - 1.33 mmol/L Note: ??Total bilirubin higher than 20 mg/dL may lead to falsely low ionized calcium. CL Whole Blood 113(H) mmol/L CERNE R MILLENNIUM Gluc Whole Bld 106 mg/dL CERNE R MILLENNIUM Comment:Diabetes: >=200 mg/d L plus symptoms Fraction of Inspired Oxygen, Venous 50 % CERNER MILLENNIUM Blood Gas Source Central Venous CERNER MILLENNIUM Blood specimen (specimen) 12/08/2013 12:17 AM EDT 12/08/2013 12:17 AM EDT Romulo Ramires MD POINT OF CARE TEST ORDERABLES CERNER MILLENNIUM * (ABNORMAL) Blood Gas Arterial (12/08/2013 12:08 AM EDT) pH, Arterial 7.51(H) 7.35 - 7.45 CERNER MILLENNIUM PCO2, Arterial 35 35 - 45 mmHg CERNER MILLENNIUM PO2, Arterial 162(H) 85 - 104 mmHg CERNER MILLENNIUM Bicarbonate, Arterial 27.6(H) 20.0 - 26.0 mmol/L CERNER MILLENNIUM Base Excess, Arterial 4.6(H) -3.0 - 3.0 mmol/L CERNER MILLENNIUM Hgb Blood Gas 8.5(L) 13.7 - 17.5 gm/dL CERNER MILLENNIUM Comment: Total Hemoglobin (in gm/dL) ?[place] [facility] [place] ranges: ?Age ?Reference Range Less than 3 days ?14.5 to 22.5 3 days to 2 weeks ? 12.5 to 20.5 2 weeks to 1 month ?10.0 to 18.0 1 to 6 months ?9.4 to 14.0 6 months to 2 years ? 10.5 to 13.5 2 to 6 years ?11.5 to 13.5 6 to 12 years ? 11.5 to 15.5 12 to 18 years (female) 12.0 to 16.0 ? (male) ?? 13.0 to 16.0 > 18 years ? (female) 11.2 to 15.7 ? (male) ?? 13.7 to 17.5 Oxyhemoglobin, Arterial 98.0(H) 94.0 - 97.0 % CERNER MILLENNIUM Carboxyhemoglob in, Arterial 0.9 % CERNER MILLENNIUM Comment: Nonsmokers: ??0.5-1.5% COHB Smokers: ??Variable, but usually less than 10% Toxic: 20 - 30% COHB Lethal: ??Greater than 60% COHB Methemoglobin, Arterial 0.1 <=1.5 % CERNER MILLENNIUM Na Whole Blood 135 135 - 145 mmol/L CERNER MILLENNIUM K Whole Blood 3.4(L) 3.5 - 5.0 mmol/L CERNER MILLENNIUM Comment: Please note: ??Patients with WBC >100,000 may have falsely elevated Potassium levels. ??Contact the Clinical Chemistry Laboratory if there are any questions. ICa Whole Blood 1.06(L) 1.15 - 1.33 mmol/L CERNER MILLENNIUM Comment: Reference Ranges: ?? < 19 yrs: 1.22 - 1.37 mmol/L ? Adults: 1.15 - 1.33 mmol/L Note: ??Total bilirubin higher than 20 mg/dL may lead to falsely low ionized calcium. CL Whole Blood 109(H) 98 - 107 mmol/L CERNER MILLENNIUM Gluc Whole Bld 124 60 - 199 mg/dL CERNER MILLENNIUM Comment:Diabetes: >=200 mg/d L plus symptoms. Lactate WB 1.3 0.5 - 2.2 mmol/L CERNER MILLENNIUM FIO2 Art 50 % CERNER MILLENNIUM PF Ratio Art 324 CERNER MILLENNIUM Blood specimen (specimen) 12/08/2013 12:08 AM EDT 12/08/2013 12:29 AM EDT Narrative Resulting Agency Comment Spec In Lab Julio Elkins MD CHEMISTRY ORDERABLES Performing Organization Address [facility] de Phone Number [facility] * (ABNORMAL) Beta 2 Transferrin Body Fluid Pleural fluid (12/07/2013 9:28 PM EDT) [facility] Beta-2 Trans Bf (NOVEMBER) Positive( A) [facility] Comment: -- REFERENCE VALUE -- Negative, no beta-2 transferrin (spinal fluid) detected. Test Performed by: [place] [address] [employer] Pastor: Cameron Hansen III, M.D. Body fluid specimen (specimen) 12/07/2013 9:28 PM EDT 12/08/2013 12:16 PM EDT Narrative Resulting Agency Comment Spec In Lab Romulo Ramires MD LAB SEND OUT ORDER SOSA Performing Organization Address [facility] de Phone Number [facility] * HCV Quant Fei (12/07/2013 9:26 PM EDT) [facility] HCV Viral Load <43 IU/mL [facility] HCV Viral Load Result: < 43 But Detected Indication for Study: Hepatitis C Infection Analysis: A quantitiative real time reverse transcriptase PCR assay was performed on extracted viral RNA for the purpose of quantification. Sample: plasma (1 mL minimum volume) Method: Fei Amada TaqMAN 48 HCV Linear Range: 43IU/mL - 69,000,000IU/mL (95% CI) Interpretation: The result of this analysis is within the limits of detection of the assay. Note: This assay is being performed in the [facility]. Leo Foster, Ph.D. Director, Molecular Pathology [facility] Comment: [VERIFIED DATE]12.09.13 Verified By:Jamila Lyons (Electronic Signature) Blood specimen (specimen) 12/07/2013 9:26 PM EDT 12/07/2013 9:41 PM EDT Narrative Resulting Agency Comment Spec In Lab Romulo Ramires MD HEMATOLOGY ORDERAB LES Performing Organization Address City/[facility]/ZIP Co de Phone Number CERNER MILLENNIUM * (ABNORMAL) Hepatitis C Antibody (12/07/2013 9:26 PM EDT) Hepatitis C Antibody Positive(A ) Negative CERNER MILLENNIUM Blood specimen (specimen) 12/07/2013 9:26 PM EDT 12/07/2013 9:41 PM EDT Narrative Resulting Agency Comment Spec In Lab Romulo Ramires MD CHEMISTRY ORDERABL ES CERHELENA MADRIDENNIUM * (ABNORMAL) BLOOD GAS 2 VENOUS (12/07/2013 6:47 PM EDT) Pathologist [facility] pH, Venous 7.34 CERNER MILLENNIUM PCO2, Venous 46 mmHg CERNER MILLENNIUM PO2, Venous 34 mmHg CERNER MILLENNIUM Bicarbonate, Venous 24.1 mmol/L CERNER MILLENNIUM Base Excess, Venous -1.8 mmol/L CERNER MILLENNIUM Hgb Blood Gas 8.6(L) gm/dL CERNER MILLENNIUM Comment: Total Hemoglobin (in gm/dL) ?[place] [facility] [place] ranges: ?Age ?Reference Range Less than 3 days ?14.5 to 22.5 3 days to 2 weeks ? 12.5 to 20.5 2 weeks to 1 month ?10.0 to 18.0 1 to 6 months ?9.4 to 14.0 6 months to 2 years ? 10.5 to 13.5 2 to 6 years ?11.5 to 13.5 6 to 12 years ? 11.5 to 15.5 12 to 18 years (female) 12.0 to 16.0 ? (male) ?? 13.0 to 16.0 > 18 years ? (female) 11.2 to 15.7 ? (male) ?? 13.7 to 17.5 Oxyhemoglobin, Venous 64.4 % CERNER MILLENNIUM Carboxyhemoglo bin, Venous 1.9 % CERNER MILLENNIUM Comment: Nonsmokers: 0.5-1.5% COHB Smokers: Variable, but usually less than 10% Toxic: 20-30% COHB Lethal: Greater than 60% COHB Methemoglobin, Venous 1.0 % CERNER MILLENNIUM Na Whole Blood 136 mmol/L CERNE R MILLENNIUM K Whole Blood 3.6 mmol/L CERNER MILLENNIUM Comment: Please note: Patients with WBC >100,000 may have falsely elevated Potassium levels. Contact the Clinical Chemistry Laboratory if there are any questions. ICa Whole Blood 1.10(L) mmol/L CERNER MILLENNIUM Comment: Reference Ranges: ?? < 19 yrs: 1.22 - 1.37 mmol/L ? Adults: 1.15 - 1.33 mmol/L Note: ??Total bilirubin higher than 20 mg/dL may lead to falsely low ionized calcium. CL Whole Blood 108(H) mmol/L CERNE R MILLENNIUM Gluc Whole Bld 113 mg/dL CERNE R MILLENNIUM Comment:Diabetes: >=200 mg/d L plus symptoms Fraction of Inspired Oxygen, Venous 60 % CERNER MILLENNIUM Blood Gas Source Central Venous CERNER MILLENNIUM Temperature, Venous 36.8 Celsius CERNER MILLENNIUM Blood specimen (specimen) 12/07/2013 6:47 PM EDT 12/07/2013 6:47 PM EDT Romulo Ramires MD POINT OF CARE TEST ORDERABLES CERNER MILLENNIUM * (ABNORMAL) BLOOD GAS 2 ARTERIAL (12/07/2013 6:43 PM EDT) pH, Arterial 7.39 CERNER MILLENNIUM PCO2, Arterial 45 mmHg CERNE R MILLENNIUM PO2, Arterial 142(H) mmHg CERNER MILLENNIUM Bicarbonate, Arterial 26.9(H) mmol/L CERNER MILLENNIUM Base Excess, Arterial 1.9 mmol/L CERNER MILLENNIUM Hgb Blood Gas 8.8(L) gm/dL CERNER MILLENNIUM Comment: Total Hemoglobin (in gm/dL) ?[place] [facility] [place] ranges: ?Age ?Reference Range Less than 3 days ?14.5 to 22.5 3 days to 2 weeks ? 12.5 to 20.5 2 weeks to 1 month ?10.0 to 18.0 1 to 6 months ?9.4 to 14.0 6 months to 2 years ? 10.5 to 13.5 2 to 6 years ?11.5 to 13.5 6 to 12 years ? 11.5 to 15.5 12 to 18 years (female) 12.0 to 16.0 ? (male) ?? 13.0 to 16.0 > 18 years ? (female) 11.2 to 15.7 ? (male) ?? 13.7 to 17.5 Oxyhemoglobin, Arterial 97.1(H) % CERNER MILLENNIUM Carboxyhemoglob in, Arterial 0.9 % CERNER MILLENNIUM Comment: Nonsmokers: 0.5-1.5% COHB Smokers: Variable, but usually less than 10% Toxic: 20-30% COHB Lethal: Greater than 60% COHB Methemoglobin, Arterial 0.6 % CERNER MILLENNIUM Na Whole Blood 135 mmol/L CERNE R MILLENNIUM K Whole Blood 3.7 mmol/L CERNER MILLENNIUM Comment: Please note: Patients with WBC >100,000 may have falsely elevated Potassium levels. Contact the Clinical Chemistry Laboratory if there are any questions. ICa Whole Blood 1.09(L) mmol/L CERN ER MILLENNIUM Comment: Reference Ranges: ?? < 19 yrs: 1.22 - 1.37 mmol/L ? Adults: 1.15 - 1.33 mmol/L Note: ??Total bilirubin higher than 20 mg/dL may lead to falsely low ionized calcium. CL Whole Blood 108(H) mmol/L CERNE R MILLENNIUM Gluc Whole Bld 127 mg/dL CERNE R MILLENNIUM Comment:Diabetes: >=200 mg/d L plus symptoms. FIO2 Art 60 % CERNER MILLENNIUM PF Ratio Art 237 CERNER MILLENNIUM Temp Art 36.8 Celsius CERNER MILLENNIUM Blood specimen (specimen) 12/07/2013 6:43 PM EDT 12/07/2013 6:43 PM EDT Romulo Ramires MD POINT OF CARE TEST ORDERABLES XOCHITL SHELBYIUM * XR abdomen 1 view (12/07/2013 5:59 PM EDT) Anatomical Region Laterality Modality Abdomen N/A Radiographic Kathy ging 12/07/2013 5:59 PM EDT Narrative 12/07/2013 6:12 PM EDT Examination DIAG ABDOMEN SINGLE VIEW/XPORT Clinical History og tube placement Comparison None Technique Single limited view abdomen. ?? Findings OG tube tip in stomach. Visualized aspects of the abdominal bowel gas pattern unremarkable. Impression Procedure Note Reji Suarez MD - 12/07/2013 Examination DIAG ABDOMEN SINGLE VIEW/XPORT Clinical History og tube placement Comparison None Technique Single limited view abdomen. Findings OG tube tip in stomach. Visualized aspects of the abdominal bowel gas pattern unremarkable. Impression Romulo Ramires MD IMG DX ORDERABLES * XR chest PA or AP- 1 view (12/07/2013 5:58 PM EDT) Anatomical Region Laterality Modality Chest N/A Radiographic Kathy ging 12/07/2013 5:58 PM EDT Narrative 12/07/2013 6:14 PM EDT Examination CHEST AP/XPORT Clinical History ETT placement Comparison December 07, 2013. Technique Single-view chest. Findings The previously noted left subclavian central venous catheter removed since previous study. New right internal jugular central venous catheter. Stable tiny right apical pneumothorax. ?? Endotracheal tube replaced by a tracheostomy tube. No other changes. Impression Procedure Note Reji Suarez MD - 12/07/2013 Examination CHEST AP/XPORT Clinical History ETT placement Comparison December 07, 2013. Technique Single-view chest. Findings The previously noted left subclavian central venous catheter removed since previous study. New right internal jugular central venous catheter. Stable tiny rightapical pneumothorax. Endotracheal tube replaced by a tracheostomy tube. No other changes. Impression Romulo Ramires MD IMG DX ORDERABLES * (ABNORMAL) Differential, Automated (12/07/2013 5:28 PM EDT) Neutrophil % 82.7(H) 34.0 - 71.0 % CERNER MILLENNIUM Neutrophil Absolute 7.32(H) 1.50 - 6.30 x10(3)/mc L CERNER MILLENNIUM Lymph % 7.8(L) 19.0 - 53.0 % CERNER MILLENNIUM Lymphocytes Abs 0.7(L) 1.0 - 3.6 x10(3)/mc L CERNER MILLENNIUM Monocyte % 9.1 4.0 - 13.0 % CERNER MILLENNIUM Monocyte Abs 0.8 0.2 - 1.0 x10(3)/mc L CERNER MILLENNIUM Eos % 0.1 0.0 - 7.0 % CERNER MILLENNIUM Eosinophils Abs 0.0 0.0 - 0.5 x10(3)/mc L CERNER MILLENNIUM Basophil % 0.1 0.0 - 2.0 % CERNER MILLENNIUM Baso Absolute 0.0 0.0 - 0.2 x10(3)/mc L CERNER MILLENNIUM Immature Gran % 0.20 0.00 - 0.66 % CERNER MILLENNIUM Comment: Immature granulocytes(IG's)percentage and absolute count will include metamyelocytes, myelocytes, and promyelocytes. Blood smears from CBCs yielding IG's will be scanned manually for concordance. If this scan disagrees with the automated IG or if promyelocytes are noted, a manual differential will be performed. Immature Gran Absolute 0.02 0.00 - 0.05 x10(3)/mc L CERNER MILLENNIUM Blood specimen (specimen) 12/07/2013 5:28 PM EDT 12/07/2013 5:37 PM EDT Narrative Resulting Agency Comment Spec In Lab Romulo Ramires MD HEMATOLOGY ORDERAB LES Performing Organization Address City/[facility] Co de Phone Number [facility] * Thrombin time (12/07/2013 5:28 PM EDT) Thrombin Time 16 15 - 20 sec [facility] Blood specimen (specimen) 12/07/2013 5:28 PM EDT 12/07/2013 5:37 PM EDT Narrative Resulting Agency Comment Spec In Lab Romulo Ramires MD HEMATOLOGY ORDERAB LES Performing Organization Address [facility] de Phone Number [facility] * Fibrinogen (12/07/2013 5:28 PM EDT) Fibrinogen 197 175 - 450 mg/dL [facility] Blood specimen (specimen) 12/07/2013 5:28 PM EDT 12/07/2013 5:37 PM EDT Narrative Resulting Agency Comment Spec In Lab Romulo Ramires MD HEMATOLOGY ORDERAB LES Performing Organization Address [facility] de Phone Number [facility] * APTT (12/07/2013 5:28 PM EDT) Partial Thromboplastin Time 31 25 - 35 sec [facility] Comment: Recommended therapeutic PTT range for full dose unfractionated heparin is 80-114 seconds. Blood specimen (specimen) 12/07/2013 5:28 PM EDT 12/07/2013 5:37 PM EDT Narrative Resulting Agency Comment Spec In Lab Romulo Ramires MD HEMATOLOGY ORDERAB LES Performing Organization Address [facility] Co de Phone Number [facility] * (ABNORMAL) Prothrombin Time (12/07/2013 5:28 PM EDT) Prothrombin Time 15.2(H) 12.0 - 15.0 sec CERNER MILLENNIUM Comment: [facility] Transfusion Committee Guidelines: INR less than 2.0, PTT less than OR equal to 43.5 seconds, or Fibrinogen greater than or equal to 100 mg/dl indicate adequate procoagulant activity for hemostasis in patients without underlying bleeding disorders. International Normalization Ratio 1.2(H) 0.9 - 1.1 CERNER MILLENNIUM Blood specimen (specimen) 12/07/2013 5:28 PM EDT 12/07/2013 5:37 PM EDT Narrative Resulting Agency Comment Spec In Lab Romuol Ramires MD HEMATOLOGY ORDERAB LES Performing Organization Address City/[facility]/ZIP Co de Phone Number CERNER MILLENNIUM * (ABNORMAL) Lactate, whole blood, send to lab (12/07/2013 5:28 PM EDT) Lactate WB 2.3(H) 0.5 - 2.2 mmol/L CERNER MILLENNIUM Blood specimen (specimen) 12/07/2013 5:28 PM EDT 12/07/2013 5:35 PM EDT Narrative Resulting Agency Comment Spec In Lab Romulo Ramires MD CHEMISTRY ORDERABL ES Performing Organization Address [facility] Co de Phone Number CERNER MILLENNIUM * (ABNORMAL) Hemogram (12/07/2013 5:28 PM EDT) White Blood Cell 8.9 4.0 - 10.0 x10(3)/mc L CERNER MILLENNIUM Red Blood Cell 2.92(L) 4.63 - 6.08 x10(6)/mc L CERNER MILLENNIUM Hemoglobin 8.6(L) 13.7 - 17.5 gm/dL CERNER MILLENNIUM Hematocrit 24.6(L) 40.0 - 51.0 % CERNER MILLENNIUM Mean Cell Volume 84.2 79.0 - 92.0 fL CERNER MILLENNIUM Mean Cell Hemoglobin 29.5 25.6 - 32.2 pg CERNER MILLENNIUM Mean Cell Hemoglobin Concentration 35.0 32.0 - 36.5 gm/dL CERNER MILLENNIUM Platelet 118(L) 145 - 370 x10(3)/mc L CERNER MILLENNIUM RDW Standard Deviation 44.0 35.0 - 46.0 fL CERNER MILLENNIUM RDW coefficient of variation 14.2 10.9 - 14.4 % CERNER MILLENNIUM Mean Platelet Volume 9.6 9.0 - 12.0 fL CERNER MILLENNIUM Blood specimen (specimen) 12/07/2013 5:28 PM EDT 12/07/2013 5:37 PM EDT Narrative Resulting Agency Comment Spec In Lab Romulo Ramires MD HEMATOLOGY ORDERAB LES Performing Organization Address [facility]/ZIP Co de Phone Number [facility] * (ABNORMAL) CK (12/07/2013 5:28 PM EDT) Pathologist [facility] Creatine Kinase 2547(H) 0 - 200 unit/L [facility] Comment:result rechecked-NM Blood specimen (specimen) 12/07/2013 5:28 PM EDT 12/07/2013 5:37 PM EDT Narrative Resulting Agency Comment Spec In Lab Romulo Ramires MD CHEMISTRY ORDERABL ES Performing Organization Address [facility] Phone Number [facility] * (ABNORMAL) Basic Metabolic Panel (non-fasting) (12/07/2013 5:28 PM EDT) Pathologist [facility] Glucose 130 60 - 199 mg/dL CERNER MILLENNIUM Comment:Diabetes: >=200 mg/d L plus symptoms Blood Urea Nitrogen 10 10 - 20 mg/dL CERNER MILLENNIUM Creatinine 0.76(L) 0.80 - 1.50 mg/dL CERNER MILLENNIUM Comment: Please note that the pediatric reference intervals supplied above were not validated [place] [facility] [place] Results from pediatric patients should be interpreted in conjunction to the patient's age, height and muscle mass. Sodium 139 135 - 145 mmol/L CERNER MILLENNIUM Potassium 4.0 3.5 - 5.0 mmol/L CERNER MILLENNIUM Comment: Please note: ??Patients with WBC >100,000 may have falsely elevated Potassium levels. ??For accurate Potassium quantification in these patients send serum separator tube (gold top) for subsequent determinations. ??Contact the Clinical Chemistry Laboratory if there are any questions. Chloride 108(H) 98 - 107 mmol/L CERNER MILLENNIUM Carbon Dioxide 24 22 - 31 mmol/L CERNER MILLENNIUM Anion Gap 7 5 - 15 mmol/L CERNER MILLENNIUM Calcium 7.3(L) 8.5 - 10.5 mg/dL CERNER MILLENNIUM Est [...] the following links into your internet browser. http://www.nkdep.nih.gov/lab-evaluation.shtml http://www.kidney.org/professionals/ Blood specimen (specimen) 12/07/2013 5:28 PM EDT 12/07/2013 5:37 PM EDT Narrative Resulting Agency Comment Spec In Lab Romulo Ramires MD CHEMISTRY ORDERABL ES Performing Organization Address [facility] Co de Phone Number XOCHITL SHELBYIUM * POCT Glucose (12/07/2013 5:26 PM EDT) Pathologist [facility] Glucose, POC 145 60 - 199 mg/dL CERNER MILLENNIUM Comment: Supplemental ranges: <110 mg/dL before meals <200 mg/dL all other times of the day Blood specimen (specimen) 12/07/2013 5:26 PM EDT 12/07/2013 5:26 PM EDT Romulo Ramires MD POINT OF CARE TEST ORDERABLES Performing Organization Address [facility] Co de Phone Number XOCHITL MADRIDENNIUM * Urine culture Indwelling Catheter Urine (12/07/2013 5:14 PM EDT) Urine Culture ? Patient Name: CIRILO PONCE ?Ordered By: ROMULO RAMIRES ? MR#: [id number] ?LOC: ??OR ? /Sex: ?? 6 (28 years), ? Male ? PROCEDURE: Urine Culture ?SOURCE: U ICa ? COLLECTED: 12/07/2013 17:14 ? STARTED: 12/07/2013 18:36 ? FINAL REPORT ? Final Report ? Verified: 16:03 ? No growth (Less than 1,000 cfu/ml). ? ____ CERNER MILLENNIUM Urine specimen obtained via indwelling urinary catheter (specimen) 12/07/2013 5:14 PM EDT 12/07/2013 6:36 PM EDT Narrative Resulting Agency Comment Spec In Lab Romulo Ramires MD MICROBIOLOGY - GEN ERAL ORDERABLES CERNER MILLENNIUM * (ABNORMAL) BLOOD GAS 2 ARTERIAL (12/07/2013 3:17 PM EDT) pH, Arterial 7.37 CERNER MILLENNIUM PCO2, Arterial 43 mmHg CERNE R MILLENNIUM PO2, Arterial 121(H) mmHg CERNER MILLENNIUM Bicarbonate, Arterial 24.1 mmol/L CERNER MILLENNIUM Base Excess, Arterial -1.3 mmol/L CERNER MILLENNIUM Hgb Blood Gas 8.7(L) gm/dL CERNER MILLENNIUM Comment: Total Hemoglobin (in gm/dL) ?[place] [facility] [place]emat[place] ranges: ?Age ?Reference Range Less than 3 days ?14.5 to 22.5 3 days to 2 weeks ? 12.5 to 20.5 2 weeks to 1 month ?10.0 to 18.0 1 to 6 months ?9.4 to 14.0 6 months to 2 years ? 10.5 to 13.5 2 to 6 years ?11.5 to 13.5 6 to 12 years ? 11.5 to 15.5 12 to 18 years (female) 12.0 to 16.0 ? (male) ?? 13.0 to 16.0 > 18 years ? (female) 11.2 to 15.7 ? (male) ?? 13.7 to 17.5 Oxyhemoglobin, Arterial 96.3 % CERNER MILLENNIUM Carboxyhemoglob in, Arterial 1.5 % CERNER MILLENNIUM Comment: Nonsmokers: 0.5-1.5% COHB Smokers: Variable, but usually less than 10% Toxic: 20-30% COHB Lethal: Greater than 60% COHB Methemoglobin, Arterial 0.5 % CERNER MILLENNIUM Na Whole Blood 136 mmol/L CERNE R MILLENNIUM K Whole Blood 4.2 mmol/L CERNER MILLENNIUM Comment: Please note: Patients with WBC >100,000 may have falsely elevated Potassium levels. Contact the Clinical Chemistry Laboratory if there are any questions. ICa Whole Blood 1.05(L) mmol/L CERN ER MILLENNIUM Comment: Reference Ranges: ?? < 19 yrs: 1.22 - 1.37 mmol/L ? Adults: 1.15 - 1.33 mmol/L Note: ??Total bilirubin higher than 20 mg/dL may lead to falsely low ionized calcium. CL Whole Blood 111(H) mmol/L CERNE R MILLENNIUM Gluc Whole Bld 133 mg/dL CERNE R MILLENNIUM Comment:Diabetes: >=200 mg/d L plus symptoms. Blood specimen (specimen) 12/07/2013 3:17 PM EDT 12/07/2013 3:17 PM EDT Romulo Ramires MD POINT OF CARE TEST ORDERABLES CERNER MILLENNIUM * (ABNORMAL) BLOOD GAS 2 ARTERIAL (12/07/2013 1:40 PM EDT) pH, Arterial 7.33(L) CERNER MILLENNIUM PCO2, Arterial 48(H) mmHg CERNE R MILLENNIUM PO2, Arterial 218(H) mmHg CERNER MILLENNIUM Bicarbonate, Arterial 24.6 mmol/L CERNER MILLENNIUM Base Excess, Arterial -1.5 mmol/L CERNER MILLENNIUM Hgb Blood Gas 9.1(L) gm/dL CERNER MILLENNIUM Comment: Total Hemoglobin (in gm/dL) ?[place] [facility] [place] Hematology ranges: ?Age ?Reference Range Less than 3 days ?14.5 to 22.5 3 days to 2 weeks ? 12.5 to 20.5 2 weeks to 1 month ?10.0 to 18.0 1 to 6 months ?9.4 to 14.0 6 months to 2 years ? 10.5 to 13.5 2 to 6 years ?11.5 to 13.5 6 to 12 years ? 11.5 to 15.5 12 to 18 years (female) 12.0 to 16.0 ? (male) ?? 13.0 to 16.0 > 18 years ? (female) 11.2 to 15.7 ? (male) ?? 13.7 to 17.5 Oxyhemoglobin, Arterial 97.6(H) % CERNER MILLENNIUM Carboxyhemoglob in, Arterial 1.1 % CERNER MILLENNIUM Comment: Nonsmokers: 0.5-1.5% COHB Smokers: Variable, but usually less than 10% Toxic: 20-30% COHB Lethal: Greater than 60% COHB Methemoglobin, Arterial 0.5 % CERNER MILLENNIUM Na Whole Blood 136 mmol/L CERNE R MILLENNIUM K Whole Blood 4.5 mmol/L CERNER MILLENNIUM Comment: Please note: Patients with WBC >100,000 may have falsely elevated Potassium levels. Contact the Clinical Chemistry Laboratory if there are any questions. ICa Whole Blood 1.08(L) mmol/L CERN ER MILLENNIUM Comment: Reference Ranges: ?? < 19 yrs: 1.22 - 1.37 mmol/L ? Adults: 1.15 - 1.33 mmol/L Note: ??Total bilirubin higher than 20 mg/dL may lead to falsely low ionized calcium. CL Whole Blood 111(H) mmol/L CERNE R MILLENNIUM Gluc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 aPTT - Per Protocol, Routine Given 12/21/2013 6:15 AM EDT 8,200 Units Given 12/21/2013 12:35 AM EDT 8,200 Units heparin 25,000 units in dextrose 5% 500 mL infusion 500-7,000 Units/hr (rounded to 10-140 mL/hr), Intravenous, CONTINUOUS, Starting on Thu12/20/13 at 1715, Until Thu12/21/13 at 0939, Patient Weight 115-greater kg Initial dose - 1,750 units/hr = 35 mL/hr aPTT less than 60 sec - increase by 450 units/hr = 9 mL/hr aPTT 60-79 sec- increase by 250 units/hr = 5 mL/hr aPTT 80-114 sec - no change aPTT 115-129 sec - decrease by 100 units/hr = 2 mL/hr aPTT 130-145 sec - stop infusion for 30 min then decrease by 250 units/hr = 5 mL/hr aPTT greater than 145 sec - stop infusion for 60 min then decrease by 350 units/hr = 7 mL/hr aPTT greater than 145 sec X 2 - call warehouseman See Bolus dosing guidance for aPTT values less than 80 seconds under PRN medications Repeat aPTT 6 hours after initiating heparin. Then 6 hours after each dose adjustment. When 2 consecutive aPTT within target range of 80 - 114 seconds, change aPTT to once every 24 hours with A.M. labs while on heparin. RN to order required aPTT - Per Protocol, Routine Rate/Dose Change 12/21/2013 6:15 AM EDT 2,650 Units/hr 53 mL/hr New Bag 12/21/2013 6:10 AM EDT 2,200 Units/hr 44 mL/hr Rate/Dose Change 12/21/2013 12:34 AM EDT 2,200 Units/hr 44 mL/hr HYDROmorphone (DILAUDID) 2 mg/mL injection 1 dose, Starting on Thu12/16/13 at 1605, Until Thu12/16/13 at 1615, ANDRE MERCEDES: cabinet override Given 12/16/2013 4:15 PM EDT 2 mg ibuprofen (ADVIL;MOTRIN) tablet 800 mg 800 mg, Oral, EVERY 8 HOURS SCHEDULED, First dose on Thu12/21/13 at 1400, Until Discontinued, Administer orally with milk or food to minimize GI irritation. Maximum dose of 3200 mg from all sources in 24 hours, Routine Given 01/05/2014 6:06 AM EDT 800 mg Given 01/04/2014 9:45 PM EDT 800 mg Given 01/04/2014 1:38 PM EDT 800 mg iohexol (OMNIPAQUE) 350 mg iodine/mL injection 33,250 mg 33,250 mg (95 mL), Intravenous, ONCE PRN, 1 dose, Starting on Thu12/11/13 at 1012, Until [place] 12/11/13 at 1013, Per Protocol, Routine Given 12/11/2013 10:13 AM EDT 33,250 mg ipratropium-albuterol (DUONEB) 0.5 mg-3 mg(2.5 mg base)/3 mL nebulizer solution 3 mL 3 mL, Nebulization, EVERY 4 HOURS, First dose on Thu12/28/13 at 2200, Until Discontinued, Routine Given 01/02/2014 6:15 AM EDT 3 mLs Given 12/31/2013 10:25 PM EDT 3 mLs Given 12/31/2013 5:45 PM EDT 3 mLs lactated ringers 1,000 mL IV bolus Intravenous, ONCE, 1 dose, On Thu12/07/13 at 1815 Given 12/07/2013 6:15 PM EDT lactated ringers infusion 75 mL/hr, Intravenous, CONTINUOUS, Starting on Thu12/07/13 at 1715, Until [facility] 12/10/13 at 0949 New Bag 12/09/2013 11:46 PM EDT 75 mL/hr 75 mL/hr New Bag 12/09/2013 11:35 AM EDT 75 mL/hr 75 mL/hr Rate/Dose Change 12/09/2013 9:28 AM EDT 75 mL/hr 75 mL/h r lactated ringers infusion 100 mL/hr, Intravenous, CONTINUOUS, Starting on Thu12/14/13 at 0715, Until Edie 12/15/13 at 1543 Rate/Dose Verify 12/15/2013 6:00 AM EDT 100 mL/hr 100 mL/hr Rate/Dose Verify 12/15/2013 4:00 AM EDT 100 mL/hr 100 mL/ hr Rate/Dose Verify 12/15/2013 2:00 AM EDT 100 mL/hr 100 mL/ hr lactated ringers infusion 100 mL/hr, Intravenous, CONTINUOUS, Starting on Edie 12/15/13 at 1600, Until Thu12/16/13 at 1019 Rate/Dose Verify 12/16/2013 6:00 AM EDT 100 mL/hr 100 mL/hr Rate/Dose Verify 12/16/2013 4:00 AM EDT 100 mL/hr 100 mL/ hr Rate/Dose Verify 12/16/2013 2:00 AM EDT 100 mL/hr 100 mL/ hr lactated ringers infusion 50 mL/hr, Intravenous, CONTINUOUS, Starting on Thu12/16/13 at 1045, Until Thu12/17/13 at 1600 Rate/Dose Verify 12/16/2013 8:00 PM EDT 50 mL/hr 50 mL/hr New Bag 12/16/2013 10:45 AM EDT 50 mL/hr 50 mL/hr levETIRAcetam 500 mg/5 mL oral solution 500 mg 500 mg, Per NG tube, 2 TIMES DAILY, First dose on Thu12/08/13 at 0900, Until Discontinued, Routine Given 12/23/2013 9:50 AM EDT 500 mg Given 12/22/2013 9:00 PM EDT 500 mg Given 12/22/2013 8:10 AM EDT 500 mg lidocaine (XYLOCAINE) 10 mg/mL (1 %) injection 1 dose, Starting on Thu12/13/13 at 1144, Until Thu12/13/13 at 1200, KAILEE HONEYCUTT: cabinet override Given by Other 12/13/2013 12:00 PM EDT 2 mg LORazepam (ATIVAN) injection 0.5-1 mg 0.5-1 mg, Intravenous, EVERY 4 HOURS PRN, Starting on Thu12/19/13 at 1538, Until Thu12/26/13 at 1006, Anxiety, Routine Given 12/22/2013 1:31 PM EDT 1 mg Given 12/22/2013 8:35 AM EDT 1 mg LORazepam (ATIVAN) tablet 0.5-1 mg 0.5-1 mg, Oral, EVERY 4 HOURS PRN, Starting on Thu12/19/13 at 1538, Until Thu01/05/14 at 1137, Anxiety, Routine Given 01/04/2014 9:45 PM EDT 1 mg Given 12/27/2013 2:56 PM EDT 1 mg Given 12/26/2013 12:04 PM EDT 0.5 mg midazolam (PF) (VERSED) 1 mg/mL injection 1-2 mg 1-2 mg, Intravenous, EVERY 2 HOURS PRN, Starting on 12/10/13 at 0830, Until Thu12/11/13 at 0419, Sleep, Routine Given 12/11/2013 4:01 AM EDT 2 mg Given 12/11/2013 1:34 AM EDT 2 mg Given 12/10/2013 11:52 PM EDT 2 mg midazolam (PF) (VERSED) 1 mg/mL injection 1-2 mg 1-2 mg, Intravenous, EVERY 1 HOUR PRN, Starting on 12/11/13 at 0430, Until Thu12/13/13 at 1440, Sleep, Routine Bolus from Bag 12/13/2013 2:29 PM EDT 2 mg Bolus from Bag 12/13/2013 11:06 AM EDT 2 mg Bolus from Bag 12/13/2013 10:35 AM EDT 2 mg midazolam (PF) (VERSED) 1 mg/mL injection 2 mg 2 mg, Intravenous, ONCE, 1 dose, On Thu12/13/13 at 1245, Routine Given 12/13/2013 12:15 PM EDT 2 mg midazolam (PF) (VERSED) 1 mg/mL injection 2-4 mg 2-4 mg, Intravenous, EVERY 1 HOUR PRN, Starting on Thu12/13/13 at 1439, Until 12/19/13 at 2143, Sleep, Routine Given 12/19/2013 10:30 AM EDT 4 mg Given 12/19/2013 12:34 AM EDT 4 mg Given 12/18/2013 8:20 PM EDT 2 mg midazolam (VERSED) 2 mg/mL oral syrup 2 mg 2 mg, Oral, ONCE, 1 dose, On Thu12/13/13 at 1200, Routine Given 12/13/2013 12:00 PM EDT 2 mg midazolam 1 mg/mL (standard ADULT & Deondre greater than 20kg) infusion 1-10 mg/hr (rounded to 1-10 mL/hr), Intravenous, CONTINUOUS, Starting on 12/10/13 at 0900, Until 12/19/13 at 2143, [facility] for ventilator synchrony/Acute respiratory distress syndrome (ARDS) or greater than 72 hours patient. Titrate to ventilator synchrony. Doses greater than 10 mg/hr require critical care attending approval., Routine Rate/Dose Change 12/13/2013 10:00 PM EDT 1 mg/hr 1 mL/hr Rate/Dose Change 12/13/2013 9:00 PM EDT 3 mg/hr 3 mL/hr Rate/Dose Change 12/13/2013 8:00 PM EDT 4 mg/hr 4 mL/hr Multivitamin oral liquid 5 mL 5 mL, Oral, DAILY, First dose on Thu01/03/14 at 1400, Until Discontinued Given 01/05/2014 8:26 AM EDT 5 mLs Given 01/04/2014 8:59 AM EDT 5 mLs Given 01/03/2014 3:41 PM EDT 5 mLs oxyCODONE (ROXICODONE) 5 mg/5 mL solution 10 mg 10 mg, Oral, EVERY 4 HOURS, First dose on 12/17/13 at 1145, Until Discontinued, Via PEG, Routine Given 12/18/2013 9:25 AM EDT 10 mg Given 12/18/2013 3:45 AM EDT 10 mg Given 12/17/2013 9:13 PM EDT 10 mg oxyCODONE (ROXICODONE) 5 mg/5 mL solution 15 mg 15 mg, Oral, ONCE, 1 dose, On Thu12/19/13 at 0615, Routine Given 12/19/2013 6:05 AM EDT 15 mg oxyCODONE (ROXICODONE) 5 mg/5 mL solution 15-45 mg 15-45 mg, Oral, EVERY 4 HOURS PRN, Starting on Thu12/19/13 at 1615, Until Thu12/26/13 at 1006, Via PEG. Start with 15-30 mg q4h, then titrate if needed to maximum of 45 mg q4h., Routine Given 12/26/2013 9:31 AM EDT 30 mg Given 12/26/2013 5:28 AM EDT 30 mg Given 12/26/2013 1:27 AM EDT 30 mg oxyCODONE (ROXICODONE) 5 mg/5 mL solution 20 mg 20 mg, Oral, EVERY 4 HOURS, First dose (after last modification) on Thu12/18/13 at 1300, Until Discontinued, Via PEG, Routine Given 12/19/2013 1:00 PM EDT 20 mg Given 12/19/2013 9:00 AM EDT 20 mg Given 12/19/2013 5:37 AM EDT 20 mg oxyCODONE (ROXICODONE) 5 mg/5 mL solution 45 mg 45 mg, Oral, ONCE, 1 dose, On 12/24/13 at 0630, Routine Given 12/24/2013 6:30 AM EDT 45 mg oxyCODONE (ROXICODONE) immediate release tablet 15-45 mg 15-45 mg, Oral, EVERY 4 HOURS PRN, Starting on Thu12/26/13 at 1005, Until Edie 01/05/14 at 1137, Pain, Routine Given 01/05/2014 6:06 AM EDT 45 mg Given 01/05/2014 1:12 AM EDT 45 mg Given 01/04/2014 8:08 PM EDT 45 mg potassium chloride (KAYCIEL) 10 % oral solution 20-60 mEq 20-60 mEq, Per NG tube, EVERY 4 HOURS PRN, Starting on 12/10/13 at 0235, Until Thu12/12/13 at 2315, hypokalemia, For serum potassium: 3.9 - 4 mMol/L = 20 mEq. 3.6 - 3.8 mMol/L = 40 mEq. 3.3 - 3.5 mMol/L = 40 mEq. 2.8 - 3.2 mMol/L = 60 mEq. Less than 2.8 = Call physician, then begin potassium chloride replacement via central or peripheral IV route., Routine Given 12/12/2013 3:39 AM EDT 20 mEq Given 12/11/2013 3:10 AM EDT 40 mEq Given 12/10/2013 3:22 AM EDT 20 mEq potassium chloride 20 mEq in 100 mL 20 mEq, Intravenous, 2 TIMES DAILY, 2 doses, First dose on Edie 12/08/13 at 1330, Last dose on Edie 12/08/13 at 1900 New Bag 12/08/2013 7:00 PM EDT 20 mEq New Bag 12/08/2013 1:59 PM EDT 20 mEq potassium chloride 20 mEq in 100 mL 20 mEq, Intravenous, EVERY 1 HOUR PRN, Starting on Thu12/09/13 at 0608, Until Thu12/12/13 at 2315, Administer over 60 Minutes, hypokalemia, Administer 2 doses for a serum potassium (mMol/L) of 3.3 - 3.8 New Bag 12/10/2013 2:31 AM EDT 20 mEq 100 mL/hr New Bag 12/09/2013 11:32 PM EDT 20 mEq 100 mL/hr New Bag 12/09/2013 10:14 PM EDT 20 mEq 100 mL/hr propofol (DIPRIVAN) 10 mg/mL infusion 1 dose, Starting on Thu12/07/13 at 1658, Until Thu12/07/13 at 1710, ROSAURA SCANLON: cabinet override propofol (DIPRIVAN) infusion 5-50 mcg/kg/min, Intravenous, CONTINUOUS, Starting on Thu12/07/13 at 1715, Until Thu12/07/13 at 1830, Maintenance, short term sedation for mechanically ventilated patient. Titrate to RASS goal., Routine New Bag 12/07/2013 5:10 PM EDT 50 mcg/kg/min propofol (DIPRIVAN) infusion 5-50 mcg/kg/min ? 118 kg (rounded to 3.5-35.4 mL/hr), Intravenous, CONTINUOUS, Starting on Thu12/07/13 at 1900, Until Thu12/09/13 at 0926, Maintenance, short term sedation for mechanically ventilated patient. Titrate to RASS goal., Routine Rate/Dose Change 12/09/2013 9:00 AM EDT 15 mcg/kg/min 10.6 mL/hr Rate/Dose Change 12/09/2013 4:54 AM EDT 30 mcg/kg/min 21.2 mL/hr New Bag 12/09/2013 3:51 AM EDT 40 mcg/kg/min 28.3 mL/hr propofol (DIPRIVAN) infusion 0-30 mcg/kg/min ? 133.9 kg (rounded to 0-24.1 mL/hr), Intravenous, CONTINUOUS, Starting on Thu12/13/13 at 1530, Until Thu12/20/13 at 1308, Routine Rate/Dose Verify 12/19/2013 12:00 PM EDT 15 mcg/kg/min 12.1 mL/hr Rate/Dose Change 12/19/2013 10:30 AM EDT 15 mcg/kg/min 12. 1 mL/hr Rate/Dose Verify 12/19/2013 10:00 AM EDT 25 mcg/kg/min 20. 1 mL/hr protein powder (BENEPROTEIN) 2 scoop 2 scoop, Per NG tube, 3 TIMES DAILY, First dose on Thu12/09/13 at 1030, Until Discontinued, Routine Given 12/15/2013 3:00 PM EDT 2 scoops Given 12/14/2013 8:26 PM EDT 2 scoops Given 12/14/2013 3:00 PM EDT 2 scoops protein powder (BENEPROTEIN) 2 scoop 2 scoop, Per G Tube, 3 TIMES DAILY, First dose (after last modification) on Thu01/02/14 at 1500, Until Discontinued, Routine Given 01/04/2014 9:00 PM EDT 2 scoops Given 01/04/2014 9:04 AM EDT 2 scoops Given 01/03/2014 9:00 PM EDT 2 scoops protein powder (BENEPROTEIN) 3 scoop 3 scoop, Per NG tube, 3 TIMES DAILY, First dose (after last modification) on Thu12/21/13 at 0900, Until Discontinued, Routine Given 01/02/2014 9:00 AM EDT 3 scoops Given 01/01/2014 9:00 PM EDT 3 scoops Given 01/01/2014 8:34 AM EDT 3 scoops protein powder (BENEPROTEIN) 5 scoop 5 scoop, Per NG tube, 3 TIMES DAILY, First dose (after last modification) on Thu12/15/13 at 2100, Until Discontinued, Routine Given 12/20/2013 10:00 PM EDT 5 scoops Given 12/20/2013 4:00 PM EDT 5 scoops Given 12/20/2013 9:00 AM EDT 5 scoops QUEtiapine (SEROQUEL) tablet 100 mg 100 mg, Oral, 2 TIMES DAILY, First dose (after last modification) on Thu12/18/13 at 2100, Until Discontinued, Routine Given 12/24/2013 8:30 AM EDT 100 mg Given 12/23/2013 9:00 PM EDT 100 mg Given 12/23/2013 8:50 AM EDT 100 mg QUEtiapine (SEROQUEL) tablet 100 mg 100 mg, Oral, NIGHTLY, First dose on Thu12/24/13 at 2100, Until Discontinued, Routine Given 01/04/2014 9:44 PM EDT 100 mg Given 01/03/2014 9:11 PM EDT 100 mg Given 01/02/2014 9:39 PM EDT 100 mg QUEtiapine (SEROQUEL) tablet 50 mg 50 mg, Oral, 2 TIMES DAILY, First dose on Thu12/17/13 at 1300, Until Discontinued, Routine Given 12/18/2013 9:25 AM EDT 50 mg Given 12/17/2013 9:09 PM EDT 50 mg Given 12/17/2013 1:44 PM EDT 50 mg QUEtiapine (SEROQUEL) tablet 50 mg 50 mg, Oral, DAILY, First dose on Thu12/25/13 at 0900, Until Discontinued, Routine Given 01/05/2014 8:25 AM EDT 50 mg Given 01/04/2014 8:58 AM EDT 50 mg Given 01/03/2014 9:47 AM EDT 50 mg senna (SENOKOT) tablet 17.2 mg 17.2 mg, Oral, NIGHTLY, First dose on Thu12/23/13 at 2100, Until Discontinued, Routine Given 01/04/2014 9:45 PM EDT 17.2 mg Given 01/03/2014 9:12 PM EDT 17.2 mg Given 01/02/2014 9:39 PM EDT 17.2 mg sennosides (SENOKOT) 8.8 mg/5 mL oral syrup 8.8-35.2 mg 8.8-35.2 mg, Oral, 2 TIMES DAILY, First dose on Thu12/07/13 at 2100, Until Discontinued, Start with 1 tablet or liquid equivalent orally twice daily and titrate up to achieve: 1. One bowel movement at least every 48 hours, AND 2. Without straining, Routine Given 12/23/2013 8:50 AM EDT 17.6 mg Given 12/22/2013 9:00 PM EDT 8.8 mg Given 12/22/2013 8:10 AM EDT 17.6 mg sertraline (ZOLOFT) tablet 50 mg 50 mg, Oral, DAILY, First dose on Thu12/28/13 at 1400, Until Discontinued, Routine Given 01/05/2014 8:24 AM EDT 50 mg Given 01/04/2014 8:57 AM EDT 50 mg Given 01/03/2014 9:47 AM EDT 50 mg sodium chloride 0.9 % flush 5 mL 5 mL, Intravenous, EVERY 12 HOURS, First dose on Thu12/21/13 at 1030, Until Discontinued, Routine Given 01/04/2014 9:45 PM EDT 5 mLs Given 01/04/2014 11:07 AM EDT 5 mLs Given 01/03/2014 9:48 PM EDT 5 mLs sodium chloride 0.9% 500 mL IV bolus Intravenous, ONCE, 1 dose, On Thu12/13/13 at 1915 Given 12/13/2013 7:15 PM EDT sodium chloride 0.9% 500 mL IV bolus Intravenous, ONCE, 1 dose, On Thu12/14/13 at 0600 Given 12/14/2013 6:00 AM EDT sodium chloride 0.9% infusion 10 mL/hr, Intravenous, CONTINUOUS, Starting on Thu12/07/13 at 1900, Until Thu01/05/14 at 1137 New Bag 12/17/2013 9:00 PM EDT 10 mL/hr 10 mL /hr Rate/Dose Verify 12/12/2013 7:00 PM EDT 10 mL/hr 10 mL/h r Rate/Dose Verify 12/11/2013 7:44 PM EDT 10 mL/hr 10 mL/h r sodium chloride 0.9% infusion 10 mL/hr, Intravenous, CONTINUOUS, Starting on Thu12/10/13 at 2245, Until Edie 01/05/14 at 1137 New Bag 12/23/2013 12:00 AM EDT 10 mL/hr 10 mL/hr Rate/Dose Verify 12/22/2013 8:00 PM EDT 10 mL/hr 10 mL/h r New Bag 12/22/2013 12:00 AM EDT 10 mL/hr 10 mL/hr sodium chloride tablet 2 g 2 g, Oral, 3 TIMES DAILY, First dose on Thu12/21/13 at 0900, Until Discontinued, Routine Given 01/05/2014 8:25 AM EDT 2 g Given 01/04/2014 9:44 PM EDT 2 g Given 01/04/2014 3:38 PM EDT 2 g tube feeding diet 110 mL, Per NG tube, CONTINUOUS, Starting on Thu12/09/13 at 1030, Until Edie 12/15/13 at 1448, Administer flushes and check residuals per policy, Which tube feed product? Peptamen Bariatric, Strength: FULL Strength, Initial Rate: (mL/hr): 10, Advance by: (mL): 20, Advance every: Q6H, Goal final rate: (mL/hr): 110 Restarted 12/15/2013 11:56 AM EDT 110 mLs Rate/Dose Verify 12/15/2013 6:00 AM EDT 110 mLs 110 mL/ hr Rate/Dose Verify 12/15/2013 4:00 AM EDT 110 mLs 110 mL/ hr tube feeding diet 1,000 mL, Per NG tube, CONTINUOUS, Starting on Thu12/15/13 at 1515, Until Thu12/16/13 at 1212, Administer flushes and check residuals per policy, Which tube feed product? Peptamen Bariatric, Strength: FULL Strength, Initial Rate: (mL/hr): 10, Advance by: (mL): 20, Advance every: Q6H, Goal final rate: (mL/hr): 50 Rate/Dose Verify 12/16/2013 6:00 AM EDT 1,000 mLs 50 mL/hr Rate/Dose Verify 12/16/2013 4:00 AM EDT 1,000 mLs 50 mL/h r Rate/Dose Verify 12/16/2013 2:00 AM EDT 1,000 mLs 50 mL/h r tube feeding diet 1,000 mL, Per NG tube, CONTINUOUS, Starting on Thu12/16/13 at 1230, Until Thu12/20/13 at 1054, Administer flushes and check residuals per policy, Which tube feed product? Peptamen Bariatric, Strength: FULL Strength, Initial Rate: (mL/hr): 10, Advance by: (mL): 20, Advance every: Q6H, Goal final rate: (mL/hr): 50, Additional Information (if any): 15 scoups of protein powder Rate/Dose Verify 12/20/2013 10:00 AM EDT 1,000 mLs 50 mL/hr Rate/Dose Verify 12/20/2013 8:00 AM EDT 1,000 mLs 50 mL/h r Rate/Dose Verify 12/19/2013 8:00 PM EDT 1,000 mLs 50 mL/h r tube feeding diet 1,000 mL, Per NG tube, CONTINUOUS, Starting on Thu12/20/13 at 1115, Until Thu12/21/13 at 0838, Administer flushes and check residuals per policy, Which tube feed product? Peptamen Bariatric, Strength: FULL Strength, Initial Rate: (mL/hr): 10, Advance by: (mL): 20, Advance every: Q6H, Goal final rate: (mL/hr): 100, Additional Information (if any): 15 scoups of protein powder Rate/Dose Verify 12/21/2013 8:00 AM EDT 1,000 mLs 100 mL/hr Rate/Dose Change 12/21/2013 12:00 AM EDT 1,000 mLs 100 mL /hr New Bag 12/20/2013 8:00 PM EDT 1,000 mLs 90 mL/hr tube feeding diet 1,000 mL, Per NG tube, CONTINUOUS, Starting on 12/21/13 at 0900, Until 12/25/13 at 1554, Administer flushes and check residuals per policy, Which tube feed product? Peptamen Bariatric, Strength: FULL Strength, Initial Rate: (mL/hr): 10, Advance by: (mL): 20, Advance every: Q6H, Goal final rate: (mL/hr): 100, Additional Information (if any): 9 scoups of protein powder New Bag 12/24/2013 11:33 PM EDT 1,000 mLs 100 mL/hr New Bag 12/24/2013 12:00 PM EDT 1,000 mLs New Bag 12/23/2013 9:00 PM EDT 1,000 mLs tube feeding diet 1,000 mL, Per NG tube, CYCLIC, Starting on 12/25/13 at 1615, Until Edie 01/05/14 at 1137, Administer flushes and check residuals per policy, Which tube feed product? Peptamen Bariatric, Strength: FULL Strength, Initial Rate: (mL/hr): 10, Advance by: (mL): 20, Advance every: Q6H, Goal final rate: (mL/hr): 100, Additional Information (if any): 9 scoups of protein powder Rate/Dose Verify 01/03/2014 6:30 PM EDT 1,000 mLs 100 mL/hr New Bag 12/31/2013 6:00 PM EDT 1,000 mLs 100 mL/hr New Bag 12/30/2013 6:42 PM EDT 1,000 mLs vancomycin (VANCOCIN) 1,750 mg in sodium chloride 0.9% 285 mL 1,750 mg (1.75 g), Intravenous, at 95 mL/hr, EVERY 8 HOURS, First dose on Thu12/13/13 at 2200, Until Discontinued, This medication may have an associated drug lab level. Please check for lab orders, Routine, Indication for (Active or Suspected): Bacteremia/Sepsis New Bag 12/14/2013 2:00 PM EDT 1,750 mg 9 5 mL/hr New Bag 12/14/2013 6:00 AM EDT 1,750 mg 95 mL/hr New Bag 12/13/2013 10:00 PM EDT 1,750 mg 95 mL/hr vancomycin 2 g in sodium chloride 0.9% 500 mL 2,000 mg (2 g), Intravenous, ONCE, 1 dose, On Thu12/13/13 at 1045, This medication may have an associated drug lab level. Please check for lab orders, STAT, Indication for (Active or Suspected): Bacteremia/Sepsis New Bag 12/13/2013 1:55 PM EDT 2,000 mg vancomycin 2 g in sodium chloride 0.9% 500 mL 2,000 mg (2 g), Intravenous, EVERY 8 HOURS, First dose (after last reorder) on Thu12/14/13 at 2100, Until Discontinued, This medication may have an associated drug lab level. Please check for lab orders, Routine, Indication for (Active or Suspected): Bacteremia/Sepsis New Bag 12/20/2013 6:07 AM EDT 2,000 mg New 12/19/2013 9:30 PM EDT 2,000 mg New Bag 12/19/2013 1:00 PM EDT 2,000 mg vecuronium (NORCURON) 10 mg injection 1 dose, Starting on Thu12/16/13 at 1605, Until Thu12/16/13 at 1615, ANDRE MAGO: cabinet override Given 12/16/2013 4:15 PM EDT 10 mg warfarin (COUMADIN) tablet 10 mg 10 mg, Oral, ONCE, 1 dose, On Thu12/30/13 at 1700, Routine Given 12/30/2013 6:34 PM EDT 10 mg warfarin (COUMADIN) tablet 10 mg 10 mg, Oral, ONCE, 1 dose, On Thu12/31/13 at 1700, Routine Given 12/31/2013 5:00 PM EDT 10 mg warfarin (COUMADIN) tablet 10 mg 10 mg, Oral, ONCE, 1 dose, On Thu01/01/14 at 1700, Routine Given 01/01/2014 6:38 PM EDT 10 mg warfarin (COUMADIN) tablet 12.5 mg 12.5 mg, Oral, ONCE, 1 dose, On Thu01/02/14 at 1700, Routine Given 01/02/2014 4:01 PM EDT 12.5 mg warfarin (COUMADIN) tablet 12.5 mg 12.5 mg, Oral, ONCE, 1 dose, On Thu01/03/14 at 1700, Routine Given 01/03/2014 5:50 PM EDT 12.5 mg warfarin (COUMADIN) tablet 12.5 mg 12.5 mg, Oral, ONCE, 1 dose, On Thu01/04/14 at 1700, Routine Given 01/04/2014 5:39 PM EDT 12.5 mg warfarin (COUMADIN) tablet 5 mg 5 mg, Oral, ONCE, 1 dose, On Thu12/26/13 at 1700, Routine Given 12/26/2013 4:17 PM EDT 5 mg warfarin (COUMADIN) tablet 5 mg 5 mg, Oral, ONCE, 1 dose, On Thu12/27/13 at 1700, Routine Given 12/27/2013 5:42 PM EDT 5 mg warfarin (COUMADIN) tablet 5 mg 5 mg, Oral, ONCE, 1 dose, On Thu12/28/13 at 1900, Routine Given 12/28/2013 8:57 PM EDT 5 mg warfarin (COUMADIN) tablet 5 mg 5 mg, Oral, ONCE, 1 dose, On Thu12/29/13 at 1800, Routine Given 12/29/2013 9:29 PM EDT 5 mg documented in this encounter Active and Recently Administered Medications Times are shown in EDT. Scheduled Medication Order 01/03/2014 01/04/2014 01/05/2014 acetaminophen (TYLENOL) 650 mg/20.3 mL oral liquid 1,000 mg 1,000 mg, Oral, EVERY 6 HOURS SCHEDULED, First dose (after last modification) on Thu12/19/13 at 1600, Until Discontinued, Maximum dose of acetaminophen is 4,000 mg from all sources in 24 hours., Routine 0600 (Not Given - Provider: Tim Pierre RN - Reason: Patient/family refused)1200 (Not Given - Provider: Marylin Farmer RN - Reason: Patient/family refused)1749 (Given - Provider: Kellen Young RN)2310 (Given - Provider: Tim Pierre, MYRON) 0504 (Given - Provider: Tim Pierre, MYRON)1107 (Given - Provider: Nayla Law RN)1738 (Given - Provider: Nayla Law, MYRON) 0024 (Given - Provider: Tiana Spaulding, MYRON)0605 (Given - Provider: Tiana Spaulding, MYRON) aspirin chewable tablet 81 mg 81 mg, Oral, DAILY, First dose on Thu12/21/13 at 1930, Until Discontinued, Routine 0947 (Given - Provider: Marylin Farmer RN) 0858 (Given - Provider: Nayla Law RN) 0825 (Given - Provider: Nayla Law RN) bisacodyl (DULCOLAX) EC tablet 10 mg (COMPLETED) 10 mg, Oral, ONCE, 1 dose, On Thu01/03/14 at 2300, Routine 2309 (Given - Provider: Tim Pierre, MYRON) bisacodyl (DULCOLAX) suppository 10 mg 10 mg, Rectal, EVERY 24 HOURS, First dose on Thu12/23/13 at 1700, Until Discontinued, Routine 1553 (Given - Provider: Kellen Young RN) 0900 (Not Given - Provider: Nayla Law RN - Reason: Patient/family refused) 0900 (Not Given - Provider: Nayla Law RN - Reason: Patient/family refused) docusate sodium (COLACE) capsule 100 mg 100 mg, Oral, 3 TIMES DAILY, First dose on Thu12/23/13 at 2100, Until Discontinued, Routine 0947 (Given - Provider: Marylin Farmer RN)1452 (Given - Provider: Marylin Farmer RN)2111 (Given - Provider: Tim Pierre, MYRON) 0858 (Given - Provider: Nayla Law RN)1500 (Not Given - Provider: Nayla Law RN - Reason: Patient/family refused)2145 (Given - Provider: Tim Pierre, MYRON) 0900 (Not Given - Provider: Nayla Law RN - Reason: Patient/family refused) enoxaparin (LOVENOX) injection 120 mg 120 mg, Subcutaneous, EVERY 12 HOURS SCHEDULED (2 times per day), First dose on Thu12/21/13 at 0930, Until Discontinued, Routine 0949 (Given - Provider: Marylin Farmer RN)2112 (Given - Provider: Tim Pierre RN) 0859 (Given - Provider: Nayla Law RN)214 (Given - Provider: Tim Pierre RN) 0826 (Given - Provider: Nayla Law RN) famotidine (PEPCID) tablet 20 mg (CANCELED)(Linked Group 1) 20 mg, Oral, 2 TIMES DAILY, First dose on Thu12/07/13 at 2100, Until Discontinued, Routine 0948 (Given - Provider: Marylin Farmer RN)211 (Given - Provider: Tim Pierre RN) 08 (Given - Provider: Nayla Law RN)214 (Given - Provider: Tim Pierre RN) 0825 (Given - Provider: Nayla Law RN) fentaNYL (DURAGESIC) 100 mcg/hr patch 2 patch(Linked Group 2) 2 patch, Transdermal, EVERY 72 HOURS, First dose (after last modification) on Thu12/24/13 at 0915, Until Discontinued, Place fentaNYL patch, Routine 0828 (Patch Applied - Provider: Nayla Law RN) gabapentin (NEURONTIN) capsule 300 mg 300 mg, Oral, 3 TIMES DAILY, First dose on Thu12/24/13 at 1500, Until Discontinued, Routine 0947 (Given - Provider: Marylin Farmer RN)1452 (Given - Provider: Marylin Farmer RN)2148 (Given - Provider: Tim Pierre RN) 0858 (Given - Provider: Nayla Law RN)1539 (Given - Provider: Nayla Law RN)214 (Given - Provider: Tim Pierre, MYRON) 0825 (Given - Provider: Nayla Law RN) ibuprofen (ADVIL;MOTRIN) tablet 800 mg 800 mg, Oral, EVERY 8 HOURS SCHEDULED, First dose on Thu12/21/13 at 1400, Until Discontinued, Administer orally with milk or food to minimize GI irritation. Maximum dose of 3200 mg from all sources in 24 hours, Routine 0600 (Not Given - Provider: Tim Pierre RN - Reason: Patient/family refused)1452 (Given - Provider: Marylin Farmer, MYRON)2111 (Given - Provider: Tim Pierre, RN) 0504 (Given - Provider: Tim Pierre RN)1338 (Given - Provider: Nayla Law RN)2145 (Given - Provider: Tim Pierre RN) 0606 (Given - Provider: Tiana Spaulding RN) ipratropium-albuterol (DUONEB) 0.5 mg-3 mg(2.5 mg base)/3 mL nebulizer solution 3 mL 3 mL, Nebulization, EVERY 4 HOURS, First dose on Thu12/28/13 at 2200, Until Discontinued, Routine 0200 (Not Given - Provider: Tim Pierre RN - Reason: Patient/family refused)0600 (Not Given - Provider: Tim Pierre RN - Reason: Patient/family refused)1000 (Not Given - Provider: Marylin Farmer RN - Reason: Patient/family refused)1400 (Not Given - Provider: Marylin Farmer RN - Reason: Patient/family refused)1800 (Not Given - Provider: Kellen Young RN - Reason: Patient/family refused)2200 (Not Given - Provider: Tim Pierre RN - Reason: Patient/family refused) 0200 (Not Given - Provider: Tim Pierre RN - Reason: Patient/family refused)0600 (Not Given - Provider: Tim Pierre RN - Reason: Patient/family refused)1000 (Not Given - Provider: Nayla Law RN - Reason: Patient/family refused)1400 (Not Given - Provider: Nayla Law RN - Reason: Patient/family refused)1800 (Not Given - Provider: Nayla Law RN - Reason: Patient/family refused)2200 (Not Given - Provider: Tim Pierre RN - Reason: Patient/family refused) 0200 (Not Given - Provider: Tiana Spaulding RN - Reason: Patient/family refused)0600 (Not Given - Provider: Tiana Spaulding RN - Reason: Patient/family refused) Multivitamin oral liquid 5 mL 5 mL, Oral, DAILY, First dose on Thu01/03/14 at 1400, Until Discontinued 1541 (Given - Provider: Kellen Young RN) 0859 (Given - Provider: Nayla Law RN) 0826 (Given - Provider: Nayla Law, MYRON) protein powder (BENEPROTEIN) 2 scoop 2 scoop, Per G Tube, 3 TIMES DAILY, First dose (after last modification) on Thu01/02/14 at 1500, Until Discontinued, Routine 0900 (Not Given - Provider: Marylin Farmer RN - Reason: Patient/family refused)1541 (Given - Provider: Kellen Young RN)2100 (Given - Provider: Tim Pierre, MYRON) 0904 (Given - Provider: Nayla Law RN)1500 (Not Given - Provider: Nayla Law RN - Reason: Patient/family refused)2100 (Given - Provider: Tim Pierre RN) 0900 (Not Given - Provider: Nayla Law RN - Reason: Patient/family refused) QUEtiapine (SEROQUEL) tablet 100 mg 100 mg, Oral, NIGHTLY, First dose on Thu12/24/13 at 2100, Until Discontinued, Routine 211 (Given - Provider: Tim Pierre RN) 214 (Given - Provider: Tim Pierre, MYRON) QUEtiapine (SEROQUEL) tablet 50 mg 50 mg, Oral, DAILY, First dose on Thu12/25/13 at 0900, Until Discontinued, Routine 0947 (Given - Provider: Marylin Farmer RN) 0858 (Given - Provider: Nayla Law, MYRON) 0825 (Given - Provider: Nayla Law RN) senna (SENOKOT) tablet 17.2 mg (CANCELED) 17.2 mg, Oral, NIGHTLY, First dose on Thu12/23/13 at 2100, Until Discontinued, Routine 2111 (Given - Provider: Tim Pierre, MYRON) 2144 (Given - Provider: Tim Pierre, MYRON) sertraline (ZOLOFT) tablet 50 mg 50 mg, Oral, DAILY, First dose on Thu12/28/13 at 1400, Until Discontinued, Routine 0947 (Given - Provider: Marylin Farmer RN) 0857 (Given - Provider: Nayla Law RN) 0824 (Given - Provider: Nayla Law RN) sodium chloride 0.9 % flush 5 mL (CANCELED) 5 mL, Intravenous, EVERY 12 HOURS, First dose on Thu12/21/13 at 1030, Until Discontinued, Routine 0951 (Given - Provider: Marylin Farmer RN)2148 (Given - Provider: Tim Pierre, MYRON) 1107 (Given - Provider: Nayla Law, MYRON)2145 (Given - Provider: Tim Pierre, MYRON) sodium chloride tablet 2 g (CANCELED) 2 g, Oral, 3 TIMES DAILY, First dose on Thu12/21/13 at 0900, Until Discontinued, Routine 0947 (Given - Provider: Marylin Farmer RN)1540 (Given - Provider: Kellen Young RN)2112 (Given - Provider: Tim Pierre, MYRON) 0859 (Given - Provider: Nayla Law, MYRON)1538 (Given - Provider: Nayla Law, MYRON)2144 (Given - Provider: Tim Pierre, MYRON) 0825 (Given - Provider: Nayla Law, MYRON) warfarin (COUMADIN) tablet 12.5 mg (COMPLETED) 12.5 mg, Oral, ONCE, 1 dose, On Thu01/03/14 at 1700, Routine 1750 (Given - Provider: Kellen Young RN) warfarin (COUMADIN) tablet 12.5 mg (COMPLETED) 12.5 mg, Oral, ONCE, 1 dose, On Thu01/04/14 at 1700, Routine 1739 (Given - Provider: aNyla Law, MYRON) Continuous Medication Order 01/03/2014 01/04/2014 01/05/2014 tube feeding diet (CANCELED) 1,000 mL, Per NG tube, CYCLIC, Starting on Thu12/25/13 at 1615, Until Thu01/05/14 at 1137, Administer flushes and check residuals per policy, Which tube feed product? Peptamen Bariatric, Strength: FULL Strength, Initial Rate: (mL/hr): 10, Advance by: (mL): 20, Advance every: Q6H, Goal final rate: (mL/hr): 100, Additional Information (if any): 9 scoups of protein powder 1830 (Rate/Dose Verify - Provider: Marylin Farmer RN) 1900 (Not Given - Provider: Nayla Law RN - Reason: Patient/family refused - Comment: Patient refused at this time. States I'll do that when my guest leaves.) PRN Medication Order 01/03/2014 01/04/2014 01/05/2014 LORazepam (ATIVAN) tablet 0.5-1 mg(Linked Group 3) 0.5-1 mg, Oral, EVERY 4 HOURS PRN, Starting on Thu12/19/13 at 1538, Until Edie 01/05/14 at 1137, Anxiety, Routine 2145 (Given - Provider: Tim Pierre RN) oxyCODONE (ROXICODONE) immediate release tablet 15-45 mg 15-45 mg, Oral, EVERY 4 HOURS PRN, Starting on Thu12/26/13 at 1005, Until Edie 01/05/14 at 1137, Pain, Routine 0947 (Given - Provider: Marylin Farmer RN)1451 (Given - Provider: Marylin Farmer RN)2112 (Given - Provider: Tim Pierre, MYRON) 0500 (Given - Provider: Tim Pierre, MYRON)1106 (Given - Provider: Nayla Law RN)1539 (Given - Provider: Nayla Law RN)2008 (Given - Provider: Tim Pierre, MYRON) 0112 (Given - Provider: Tiana Spaulding, MYRON)0606 (Given - Provider: Tiana Spaulding RN) Linked Groups Order Group 1: famotidine (PEPCID) 20 mg (CANCELED) 20 mg, Intravenous, 2 TIMES DAILY, First dose on Thu12/07/13 at 2100, Until Discontinued, Administer over 30 Minutes Or famotidine (PEPCID) tablet 20 mg (CANCELED)Jump to med 20 mg, Oral, 2 TIMES DAILY, First dose on Thu12/07/13 at 2100, Until Discontinued, Routine Group 2: fentaNYL (DURAGESIC) 100 mcg/hr patch 2 patchJump to med 2 patch, Transdermal, EVERY 72 HOURS, First dose (after last modification) on Thu12/24/13 at 0915, Until Discontinued, Place fentaNYL patch, Routine And Patch Verification (CANCELED) Transdermal, 2 TIMES DAILY, First dose (after last modification) on Thu12/23/13 at 2100, Until Discontinued, Verify fentaNYL patch And fentaNYL (DURAGESIC) patch REMOVAL (CANCELED) Transdermal, EVERY 72 HOURS, First dose (after last modification) on Thu12/24/13 at 0900, Until Discontinued, Remove fentaNYL patch Group 3: LORazepam (ATIVAN) tablet 0.5-1 mgJump to med 0.5-1 mg, Oral, EVERY 4 HOURS PRN, Starting on Thu12/19/13 at 1538, Until Edie 01/05/14 at 1137, Anxiety, Routine Or LORazepam (ATIVAN) injection 0.5-1 mg (CANCELED) 0.5-1 mg, Intravenous, EVERY 4 HOURS PRN, Starting on Thu12/19/13 at 1538, Until Thu12/26/13 at 1006, Anxiety, Routine documented in this encounter 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
--- OUTSIDE RECORDS SUMMARY | 2024-05-25 11:21 | XMS_ITS | Encounter Summary ---
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 8:08 PM EDT [...] LES CERNER MILLENNIUM * (ABNORMAL) Hemogram (12/18/2013 4:02 AM EDT) [...] Metabolic Panel (non-fasting) (12/18/2013 4:02 AM EDT) Glucose 108 60 - 199 mg/dL CERNER MILLENNIUM Comment:Diabetes: >=200 mg/d L plus symptoms Blood Urea Nitrogen 11 10 - 20 mg/dL CERNER MILLENNIUM Creatinine 0.63(L) 0.80 - 1.50 mg/dL CERNER MILLENNIUM Comment: Please note that the pediatric reference intervals supplied above were not validated at [facility]. Results from pediatric patients should be interpreted [...] the following links into your internet browser. [email or web address] Blood specimen (specimen) 12/18/2013 4:02 AM EDT 12/18/2013 4:11 AM EDT Narrative Resulting Agency Comment Spec In Lab Romulo Ramires MD CHEMISTRY ORDERABL ES Performing Organization Address [facility] de Phone Number [employer] * (ABNORMAL) Prothrombin Time (12/18/2013 4:02 AM EDT) Prothrombin Time 15.7(H) 12.0 - 15.0 sec CERNER MILLENNIUM Comment: [facility] Transfusion Committee Guidelines: INR less than 2.0, [...] MD HEMATOLOGY ORDERAB LES Performing Organization Address [facility] de Phone Number XOCHITL MADRIDAkippaAV * Blood culture (12/17/2013 8:50 PM EDT) Blood Culture ? Patient Name: CIRILO PONCE ?Ordered By: KELLY OLIVASVALERIA Briceño ? MR#: [id number] ?LOC: ??ICUS ? /Sex: ??1985 (28 years), ? Male ? PROCEDURE: Blood Culture ?SOURCE: Blood ? COLLECTED: 12/17/2013 20:50 ?FREE TEXT SOURCE: L HAND ? STARTED: 12/17/2013 21:13 ? FINAL REPORT ? Final Report ? Verified:2013 23:01 ? No growth at 5 days. ? PRELIMINARY REPORT ? Preliminary Report ? Verified:2013 23:01 ? No growth at 4 days. ? XOCHITL MILLENNIUM Blood specimen (specimen) 12/17/2013 8:50 PM EDT 12/17/2013 9:13 PM EDT Comment:L HAND Narrative Resulting Agency Comment Spec In Lab Cirilo Olivas MD MICROBIOLOGY - BLOOD ORDERABLES XOCHITL WHITAKER * Blood culture (12/17/2013 8:45 PM EDT) Blood Culture ? Patient Name: DAVID CIRILO Briceño ?Ordered By: CIRILO OLIVAS ? MR#: [id number] ?LOC: ??ICUS ? /Sex: ??1985 (28 years), ? Male ? PROCEDURE: Blood Culture ?SOURCE: Blood ? COLLECTED: 12/17/2013 20:45 ?FREE TEXT SOURCE: L ANTECUBITAL ? STARTED: 12/17/2013 21:14 ? FINAL REPORT ? Final Report ? Verified:2013 23:01 ? No growth at 5 days. ? PRELIMINARY REPORT ? Preliminary Report ? Verified:2013 23:01 ? No growth at 4 days. ? XOCHITL MADRIDBAN[facility] DESERT MEDICAL CENTERIUM Blood specimen (specimen) 12/17/2013 8:45 PM EDT 12/17/2013 9:14 PM EDT Comment:L ANTECUBITAL Narrative Resulting Agency Comment Spec In Lab Cirilo Olivas MD MICROBIOLOGY - BLOOD ORDERABLES [facility] * Urine culture Indwelling Catheter Urine (12/17/2013 8:35 PM EDT) Urine Culture ? Patient Name: DAVID CIRILO Briceño ?Ordered By: CIRILO OLIVAS ? MR#: [id number] ?LOC: ??ICUS ? /Sex: ?? 6 (28 years), ? Male ? PROCEDURE: Urine Culture ?SOURCE: U [facility] ? COLLECTED: 12/17/2013 20:35 ? STARTED: 12/17/2013 [...] Urine Dipstick Cloudy(A) Clear CERNER MILLENNIUM Specific [place] Urine Automated 1.018 1.002 - 1.030 CERNER [...] In Lab Cirilo Olivas MD URINE ORDERABLES XOCHITL SHELBYIUM * POCT Glucose (12/17/2013 5:34 PM EDT) Glucose, POC 118 60 - 199 mg/dL CERNER JULIUSENNIUM Comment: Supplemental ranges: <110 mg/dL before meals <200 mg/dL all other times of the day Blood specimen (specimen) 12/17/2013 5:34 PM EDT 12/17/2013 5:34 PM EDT Romulo Ramires MD POINT OF CARE TEST ORDERABLES Performing Organization Address City/[facility]/ZIP Co de Phone Number XOCHITL SHELBYIUM * (ABNORMAL) Differential, Automated (12/17/2013 5:00 PM [...] LES CERNER MILLENNIUM * (ABNORMAL) Hemogram (12/17/2013 5:00 PM EDT) [...] intervals supplied above were not validated at [facility]. Results from pediatric patients should be interpreted [...] the following links into your internet browser. [email or web address] [email or web address]/DHMCnkf Blood specimen (specimen) 12/17/2013 5:00 PM EDT 12/17/2013 5:06 PM EDT Narrative Resulting Agency Comment Spec In Lab Romulo Ramires MD CHEMISTRY ORDERABL ES Performing Organization Address [facility] de Phone Number XOCHITL WHITAKER * EKG 12 Lead (12/17/2013 7:22 AM EDT) Ventricular rate 74 BPM MUSE SYSTEM Atrial Rate 74 BPM MUSE SYSTEM P-R Interval 148 ms MUSE SYSTEM QRS Duration 88 ms MUSE SYSTEM Q-T Interval 426 ms MUSE SYSTEM QTC Calculated (Bezet) 472 ms MUSE SYSTEM Calculated P [place] 47 degrees MUSE SYSTEM Calculated R [place] 62 degrees MUSE SYSTEM Calculated T [place] 23 degrees MUSE SYSTEM INTERPRETATION Normal sinus rhythm Normal ECG No previous ECGs available Confirmed by Bradley Basilio MD ([id number]) on 12/17/2013 1:26:14 PM MUSE SYSTEM 12/17/2013 7:22 AM EDT 12/17/2013 1:26 PM EDT Cirilo Olivas MD ECG ORDERABLES Performing Organization Address [facility] de Phone Number MUSE SYSTEM * Percutaneous [...] Metabolic Panel (non-fasting) (12/17/2013 3:30 AM EDT) [facility] Signature Glucose 96 60 - 199 mg/dL CERNER MILLENNIUM Comment:Diabetes: >=200 mg/d L plus symptoms Blood Urea Nitrogen 13 10 - 20 mg/dL CERNER MILLENNIUM Creatinine 0.61(L) 0.80 - 1.50 mg/dL CERNER MILLENNIUM Comment: Please note that the pediatric reference intervals supplied above were not validated at [facility]. Results from pediatric patients should be interpreted [...] the following links into your internet browser. [email or web address]://[email or web address] [email or web address]://[employer]/DHMCnkf Blood specimen (specimen) 12/17/2013 3:30 AM EDT 12/17/2013 3:37 AM EDT Narrative Resulting Agency Comment Spec In Lab Romulo Ramires MD CHEMISTRY ORDERABL ES Performing Organization Address [facility] Co de Phone Number CERNER MILLENNIUM * (ABNORMAL) Prothrombin Time (12/17/2013 3:30 AM EDT) Prothrombin Time 15.4(H) 12.0 - 15.0 sec CERNER MILLENNIUM Comment: [facility] Transfusion Committee Guidelines: INR less than 2.0, [...] MD HEMATOLOGY ORDERAB LES Performing Organization Address [facility] de Phone Number CERNER MILLENNIUM * Scan, Peripheral Blood (12/16/2013 3:40 PM EDT) Plat estimate Normal CERNER MILLENNIUM RBC Morphology Abnormal CERNE R MILLENNIUM Rouleaux Present CERNER MILLENNIUM Plat, Giant Less than 1 /HPF CERNER MILLENNIUM Blood specimen (specimen) 12/16/2013 3:40 PM EDT 12/16/2013 3:46 PM EDT Narrative Resulting Agency Comment Spec In Lab Romulo Ramires MD HEMATOLOGY ORDERAB LES Performing Organization Address [facility]/State/ZIP Co de Phone Number CERNER MILLENNIUM [...] ORDERAB LES XOCHITL WHITAKER * (ABNORMAL) Hemogram (12/16/2013 3:40 PM EDT) [...] Ramires MD HEMATOLOGY ORDERAB LES [facility] * (ABNORMAL) Basic Metabolic Panel (non-fasting) (12/16/2013 3:40 PM EDT) Pathologist [facility] Glucose 95 60 - 199 mg/dL CERNER MILLENNIUM Comment:Diabetes: >=200 mg/d L plus symptoms Blood Urea Nitrogen 15 10 - 20 mg/dL CERNER MILLENNIUM Creatinine 0.52(L) 0.80 - 1.50 mg/dL CERNER MILLENNIUM Comment: Please note that the pediatric reference intervals supplied above were not validated at [facility]. Results from pediatric patients should be interpreted [...] the following links into your internet browser. [email or web address]://[email or web address] [email or web address]://[employer]/DHMCnkf Blood specimen (specimen) 12/16/2013 3:40 PM EDT 12/16/2013 3:46 PM EDT Narrative Resulting Agency Comment Spec In Lab Romulo Ramires MD CHEMISTRY ORDERABL ES [facility] * Echocardiogram Transthoracic(Leb) (12/16/2013 3:31 PM EDT) EF 61 HEARTLAB SYSTEM Anatomical Region Laterality Modality Other 12/16/2013 Narrative 12/16/2013 3:48 PM EDT Amended Report Procedure: ? Transthoracic Echocardiogram Patient: ? DAVID Briceño ? (Age): 1985(28) Med Rec#: ?[id number] ? Sex: ?M ? Site Loc: ?[facility] ? Ht / Wt: ??190(cm)/124.4(k Pt. Loc: ? Adult Floor ?BSA: ?2.56 Study Date: ?12/16/2013 ? Pt. Type: Inpatient Tape: ? Referring: Cirilo Olivas MD Referring: ZANAROBERTJessica Supervisor [employer]: Virginia Granados Supervisor [employer] 2: Cristopher Mays ([id number]) Interpreting Fellow: Cristopher Mays ([id number]) Diagnosis:CPT Code(s): ??Echo Full (20235), ??Spectral Doppler (04904), Color Doppler (74367), ??Saline Contrast (000), Indication(s): ??Hypoxia Rhythm: HR [...] ? Mid-Inferior ?Normal ? Mid-Inferoseptal ?Normal ? Archbold-Septal ? Normal ? Archbold-Anterior ? Normal ? Archbold-Lateral ?Normal ? Archbold-Inferior ? Normal ? Archbold-Tip ?Normal ? Chambers ?Value ?Units (Range) ? [...] 12/16/2013 15:48:29 Images reviewed and interpretation verified [facility] Procedure Note Wiliam Wang MD - 12/16/2013 Amended Report Procedure: Transthoracic Echocardiogram Patient: DAVID Briceño (Age): 1985(28) Med Rec#: [id number] Sex: M Site Loc: [facility] Ht / Wt: 190(cm)/124.4(k Pt. Loc: Adult Floor BSA: 2.56 Study Date: 12/16/2013 Pt. Type: Inpatient Tape: Referring: Cirilo Olivas MD Referring: HOLLANDROBERTR Supervisor [employer]ly[employer] Tinning: Virginia Granados Supervisor [employer]ning 2: Cristopher Mays ([id number]) Interpreting Fellow: Cristopher Mays ([id number]) Diagnosis:CPT Code(s): Echo Full (47497), Spectral Doppler (39388), Color Doppler (14882), Saline Contrast (000), Indication(s): Hypoxia Rhythm: HR [...] Normal Mid-Posterolateral Normal Mid-Inferior Normal Mid-Inferoseptal Normal Archbold-Septal Normal Archbold-Anterior Normal Archbold-Lateral Normal Archbold-Inferior Normal Archbold-Tip Normal Chambers Value Units (Range) EF Bi-p [...] This report has been electronically signed by: Karissa Wang M.D. 12/16/2013 15:48:29 Images reviewed and interpretation verified [facility] Cirilo Olivas MD ECHO ORDERABLES * Vancomycin, trough (12/16/2013 3:56 AM EDT) Vancomycin, Trough 12.2 mg/L C EMILIA [facility] Comment: Therapeutic range for complicated infections such [...] Time 14.7 12.0 - 15.0 sec [facility]L [facility] Comment: [facility] Transfusion Committee Guidelines: INR less than 2.0, PTT less than OR equal to 43.5 seconds, or Fibrinogen greater than or equal to 100 mg/dl indicate adequate procoagulant activity for hemostasis in patients without underlying bleeding disorders. International Normalization Ratio 1.1 0.9 - 1.1 MARBINNER MILLENNIUM Blood specimen (specimen) 12/16/2013 3:56 AM EDT 12/16/2013 4:06 AM EDT Narrative Resulting Agency Comment Spec In Lab Romulo Ramires MD HEMATOLOGY ORDERAB LES CERNER MILLENNIUM * (ABNORMAL) Differential, Automated (12/16/2013 12:15 AM [...] MD HEMATOLOGY ORDERAB LES Performing Organization Address City/[facility] Co de Phone Number CERNER MILLENNIUM * (ABNORMAL) Hemogram (12/16/2013 12:15 [...] intervals supplied above were not validated at [facility]. Results from pediatric patients should be interpreted [...] the following links into your internet browser. [email or web address]://[email or web address] http://[employer]/DHnkf Blood specimen (specimen) 12/16/2013 12:15 AM EDT 12/16/2013 12:21 AM EDT Narrative Resulting Agency Comment Spec In Lab Romulo Ramires MD CHEMISTRY ORDERABL ES XOCHITL SHELBYIUM * XR chest PA or AP- 1 [...] AP/XPORT Clinical History hypoxia, R CXT to [facility] Comparison 12/13/2013. Technique Portable AP semi upright [...] Metabolic Panel (non-fasting) (12/15/2013 11:55 AM EDT) Pathologist [facility] Glucose 120 60 - 199 mg/dL CERNER MILLENNIUM Comment:Diabetes: >=200 mg/d L plus symptoms Blood Urea Nitrogen 17 10 - 20 mg/dL CERNER MILLENNIUM Creatinine 0.55(L) 0.80 - 1.50 mg/dL CERNER MILLENNIUM Comment: Please note that the pediatric reference intervals supplied above were not validated at [facility]. Results from pediatric patients should be interpreted [...] the following links into your internet browser. http://[employer]/DHnkdep [email or web address]://[employer]/DHMCnkf Blood specimen (specimen) 12/15/2013 11:55 AM EDT 12/15/2013 12:05 PM EDT Narrative Resulting Agency Comment Spec In Lab Romulo Ramires MD CHEMISTRY ORDERABL ES [employer]OCHITL MADRIDCDC Corporation * XR abdomen 1 view (12/15/2013 9:56 [...] 12.0 - 15.0 sec CERNER JULIUSENNIUM Comment: [facility] Transfusion Committee Guidelines: INR less than 2.0, [...] MD HEMATOLOGY ORDERAB LES Performing Organization Address [facility] Co de Phone Number CERHELENA MADRIDENNIUM * Antibody screen (12/15/2013 1:05 AM EDT) Ab Screen Interp Negative CERHELENA MADRIDENNIUM Expires at [id number] on: [id number] CERNER JULIUSENNIUM Blood specimen (specimen) 12/15/2013 1:05 AM EDT 12/15/2013 1:05 AM EDT Narrative Resulting Agency Comment Spec In Lab Cirilo Olivas MD BLOOD BANK LAB ORDER SOSA Performing Organization Address City/[facility]/ZIP Co de Phone Number CERHELENA SHELBYIUM * ABO/Rh Typing (12/15/2013 1:05 AM EDT) ABORH Type O Pos CERNER MILLENNIUM Blood specimen (specimen) 12/15/2013 1:05 AM EDT 12/15/2013 1:05 AM EDT Narrative Resulting Agency Comment Spec In Lab Cirilo Olivas MD BLOOD BANK LAB ORDER SOSA Performing Organization Address [facility] Co de Phone Number CERNER JULIUSENNIUM * Prepare RBC (12/15/2013 12:35 AM EDT) Dispensed? Yes CERNER MILLENNIUM Blood specimen (specimen) 12/15/2013 12:35 AM EDT 12/15/2013 12:34 AM EDT Cirilo Olivas MD BLOOD BANK PRODUCT O RDERABLES Performing Organization Address City/[facility] Co de Phone Number CERNER JULIUSENNIUM * Scan, Peripheral Blood (12/15/2013 12:05 AM [...] MD HEMATOLOGY ORDERAB LES Performing Organization Address [facility] de Phone Number CERNER JULIUSENNIUM * (ABNORMAL) Differential, Automated (12/15/2013 12:05 AM [...] Metabolic Panel (non-fasting) (12/15/2013 12:05 AM EDT) [facility] Glucose 99 60 - 199 mg/dL CERNER MILLENNIUM Comment:Diabetes: >=200 mg/d L plus symptoms Blood Urea Nitrogen 18 10 - 20 mg/dL CERNER MILLENNIUM Creatinine 0.55(L) 0.80 - 1.50 mg/dL CERNER MILLENNIUM Comment: Please note that the pediatric reference intervals supplied above were not [facility] [place]. Results from pediatric patients should be interpreted [...] the following links into your internet browser. http://[email or web address].nih.gov/lab-evaluation.shtml [email or web address]://www.kidney.org/professionals/ Blood specimen (specimen) 12/15/2013 12:05 AM EDT 12/15/2013 12:13 AM EDT Narrative Resulting Agency Comment Spec In Lab Romulo Ramires MD CHEMISTRY ORDERABL ES Performing Organization Address City/[facility]/ZIP Co de Phone Number CERNER MILLENNIUM * Scan, Peripheral Blood (12/14/2013 [...] MD HEMATOLOGY ORDERAB LES Performing Organization Address [facility] de Phone Number XOCHITL WHITAKER * Vancomycin, trough (12/14/2013 12:30 PM EDT) Vancomycin, Trough 10.0 mg/L C ERNER MILLENNIUM [...] Olivas MD CHEMISTRY ORDERABLES Performing Organization Address [facility] de Phone Number XOCHITL WHITAKER * (ABNORMAL) Basic Metabolic Panel (non-fasting) (12/14/2013 12:30 PM EDT) Glucose 96 60 - 199 mg/dL [facility] MILLENNIUM Comment:Diabetes: >=200 mg/d L plus symptoms Blood Urea Nitrogen 15 10 - 20 mg/dL CERNER MILLENNIUM Creatinine 0.61(L) 0.80 - 1.50 mg/dL CERNER MILLENNIUM Comment: Please note that the pediatric reference intervals supplied above were not validated at [facility] [place]. Results from pediatric patients should be interpreted [...] MD CHEMISTRY ORDERABL ES Performing Organization Address City/[facility]/ZIP Co de Phone Number XOCHITL MADRIDENNIUM * Beta 2 Transferrin Body Fluid Pleural fluid (12/14/2013 8:48 AM EDT) Beta-2 Trans Bf (NOVEMBER) Negative CERNER MILLENNIUM Comment: -- REFERENCE VALUE -- Negative, no beta-2 transferrin (spinal fluid) detected. Test Performed by: [facility] [address] [address] Travel Registered Nurse Pacu: Cameron Hansen III, M.D. Body fluid specimen (specimen) 12/14/2013 8:48 AM EDT 12/14/2013 10:22 AM EDT Narrative Resulting Agency Comment Spec In Lab Cirilo Olivas MD LAB SEND OUT ORDERAB LES CERHELENA MADRIDENNIUM * Blood culture (12/14/2013 12:35 AM EDT) Blood Culture ? Patient Name: CIRILO PONCE ?Ordered By: BRENDON CIRILO Keyanna ? MR#: [id number] ?LOC: ??ICUS ? /Sex: ??1985 (28 years), ? Male ? PROCEDURE: Blood Culture ?SOURCE: Blood ? COLLECTED: 12/14/2013 00:35 ?FREE TEXT SOURCE: #2 central line ? STARTED: 12/14/2013 02:10 ? FINAL REPORT ? Final Report ? Verified:2013 07:01 ? No growth at 5 days. ? PRELIMINARY REPORT ? Preliminary Report ? Verified:2013 07:01 ? No growth at 4 days. ? [facility] Blood specimen (specimen) 12/14/2013 12:35 AM EDT 12/14/2013 2:10 AM EDT Comment:#2 CENTRAL LINE Narrative Resulting Agency Comment Spec In Lab Cirilo Olivas MD MICROBIOLOGY - BLOOD ORDERABLES [facility] * Blood culture (12/14/2013 12:30 AM EDT) Blood Culture ? Patient Name: CIRILO PONCE ?Ordered By: BRENDONCIRILO ? MR#: [id number] ?LOC: ??ICUS ? /Sex: ??1985 (28 years), [...] MICROBIOLOGY - BLOOD ORDERABLES XOCHITL WHITAKER * Scan, Peripheral Blood (12/14/2013 12:20 AM EDT) Plat estimate Normal XOCHITL MADRIDENNIUM RBC Morphology Normal CERNE R MILLENNIUM Blood [...] * (ABNORMAL) Hemogram (12/14/2013 12:20 AM EDT) White Blood Cell 8.9 4.0 - [...] MD HEMATOLOGY ORDERAB LES Performing Organization Address [facility]/ZIP Co de Phone Number CERNER MILLENNIUM * (ABNORMAL) Basic Metabolic Panel (non-fasting) (12/14/2013 12:20 AM EDT) Glucose 104 60 - 199 mg/dL CERNER MILLENNIUM Comment:Diabetes: >=200 mg/d L plus symptoms Blood Urea Nitrogen 18 10 - 20 mg/dL CERNER MILLENNIUM Creatinine 0.68(L) 0.80 - 1.50 mg/dL CERNER MILLENNIUM Comment: Please note that the pediatric reference intervals supplied above were not validated at [facility] [place]. Results from pediatric patients should be interpreted [...] Lab Romulo Ramires MD CHEMISTRY ORDERABL ES [facility] [employer] * (ABNORMAL) Prothrombin Time (12/14/2013 12:20 AM EDT) Prothrombin Time 15.4(H) 12.0 - 15.0 sec CERNER MILLENNIUM Comment: [facility] Transfusion Committee Guidelines: INR less than 2.0, [...] MD HEMATOLOGY ORDERAB LES Performing Organization Address [facility] de Phone Number CERNER MILLENNIUM * CSF [...] AND STOO LS ORDERABLES Performing Organization Address [facility] de Phone Number CERNER MILLENNIUM * CSF DESC 1 (12/13/2013 6:41 PM EDT) Tube Num CSF #1 1 CERNER MILLENNIUM Color, CSF [place] CERNER MILLENNIUM Appearance, CSF Hazy Clear CERNER MILLENNIUM Total Vol, CSF 4.0 mL CERNE R MILLENNIUM Cerebrospinal fluid specimen (specimen) 12/13/2013 6:41 PM EDT 12/13/2013 6:57 PM EDT Narrative Resulting Agency Comment Spec In Lab Cirilo Olivas MD BODY FLUIDS AND STOO LS ORDERABLES Performing Organization Address [facility] de Phone Number CERNER MILLENNIUM * CSF Culture (12/13/2013 6:41 PM EDT) Central Nervous System Culture ? Patient Name: CIRILO PONCE ?Ordered By: CIRILO OLIVAS ? MR#: [id number] ?LOC: ??ICUS ? /Sex: ??1985 (28 years), [...] 07:37 ? No growth to date. ? XOCHITL WHITAKER Cerebrospinal fluid specimen (specimen) 12/13/2013 6:41 PM EDT 12/13/2013 7:13 PM EDT Narrative Resulting Agency Comment Spec In Lab Cirilo Olivas MD MICROBIOLOGY - GENER AL ORDERABLES Performing Organization Address [facility] Phone Number [facility] JULIANNE * Glucose Level CSF (12/13/2013 6:40 PM EDT) Glucose, CSF 55 mg/dL [facility] Comment:CSF at equilibrium e quals approximately 60-80% of plasma glucose. Cerebrospinal fluid specimen (specimen) 12/13/2013 6:40 PM EDT 12/13/2013 6:56 PM EDT Narrative Resulting Agency Comment Spec In Lab Cirilo Olivas MD BODY FLUIDS AND STOO LS ORDERABLES Performing Organization Address [facility] Phone Number [facility] * (ABNORMAL) Protein Level CSF (12/13/2013 6:40 PM EDT) Protein, CSF 380(H) 15 - 45 mg/dL [facility] Comment: RBC CT= 6604 If CSF red cells are due to traumatic tap, the measured CSF Total Protein will be increased by approximately 1 mg/dL for every 1000 RBC/UL, assuming normal serum protein, hematocrit and peripheral RBC [employer] [facility] Cerebrospinal fluid specimen (specimen) 12/13/2013 6:40 PM EDT 12/13/2013 6:56 PM EDT Narrative Resulting Agency Comment Spec In Lab Cirilo Olivas MD BODY FLUIDS AND STOO LS ORDERABLES Performing Organization Address [facility] Phone Number [facility] JULIANNE * XR chest PA or AP- 1 [...] blurring from respiratory motionartifact. Erich Vincent MD IMG DX ORDERABLES * XR chest [...] which may be due to atelectasis. Cirilo Olivas MD IMG DX ORDERABLES [...] * (ABNORMAL) Hemogram (12/13/2013 11:38 AM EDT) White Blood Cell 11.1(H) 4.0 [...] Lab Romulo Ramires MD HEMATOLOGY ORDERAB LES [facility] JULIUSBAN[facility] CENTERIUM * (ABNORMAL) Basic Metabolic Panel (non-fasting) (12/13/2013 11:38 AM EDT) Pathologist [facility] Glucose 95 60 - 199 mg/dL CERNER MILLENNIUM Comment:Diabetes: >=200 mg/d L plus symptoms Blood Urea Nitrogen 19 10 - 20 mg/dL CERNER MILLENNIUM Creatinine 0.60(L) 0.80 - 1.50 mg/dL CERNER MILLENNIUM Comment: Please note that the pediatric reference intervals supplied above were not validated at [facility] [place]. Results from pediatric patients should be interpreted [...] ?? Limited US RIGHT pleural space ?? [id number] ?? Indication: Worsening respiratory status, increasing O2 requirements on vent with small apical PTX ?? Technique: ?? Limited US of RIGHT pleural space shows no significant pleural fluid. ?? Procedure Note Cirilo Wilcox MD - 12/15/2013 VIR Procedure Note Limited US RIGHT pleural space [id number] Indication: Worsening respiratory status, increasing O2 requirements [...] Glucose (12/13/2013 7:46 AM EDT) Pathologist [facility] Glucose, POC 110 60 - 199 mg/dL CERNER MILLENNIUM Comment: Supplemental ranges: <110 mg/dL before meals <200 mg/dL all other times of the day Blood specimen (specimen) 12/13/2013 7:46 AM EDT 12/13/2013 7:46 AM EDT Romulo Ramires MD POINT OF CARE TEST ORDERABLES CERNER MILLENNIUM * (ABNORMAL) Differential, Automated (12/13/2013 2:14 AM EDT) Pathologist [facility] Neutrophil % 77.7(H) 34.0 - 71.0 % [...] intervals supplied above were not validated at [facility] [place]. Results from pediatric patients should be interpreted [...] MD CHEMISTRY ORDERABL ES Performing Organization Address [facility] Phone Number [employer] * Prothrombin Time (12/13/2013 2:14 AM EDT) Prothrombin Time 15.0 12.0 - 15.0 sec CERNER MILLENNIUM Comment: [facility] Transfusion Committee Guidelines: INR less than 2.0, PTT less than OR equal to 43.5 seconds, or Fibrinogen greater than or equal to 100 mg/dl indicate adequate procoagulant activity for hemostasis in patients without underlying bleeding disorders. International Normalization Ratio 1.1 0.9 - 1.1 [facility] MILLENNIUM Blood specimen (specimen) 12/13/2013 2:14 AM EDT 12/13/2013 2:14 AM EDT Narrative Resulting Agency Comment Spec In Lab Romulo Ramires MD HEMATOLOGY ORDERAB LES Performing Organization Address [facility] Phone Number [employer] * Lower Respiratory Culture Other (12/12/2013 11:58 PM EDT) Lower Respiratory Culture ? Patient Name: CIRILO PONCE ?Ordered By: CIRILO OLIVAS ? MR#: [id number] ?LOC: ??ICUS ? /Sex: ??1985 (28 years), ? Male ? PROCEDURE: Lower Respiratory Culture ?SOURCE: Other ? COLLECTED: 12/12/2013 23:58 ?FREE TEXT SOURCE: Mini-BAL ??/ Spoke to nurse-specimen too muc ? STARTED: 12/13/2013 07:22 ? oid for mini-BAL-to run routine culture-[facility] ? STAINS / PREPARATIONS ? Gram [...] silvia ? Patient: CIRILO PONCE ? MR#: [id number] ? SUSCEPTIBILITY RESULTS ? Enterobacter cloacae ? [...] TOO MUC OID FOR MINI-BAL-TO RUN ROUTINE CULTURE-DK Narrative Resulting Agency Comment Spec In Lab Cirilo Olivas MD MICROBIOLOGY - GENER AL ORDERABLES XOCHITL WHITAKER * Blood culture (12/12/2013 11:55 PM EDT) Blood Culture ? Patient Name: DAVID CIRILO Briceño ?Ordered By: CIRILO OLIVAS ? MR#: [id number] ?LOC: ??ICUS ? /Sex: ??1985 (28 years), [...] PONCE ?Ordered By: CIRILO OLIVAS ? MR#: [id number] ?LOC: ??ICUS ? /Sex: ??1985 (28 years), [...] under fluoroscopic observation if clinically indicated. Cirilo Olivsa MD IMG DX ORDERABLES * (ABNORMAL) Differential, [...] Comment Spec In Lab Romulo Raimres MD HEMATOLOGY ORDERAB LES CERNER MILLENNIUM * (ABNORMAL) Basic Metabolic Panel (non-fasting) (12/12/2013 2:00 PM EDT) Glucose 113 60 - 199 mg/dL CERNER MILLENNIUM Comment:Diabetes: >=200 mg/d L plus symptoms Blood Urea Nitrogen 18 10 - 20 mg/dL CERNER MILLENNIUM Creatinine 0.67(L) 0.80 - 1.50 mg/dL CERNER MILLENNIUM Comment: Please note that the pediatric reference intervals supplied above were not validated at [facility] [place]. Results from pediatric patients should be interpreted [...] Comment: Total Hemoglobin (in gm/dL) ?Based on [facility] Hematology ranges: ?Age ?Reference Range Less than [...] PONCE ?Ordered By: ROMULO RAMIRES ? MR#: [id number] ?LOC: ??ICUS ? /Sex: ??1985 (28 years), [...] PONCE ?Ordered By: ROMULO RAMIRES ? MR#: [id number] ?LOC: ??ICUS ? /Sex: ??1985 (28 years), [...] WHITAKER Blood specimen (specimen) STRUCTURE OF LEFT FOREARM / Unknown 12/12/2013 12:15 PM EDT 12/12/2013 1:17 PM EDT Comment:#1 Narrative Resulting Agency Comment Spec In Lab Romulo Ramires MD MICROBIOLOGY - BLO OD ORDERABLES XOCHITL WHITAKER * Urine culture Indwelling Catheter Urine (12/12/2013 11:39 AM EDT) Urine Culture ? Patient Name: CIRILO PONCE ?Ordered By: ROMULO RAMIRES ? MR#: [id number] ?LOC: ??ICUS ? /Sex: ?? 6 (28 years), ? Male ? PROCEDURE: Urine Culture ?SOURCE: U [facility] ? COLLECTED: 12/12/2013 11:39 ? STARTED: 12/12/2013 [...] Text Report Department: Vascular Surgery Lab Patient: [id number] (CIRILO PONCE) CPT Code: 36720 ICD-9: 959.8 Referring Physician: ROMULO RAMIRES Indication: [...] Glucose, POC 137 60 - 199 mg/dL [facility] Comment: Supplemental ranges: <110 mg/dL before meals <200 mg/dL all other times of the day Blood specimen (specimen) 12/12/2013 8:26 AM EDT 12/12/2013 8:26 AM EDT Romulo Ramires MD POINT OF CARE TEST ORDERABLES XOCHITL WHITAKER * Beta 2 Transferrin Body Fluid Pleural fluid (12/12/2013 8:13 AM EDT) Beta-2 Trans Bf (NOVEMBER) Negative XOCHITL WHITAKER Comment: -- REFERENCE VALUE -- Negative, no beta-2 transferrin (spinal fluid) detected. Test Performed by: [place] [address] Travel Registered Nurse Pacu: Cameron Hansen III, M.D. Body fluid specimen (specimen) 12/12/2013 8:13 AM EDT 12/12/2013 9:28 AM EDT Narrative Resulting Agency Comment Spec In Lab Romulo Ramires MD LAB SEND OUT ORDER SOSA Performing Organization Address City/[facility] Co de Phone Number XOCHITL WHITAKER * [...] Comment: Total Hemoglobin (in gm/dL) ?Based on [facility] [place] Hematology ranges: ?Age ?Reference Range Less than [...] HEMATOLOGY ORDERAB LES XOCHITL MADRIDENNIUM * (ABNORMAL) Hemogram (12/12/2013 2:00 AM [...] Metabolic Panel (non-fasting) (12/12/2013 2:00 AM EDT) [facility] Glucose 104 60 - 199 mg/dL CERNER MILLENNIUM Comment:Diabetes: >=200 mg/d L plus symptoms Blood Urea Nitrogen 18 10 - 20 mg/dL CERNER MILLENNIUM Creatinine 0.59(L) 0.80 - 1.50 mg/dL CERNER MILLENNIUM Comment: Please note that the pediatric reference intervals supplied above were not validated at [facility] [place]. Results from pediatric patients should be interpreted [...] MD CHEMISTRY ORDERABL ES XOCHITL WHITAKER * Prothrombin Time (12/12/2013 2:00 AM EDT) Prothrombin Time 14.9 12.0 - 15.0 sec CERNER MILLENNIUM Comment: [facility] Transfusion Committee Guidelines: INR less than 2.0, [...] HEMATOLOGY ORDERAB LES XOCHITL SHELBYIUM * (ABNORMAL) Differential, Automated (12/11/2013 2:00 PM [...] Lab Romulo Ramires MD HEMATOLOGY ORDERAB LES [facility] MILLBANNER DESERT MEDICAL CENTERIUM * (ABNORMAL) Basic Metabolic Panel (non-fasting) (12/11/2013 2:00 PM EDT) [facility] Glucose 97 60 - 199 mg/dL CERNER MILLENNIUM Comment:Diabetes: >=200 mg/d L plus symptoms Blood Urea Nitrogen 15 10 - 20 mg/dL CERNER MILLENNIUM Creatinine 0.60(L) 0.80 - 1.50 mg/dL CERNER MILLENNIUM Comment: Please note that the pediatric reference intervals supplied above were not validated at [facility] [place]. Results from pediatric patients should be interpreted [...] is intubated, ETT appropriate. Romulo Ramires MD [facility] ORDERABLES * (ABNORMAL) Differential, Automated (12/11/2013 [...] MD HEMATOLOGY ORDERAB LES Performing Organization Address [facility] Co de Phone Number CERNER MILLENNIUM * Potassium (12/11/2013 7:10 AM EDT) Potassium [...] MD CHEMISTRY ORDERABL ES Performing Organization Address City/[facility]/ZIP Co de Phone Number CERHELENA MADRIDENNIUM * (ABNORMAL) Differential, Automated (12/11/2013 1:15 AM [...] Metabolic Panel (non-fasting) (12/11/2013 1:15 AM EDT) [facility] Glucose 117 60 - 199 mg/dL CERNER MILLENNIUM Comment:Diabetes: >=200 mg/d L plus symptoms Blood Urea Nitrogen 14 10 - 20 mg/dL CERNER MILLENNIUM Creatinine 0.66(L) 0.80 - 1.50 mg/dL CERNER MILLENNIUM Comment: Please note that the pediatric reference intervals supplied above were not validated at [facility]. Results from pediatric patients should be interpreted [...] MD CHEMISTRY ORDERABL ES Performing Organization Address [facility] de Phone Number XOCHITL SHELBYIUM * Prothrombin Time (12/11/2013 1:15 AM EDT) Prothrombin Time 14.2 12.0 - 15.0 sec CERNER MILLENNIUM Comment: [facility] Transfusion Committee Guidelines: INR less than 2.0, [...] MD HEMATOLOGY ORDERAB LES Performing Organization Address [facility] Co de Phone Number XOCHITL SHELBYIUM * (ABNORMAL) Hepatic Function Panel (12/10/2013 7:50 [...] MD CHEMISTRY ORDERABL ES Performing Organization Address [facility] de Phone Number [facility] MILLENNIUM * Lactate Dehydrogenase (12/10/2013 7:50 PM EDT) Lactate Dehydrogenase 149 110 - 220 unit/L CERNER MILLENNIUM Blood specimen (specimen) 12/10/2013 7:50 PM EDT 12/10/2013 8:05 PM EDT Narrative Resulting Agency Comment Spec In Lab Romulo Ramires MD CHEMISTRY ORDERABL ES Performing Organization Address [facility] Phone Number CERHELENA MADRIDENNIUM * (ABNORMAL) Haptoglobin (12/10/2013 7:50 PM EDT) Haptoglobin 302(H) 30 - 200 mg/dL CERNER MILLENNIUM Comment: Haptoglobin concentrations in newborns is low to undetectable; however, adult concentrations are usually attained by 4 months of age. ??No sex-related differences for haptoglobin have been detected. Blood specimen (specimen) 12/10/2013 7:50 PM EDT 12/10/2013 8:05 PM EDT Narrative Resulting Agency Comment Spec In Lab Romulo Ramires MD CHEMISTRY ORDERABL ES Performing Organization Address [facility] Co de Phone Number CERNER MILLENNIUM * Thrombin time (12/10/2013 7:50 PM EDT) Thrombin Time 16 15 - 20 sec CERNER MILLENNIUM Blood specimen (specimen) 12/10/2013 7:50 PM EDT 12/10/2013 8:05 PM EDT Narrative Resulting Agency Comment Spec In Lab Romulo Ramires MD HEMATOLOGY ORDERAB LES Performing Organization Address [facility] de Phone Number [facility] MILLENNIUM * (ABNORMAL) Fibrinogen (12/10/2013 7:50 PM EDT) Fibrinogen 591(H) 175 - 450 mg/dL CERNER MILLENNIUM Blood specimen (specimen) 12/10/2013 7:50 PM EDT 12/10/2013 8:05 PM EDT Narrative Resulting Agency Comment Spec In Lab Rmoulo Ramires MD HEMATOLOGY ORDERAB LES Performing Organization Address [facility] Phone Number [facility] JULIUSENNIUM * APTT (12/10/2013 7:50 PM EDT) Partial Thromboplastin Time 30 25 - 35 sec CERNER MILLENNIUM Comment: Recommended therapeutic PTT range for full dose unfractionated heparin is 80-114 seconds. Blood specimen (specimen) 12/10/2013 7:50 PM EDT 12/10/2013 8:05 PM EDT Narrative Resulting Agency Comment Spec In Lab Romulo Ramires MD HEMATOLOGY ORDERAB LES Performing Organization Address [facility] de Phone Number [facility] JULIUSBANNER DESERT MEDICAL CENTERIUM * Prothrombin Time (12/10/2013 7:50 PM EDT) Prothrombin Time 14.3 12.0 - 15.0 sec CERNER MILLENNIUM Comment: [facility] Transfusion Committee Guidelines: INR less than 2.0, [...] CERNER MILLENNIUM * (ABNORMAL) Differential, Automated (12/10/2013 7:20 PM [...] ORDERAB LES CERHELENA MADRIDENNIUM * (ABNORMAL) Hemogram (12/10/2013 6:15 PM EDT) [...] MD HEMATOLOGY ORDERAB LES Performing Organization Address [facility]/ZIP Co de Phone Number CERNER MILLENNIUM * (ABNORMAL) Hemogram (12/10/2013 10:05 AM EDT) [...] intervals supplied above were not validated at [facility]. Results from pediatric patients should be interpreted [...] MILLENNIUM * Potassium (12/10/2013 4:45 AM EDT) [facility] Signature Potassium 4.3 3.5 - 5.0 mmol/L CERNER [...] HEMATOLOGY ORDERAB LES XOCHITL MADRIDENNIUM * (ABNORMAL) Hemogram (12/10/2013 4:15 AM EDT) [...] MD HEMATOLOGY ORDERAB LES XOCHITL SHELBYIUM * Transfuse RBC (12/10/2013 3:31 AM EDT) Romulo Ramires MD NURSING TREATMENT ORDERABLES - BLOOD ADMIN * Transfuse RBC (12/10/2013 3:31 AM EDT) Romulo Ramires MD NURSING TREATMENT ORDERABLES - BLOOD ADMIN * Prepare RBC (12/10/2013 1:50 AM EDT) Dispensed? Yes XOCHITL MADRIDENNIUM Blood specimen (specimen) 12/10/2013 1:50 AM EDT 12/10/2013 1:46 AM EDT Romulo Ramires MD BLOOD BANK PRODUCT ORDERABLES XOCHITL MADRIDENNIUM * (ABNORMAL) Differential, Automated (12/10/2013 1:25 AM [...] MD HEMATOLOGY ORDERAB LES Performing Organization Address [facility] Co de Phone Number CERNER MILLENNIUM * [...] MD HEMATOLOGY ORDERAB LES CERNER MILLENNIUM * Potassium (12/10/2013 1:25 AM [...] MD CHEMISTRY ORDERABL ES Performing Organization Address [facility] Co de Phone Number CERHELENA MILLENNIUM * APTT (12/10/2013 1:25 AM EDT) Partial Thromboplastin Time 30 25 - 35 sec CERNER MILLENNIUM Comment: Recommended therapeutic PTT range for full dose unfractionated heparin is 80-114 seconds. Blood specimen (specimen) 12/10/2013 1:25 AM EDT 12/10/2013 1:28 AM EDT Narrative Resulting Agency Comment Spec In Lab Romulo Ramires MD HEMATOLOGY ORDERAB LES Performing Organization Address [facility] de Phone Number CERNER MILLENNIUM * Thrombin time (12/10/2013 1:25 AM EDT) Thrombin Time 15 15 - 20 sec CERNER MILLENNIUM Blood specimen (specimen) 12/10/2013 1:25 AM EDT 12/10/2013 1:28 AM EDT Narrative Resulting Agency Comment Spec In Lab Romulo Ramires MD HEMATOLOGY ORDERAB LES Performing Organization Address [facility] de Phone Number CERNER MILLENNIUM * Prothrombin Time (12/10/2013 1:25 AM EDT) Prothrombin Time 14.4 12.0 - 15.0 sec CERNER MILLENNIUM Comment: [facility] Transfusion Committee Guidelines: INR less than 2.0, [...] MD HEMATOLOGY ORDERAB LES Performing Organization Address City/[facility]/ZIP Co de Phone Number XOCHITL SHELBYIUM * Transfuse RBC (12/09/2013 11:53 PM EDT) Romulo Ramires MD NURSING TREATMENT ORDERABLES - BLOOD ADMIN * Transfuse RBC (12/09/2013 11:53 PM EDT) Romulo Ramires MD NURSING TREATMENT ORDERABLES - BLOOD ADMIN * Prepare RBC (12/09/2013 10:25 PM EDT) Dispensed? Yes XOCHITL SHELBYIUM Blood specimen (specimen) 12/09/2013 10:25 PM EDT 12/09/2013 10:22 PM EDT Romulo Ramires MD BLOOD BANK PRODUCT ORDERABLES XOCHITL WHITAKER * (ABNORMAL) Hemogram (12/09/2013 8:45 [...] MD HEMATOLOGY ORDERAB LES Performing Organization Address City/[facility] Co de Phone Number CERNER MILLENNIUM * Lavender Tube HOLD (12/09/2013 8:45 PM EDT) Lavender Hold Sample in lab. CERNER MILLENNIUM Blood specimen (specimen) 12/09/2013 8:45 PM EDT 12/09/2013 8:54 PM EDT Romulo Ramires MD HEMATOLOGY ORDERAB LES Performing Organization Address City/[facility] Co de Phone Number [facility] MILLENNIUM * (ABNORMAL) Basic Metabolic Panel (non-fasting) (12/09/2013 8:45 PM EDT) Pathologist [facility] Glucose 117 60 - 199 mg/dL CERNER MILLENNIUM Comment:Diabetes: >=200 mg/d L plus symptoms Blood Urea Nitrogen 9(L) 10 - 20 mg/dL CERNER MILLENNIUM Creatinine 0.60(L) 0.80 - 1.50 mg/dL CERNER MILLENNIUM Comment: Please note that the pediatric reference intervals supplied above were not validated at [facility]. Results from pediatric patients should be interpreted [...] MD CHEMISTRY ORDERABL ES Performing Organization Address [facility] Co de Phone Number [facility] AdlogixENNIUM * Transfusion Reaction Interp (12/09/2013 3:40 PM [...] BANK LAB ORDER SOSA Performing Organization Address City/[facility]/ZIP Co de Phone Number [facility] JULIUSENNIUM * (ABNORMAL) Hemoglobin and Hematocrit, blood (12/09/2013 [...] Urine Dipstick Hazy(A) Clear CERNER MILLENNIUM Specific [place] Urine Automated >1.035(H) 1.002 - 1.030 CERNER MILLENNIUM Color, Urine Dipstick [place] Yellow CERNER MILLENNIUM RBC, Urine 7(H) 0 [...] URINE ORDERABLES Performing Organization Address City/State/ZIP Co il Phone Number XOCHITL WHITAKER * Lower Respiratory Culture Tracheal Aspirate (12/09/2013 1:54 PM EDT) Lower Respiratory Culture ? Patient Name: CIRILO PONCE ?Ordered By: ROMULO RAMIRES ? MR#: [id number] ?LOC: ??ICUS ? /Sex: ??1985 (28 years), [...] PONCE ?Ordered By: ROMULO RAMIRES ? MR#: [id number] ?LOC: ??ICUS ? /Sex: ??1985 (28 years), [...] No growth at 4 days. ? XOCHITL WHITAEKR Blood specimen (specimen) ANTECUBITAL REGION STRUCTURE / [...] EDT Romulo Ramires MD CHEMISTRY ORDERABL ES CERNER MILLENNIUM * (ABNORMAL) Differential, Automated (12/09/2013 [...] ORDERAB LES CERNER MILLENNIUM * (ABNORMAL) Hemogram (12/09/2013 12:47 PM EDT) [...] MD HEMATOLOGY ORDERAB LES Performing Organization Address City/State/[facility] Co de Phone Number XOCHITL WHITAKER * Urine culture Indwelling Catheter Urine (12/09/2013 12:21 PM EDT) Urine Culture ? Patient Name: CIRILO PONCE ?Ordered By: ROMULO RAMIRES ? MR#: [id number] ?LOC: ??ICUS ? /Sex: ?? 6 (28 [...] - GEN ERAL ORDERABLES Performing Organization Address [facility] Co de Phone Number [facility] * POCT Glucose (12/09/2013 12:02 PM EDT) Glucose, POC 117 60 - 199 mg/dL [facility] Comment: Supplemental ranges: <110 mg/dL before meals <200 mg/dL all other times of the day Blood specimen (specimen) 12/09/2013 12:02 PM EDT 12/09/2013 12:02 PM EDT Romulo Ramires MD POINT OF CARE TEST ORDERABLES Performing Organization Address [facility] de Phone Number [facility] * Prepare RBC (12/09/2013 6:40 AM EDT) Dispensed? Yes [facility]L [facility] Blood specimen (specimen) 12/09/2013 6:40 AM EDT 12/09/2013 6:37 AM EDT Romulo Ramires MD BLOOD BANK PRODUCT ORDERABLES Performing Organization Address [facility] Phone Number XOCHITL WHITAKER * APTT (12/09/2013 6:07 AM EDT) Partial Thromboplastin Time 34 25 - 35 sec XOCHITL MILLENNIUM Comment: Recommended therapeutic PTT range for full dose unfractionated heparin is 80-114 seconds. Blood specimen (specimen) 12/09/2013 6:07 AM EDT 12/09/2013 6:13 AM EDT Narrative Resulting Agency Comment Spec In Lab Romulo Ramires MD HEMATOLOGY ORDERAB LES Performing Organization Address [facility] Phone Number MARBINHELENA MADRIDTIGISTIUM * (ABNORMAL) Prothrombin Time (12/09/2013 6:07 AM EDT) Prothrombin Time 15.5(H) 12.0 - 15.0 sec XOCHITL JULIUSENNIUM Comment: [facility] Transfusion Committee Guidelines: INR less than 2.0, PTT less than OR equal to 43.5 seconds, or Fibrinogen greater than or equal to 100 mg/dl indicate adequate procoagulant activity for hemostasis in patients without underlying bleeding disorders. International Normalization Ratio 1.2(H) 0.9 - 1.1 XOCHITL JULIUSTIGISTIUM Blood specimen (specimen) 12/09/2013 6:07 AM EDT 12/09/2013 6:13 AM EDT Narrative Resulting Agency Comment Spec In Lab Romulo Ramires MD HEMATOLOGY ORDERAB LES Performing Organization Address [facility] de Phone Number MARBINHELENA SHELBYIUM * (ABNORMAL) [...] ORDERAB LES CERNER MILLENNIUM * (ABNORMAL) Hemogram (12/09/2013 6:07 AM EDT) [...] MD HEMATOLOGY ORDERAB LES Performing Organization Address [facility] de Phone Number XOCHITL SHELBYIUM * Lactate, whole blood, send to lab (12/09/2013 6:07 AM EDT) Lactate WB 1.0 0.5 - 2.2 mmol/L XOCHITL MADRIDENNIUM Blood specimen (specimen) 12/09/2013 6:07 AM EDT 12/09/2013 6:13 AM EDT Narrative Resulting Agency Comment Spec In Lab Romulo Ramires MD CHEMISTRY ORDERABL ES Performing Organization Address City/[facility] Co de Phone Number XOCHITL SHELBYIUM * (ABNORMAL) Fibrinogen (12/09/2013 6:07 AM EDT) Fibrinogen 487(H) 175 - 450 mg/dL XOCHITL MADRIDENNIUM Blood specimen (specimen) 12/09/2013 6:07 AM EDT 12/09/2013 6:13 AM EDT Narrative Resulting Agency Comment Spec In Lab Romulo Ramires MD HEMATOLOGY ORDERAB LES CERNER MILLENNIUM * Thrombin time (12/09/2013 6:07 [...] intervals supplied above were not validated at [facility]. Results from pediatric patients should be interpreted [...] MD CHEMISTRY ORDERABL ES Performing Organization Address [facility] de Phone Number CERNER MILLENNIUM * (ABNORMAL) CK (12/09/2013 6:07 AM EDT) Creatine Kinase 673(H) 0 - 200 unit/L CERNER MILLENNIUM Blood specimen (specimen) 12/09/2013 6:07 AM EDT 12/09/2013 6:13 AM EDT Narrative Resulting Agency Comment Spec In Lab Romulo Ramires MD CHEMISTRY ORDERABL ES Performing Organization Address [facility] de Phone Number CERNER MILLENNIUM * (ABNORMAL) BLOOD GAS 2 VENOUS (12/09/2013 6:00 AM EDT) pH, Venous 7.42 CERNER MILLENNIUM PCO2, Venous 39(L) mmHg CERNER MILLENNIUM PO2, Venous 39 mmHg CERNER MILLENNIUM Bicarbonate, Venous 25.0 mmol/L CERNER MILLENNIUM Base Excess, Venous 0.6 mmol/L CERNER MILLENNIUM Hgb Blood Gas 6.0(L) gm/dL CERNER MILLENNIUM Comment: Total Hemoglobin (in gm/dL) ?Based on [facility] Hematology ranges: ?Age ?Reference Range Less than [...] l) mmol/L CERNER MILLENNIUM Comment: Noted by gyroscopic instrument tester. Please note: Patients with WBC >100,000 may [...] AM EDT 12/09/2013 6:00 AM EDT Romulo W Zeeland MD POINT OF CARE TEST ORDERABLES Performing Organization Address [facility] de Phone Number XOCHITL SHELBYIUM * APTT (12/09/2013 12:00 AM EDT) Partial Thromboplastin Time 34 25 - 35 sec CERHELENA MILLENNIUM Comment: Recommended therapeutic PTT range for full dose unfractionated heparin is 80-114 seconds. Blood specimen (specimen) 12/09/2013 12/09/2013 12:07 AM EDT Narrative Resulting Agency Comment Spec In Lab Romulo Ramires MD HEMATOLOGY ORDERAB LES Performing Organization Address [facility] de Phone Number XOCHITL SHELBYIUM * (ABNORMAL) Prothrombin Time (12/09/2013 12:00 AM EDT) Prothrombin Time 15.7(H) 12.0 - 15.0 sec XOCHITL JULIUSENNIUM Comment: [facility] Transfusion Committee Guidelines: INR less than 2.0, PTT less than OR equal to 43.5 seconds, or Fibrinogen greater than or equal to 100 mg/dl indicate adequate procoagulant activity for hemostasis in patients without underlying bleeding disorders. International Normalization Ratio 1.2(H) 0.9 - 1.1 XOCHITL JULIUSENNIUM Blood specimen (specimen) 12/09/2013 12/09/2013 12:07 AM EDT Narrative Resulting Agency Comment Spec In Lab Romulo Ramires MD HEMATOLOGY ORDERAB LES Performing Organization Address [facility] de Phone Number XOCHITL SHELBYIUM * (ABNORMAL) Differential, Automated (12/09/2013 12:00 [...] MD HEMATOLOGY ORDERAB LES Performing Organization Address [facility] de Phone Number [facility] MILLENNIUM * (ABNORMAL) CK (12/09/2013 12:00 AM EDT) Creatine Kinase 732(H) 0 - 200 unit/L [facility] Blood specimen (specimen) 12/09/2013 12/09/2013 12:07 AM EDT Narrative Resulting Agency Comment Spec In Lab Romulo Ramires MD CHEMISTRY ORDERABL ES Performing Organization Address [facility] de Phone Number [facility] * (ABNORMAL) Basic Metabolic Panel (non-fasting) (12/09/2013 12:00 AM EDT) Pathologist [facility] Glucose 112 60 - 199 mg/dL [facility] MILLENNIUM Comment:Diabetes: >=200 mg/d L plus symptoms Blood Urea Nitrogen 8(L) 10 - 20 mg/dL CERNER MILLENNIUM Creatinine 0.80 0.80 - 1.50 mg/dL CERNER MILLENNIUM Comment: Please note that the pediatric reference intervals supplied above were not validated at [facility]. Results from pediatric patients should be interpreted in conjunction to the patient's age, height and muscle mass. Sodium 139 135 - 145 mmol/L [facility] MILLENNIUM Potassium 3.4(L) 3.5 - 5.0 mmol/L [facility] MILLENNIUM Comment: Please note: ??Patients with WBC [...] MD CHEMISTRY ORDERABL ES Performing Organization Address [facility] de Phone Number [facility] * Thrombin time (12/09/2013 12:00 AM EDT) Thrombin Time 15 15 - 20 sec CERNER MILLENNIUM Blood specimen (specimen) 12/09/2013 12/09/2013 12:07 AM EDT Narrative Resulting Agency Comment Spec In Lab Romulo Ramires MD HEMATOLOGY ORDERAB LES Performing Organization Address [facility] Co de Phone Number [facility]USB[facility]ENTERIUM * Fibrinogen (12/09/2013 12:00 AM EDT) Fibrinogen [...] Comment: Total Hemoglobin (in gm/dL) ?Based on [facility] Hematology ranges: ?Age ?Reference Range Less than [...] * (ABNORMAL) CK (12/08/2013 5:30 PM EDT) Pathologist [facility] Creatine Kinase 850(H) 0 - 200 unit/L [facility]CHITL [facility] Blood specimen (specimen) 12/08/2013 5:30 PM EDT 12/08/2013 5:54 PM EDT Narrative Resulting Agency Comment Spec In Lab Romulo Ramires MD CHEMISTRY ORDERABL ES [facility] * (ABNORMAL) Prothrombin Time (12/08/2013 5:30 PM EDT) Pathologist [facility] Prothrombin Time 16.2(H) 12.0 - 15.0 sec [facility]L [facility] Comment: [facility] Transfusion Committee Guidelines: INR less than 2.0, [...] MD HEMATOLOGY ORDERAB LES Performing Organization Address City/[facility] Co de Phone Number CERHELENA MADRIDENNIUM * APTT (12/08/2013 5:30 PM EDT) Partial Thromboplastin Time 34 25 - 35 sec CERNER MILLENNIUM Comment: Recommended therapeutic PTT range for full dose unfractionated heparin is 80-114 seconds. Blood specimen (specimen) 12/08/2013 5:30 PM EDT 12/08/2013 5:54 PM EDT Narrative Resulting Agency Comment Spec In Lab Romulo Ramires MD HEMATOLOGY ORDERAB LES Performing Organization Address [facility] de Phone Number CERHELENA MADRIDENNIUM * (ABNORMAL) [...] ORDERAB LES CERNER JULIUSENNIUM * (ABNORMAL) Hemogram (12/08/2013 5:30 PM EDT) [...] HEMATOLOGY ORDERAB LES CERHELENA MADRIDENNIUM * Fibrinogen (12/08/2013 5:30 PM EDT) Fibrinogen 402 175 - 450 mg/dL [facility] MILLENNIUM Blood specimen (specimen) 12/08/2013 5:30 PM EDT 12/08/2013 5:54 PM EDT Narrative Resulting Agency Comment Spec In Lab Romulo Ramires MD HEMATOLOGY ORDERAB LES Performing Organization Address City/[facility]/ZIP Co de Phone Number [facility] JULIUSENNIUM * Thrombin time (12/08/2013 5:30 PM EDT) Thrombin Time 15 15 - 20 sec [facility] JULIUSENNIUM Blood specimen (specimen) 12/08/2013 5:30 PM EDT 12/08/2013 5:54 PM EDT Narrative Resulting Agency Comment Spec In Lab Romulo Ramires MD HEMATOLOGY ORDERAB LES Performing Organization Address City/[facility]/ZIP Co de Phone Number [facility] JULIUSENNIUM * (ABNORMAL) Basic Metabolic Panel (non-fasting) (12/08/2013 5:30 PM EDT) Glucose 110 60 - 199 mg/dL [facility] MILLENNIUM Comment:Diabetes: >=200 mg/d L plus symptoms Blood Urea Nitrogen 7(L) 10 - 20 mg/dL CERNER MILLENNIUM Creatinine 0.80 0.80 - 1.50 mg/dL CERNER MILLENNIUM Comment: Please note that the pediatric reference intervals supplied above were not validated at [facility]. Results from pediatric patients should be interpreted in conjunction to the patient's age, height and muscle mass. Sodium 139 135 - 145 mmol/L [facility] MILLENNIUM Potassium 3.5 3.5 - 5.0 mmol/L [...] Beta-2 Trans Bf (MAY) Positive( A) XOCHITL WHITAKER Comment: -- REFERENCE VALUE -- Negative, no beta-2 transferrin (spinal fluid) detected. Test Performed by: [address] [address] Travel Registered Nurse Pacu: Cameron Hansen III, M.D. Body fluid specimen [...] again back into the stomach. Findings Preliminary brush operator views of the chest and abdomen reveals [...] again back into the stomach. Findings Preliminary brush operator views of the chest and abdomen reveals [...] Romulo Ramires MD CHEMISTRY ORDERABL ES CERNER AdlogixENNIUM * (ABNORMAL) Magnesium (12/08/2013 10:54 AM EDT) Magnesium 0.62(L) 0.69 - 1.07 mmol/L CERNER MILLENNIUM Blood specimen (specimen) 12/08/2013 10:54 AM EDT 12/08/2013 10:58 AM EDT Narrative Resulting Agency Comment Spec In Lab Romulo Ramires MD CHEMISTRY ORDERABL ES CERHELENA MADRIDENNIUM * (ABNORMAL) Differential, Automated (12/08/2013 10:54 AM [...] MD HEMATOLOGY ORDERAB LES Performing Organization Address [facility] de Phone Number XOCHITL SHELBYIUM * Thrombin time (12/08/2013 10:54 AM EDT) Thrombin Time 15 15 - 20 sec CERNER MILLENNIUM Blood specimen (specimen) 12/08/2013 10:54 AM EDT 12/08/2013 10:55 AM EDT Narrative Resulting Agency Comment Spec In Lab Romulo Ramires MD HEMATOLOGY ORDERAB LES Performing Organization Address City/State/[facility] Co de Phone Number CERHELENA MADRIDENNIUM * Fibrinogen (12/08/2013 10:54 AM EDT) Fibrinogen 374 175 - 450 mg/dL CERNER MILLENNIUM Blood specimen (specimen) 12/08/2013 10:54 AM EDT 12/08/2013 10:55 AM EDT Narrative Resulting Agency Comment Spec In Lab Romulo Ramires MD HEMATOLOGY ORDERAB LES Performing Organization Address [facility] Co de Phone Number XOCHITL WHITAKER * APTT (12/08/2013 10:54 AM EDT) Partial Thromboplastin Time 35 25 - 35 sec CERNER MILLENNIUM Comment: Recommended therapeutic PTT range for full dose unfractionated heparin is 80-114 seconds. Blood specimen (specimen) 12/08/2013 10:54 AM EDT 12/08/2013 10:55 AM EDT Narrative Resulting Agency Comment Spec In Lab Romulo Ramires MD HEMATOLOGY ORDERAB LES Performing Organization Address [facility] Phone Number XOCHITL MADRIDENNIUM * (ABNORMAL) Prothrombin Time (12/08/2013 10:54 AM EDT) Prothrombin Time 16.3(H) 12.0 - 15.0 sec CERHELENA MILLENNIUM Comment: [facility] Transfusion Committee Guidelines: INR less than 2.0, PTT less than OR equal to 43.5 seconds, or Fibrinogen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 CHEMISTRY ORDERABL ES Performing Organization Address [facility] Co de Phone Number [facility] * Hepatitis C Antibody (12/07/2013 8:45 AM EDT) Pathologist [facility] Hepatitis C Antibody not perf [facility] Comment: Unable to quantitate due to sample hemolysis. ??Sample redraw suggested. called to Tim at 12/07/13 12:29 Blood specimen (specimen) 12/07/2013 8:45 AM EDT 12/07/2013 9:14 AM EDT Narrative Resulting Agency Comment Spec In Lab Romulo Ramires MD CHEMISTRY ORDERABL ES Performing Organization Address [facility] de Phone Number [facility] * Hepatitis B Surface Antigen (12/07/2013 8:45 AM EDT) Hepatitis B Surface Antigen Negative Negative [facility] Blood specimen (specimen) 12/07/2013 8:45 AM EDT 12/07/2013 9:14 AM EDT Narrative Resulting Agency Comment Spec In Lab Romulo Ramires MD CHEMISTRY ORDERABL ES Performing Organization Address [facility] Co de Phone Number [facility] * Hepatitis B Surface Antibody (12/07/2013 8:45 AM EDT) Hepatitis B Surface Antibody Negative [facility] Comment: Expected Results: Vaccinated: Positive Unvaccinated: Negative [...] MD CHEMISTRY ORDERABL ES Performing Organization Address [facility] de Phone Number XOCHITL SHELBYIUM * Gold Tube HOLD (12/07/2013 8:45 AM EDT) Gold Hold Sample in lab. [facility] AdlogixB[facility]ENTERIUM Blood specimen (specimen) 12/07/2013 8:45 AM EDT 12/07/2013 8:51 AM EDT Romulo Ramires MD CHEMISTRY ORDERABL ES Performing Organization Address [facility] Phone Number XOCHITL SHELBYIUM * Ethanol Level (12/07/2013 8:45 AM EDT) Ethanol <100 mg/L [facility] AdlogixBAN[facility]ENTERIUM Comment: Greater than 800 mg/L (0.08%) should be considered intoxicated. 3400 to 4500 mg/L (0.34 - 0.45%) is considered severe intoxication. Greater than 5500 mg/L (0.55%) is usually fatal. Blood specimen (specimen) 12/07/2013 8:45 AM EDT 12/07/2013 8:51 AM EDT Narrative Resulting Agency Comment Spec In Lab Romulo Ramires MD CHEMISTRY ORDERABL ES Performing Organization Address [facility] [facility] Co de Phone Number XOCHITL SHELBYIUM * (ABNORMAL) Basic Metabolic Panel (non-fasting) (12/07/2013 8:45 AM EDT) Glucose 127 60 - 199 mg/dL [facility] Comment:Diabetes: >=200 mg/d L plus symptoms Blood Urea Nitrogen 8(L) 10 - 20 mg/dL [facility] Creatinine 0.97 0.80 - 1.50 mg/dL CERNER MILLENNIUM Comment: Please note that the pediatric reference intervals supplied above were not validated at [facility]. Results from pediatric patients should be interpreted [...] MD CHEMISTRY ORDERABL ES XOCHITL WHITAKER * XR chest PA or [...] WHITAKER documented in this encounter Visit Diagnoses Not on filedocumented in this encounter Active and Recently Administered [...] MYRON) 0504 (Given - Provider: Tim Pierre, RN)1107 (Given - Provider: Nayla Law, MYRON)1738 (Given - Provider: Nayla Law, MYRON) 0024 (Given - Provider: Tiana Spaulding, MYRON)0605 (Given - Provider: Tiana Spaulding, MYRON) aspirin chewable tablet 81 mg 81 mg, Oral, DAILY, First dose on Thu12/21/13 at 1930, Until Discontinued, Routine 0947 (Given - Provider: Marylin Farmer RN) 0858 (Given - Provider: Nayla Law, MYRON) 0825 (Given - Provider: Nayla Law, MYRON) bisacodyl (DULCOLAX) EC tablet 10 mg (COMPLETED) 10 mg, Oral, ONCE, 1 dose, On Thu01/03/14 at 2300, Routine 2309 (Given - Provider: Tim Pierre, YMRON) bisacodyl (DULCOLAX) suppository 10 mg 10 mg, [...] Farmer RN)1452 (Given - Provider: Marylin Farmer RN)211 (Given - Provider: Tim Pierre, MYRON) 0858 (Given - Provider: Nayla Law RN)1500 (Not Given - Provider: Nayla Law RN - Reason: Patient/family refused)214 (Given - Provider: Tim Pierre RN) 0900 (Not Given - Provider: Nayla Law RN - Reason: Patient/family refused) enoxaparin (LOVENOX) injection 120 mg 120 mg, Subcutaneous, EVERY 12 HOURS SCHEDULED (2 times per day), First dose on Thu12/21/13 at 0930, Until Discontinued, Routine 0949 (Given - Provider: Marylin Farmer RN)211 (Given - Provider: Tim Pierre, MYRON) 0859 (Given - Provider: Nayla Law RN)214 (Given - Provider: Tim Pierre, MYRON) 0826 (Given - Provider: Nayla Law RN) famotidine (PEPCID) tablet 20 mg (CANCELED)(Linked Group 1) 20 mg, Oral, 2 TIMES DAILY, First dose on Thu12/07/13 at 2100, Until Discontinued, Routine 0948 (Given - Provider: Marylin Farmer RN)211 (Given - Provider: Tim Pierre, MYRON) 0858 (Given - Provider: Nayla Law RN)214 (Given [...] Law RN)1539 (Given - Provider: Nayla Law RN)2146 (Given - Provider: Tim Pierre RN) 0825 [...] Reason: Patient/family refused)1452 (Given - Provider: Marylin Farmer RN)2111 (Given - Provider: Tim Pierre RN) 0504 (Given - Provider: Tim Pierre RN)1338 (Given - Provider: Nayla Law RN)2145 (Given - Provider: Tim Pierre, MYRON) 0606 (Given - Provider: Tiana Spaulding RN) ipratropium-albuterol (DUONEB) 0.5 mg-3 mg(2.5 mg base)/3 mL nebulizer solution 3 mL 3 mL, Nebulization, EVERY 4 HOURS, First dose on Thu12/28/13 at 2200, Until Discontinued, Routine 0200 (Not Given - Provider: Tim Pierre RN - Reason: Patient/family refused)0600 (Not Given - Provider: Tim M Ignacio, RN - Reason: Patient/family refused)1000 (Not Given [...] Young RN) 0859 (Given - Provider: Nayla Law, MYRON) 0826 (Given - Provider: Nayla Law RN) protein powder (BENEPROTEIN) 2 scoop 2 scoop, Per G Tube, 3 TIMES DAILY, First dose (after last modification) on Thu01/02/14 at 1500, Until Discontinued, Routine 0900 (Not Given - Provider: Marylin Farmer RN - Reason: Patient/family refused)1541 (Given - Provider: Kellen Young RN)2100 (Given - Provider: Tim Pierre, RN) 0904 (Given - Provider: Nayla Law, MYRON)1500 (Not Given - Provider: Nayla Law RN - Reason: Patient/family refused)2100 (Given - Provider: Tim Pierre, RN) 0900 (Not Given - Provider: Nayla Law RN - Reason: Patient/family refused) QUEtiapine (SEROQUEL) tablet 100 mg 100 mg, Oral, NIGHTLY, First dose on Thu12/24/13 at 2100, Until Discontinued, Routine 2110 (Given - Provider: Tim Pierre RN) 2143 (Given - Provider: Tim Pierre, MYRON) QUEtiapine [...] Discontinued, Routine 2111 (Given - Provider: Tim Pierre RN) 2144 (Given - Provider: Tim Pierre RN) sertraline (ZOLOFT) tablet 50 mg 50 mg, [...] Routine 0951 (Given - Provider: Marylin Farmer RN)2147 (Given - Provider: Tim Pierre, MYRON) 110 (Given - Provider: Nayla Law, MYRON)2144 (Given - Provider: Tim Pierre RN) sodium chloride tablet 2 g (CANCELED) 2 g, Oral, 3 TIMES DAILY, First dose on Thu12/21/13 at 0900, Until Discontinued, Routine 0947 (Given - Provider: Marylin Farmer RN)1540 (Given - Provider: Kellen Young RN)2111 (Given - Provider: Tim M Ignacio, RN) 0859 (Given - Provider: Nayla Law, MYRON)1538 (Given - Provider: Nayla Law, MYRON)2144 (Given - Provider: Tim Pierre, MYRON) 0825 (Given - Provider: Nayla Law RN) warfarin (COUMADIN) tablet 12.5 mg (COMPLETED) 12.5 mg, Oral, ONCE, 1 dose, On Thu01/03/14 at 1700, Routine 1750 (Given - Provider: Kellen Young RN) warfarin (COUMADIN) tablet 12.5 mg (COMPLETED) 12.5 mg, Oral, ONCE, 1 dose, On Thu01/04/14 at 1700, Routine 1739 (Given - Provider: Nayla Law RN) Continuous Medication Order 01/03/2014 01/04/2014 01/05/2014 tube [...] Anxiety, Routine 2145 (Given - Provider: Tim Pierre, MYRON) oxyCODONE (ROXICODONE) immediate release tablet 15-45 mg 15-45 mg, Oral, EVERY 4 HOURS PRN, Starting on Thu12/26/13 at 1005, Until Edie 01/05/14 at 1137, Pain, Routine 0947 (Given - Provider: Marylin Farmer, RN)1451 (Given - Provider: Marylin Farmer RN)2112 (Given - Provider: Tim Pierre, RN) 0500 (Given - Provider: Tim Pierre, RN)1106 (Given - Provider: Nayla Law, RN)1539 (Given - Provider: Nayla Law, MYRON)2007 (Given - Provider: Tim Pierre, RN) 0112 (Given - Provider: Tiana Spaulding, MYRON)0606 (Given - Provider: Tiana Spaulding, MYRON) Linked Groups Order Group 1: famotidine (PEPCID) [...] PRN, Starting on Thu12/19/13 at 1538, Until 12/26/13 at 1006, Anxiety, Routine documented in this encounter Care Teams Paddle Dyeing Machine Operator Relationship Specialty Start Date End Date None None PCP - General 12/07/13 07/10/14 documented as of this encounter
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
--- OUTSIDE RECORDS SUMMARY | 2024-05-25 11:24 | XMS_ITS | Encounter Summary ---
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 <110 mg/dL before meals <200 mg/dL all other times of the day Blood specimen (specimen) 12/23/2013 8:06 PM EDT 12/23/2013 8:06 PM EDT Romulo Ramires MD POINT OF CARE TEST ORDERABLES Performing Organization Address [facility] Co de Phone Number [facility] * Transfuse RBC (12/23/2013 5:33 AM EDT) [...] Metabolic Panel (non-fasting) (12/23/2013 3:20 AM EDT) Glucose 138 60 - 199 mg/dL CERNER MILLENNIUM Comment:Diabetes: >=200 mg/d L plus symptoms Blood Urea Nitrogen 19 10 - 20 mg/dL CERNER MILLENNIUM Creatinine 0.51(L) 0.80 - 1.50 mg/dL CERNER MILLENNIUM Comment: Please note that the pediatric reference intervals supplied above were not validated at [facility]. Results from pediatric patients should be interpreted [...] the following links into your internet browser. [email or web address]://[email or web address] [email or web address] Blood specimen (specimen) 12/23/2013 3:20 AM EDT [...] ORDERABLE S CERNER MILLENNIUM * (ABNORMAL) Hemogram (12/22/2013 3:15 [...] intervals supplied above were not validated at [facility]. Results from pediatric patients should be interpreted [...] the following links into your internet browser. [email or web address] Blood specimen (specimen) 12/22/2013 3:15 AM EDT 12/22/2013 3:21 AM EDT Narrative Resulting Agency Comment Spec In Lab Bro Morgan MD CHEMISTRY ORDERABLES [facility] * Blood culture (12/21/2013 10:50 PM EDT) Blood Culture ? Patient Name: CIRILO PONCE ?Ordered By: BRO MORGAN ? MR#: [id number] ?LOC: ??3WST ? /Sex: ??1985 (28 years), [...] PONCE ?Ordered By: BRO MORGAN ? MR#: [id number] ?LOC: ??3WST ? /Sex: ??1985 (28 years), [...] Morgan MD MICROBIOLOGY - BLOOD ORDERABLES [facility] * Urine culture Indwelling Catheter Urine (12/21/2013 10:24 PM EDT) Urine Culture ? Patient Name: CIRILO PONCE ?Ordered By: BRO MORGAN ? MR#: [id number] ?LOC: ??ICUS ? /Sex: ?? 6 (28 [...] Morgan MD MICROBIOLOGY - GENER AL ORDERABLES Performing Organization Address City/State/[facility] Co de Phone Number [facility] * XR chest PA or AP- 1 [...] MD HEMATOLOGY ORDERABLE S Performing Organization Address City/[facility]/ZIP Co de Phone Number CERNER MILLENNIUM * (ABNORMAL) Hemogram (12/21/2013 3:45 [...] MD HEMATOLOGY ORDERABLE S Performing Organization Address City/[facility]/ZIP Co de Phone Number CERHELENA MADRIDENNI[facility] * (ABNORMAL) Basic Metabolic Panel (non-fasting) (12/21/2013 3:45 AM EDT) Glucose 117 60 - 199 mg/dL CERNER MILLENNIUM Comment:Diabetes: >=200 mg/d L plus symptoms Blood Urea Nitrogen 18 10 - 20 mg/dL CERNER MILLENNIUM Creatinine 0.54(L) 0.80 - 1.50 mg/dL CERNER MILLENNIUM Comment: Please note that the pediatric reference intervals supplied above were not validated at [facility]. Results from pediatric patients should be interpreted [...] the following links into your internet browser. [email or web address] [email or web address] Blood specimen (specimen) 12/21/2013 3:45 AM EDT 12/21/2013 3:48 AM EDT Narrative Resulting Agency Comment Spec In Lab Bro Morgan MD CHEMISTRY ORDERABLES [facility] * (ABNORMAL) APTT (12/21/2013 12:10 AM EDT) [facility] Partial Thromboplastin Time 43(H) 25 - 35 sec CERNER MILLENNIUM Comment: [...] Text Report Department: Vascular Surgery Lab Patient: [id number] (CIRILO PONCE) CPT Code: 56896 ICD-9: 451.19 Referring Physician: CIRILO OLIVAS Indication: [...] a new finding compared to previous exam 6-2-14. See duplex findings above for details. 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 This is a new finding compared to previous exam 6-2-14. Notification: Dr. Watts was informed of these preliminary findings at the bedside. Electronically Signed by: SOL PARSON on 2013-12-20 10:06:44 PM VASCUBASE VB Text Report End of Report VASCUBASE 12/20/2013 8:26 AM EDT Cirilo Olivas MD VASCULAR ORDERABLES VASCUBASE * (ABNORMAL) APTT (12/20/2013 5:45 AM EDT) Partial Thromboplastin Time 43(H) 25 - 35 sec CERNER MILLENNIUM Comment: [...] MD HEMATOLOGY ORDERABLE S Performing Organization Address [facility] Co de Phone Number [facility] * (ABNORMAL) Hemogram (12/20/2013 4:15 AM EDT) [...] Lab Cirilo Olivas MD HEMATOLOGY ORDERABLE S [facility] * (ABNORMAL) Basic Metabolic Panel (non-fasting) (12/20/2013 4:15 AM EDT) Glucose 99 60 - 199 mg/dL CERNER MILLENNIUM Comment:Diabetes: >=200 mg/d L plus symptoms Blood Urea Nitrogen 16 10 - 20 mg/dL CERNER MILLENNIUM Creatinine 0.48(L) 0.80 - 1.50 mg/dL CERNER MILLENNIUM Comment: Please note that the pediatric reference intervals supplied above were not validated at [facility]. Results from pediatric patients should be interpreted [...] the following links into your internet browser. [email or web address] [email or web address] Blood specimen (specimen) 12/20/2013 4:15 AM EDT 12/20/2013 4:25 AM EDT Narrative Resulting Agency Comment Spec In Lab Bro Morgan MD CHEMISTRY ORDERABLES CERHELENA MADRIDENNI[facility] * XR chest PA or AP- 1 [...] Text Report Department: Vascular Surgery Lab Patient: [id number] (CIRILO PONCE) CPT Code: 84447 ICD-9: 959.8 Referring Physician: CIRILO OLIVAS Indication: [...] MD HEMATOLOGY ORDERAB LES Performing Organization Address City/[facility]/ZIP Co de Phone Number CERNER MILLENNIUM * [...] intervals supplied above were not validated at [facility]. Results from pediatric patients should be interpreted [...] the following links into your internet browser. [email or web address] Blood specimen (specimen) 12/19/2013 5:26 AM EDT 12/19/2013 5:34 AM EDT Narrative Resulting Agency Comment Spec In Lab Romulo Ramires MD CHEMISTRY ORDERABL ES CERNER MILLENNIUM * (ABNORMAL) Prothrombin Time (12/19/2013 5:26 AM EDT) Prothrombin Time 15.1(H) 12.0 - 15.0 sec CERNER MILLENNIUM Comment: [facility] Transfusion Committee Guidelines: INR less than 2.0, [...] MD HEMATOLOGY ORDERAB LES Performing Organization Address [facility] Co de Phone Number [facility] * Vancomycin, trough (12/18/2013 8:08 PM EDT) Vancomycin, Trough 15.1 mg/L C MEILIA MILLENNIUM Comment: Therapeutic range for complicated infections [...] Olivas MD CHEMISTRY ORDERABLES Performing Organization Address [facility] de Phone Number [facility] * (ABNORMAL) Basic Metabolic Panel (non-fasting) (12/18/2013 8:08 PM EDT) Glucose 100 60 - 199 mg/dL CERNER MILLENNIUM Comment:Diabetes: >=200 mg/d L plus symptoms Blood Urea Nitrogen 14 10 - 20 mg/dL CERNER MILLENNIUM Creatinine 0.57(L) 0.80 - 1.50 mg/dL CERNER MILLENNIUM Comment: Please note that the pediatric reference intervals supplied above were not validated at [facility]. Results from pediatric patients should be interpreted [...] the following links into your internet browser. [email or web address] [email or web address] Blood specimen (specimen) 12/18/2013 8:08 PM EDT [...] intervals supplied above were not validated at [facility]. Results from pediatric patients should be interpreted [...] the following links into your internet browser. [email or web address]://[email or web address] [email or web address] Blood specimen (specimen) 12/18/2013 4:02 AM EDT 12/18/2013 4:11 AM EDT Narrative Resulting Agency Comment Spec In Lab Romulo Ramires MD CHEMISTRY ORDERABL ES Performing Organization Address [facility] de Phone Number CERHELENA MADRIDHit SystemsATRI[facility] * (ABNORMAL) Prothrombin Time (12/18/2013 4:02 AM EDT) Prothrombin Time 15.7(H) 12.0 - 15.0 sec CERNER MILLENNIUM Comment: [facility] Transfusion Committee Guidelines: INR less than 2.0, [...] MD HEMATOLOGY ORDERAB LES Performing Organization Address [facility] de Phone Number [facility] * Blood culture (12/17/2013 8:50 PM EDT) Blood Culture ? Patient Name: CIRILO PONCE Keyanna ?Ordered By: BRENDON CIRILO D ? MR#: [id number] ?LOC: ??ICUS ? /Sex: ??1985 (28 years), [...] days. ? [facility] Blood specimen (specimen) 12/17/2013 8:50 PM EDT 12/17/2013 9:13 PM EDT Comment:L HAND Narrative Resulting Agency Comment Spec In Lab Cirilo Olivas MD MICROBIOLOGY - BLOOD ORDERABLES [facility] * Blood culture (12/17/2013 8:45 PM EDT) Blood Culture ? Patient Name: CIRILO PONCE ?Ordered By: CIRILO OLIVAS ? MR#: [id number] ?LOC: ??ICUS ? /Sex: ??1985 (28 years), [...] days. ? [facility] Blood specimen (specimen) 12/17/2013 8:45 PM EDT 12/17/2013 9:14 PM EDT Comment:L ANTECUBITAL Narrative Resulting Agency Comment Spec In Lab Cirilo Olivas MD MICROBIOLOGY - BLOOD ORDERABLES [facility] * Urine culture Indwelling Catheter Urine (12/17/2013 8:35 PM EDT) Urine Culture ? Patient Name: KRIS CIRILO Briceño ?Ordered By: CIRILO OLIVAS ? MR#: [id number] ?LOC: ??ICUS ? /Sex: ?? 6 (28 years), ? Male ? PROCEDURE: Urine Culture ?SOURCE: [facility] ? COLLECTED: 12/17/2013 20:35 ? STARTED: [...] Urine Dipstick Cloudy(A) Clear CERNER MILLENNIUM Specific [place] Urine Automated 1.018 1.002 - 1.030 CERNER [...] In Lab Cirilo Olivas MD URINE ORDERABLES CERNER MILLENNIUM * POCT Glucose (12/17/2013 5:34 PM EDT) Glucose, POC 118 60 - 199 mg/dL CERNER MILLENNIUM Comment: Supplemental ranges: <110 mg/dL before meals <200 mg/dL all other times of the day Blood specimen (specimen) 12/17/2013 5:34 PM EDT 12/17/2013 5:34 PM EDT Romulo Ramires MD POINT OF CARE TEST ORDERABLES CERNER MILLENNIUM * (ABNORMAL) Differential, Automated (12/17/2013 5:00 PM [...] intervals supplied above were not validated at [facility]. Results from pediatric patients should be interpreted [...] the following links into your internet browser. [email or web address] Blood specimen (specimen) 12/17/2013 5:00 PM EDT 12/17/2013 5:06 PM EDT Narrative Resulting Agency Comment Spec In Lab Romulo Ramires MD CHEMISTRY ORDERABL ES Performing Organization Address City/[facility] Co de Phone Number [facility] * EKG 12 Lead (12/17/2013 7:22 AM EDT) Ventricular rate 74 BPM MUSE SYSTEM Atrial Rate 74 BPM MUSE SYSTEM P-R Interval 148 ms MUSE SYSTEM QRS Duration 88 ms MUSE SYSTEM Q-T Interval 426 ms MUSE SYSTEM QTC Calculated (Bezet) 472 ms MUSE SYSTEM Calculated P [place] 47 degrees MUSE SYSTEM Calculated R [place] 62 degrees MUSE SYSTEM Calculated T [place] 23 degrees MUSE SYSTEM INTERPRETATION Normal sinus rhythm Normal ECG No previous ECGs available Confirmed by Bradley Basilio MD ([id number]) on 12/17/2013 1:26:14 PM MUSE SYSTEM 12/17/2013 7:22 AM EDT 12/17/2013 1:26 PM EDT Cirilo Olivas MD ECG ORDERABLES Performing Organization Address [facility] Co de Phone Number MUSE SYSTEM * Percutaneous [...] was made using a #11 scalpel. The Damien tube was secured and pulled through into [...] LES CERNER JULIUSENNIUM * (ABNORMAL) Hemogram (12/17/2013 3:30 AM EDT) [...] intervals supplied above were not validated at [facility]. Results from pediatric patients should be interpreted [...] the following links into your internet browser. [email or web address] Blood specimen (specimen) 12/17/2013 3:30 AM EDT 12/17/2013 3:37 AM EDT Narrative Resulting Agency Comment Spec In Lab Romulo Ramires MD CHEMISTRY ORDERABL ES Performing Organization Address [facility] Co de Phone Number [facility]L [facility] * (ABNORMAL) Prothrombin Time (12/17/2013 3:30 AM EDT) Prothrombin Time 15.4(H) 12.0 - 15.0 sec CERNER MILLENNIUM Comment: [facility] Transfusion Committee Guidelines: INR less than 2.0, [...] MD HEMATOLOGY ORDERAB LES Performing Organization Address [facility]/ZIP Co de Phone Number [facility]L [facility] * Scan, Peripheral Blood (12/16/2013 3:40 PM [...] LES CERNER MILLENNIUM * (ABNORMAL) Hemogram (12/16/2013 3:40 PM EDT) [...] HEMATOLOGY ORDERAB LES [facility] * (ABNORMAL) Basic Metabolic Panel (non-fasting) (12/16/2013 3:40 PM EDT) Glucose 95 60 - 199 mg/dL CERNER MILLENNIUM Comment:Diabetes: >=200 mg/d L plus symptoms Blood Urea Nitrogen 15 10 - 20 mg/dL CERNER MILLENNIUM Creatinine 0.52(L) 0.80 - 1.50 mg/dL CERNER MILLENNIUM Comment: Please note that the pediatric reference intervals supplied above were not validated at [facility]. Results from pediatric patients should be interpreted [...] the following links into your internet browser. [email or web address] [email or web address] Blood specimen (specimen) 12/16/2013 3:40 PM EDT 12/16/2013 3:46 PM EDT Narrative Resulting Agency Comment Spec In Lab Romulo Ramires MD CHEMISTRY ORDERABL ES [facility] * Echocardiogram Transthoracic(Leb) (12/16/2013 3:31 PM EDT) EF 61 HEARTLAB SYSTEM Anatomical Region Laterality Modality Other 12/16/2013 Narrative 12/16/2013 3:48 PM EDT Amended Report Procedure: ? Transthoracic Echocardiogram Patient: ? KRIS KERR D ? (Age): 1985(28) Med Rec#: ?[id number] ? Sex: ?M ? Site Loc: ?[facility] ? Ht / Wt: ??190(cm)/124.4(k Pt. Loc: ? Adult Floor ?BSA: ?2.56 Study Date: ?12/16/2013 ? Pt. Type: Inpatient Tape: ? Referring: Cirilo Olivas MD Referring: ZANAROBERTJessica [employer] Data Warehouse Developer: Virginia Granados [employer] Data Warehouse Developer 2: Cristopher Mays ([id number]) Interpreting Fellow: Cristopher Mays ([id number]) Diagnosis:CPT Code(s): ??Echo Full (09760), ??Spectral Doppler (65122), Color Doppler (06249), ??Saline Contrast (000), Indication(s): ??Hypoxia Rhythm: HR [...] ? Mid-Inferior ?Normal ? Mid-Inferoseptal ?Normal ? [place]-Septal ? Normal ? [place]-Anterior ? Normal ? [place]-Lateral ?Normal ? [place]-Inferior ? Normal ? [place]-Tip ?Normal ? Chambers ?Value ?Units (Range) ? [...] 12/16/2013 15:48:29 Images reviewed and interpretation verified [facility] Cardiac Ultrasound [facility] Procedure Note Wiliam Wang MD - 12/16/2013 Amended Report Procedure: Transthoracic Echocardiogram Patient: KRIS Briceño (Age): 1985(28) Med Rec#: [id number] Sex: M Site Loc: [facility] Ht / Wt: 190(cm)/124.4(k Pt. Loc: Adult Floor BSA: 2.56 Study Date: 12/16/2013 Pt. Type: Inpatient Tape: Referring: Cirilo Olivas MD Referring: KAYLEEN [employer] Developer: Virginia Granados [employer] Data Warehouse Developer 2: Cristopher Mays ([id number]) Interpreting Fellow: Cristopher Mays ([id number]) Diagnosis:CPT Code(s): Echo Full (87560), Spectral Doppler (33444), Color Doppler (87579), Saline Contrast (000), Indication(s): Hypoxia Rhythm: HR [...] Normal Mid-Posterolateral Normal Mid-Inferior Normal Mid-Inferoseptal Normal [place]-Septal Normal [place]-Anterior Normal [place]-Lateral Normal [place]-Inferior Normal [place]-Tip Normal Chambers Value Units (Range) EF Bi-p [...] 12/16/2013 15:48:29 Images reviewed and interpretation verified [facility]iac Ultrasound [facility] Cirilo Olivas MD ECHO ORDERABLES * Vancomycin, trough (12/16/2013 3:56 AM EDT) Vancomycin, Trough 12.2 mg/L C EM[facility] Comment: Therapeutic range for complicated infections such [...] In Lab Cirilo Olivas MD CHEMISTRY ORDERABLES [facility] * Prothrombin Time (12/16/2013 3:56 AM EDT) Prothrombin Time 14.7 12.0 - 15.0 sec XOCHITL WHITAKER Comment: [facility] Transfusion Committee Guidelines: INR less than 2.0, [...] MD HEMATOLOGY ORDERAB LES Performing Organization Address [facility] Co de Phone Number CERNER JULIUSENNIUM * (ABNORMAL) Hemogram (12/16/2013 12:15 AM EDT) [...] intervals supplied above were not validated at [facility]. Results from pediatric patients should be interpreted [...] the following links into your internet browser. http://[employer]/DHnkdep http://[employer]/[facility] Blood specimen (specimen) 12/16/2013 12:15 AM EDT [...] AP/XPORT Clinical History hypoxia, R CXT to [facility] Comparison 12/13/2013. Technique Portable AP semi [...] AP/XPORT Clinical History hypoxia, R CXT to [facility] Comparison 12/13/2013. Technique Portable AP semi [...] Metabolic Panel (non-fasting) (12/15/2013 11:55 AM EDT) [facility] Glucose 120 60 - 199 mg/dL CERNER MILLENNIUM Comment:Diabetes: >=200 mg/d L plus symptoms Blood Urea Nitrogen 17 10 - 20 mg/dL CERNER MILLENNIUM Creatinine 0.55(L) 0.80 - 1.50 mg/dL CERNER MILLENNIUM Comment: Please note that the pediatric reference intervals supplied above were not validated at [facility]. Results from pediatric patients should be interpreted [...] the following links into your internet browser. http://[employer]/DHnkdep http://[employer]/DHMCnkf Blood specimen (specimen) 12/15/2013 11:55 AM EDT 12/15/2013 12:05 PM EDT Narrative Resulting Agency Comment Spec In Lab Romulo Ramires MD CHEMISTRY ORDERABL ES XOCHITL SHELBYIUM * XR abdomen 1 view (12/15/2013 9:56 [...] * Prothrombin Time (12/15/2013 6:30 AM EDT) Pathologist [facility] Prothrombin Time 15.0 12.0 - 15.0 sec CERNER JULIUSENNIUM Comment: [facility] Transfusion Committee Guidelines: INR less than 2.0, [...] MD HEMATOLOGY ORDERAB LES XOCHITL SHELBYIUM * Antibody screen (12/15/2013 1:05 AM EDT) Pathologist [facility] Ab Screen Interp Negative CERHELENA MADRIDENNIUM Expires at [id number] on: [id number] CERNER JULIUSENNIUM Blood specimen (specimen) 12/15/2013 1:05 AM EDT 12/15/2013 1:05 AM EDT Narrative Resulting Agency Comment Spec In Lab Cirilo Olivas MD BLOOD BANK LAB ORDER SOSA XOCHITL SHELBYIUM * ABO/Rh Typing (12/15/2013 1:05 AM EDT) ABORH Type O Pos CERNER MILLENNIUM Blood specimen (specimen) 12/15/2013 1:05 AM EDT 12/15/2013 1:05 AM EDT Narrative Resulting Agency Comment Spec In Lab Cirilo Olivas MD BLOOD BANK LAB ORDER SOSA Performing Organization Address City/[facility]/ZIP Co de Phone Number CERHELENA MADRIDENNIUM * Prepare RBC (12/15/2013 12:35 AM EDT) Dispensed? Yes CERNER MILLENNIUM Blood specimen (specimen) 12/15/2013 12:35 AM EDT 12/15/2013 12:34 AM EDT Cirilo Olivas MD BLOOD BANK PRODUCT O RDERABLES Performing Organization Address [facility] Co de Phone Number CERNER JULIUSENNIUM * [...] MD HEMATOLOGY ORDERAB LES Performing Organization Address [facility]/ZIP Co de Phone Number CERNER JULIUSENNIUM * (ABNORMAL) [...] LES CERHELENA MADRIDENNIUM * (ABNORMAL) Hemogram (12/15/2013 12:05 AM EDT) [...] Metabolic Panel (non-fasting) (12/15/2013 12:05 AM EDT) Glucose 99 60 - 199 mg/dL CERNER MILLENNIUM Comment:Diabetes: >=200 mg/d L plus symptoms Blood Urea Nitrogen 18 10 - 20 mg/dL CERNER MILLENNIUM Creatinine 0.55(L) 0.80 - 1.50 mg/dL CERNER MILLENNIUM Comment: Please note that the pediatric reference intervals supplied above were not validated at [facility]. Results from pediatric patients should be interpreted [...] MD CHEMISTRY ORDERABL ES Performing Organization Address [facility]/ZIP Co de Phone Number CERNER MILLENNIUM * Scan, Peripheral Blood (12/14/2013 12:30 PM EDT) Pathologist [facility] Plat estimate Normal CERNER MILLENNIUM RBC Morphology Abnormal CERNE R MILLENNIUM Hypochromia Slight CERNER MILLENNIUM Blood specimen (specimen) 12/14/2013 12:30 PM EDT 12/14/2013 1:05 PM EDT Narrative Resulting Agency Comment Spec In Lab Romulo Ramires MD HEMATOLOGY ORDERAB LES Performing Organization Address [facility]/ZIP Co de Phone Number CERNER MILLENNIUM * (ABNORMAL) Differential, Automated (12/14/2013 [...] MD HEMATOLOGY ORDERAB LES Performing Organization Address [facility] Co de Phone Number [facility] JULIUSENNIUM * Vancomycin, trough (12/14/2013 12:30 PM EDT) [...] Olivas MD CHEMISTRY ORDERABLES Performing Organization Address [facility] de Phone Number [facility] AFSANEHIUM * (ABNORMAL) Basic Metabolic Panel (non-fasting) (12/14/2013 12:30 PM EDT) Glucose 96 60 - 199 mg/dL [facility] MILLENNIUM Comment:Diabetes: >=200 mg/d L plus symptoms Blood Urea Nitrogen 15 10 - 20 mg/dL CERNER MILLENNIUM Creatinine 0.61(L) 0.80 - 1.50 mg/dL CERNER MILLENNIUM Comment: Please note that the pediatric reference intervals supplied above were not validated at [facility]. Results from pediatric patients should be interpreted in conjunction to the patient's age, height and muscle mass. Sodium 139 135 - 145 mmol/L [facility] MILLENNIUM Potassium 4.0 3.5 - 5.0 mmol/L [facility] MILLENNIUM Comment: Please note: ??Patients [...] MD CHEMISTRY ORDERABL ES XOCHITL WHITAKER * Beta 2 Transferrin Body Fluid Pleural fluid (12/14/2013 8:48 AM EDT) Beta-2 Trans Bf (NOVEMBER) Negative CERNER MILLENNIUM Comment: -- REFERENCE VALUE -- Negative, no beta-2 transferrin (spinal fluid) detected. Test Performed by: [facility] - [address] [address] Station Cook: Cameron Hansen III, M.D. Body fluid specimen (specimen) 12/14/2013 8:48 AM EDT 12/14/2013 10:22 AM EDT Narrative Resulting Agency Comment Spec In Lab Cirilo Olivas MD LAB SEND OUT ORDERAB LES Performing Organization Address [facility] de Phone Number XOCHITL WHITAKER * Blood culture (12/14/2013 12:35 AM EDT) Blood Culture ? Patient Name: CIRILO PONCE ?Ordered By: CIRILO OLIVAS ? MR#: [id number] ?LOC: ??ICUS ? /Sex: ??1985 (28 years), [...] days. ? XOCHITL WHITAKER Blood specimen (specimen) 12/14/2013 12:35 AM EDT 12/14/2013 2:10 AM EDT Comment:#2 CENTRAL LINE Narrative Resulting Agency Comment Spec In Lab Cirilo Olivas MD MICROBIOLOGY - BLOOD ORDERABLES Performing Organization Address [facility]/ZIP Co de Phone Number XOCHITL WHITAKER * Blood culture (12/14/2013 12:30 AM EDT) Blood Culture ? Patient Name: CIRILO PONCE ?Ordered By: CIRILO OLIVAS ? MR#: [id number] ?LOC: ??ICUS ? /Sex: ??1985 (28 years), [...] days. ? XOCHITL WHITAKER Blood specimen (specimen) 12/14/2013 12:30 AM EDT [...] HEMATOLOGY ORDERAB LES CERHELENA MADRIDENNIUM * (ABNORMAL) Differential, Automated (12/14/2013 12:20 AM [...] MD HEMATOLOGY ORDERAB LES Performing Organization Address [facility] Co de Phone Number CERHELENA MADRIDENNIUM * (ABNORMAL) Hemogram (12/14/2013 12:20 AM EDT) [...] MADRIDENNIUM * (ABNORMAL) Basic Metabolic Panel (non-fasting) (12/14/2013 12:20 AM EDT) Glucose 104 60 - 199 mg/dL CERNER MILLENNIUM Comment:Diabetes: >=200 mg/d L plus symptoms Blood Urea Nitrogen 18 10 - 20 mg/dL CERNER MILLENNIUM Creatinine 0.68(L) 0.80 - 1.50 mg/dL CERNER MILLENNIUM Comment: Please note that the pediatric reference intervals supplied above were not validated at [facility]. Results from pediatric patients should be interpreted [...] ES CERHELENA SHELBYIUM * (ABNORMAL) Prothrombin Time (12/14/2013 12:20 AM EDT) Prothrombin Time 15.4(H) 12.0 - 15.0 sec CERNER MILLENNIUM Comment: [facility] Transfusion Committee Guidelines: INR less than 2.0, [...] MD HEMATOLOGY ORDERAB LES Performing Organization Address City/[facility]/ZIP Co de Phone Number CERNER MILLENNIUM * CSF [...] AND STOO LS ORDERABLES Performing Organization Address City/[facility]/ZIP Co de Phone Number CERNER MILLENNIUM * CSF DESC 1 (12/13/2013 6:41 PM EDT) Tube Num CSF #1 1 CERNER MILLENNIUM Color, CSF [place] CERNER MILLENNIUM Appearance, CSF Hazy Clear CERNER MILLENNIUM Total Vol, CSF 4.0 mL CERNE R MILLENNIUM Cerebrospinal fluid specimen (specimen) 12/13/2013 6:41 PM EDT 12/13/2013 6:57 PM EDT Narrative Resulting Agency Comment Spec In Lab Cirilo Olivas MD BODY FLUIDS AND KAREN PICKENS ORDERABLES XOCHITL WHITAKER * CSF Culture (12/13/2013 6:41 PM EDT) Central Nervous System Culture ? Patient Name: KRISKELLYIC Keyanna ?Ordered By: CIRILO OLIVAS ? MR#: [id number] ?LOC: ??ICUS ? /Sex: ??1985 (28 years), [...] Narrative Resulting Agency Comment Spec In Lab iCrilo Olivas MD MICROBIOLOGY - [facility] AL ORDERABLES Performing Organization Address [facility] Co de Phone Number [facility] * Glucose Level CSF (12/13/2013 6:40 PM EDT) Glucose, CSF 55 mg/dL [facility] Comment:CSF at equilibrium e quals approximately 60-80% of plasma glucose. Cerebrospinal fluid specimen (specimen) 12/13/2013 6:40 PM EDT 12/13/2013 6:56 PM EDT Narrative Resulting Agency Comment Spec In Lab Cirilo Olivas MD BODY FLUIDS AND STOO LS ORDERABLES Performing Organization Address [facility] de Phone Number [facility] * (ABNORMAL) Protein Level CSF (12/13/2013 6:40 PM EDT) Protein, CSF 380(H) 15 - 45 mg/dL [facility] Comment: RBC CT= 6604 If CSF red cells are due to traumatic tap, the measured CSF Total Protein will be increased by approximately 1 mg/dL for every 1000 RBC/UL, assuming normal serum protein, hematocrit and peripheral RBC Xanthochromia Slight [facility] Cerebrospinal fluid specimen (specimen) 12/13/2013 6:40 PM EDT 12/13/2013 6:56 PM EDT Narrative Resulting Agency Comment Spec In Lab Cirilo Olivas MD BODY FLUIDS AND STOO LS ORDERABLES Performing Organization Address [facility] Co de Phone Number [facility] JULIUSPRESC[facility]ENTERIUM * XR chest PA or AP- 1 [...] MD HEMATOLOGY ORDERAB LES Performing Organization Address [facility] Co de Phone Number CERHELENA MILLENNIUM * (ABNORMAL) Hemogram (12/13/2013 11:38 AM EDT) Pathologist [facility] White Blood Cell 11.1(H) 4.0 - [...] MD HEMATOLOGY ORDERAB LES Performing Organization Address [facility] Co de Phone Number CERNER JULIUSENNIUM * (ABNORMAL) Basic Metabolic Panel (non-fasting) (12/13/2013 11:38 AM EDT) Pathologist [facility] Glucose 95 60 - 199 mg/dL CERNER MILLENNIUM Comment:Diabetes: >=200 mg/d L plus symptoms Blood Urea Nitrogen 19 10 - 20 mg/dL CERNER MILLENNIUM Creatinine 0.60(L) 0.80 - 1.50 mg/dL CERNER MILLENNIUM Comment: Please note that the pediatric reference intervals supplied above were not validated at [facility]. Results from pediatric patients should be interpreted [...] MD CHEMISTRY ORDERABL ES CERNER MILLENNIUM * IR all drainage procedures (12/13/2013 11:33 [...] ?? Limited US RIGHT pleural space ?? [id number] ?? Indication: Worsening respiratory status, increasing O2 requirements on vent with small apical PTX ?? Technique: ?? Limited US of RIGHT pleural space shows no significant pleural fluid. ?? Procedure Note Cirilo Wilcox MD - 12/15/2013 VIR Procedure Note Limited US RIGHT pleural space A#[id number] Indication: Worsening respiratory status, increasing O2 requirements onvent with small apical PTX Technique: Limited US of RIGHT pleural space shows no significant pleural fluid. IMPRESSION Impression: No RIGHT pleural fluid unable to safely place a chest tube. Plan: Trauma service notified Images obtained by Irma Phillips PA-C Attending: Brenden Cirilo Olivas MD IMG IR ORDERABLES * POCT Glucose (12/13/2013 7:46 AM EDT) Glucose, POC 110 60 - [...] intervals supplied above were not validated at [facility]. Results from pediatric patients should be interpreted [...] MD CHEMISTRY ORDERABL ES Performing Organization Address [facility] de Phone Number [employer] * Prothrombin Time (12/13/2013 2:14 AM EDT) Prothrombin Time 15.0 12.0 - 15.0 sec CERNER VipVentaIUM Comment: [facility] Transfusion Committee Guidelines: INR less than 2.0, PTT less than OR equal to 43.5 seconds, or Fibrinogen greater than or equal to 100 mg/dl indicate adequate procoagulant activity for hemostasis in patients without underlying bleeding disorders. International Normalization Ratio 1.1 0.9 - 1.1 CERNER VipVentaIUM Blood specimen (specimen) 12/13/2013 2:14 AM EDT 12/13/2013 2:14 AM EDT Narrative Resulting Agency Comment Spec In Lab Romulo Ramires MD HEMATOLOGY ORDERAB LES Performing Organization Address [facility] de Phone Number [employer] * Lower Respiratory Culture Other (12/12/2013 11:58 PM EDT) Lower Respiratory Culture ? Patient Name: CIRILO PONCE ?Ordered By: CIRILO OLIVAS ? MR#: [id number] ?LOC: ??ICUS ? /Sex: ??1985 (28 years), ? Male ? PROCEDURE: Lower Respiratory Culture ?SOURCE: Other ? COLLECTED: 12/12/2013 23:58 ?FREE TEXT SOURCE: Mini-BAL ??12/13 Spoke to nurse-specimen too muc ? STARTED: 12/13/2013 07:22 ? oid for mini-BAL-to run routine culture-[facility] ? STAINS / PREPARATIONS ? Gram Stain [...] silvia ? Patient: CIRILO PONCE ? MR#: [id number] ? SUSCEPTIBILITY RESULTS ? Enterobacter cloacae ? [...] with ? Cephalosporins is not advised. ? XOCHITL WHITAKER Specimen of unknown material (specimen) 12/12/2013 11:58 PM EDT 12/13/2013 7:21 AM EDT Comment:MINI-BAL 12/13 SPOKE T O NURSE-SPECIMEN TOO MUC OID FOR MINI-BAL-TO RUN ROUTINE CULTURE-DKH Narrative Resulting Agency Comment Spec In Lab Cirilo Olivas MD MICROBIOLOGY - GENER AL ORDERABLES XOCHITL WHITAKER * Blood culture (12/12/2013 11:55 PM EDT) Blood Culture ? Patient Name: KRIS CIRILO Briceño ?Ordered By: CIRILO OLIVAS ? MR#: [id number] ?LOC: ??ICUS ? /Sex: ??1985 (28 years), [...] PONCE ?Ordered By: CIRILO OLIVAS ? MR#: [id number] ?LOC: ??ICUS ? /Sex: ??1985 (28 years), [...] intervals supplied above were not validated at [facility]. Results from pediatric patients should be interpreted [...] the following links into your internet browser. http://www.Invictus Oncologydep.nih.gov/lab-evaluation.shtml http://www.kidney.org/professionals/ Blood specimen (specimen) 12/12/2013 2:00 PM [...] Comment: Total Hemoglobin (in gm/dL) ?Based on [facility] Hematology ranges: ?Age ?Reference Range Less than [...] PONCE ?Ordered By: ROMULO RAMIRES ? MR#: [id number] ?LOC: ??ICUS ? /Sex: ??1985 (28 years), [...] Blood Culture set cannot be interpreted. ? CERNER MILLENNIUM Blood specimen (specimen) CENTRAL VENOUS CATHETER / Unknown 12/12/2013 12:15 PM EDT 12/12/2013 1:17 PM EDT Comment:#2 RIGHT Narrative Resulting Agency Comment Spec In Lab Romulo Ramires MD MICROBIOLOGY - BLO OD ORDERABLES XOCHITL WHITAKER * Blood culture (12/12/2013 12:15 PM EDT) Blood Culture ? Patient Name: CIRILO PONCE ?Ordered By: ROMULO RAMIRES ? MR#: [id number] ?LOC: ??ICUS ? /Sex: ??1985 (28 years), [...] Ramires MD MICROBIOLOGY - BLO OD ORDERABLES Performing Organization Address [facility] Co de Phone Number XOCHITL WHITAKER * Urine culture Indwelling Catheter Urine (12/12/2013 11:39 AM EDT) Urine Culture ? Patient Name: CIRILO PONCE ?Ordered By: ROMULO RAMIRES ? MR#: [id number] ?LOC: ??ICUS ? /Sex: ?? 6 (28 years), ? Male ? PROCEDURE: Urine Culture ?SOURCE: [facility] ? COLLECTED: 12/12/2013 11:39 ? STARTED: 12/12/2013 13:15 ? FINAL REPORT ? Final Report ? Verified: 07:20 ? No growth (Less than 1,000 cfu/ml). ? ____ CERHELENA SHELBYIUM Urine specimen obtained via indwelling urinary catheter (specimen) 12/12/2013 11:39 AM EDT 12/12/2013 1:15 PM EDT Narrative Resulting Agency Comment Spec In Lab Romulo Ramires MD MICROBIOLOGY - GEN ERAL ORDERABLES XOCHITL MADRIDENNIUM * SCAN DOC: LAB (12/12/2013 9:43 AM EDT) Narrative 12/12/2013 9:43 AM EDT Procedure Note Provider, Scanning - 12/12/2013 9:43 AM EDT Scanning Provider MEDIA MGR SCAN EXT O RDR/RSLT * Duplex Study for DVT, Bilat legs (12/12/2013 8:47 AM EDT) VB Text Report Department: Vascular Surgery Lab Patient: [id number] (CIRILO PONCE) CPT Code: 88971 ICD-9: 959.8 Referring Physician: ROMULO RAMIRES Indication: [...] Glucose, POC 137 60 - 199 mg/dL [facility] Comment: Supplemental ranges: <110 mg/dL before meals <200 mg/dL all other times of the day Blood specimen (specimen) 12/12/2013 8:26 AM EDT 12/12/2013 8:26 AM EDT Romulo Ramires MD POINT OF CARE TEST ORDERABLES Performing Organization Address [facility] Co de Phone Number XOCHITL WHITAKER * Beta 2 Transferrin Body Fluid Pleural fluid (12/12/2013 8:13 AM EDT) Beta-2 Trans Bf (NOVEMBER) Negative CERHELENA SHELBYIUM Comment: -- REFERENCE VALUE -- Negative, no beta-2 transferrin (spinal fluid) detected. Test Performed by: [place] [address] Station Cook: Cameron Hansen III, M.D. Body fluid specimen (specimen) 12/12/2013 8:13 AM EDT 12/12/2013 9:28 AM EDT Narrative Resulting Agency Comment Spec In Lab Romulo Ramirse MD LAB SEND OUT ORDER SOSA Performing Organization Address [facility] de Phone Number XOCHITL WHITAKER * (ABNORMAL) [...] Comment: Total Hemoglobin (in gm/dL) ?Based on [facility] Hematology ranges: ?Age ?Reference Range Less than [...] ORDERAB LES CERHELENA MADRIDENNIUM * (ABNORMAL) Hemogram (12/12/2013 2:00 AM [...] Lab Romulo Ramires MD HEMATOLOGY ORDERAB LES [facility] MILLPRESC[facility]ENTERIUM * (ABNORMAL) Basic Metabolic Panel (non-fasting) (12/12/2013 2:00 AM EDT) [facility] Glucose 104 60 - 199 mg/dL CERNER MILLENNIUM Comment:Diabetes: >=200 mg/d L plus symptoms Blood Urea Nitrogen 18 10 - 20 mg/dL CERNER MILLENNIUM Creatinine 0.59(L) 0.80 - 1.50 mg/dL CERNER MILLENNIUM Comment: Please note that the pediatric reference intervals supplied above were not validated at [facility]. Results from pediatric patients should be interpreted [...] 12.0 - 15.0 sec CERNER MILLENNIUM Comment: [facility] Transfusion Committee Guidelines: INR less than 2.0, [...] LES CERNER MILLENNIUM * (ABNORMAL) Differential, Automated (12/11/2013 2:00 PM [...] LES CERNER MILLENNIUM * (ABNORMAL) Hemogram (12/11/2013 2:00 PM EDT) [facility] White Blood Cell 7.1 4.0 - 10.0 [...] Lab Romulo Ramires MD HEMATOLOGY ORDERAB LES [facility] JULIUSENNIUM * (ABNORMAL) Basic Metabolic Panel (non-fasting) (12/11/2013 2:00 PM EDT) [facility] Glucose 97 60 - 199 mg/dL CERNER MILLENNIUM Comment:Diabetes: >=200 mg/d L plus symptoms Blood Urea Nitrogen 15 10 - 20 mg/dL CERNER MILLENNIUM Creatinine 0.60(L) 0.80 - 1.50 mg/dL CERNER MILLENNIUM Comment: Please note that the pediatric reference intervals supplied above were not validated at [facility]. Results from pediatric patients should be interpreted [...] MD CHEMISTRY ORDERABL ES XOCHITL SHELBYIUM * CT chest pulmonary embolism with contrast [...] is intubated, ETT appropriate. Romulo Ramires MD [facility] CT ORDERABLES * (ABNORMAL) Differential, Automated (12/11/2013 [...] LES XOCHITL SHELBYIUM * (ABNORMAL) Hemogram (12/11/2013 7:10 AM EDT) [...] MD HEMATOLOGY ORDERAB LES Performing Organization Address City/[facility]/ZIP Co de Phone Number XOCHITL SHELBYIUM * Potassium (12/11/2013 7:10 AM EDT) Pathologist [facility] Potassium 3.9 3.5 - 5.0 mmol/L CERNER [...] MD CHEMISTRY ORDERABL ES Performing Organization Address [facility] Co de Phone Number XOCHITL SHELBYIUM * (ABNORMAL) Differential, Automated (12/11/2013 [...] ORDERAB LES XOCHITL MADRIDENNIUM * (ABNORMAL) Hemogram (12/11/2013 1:15 AM [...] Lab Romulo Ramires MD HEMATOLOGY ORDERAB LES [facility] MILLPRESCOTT [facility] MED[facility] CENTERIUM * (ABNORMAL) Basic Metabolic Panel (non-fasting) (12/11/2013 1:15 AM EDT) [facility] Glucose 117 60 - 199 mg/dL CERNER MILLENNIUM Comment:Diabetes: >=200 mg/d L plus symptoms Blood Urea Nitrogen 14 10 - 20 mg/dL CERNER MILLENNIUM Creatinine 0.66(L) 0.80 - 1.50 mg/dL CERNER MILLENNIUM Comment: Please note that the pediatric reference intervals supplied above were not validated at [facility]. Results from pediatric patients should be interpreted [...] MD CHEMISTRY ORDERABL ES Performing Organization Address City/[facility] Co de Phone Number XOCHITL WHITAKER * Prothrombin Time (12/11/2013 1:15 AM EDT) Prothrombin Time 14.2 12.0 - 15.0 sec CERNER MILLENNIUM Comment: [facility] Transfusion Committee Guidelines: INR less than 2.0, [...] HEMATOLOGY ORDERAB LES XOCHITL WHITAKER * (ABNORMAL) Hepatic Function Panel (12/10/2013 7:50 [...] MD CHEMISTRY ORDERABL ES Performing Organization Address City/[facility] Co de Phone Number [facility] MILLENNI[facility] * Lactate Dehydrogenase (12/10/2013 7:50 PM EDT) Lactate Dehydrogenase 149 110 - 220 unit/L CERNER MILLENNIUM Blood specimen (specimen) 12/10/2013 7:50 PM EDT 12/10/2013 8:05 PM EDT Narrative Resulting Agency Comment Spec In Lab Romulo Ramires MD CHEMISTRY ORDERABL ES Performing Organization Address [facility] Co de Phone Number [facility]NER MILLENNIUM * (ABNORMAL) Haptoglobin (12/10/2013 7:50 PM EDT) [...] Lab Romulo Ramires MD CHEMISTRY ORDERABL ES [facility] MILLENNIUM * Thrombin time (12/10/2013 7:50 PM EDT) Thrombin Time 16 15 - 20 sec [facility] MILLENNIUM Blood specimen (specimen) 12/10/2013 7:50 PM EDT 12/10/2013 8:05 PM EDT Narrative Resulting Agency Comment Spec In Lab Romulo Ramires MD HEMATOLOGY ORDERAB LES [facility] MILLENNIUM * (ABNORMAL) Fibrinogen (12/10/2013 7:50 PM EDT) Fibrinogen 591(H) 175 - 450 mg/dL CERNER MILLENNIUM Blood specimen (specimen) 12/10/2013 7:50 PM EDT 12/10/2013 8:05 PM EDT Narrative Resulting Agency Comment Spec In Lab Romulo Ramires MD HEMATOLOGY ORDERAB LES Performing Organization Address [facility]/ZIP Co de Phone Number [facility] MILLPRES[facility]ENTERIUM * APTT (12/10/2013 7:50 PM EDT) Partial Thromboplastin Time 30 25 - 35 sec [facility] MILLENNIUM Comment: Recommended therapeutic PTT range for full dose unfractionated heparin is 80-114 seconds. Blood specimen (specimen) 12/10/2013 7:50 PM EDT 12/10/2013 8:05 PM EDT Narrative Resulting Agency Comment Spec In Lab Romulo Ramires MD HEMATOLOGY ORDERAB LES [facility] JUL[facility]USPRES[facility]ENTERIUM * Prothrombin Time (12/10/2013 7:50 PM EDT) Prothrombin Time 14.3 12.0 - 15.0 sec [facility] M[facility] Comment: [facility] Transfusion Committee Guidelines: INR less than 2.0, [...] MD HEMATOLOGY ORDERAB LES Performing Organization Address [facility]/ZIP Co de Phone Number CERNER MILLENNIUM * (ABNORMAL) Hemogram (12/10/2013 7:20 [...] LES XOCHITL MADRIDENNIUM * (ABNORMAL) Hemogram (12/10/2013 6:15 PM [...] MD HEMATOLOGY ORDERAB LES XOCHITL MADRIDENNIUM * XR abdomen 1 view (12/10/2013 1:14 [...] LES CERNER MILLENNIUM * (ABNORMAL) Hemogram (12/10/2013 10:05 [...] MADRIDENNIUM * (ABNORMAL) Basic Metabolic Panel (non-fasting) (12/10/2013 10:05 AM EDT) Glucose 125 60 - 199 mg/dL CERNER MILLENNIUM Comment:Diabetes: >=200 mg/d L plus symptoms Blood Urea Nitrogen 14 10 - 20 mg/dL CERNER MILLENNIUM Creatinine 0.71(L) 0.80 - 1.50 mg/dL CERNER MILLENNIUM Comment: Please note that the pediatric reference intervals supplied above were not validated at [facility]. Results from pediatric patients should be interpreted [...] MILLENNIUM * Potassium (12/10/2013 4:45 AM EDT) Potassium 4.3 3.5 - 5.0 mmol/L CERNER [...] MD HEMATOLOGY ORDERAB LES CERHELENA MADRIDENNIUM * Transfuse RBC (12/10/2013 3:31 AM EDT) Romulo Ramires MD NURSING TREATMENT ORDERABLES - BLOOD ADMIN * Transfuse RBC (12/10/2013 3:31 AM EDT) Romulo Ramires MD NURSING TREATMENT ORDERABLES - BLOOD ADMIN * Prepare RBC (12/10/2013 1:50 AM EDT) Dispensed? Yes CERHELENA MADRIDENNIUM Blood specimen (specimen) 12/10/2013 1:50 AM [...] LES CERNER MILLENNIUM * (ABNORMAL) Hemogram (12/10/2013 1:25 [...] MD HEMATOLOGY ORDERAB LES Performing Organization Address City/[facility]/ZIP Co de Phone Number XOCHITL MADRIDENNIUM * Potassium (12/10/2013 1:25 AM EDT) Potassium [...] MD CHEMISTRY ORDERABL ES Performing Organization Address [facility] de Phone Number [facility] * APTT (12/10/2013 1:25 AM EDT) Partial Thromboplastin Time 30 25 - 35 sec [facility] MILLENNIUM Comment: Recommended therapeutic PTT range for full dose unfractionated heparin is 80-114 seconds. Blood specimen (specimen) 12/10/2013 1:25 AM EDT 12/10/2013 1:28 AM EDT Narrative Resulting Agency Comment Spec In Lab Romulo Ramires MD HEMATOLOGY ORDERAB LES Performing Organization Address [facility] Phone Number [facility] * Thrombin time (12/10/2013 1:25 AM EDT) Thrombin Time 15 15 - 20 sec [facility] M[facility] Blood specimen (specimen) 12/10/2013 1:25 AM EDT 12/10/2013 1:28 AM EDT Narrative Resulting Agency Comment Spec In Lab Romulo Ramires MD HEMATOLOGY ORDERAB LES Performing Organization Address [facility] Phone Number [facility] * Prothrombin Time (12/10/2013 1:25 AM EDT) Prothrombin Time 14.4 12.0 - 15.0 sec CERNER MILLENNIUM Comment: [facility] Transfusion Committee Guidelines: INR less than 2.0, PTT less than OR equal to 43.5 seconds, or Fibrinogen greater than or equal to 100 mg/dl indicate adequate procoagulant activity for hemostasis in patients without underlying bleeding disorders. International Normalization Ratio 1.1 0.9 - 1.1 XOCHITL WHITAKER Blood specimen (specimen) 12/10/2013 1:25 AM EDT 12/10/2013 1:28 AM EDT Narrative Resulting Agency Comment Spec In Lab Romulo Ramires MD HEMATOLOGY ORDERAB LES Performing Organization Address [facility] Co de Phone Number [...] BLOOD BANK PRODUCT ORDERABLES Performing Organization Address [facility] Phone Number XOCHITL WHITAKER * (ABNORMAL) Hemogram [...] Lab Romulo Ramires MD HEMATOLOGY ORDERAB LES [facility] MADRIDENNIUM * Lavender Tube HOLD (12/09/2013 8:45 PM EDT) [facility] Lavender Hold Sample in lab. [facility] MILLENNIUM Blood specimen (specimen) 12/09/2013 8:45 PM EDT 12/09/2013 8:54 PM EDT Romulo Ramires MD HEMATOLOGY ORDERAB LES [facility] MADRIDENNIUM * (ABNORMAL) Basic Metabolic Panel (non-fasting) (12/09/2013 8:45 PM EDT) Pathologist [facility] Glucose 117 60 - 199 mg/dL [facility] MILLENNIUM Comment:Diabetes: >=200 mg/d L plus symptoms Blood Urea Nitrogen 9(L) 10 - 20 mg/dL CERNER MILLENNIUM Creatinine 0.60(L) 0.80 - 1.50 mg/dL CERNER MILLENNIUM Comment: Please note that the pediatric reference intervals supplied above were not validated at [facility]. Results from pediatric patients should be interpreted in conjunction to the patient's age, height and muscle mass. Sodium 140 135 - 145 mmol/L [facility] MILLENNIUM Potassium 3.6 3.5 - 5.0 mmol/L [facility] MILLENNIUM Comment: Please note: ??Patients with [...] MD CHEMISTRY ORDERABL ES Performing Organization Address [facility] Co de Phone Number [employer]ent[employer]IUM * Transfusion Reaction Interp (12/09/2013 3:40 PM [...] BANK LAB ORDER SOSA Performing Organization Address City/[facility]/ZIP Co de Phone Number CERNER MILLENNIUM * (ABNORMAL) Hemoglobin and Hematocrit, blood (12/09/2013 [...] Urine Dipstick Hazy(A) Clear CERNER MILLENNIUM Specific [place] Urine Automated >1.035(H) 1.002 - 1.030 CERNER MILLENNIUM Color, Urine Dipstick [place] Yellow CERNER MILLENNIUM RBC, Urine 7(H) 0 - 3 /HPF CERNER MILLENNIUM WBC, Urine 1 0 - 3 /HPF CERNER MILLENNIUM Bacteria, Urine Many /HPF CERN ER MILLENNIUM Squamous Epithelial Cells, Urine <1 <=4 /HPF XOCHITL WHITAKER Urine specimen (specimen) 12/09/2013 3:28 PM EDT 12/09/2013 4:11 PM EDT Narrative Resulting Agency Comment Spec In Lab Monique Escobar MD URINE ORDERABLES XOCHITL WHITAKER * Lower Respiratory Culture Tracheal Aspirate (12/09/2013 1:54 PM EDT) Lower Respiratory Culture ? Patient Name: CIRILO PONCE ?Ordered By: ROMULO RAMIRES ? MR#: [id number] ?LOC: ??ICUS ? /Sex: ??1985 (28 years), [...] PONCE ?Ordered By: ROMULO RAMIRES ? MR#: [id number] ?LOC: ??ICUS ? /Sex: ??1985 (28 years), [...] days. ? XOCHITL SHELBYIUM Blood specimen (specimen) ANTECUBITAL REGION STRUCTURE / Unknown 12/09/2013 12:55 PM EDT 12/09/2013 1:15 PM EDT Comment:1 Narrative Resulting Agency Comment Spec In Lab Romulo Ramires MD MICROBIOLOGY - BLO OD ORDERABLES XOCHITL MADRIDENNIUM * Green Tube HOLD (12/09/2013 12:47 PM EDT) Green Hold Sample in lab. CERNER MILLENNIUM Blood specimen (specimen) 12/09/2013 12:47 PM EDT 12/09/2013 12:48 PM EDT Romulo Ramires MD CHEMISTRY ORDERABL ES CERHELENA MADRIDENNIUM * (ABNORMAL) Differential, Automated (12/09/2013 12:47 PM EDT) Pathologist [facility] Neutrophil % 75.3(H) 34.0 - 71.0 % [...] LES CERHELENA MADRIDENNIUM * (ABNORMAL) Hemogram (12/09/2013 12:47 PM EDT) [...] MD HEMATOLOGY ORDERAB LES XOCHITL SHELBYIUM * Urine culture Indwelling Catheter Urine (12/09/2013 12:21 PM EDT) Urine Culture ? Patient Name: CIRILO PONCE ?Ordered By: ROMULO RAMIRES ? MR#: [id number] ?LOC: ??ICUS ? /Sex: ?? 6 (28 years), ? Male ? PROCEDURE: Urine Culture ?SOURCE: U ICath ? COLLECTED: 12/09/2013 12:21 ? STARTED: 12/09/2013 12:58 ? FINAL REPORT ? Final Report ? Verified: 07:49 ? No growth (Less than 1,000 cfu/ml). ? ____ [facility] Urine specimen obtained via indwelling urinary catheter (specimen) 12/09/2013 12:21 PM EDT 12/09/2013 12:58 PM EDT Narrative Resulting Agency Comment Spec In Lab Romulo Ramires MD MICROBIOLOGY - GEN ERAL ORDERABLES Performing Organization Address [facility] Co de Phone Number [facility] * POCT Glucose (12/09/2013 12:02 PM EDT) Glucose, POC 117 60 - 199 mg/dL [facility] Comment: Supplemental ranges: <110 mg/dL before meals <200 mg/dL all other times of the day Blood specimen (specimen) 12/09/2013 12:02 PM EDT 12/09/2013 12:02 PM EDT Romulo Ramires MD POINT OF CARE TEST ORDERABLES Performing Organization Address [facility] Co de Phone Number [facility] * Prepare RBC (12/09/2013 6:40 AM EDT) Dispensed? Yes [facility] Blood specimen (specimen) 12/09/2013 6:40 AM EDT 12/09/2013 6:37 AM EDT Romulo Ramires MD BLOOD BANK PRODUCT ORDERABLES Performing Organization Address [facility] Phone Number [facility] * APTT (12/09/2013 6:07 AM EDT) Partial Thromboplastin Time 34 25 - 35 sec [facility] Comment: Recommended therapeutic PTT range for full dose unfractionated heparin is 80-114 seconds. Blood specimen (specimen) 12/09/2013 6:07 AM EDT 12/09/2013 6:13 AM EDT Narrative Resulting Agency Comment Spec In Lab Romulo Ramires MD HEMATOLOGY ORDERAB LES Performing Organization Address [facility] Phone Number [facility] * (ABNORMAL) Prothrombin Time (12/09/2013 6:07 AM EDT) Prothrombin Time 15.5(H) 12.0 - 15.0 sec [facility] Comment: [facility] Transfusion Committee Guidelines: INR less than 2.0, PTT less than OR equal to 43.5 seconds, or Fibrinogen greater than or equal to 100 mg/dl indicate adequate procoagulant activity for hemostasis in patients without underlying bleeding disorders. International Normalization Ratio 1.2(H) 0.9 - 1.1 [facility] Blood specimen (specimen) 12/09/2013 6:07 AM EDT 12/09/2013 6:13 AM EDT Narrative Resulting Agency Comment Spec In Lab Romulo Ramires MD HEMATOLOGY ORDERAB LES Performing Organization Address [facility] Phone Number [facility] * (ABNORMAL) Differential, Automated (12/09/2013 6:07 AM [...] ORDERAB LES XOCHITL SHELBYIUM * (ABNORMAL) Hemogram (12/09/2013 6:07 AM EDT) [...] MD HEMATOLOGY ORDERAB LES XOCHITL SHELBYIUM * Lactate, whole blood, send to lab (12/09/2013 6:07 AM EDT) Lactate WB 1.0 0.5 - 2.2 mmol/L CERNER JULIUSENNIUM Blood specimen (specimen) 12/09/2013 6:07 AM EDT 12/09/2013 6:13 AM EDT Narrative Resulting Agency Comment Spec In Lab Romulo Ramires MD CHEMISTRY ORDERABL ES XOCHITL MADRIDENNIUM * (ABNORMAL) Fibrinogen (12/09/2013 6:07 AM EDT) Fibrinogen 487(H) 175 - 450 mg/dL CERNER MILLENNIUM Blood specimen (specimen) 12/09/2013 6:07 [...] MD HEMATOLOGY ORDERAB LES Performing Organization Address City/[facility]/ZIP Co de Phone Number CERNER JULIUSENNIUM * (ABNORMAL) Basic Metabolic Panel (non-fasting) (12/09/2013 6:07 AM EDT) Glucose 122 60 - 199 mg/dL CERNER MILLENNIUM Comment:Diabetes: >=200 mg/d L plus symptoms Blood Urea Nitrogen 8(L) 10 - 20 mg/dL CERNER MILLENNIUM Creatinine 0.82 0.80 - 1.50 mg/dL CERNER MILLENNIUM Comment: Please note that the pediatric reference intervals supplied above were not validated at [facility]. Results from pediatric patients should be interpreted [...] MD CHEMISTRY ORDERABL ES Performing Organization Address [facility] de Phone Number CERNER MILLENNIUM * (ABNORMAL) CK (12/09/2013 6:07 AM EDT) Creatine Kinase 673(H) 0 - 200 unit/L CERNER MILLENNIUM Blood specimen (specimen) 12/09/2013 6:07 AM EDT 12/09/2013 6:13 AM EDT Narrative Resulting Agency Comment Spec In Lab Romulo Ramires MD CHEMISTRY ORDERABL ES Performing Organization Address [facility] de Phone Number CERNER MILLENNIUM * (ABNORMAL) BLOOD GAS 2 VENOUS (12/09/2013 6:00 AM EDT) pH, Venous 7.42 CERNER MILLENNIUM PCO2, Venous 39(L) mmHg CERNER MILLENNIUM PO2, Venous 39 mmHg CERNER MILLENNIUM Bicarbonate, Venous 25.0 mmol/L CERNER MILLENNIUM Base Excess, Venous 0.6 mmol/L CERNER MILLENNIUM Hgb Blood Gas 6.0(L) gm/dL CERNER MILLENNIUM Comment: Total Hemoglobin (in gm/dL) ?Based on [facility] Hematology ranges: ?Age ?Reference Range Less than [...] l) mmol/L CERNER MILLENNIUM Comment: Noted by percussion instrument repairer. Please note: Patients with WBC >100,000 may [...] OF CARE TEST ORDERABLES Performing Organization Address [facility] de Phone Number XOCHITL MADRIDENNIUM * APTT (12/09/2013 12:00 AM EDT) Partial Thromboplastin Time 34 25 - 35 sec XOCHITL MILLENNIUM Comment: Recommended therapeutic PTT range for full dose unfractionated heparin is 80-114 seconds. Blood specimen (specimen) 12/09/2013 12/09/2013 12:07 AM EDT Narrative Resulting Agency Comment Spec In Lab Romulo Ramires MD HEMATOLOGY ORDERAB LES Performing Organization Address [facility] Phone Number MARBINHELENA MADRIDENNIUM * (ABNORMAL) Prothrombin Time (12/09/2013 12:00 AM EDT) Prothrombin Time 15.7(H) 12.0 - 15.0 sec XOCHITL MILLENNIUM Comment: [facility] Transfusion Committee Guidelines: INR less than 2.0, [...] MD HEMATOLOGY ORDERAB LES Performing Organization Address [facility] Co de Phone Number MARBINHELENA MADRIDENNIUM * (ABNORMAL) Differential, Automated (12/09/2013 12:00 AM [...] LES CERHELENA MADRIDENNIUM * (ABNORMAL) Hemogram (12/09/2013 12:00 AM EDT) [...] MD HEMATOLOGY ORDERAB LES Performing Organization Address [facility] de Phone Number [facility] MILLENNIUM * (ABNORMAL) CK (12/09/2013 12:00 AM EDT) [facility] Creatine Kinase 732(H) 0 - 200 unit/L CERNER MILLENNIUM Blood specimen (specimen) 12/09/2013 12/09/2013 12:07 AM EDT Narrative Resulting Agency Comment Spec In Lab Romulo Ramires MD CHEMISTRY ORDERABL ES Performing Organization Address [facility] de Phone Number [facility] * (ABNORMAL) Basic Metabolic Panel (non-fasting) (12/09/2013 12:00 AM EDT) [facility] Glucose 112 60 - 199 mg/dL [facility] M[facility] Comment:Diabetes: >=200 mg/d L plus symptoms Blood Urea Nitrogen 8(L) 10 - 20 mg/dL CERNER MILLENNIUM Creatinine 0.80 0.80 - 1.50 mg/dL CERNER MILLENNIUM Comment: Please note that the pediatric reference intervals supplied above were not validated at [facility]. Results from pediatric patients should be interpreted in conjunction to the patient's age, height and muscle mass. Sodium 139 135 - 145 mmol/L [facility] MILL[facility]UM Potassium 3.4(L) 3.5 - [...] MD CHEMISTRY ORDERABL ES Performing Organization Address [facility] Co de Phone Number CERHELENA [employer] SensingENNIUM * Thrombin time (12/09/2013 12:00 AM EDT) Thrombin Time 15 15 - 20 sec CERNER MILLENNIUM Blood specimen (specimen) 12/09/2013 12/09/2013 12:07 AM EDT Narrative Resulting Agency Comment Spec In Lab Romulo Ramires MD HEMATOLOGY ORDERAB LES Performing Organization Address [facility]/ZIP Co de Phone Number CERNER MILLENNIUM * Fibrinogen (12/09/2013 12:00 AM EDT) Fibrinogen [...] Comment: Total Hemoglobin (in gm/dL) ?Based on [facility] Hematology ranges: ?Age ?Reference Range Less than [...] (ABNORMAL) CK (12/08/2013 5:30 PM EDT) Pathologist [facility] Creatine Kinase 850(H) 0 - 200 unit/L XOCHITL WHITAKER Blood specimen (specimen) 12/08/2013 5:30 PM EDT 12/08/2013 5:54 PM EDT Narrative Resulting Agency Comment Spec In Lab Romulo Ramires MD CHEMISTRY ORDERABL ES [facility] * (ABNORMAL) Prothrombin Time (12/08/2013 5:30 PM EDT) Pathologist [facility] Prothrombin Time 16.2(H) 12.0 - 15.0 sec CERNER MILLENNIUM Comment: [facility] Transfusion Committee Guidelines: INR less than 2.0, [...] MD HEMATOLOGY ORDERAB LES Performing Organization Address City/[facility]/ZIP Co de Phone Number CERNER MILLENNIUM * APTT (12/08/2013 5:30 PM EDT) Partial Thromboplastin Time 34 25 - 35 sec CERNER MILLENNIUM Comment: Recommended therapeutic PTT range for full dose unfractionated heparin is 80-114 seconds. Blood specimen (specimen) 12/08/2013 5:30 PM EDT 12/08/2013 5:54 PM EDT Narrative Resulting Agency Comment Spec In Lab Romulo Ramires MD HEMATOLOGY ORDERAB LES Performing Organization Address City/[facility]/ZIP Co de Phone Number CERHELENA MADRIDENNIUM * [...] Lab Romulo Ramires MD HEMATOLOGY ORDERAB LES [facility] J[facility] * (ABNORMAL) Hemogram (12/08/2013 5:30 PM [...] MD HEMATOLOGY ORDERAB LES Performing Organization Address City/[facility] Co de Phone Number [facility] JUL[facility] * Fibrinogen (12/08/2013 5:30 PM EDT) Fibrinogen 402 175 - 450 mg/dL [facility] MILLEN[facility]UM Blood specimen (specimen) 12/08/2013 5:30 PM EDT 12/08/2013 5:54 PM EDT Narrative Resulting Agency Comment Spec In Lab Romulo Ramires MD HEMATOLOGY ORDERAB LES Performing Organization Address City/[facility] Co de Phone Number [facility] J[facility] * Thrombin time (12/08/2013 5:30 PM EDT) Thrombin Time 15 15 - 20 sec CERHELENA MILLENNIUM Blood specimen (specimen) 12/08/2013 5:30 PM EDT 12/08/2013 5:54 PM EDT Narrative Resulting Agency Comment Spec In Lab Romulo Ramires MD HEMATOLOGY ORDERAB LES Performing Organization Address [facility] de Phone Number [facility] J[facility] * (ABNORMAL) Basic Metabolic Panel (non-fasting) (12/08/2013 5:30 PM EDT) Glucose 110 60 - 199 mg/dL [facility] MILLENNIUM Comment:Diabetes: >=200 mg/d L plus symptoms Blood Urea Nitrogen 7(L) 10 - 20 mg/dL [facility] MILLENNIUM Creatinine 0.80 0.80 - 1.50 mg/dL CERNER MILLENNIUM Comment: Please note that the pediatric reference intervals supplied above were not validated at [facility]. Results from pediatric patients should be interpreted [...] MD CHEMISTRY ORDERABL ES Performing Organization Address [facility] Co de Phone Number XOCHITL WHITAKER * (ABNORMAL) Beta 2 Transferrin Body Fluid Other (12/08/2013 1:25 PM EDT) Beta-2 Trans Bf (NOVEMBER) Positive( A) XOCHITL SHELBYIUM Comment: -- REFERENCE VALUE -- Negative, no beta-2 transferrin (spinal fluid) detected. Test Performed by: [address] [address] Station Cook: Cameron Hansen III, M.D. Body fluid specimen (specimen) 12/08/2013 1:25 PM EDT 12/08/2013 3:53 PM EDT Narrative Resulting Agency Comment Spec In Lab Romulo Ramires MD LAB SEND OUT ORDER SOSA Performing Organization Address [facility] Co de Phone Number XOCHITL WHITAKER * XR Fluoro Barium swallow [...] again back into the stomach. Findings Preliminary floor representative views of the chest and abdomen reveals [...] again back into the stomach. Findings Preliminary floor representative views of the chest and abdomen reveals [...] Lab Romulo Ramires MD CHEMISTRY ORDERABL ES [facility] SHELBYIUM * (ABNORMAL) Magnesium (12/08/2013 10:54 AM EDT) Magnesium 0.62(L) 0.69 - 1.07 mmol/L CERNER MILLENNIUM Blood specimen (specimen) 12/08/2013 10:54 AM EDT 12/08/2013 10:58 AM EDT Narrative Resulting Agency Comment Spec In Lab Romulo Ramires MD CHEMISTRY ORDERABL ES CERNER MILLENNIUM * (ABNORMAL) Differential, Automated (12/08/2013 10:54 [...] LES CERHELENA MADRIDENNIUM * (ABNORMAL) Hemogram (12/08/2013 10:54 AM EDT) [...] MD HEMATOLOGY ORDERAB LES XOCHITL MADRIDENNIUM * Thrombin time (12/08/2013 10:54 AM EDT) Thrombin Time 15 15 - 20 sec CERNER MILLENNIUM Blood specimen (specimen) 12/08/2013 10:54 AM EDT 12/08/2013 10:55 AM EDT Narrative Resulting Agency Comment Spec In Lab Romulo Ramires MD HEMATOLOGY ORDERAB LES XOCHITL MADRIDENNIUM * Fibrinogen (12/08/2013 10:54 AM EDT) Fibrinogen 374 175 - 450 mg/dL [facility] Blood specimen (specimen) 12/08/2013 10:54 AM EDT 12/08/2013 10:55 AM EDT Narrative Resulting Agency Comment Spec In Lab Romulo Ramires MD HEMATOLOGY ORDERAB LES Performing Organization Address [facility] Co de Phone Number [facility] * APTT (12/08/2013 10:54 AM EDT) Partial Thromboplastin Time 35 25 - 35 sec [facility] Comment: Recommended therapeutic PTT range for full dose unfractionated heparin is 80-114 seconds. Blood specimen (specimen) 12/08/2013 10:54 AM EDT 12/08/2013 10:55 AM EDT Narrative Resulting Agency Comment Spec In Lab Romulo Ramires MD HEMATOLOGY ORDERAB LES Performing Organization Address [facility] Phone Number [facility] * (ABNORMAL) Prothrombin Time (12/08/2013 10:54 AM EDT) Prothrombin Time 16.3(H) 12.0 - 15.0 sec [facility] Comment: [facility] Transfusion Committee Guidelines: INR less than 2.0, PTT less than OR equal to 43.5 seconds, or Fibrinogen greater than or equal to 100 mg/dl indicate adequate procoagulant activity for hemostasis in patients without underlying bleeding disorders. International Normalization Ratio 1.3(H) 0.9 - 1.1 [facility] Blood specimen (specimen) 12/08/2013 10:54 AM EDT 12/08/2013 10:55 AM EDT Narrative Resulting Agency Comment Spec In Lab Romulo Ramires MD HEMATOLOGY ORDERAB LES Performing Organization Address [facility] Co de Phone Number [facility] * (ABNORMAL) CK (12/08/2013 10:54 AM EDT) [...] intervals supplied above were not validated at [facility]. Results from pediatric patients should be interpreted [...] Comment: Total Hemoglobin (in gm/dL) ?Based on [facility] Hematology ranges: ?Age ?Reference Range Less than [...] Comment: Total Hemoglobin (in gm/dL) ?Based on [facility] Hematology ranges: ?Age ?Reference Range Less than [...] is a comminuted fracture of the right [id number], transverse process, spinous process and inferior articulating [...] reviewed by the attending Romulo Ramires MD IM CT ORDERABLES * CT thoracic spine WO [...] is a comminuted fracture of the right [id number], transverse process, spinous process and inferior articulating [...] is a comminuted fracture of the right [id number], transverse process, spinous process and inferior articulating [...] reviewed by the attending Romulo Ramires MD IM CT ORDERABLES * Duplex Study for DVT, Bilat legs (12/08/2013 8:02 AM EDT) VB Text Report Department: Vascular Surgery Lab Patient: [id number] (CIRILO PONCE) CPT Code: 12119 ICD-9: 959.8 Referring Physician: ROMULO RAMIRES Indication: [...] EDT Romulo Ramires MD VASCULAR ORDERABLE S Performing Organization Address City/State/[facility] Co de Phone Number [id number] * (ABNORMAL) Differential, Automated (12/08/2013 6:16 [...] Ramires MD HEMATOLOGY ORDERAB LES [facility] [facility] * Thrombin time (12/08/2013 6:16 AM EDT) Thrombin Time 16 15 - 20 sec [facility] Blood specimen (specimen) 12/08/2013 6:16 AM EDT 12/08/2013 6:20 AM EDT Narrative Resulting Agency Comment Spec In Lab Romulo Ramires MD HEMATOLOGY ORDERAB LES Performing Organization Address City/[facility]/ZIP Co de Phone Number [facility] * Fibrinogen (12/08/2013 6:16 AM EDT) Fibrinogen 322 175 - 450 mg/dL [facility] Blood specimen (specimen) 12/08/2013 6:16 AM EDT 12/08/2013 6:20 AM EDT Narrative Resulting Agency Comment Spec In Lab Romulo Ramires MD HEMATOLOGY ORDERAB LES Performing Organization Address City/[facility] Co de Phone Number [facility] * APTT (12/08/2013 6:16 AM EDT) Partial Thromboplastin Time 33 25 - 35 sec [facility] Comment: Recommended therapeutic PTT range for full dose unfractionated heparin is 80-114 seconds. Blood specimen (specimen) 12/08/2013 6:16 AM EDT 12/08/2013 6:20 AM EDT Narrative Resulting Agency Comment Spec In Lab Romulo Ramires MD HEMATOLOGY ORDERAB LES Performing Organization Address City/[facility] Co de Phone Number [facility] * (ABNORMAL) Prothrombin Time (12/08/2013 6:16 AM EDT) Prothrombin Time 16.1(H) 12.0 - 15.0 sec [facility] Comment: [facility] Transfusion Committee Guidelines: INR less than 2.0, [...] MD HEMATOLOGY ORDERAB LES Performing Organization Address [facility] Co de Phone Number CERNER MILLENNIUM * (ABNORMAL) CK (12/08/2013 6:16 AM EDT) Creatine Kinase 1164(H) 0 - 200 unit/L [facility] Blood specimen (specimen) 12/08/2013 6:16 AM EDT 12/08/2013 6:20 AM EDT Narrative Resulting Agency Comment Spec In Lab Romulo Ramires MD CHEMISTRY ORDERABL ES Performing Organization Address [facility] de Phone Number [facility]ERNER MILLENNIUM * (ABNORMAL) Basic Metabolic Panel (non-fasting) (12/08/2013 6:16 AM EDT) Glucose 121 60 - 199 mg/dL [facility] MILLENNIUM Comment:Diabetes: >=200 mg/d L plus symptoms Blood Urea Nitrogen 8(L) 10 - 20 mg/dL [facility] Creatinine 0.75(L) 0.80 - 1.50 mg/dL [facility]ENNIUM Comment: Please note that the pediatric reference intervals supplied above were not validated at [facility]. Results from pediatric patients should be interpreted [...] Comment: Total Hemoglobin (in gm/dL) ?Based on [facility] Hematology ranges: ?Age ?Reference Range Less than [...] Comment: Total Hemoglobin (in gm/dL) ?Based on [facility] Hematology ranges: ?Age ?Reference Range Less than [...] Platelet 114(L) 145 - 370 x10(3)/mc L [facility]ENNI[facility] RDW Standard Deviation 44.0 35.0 - 46.0 fL [facility] MILLENNIUM RDW coefficient of variation 14.4 10.9 - 14.4 % C[facility] MILLENNIUM Mean Platelet Volume 10.3 9.0 - 12.0 fL [facility] MILLENNIUM Blood specimen (specimen) 12/08/2013 12:23 AM EDT 12/08/2013 12:28 AM EDT Narrative Resulting Agency Comment Spec In Lab Romulo Ramires MD HEMATOLOGY ORDERAB LES Performing Organization Address [facility] de Phone Number [facility] * Thrombin time (12/08/2013 12:23 AM EDT) Thrombin Time 15 15 - 20 sec [facility] Blood specimen (specimen) 12/08/2013 12:23 AM EDT 12/08/2013 12:28 AM EDT Narrative Resulting Agency Comment Spec In Lab Romulo Ramires MD HEMATOLOGY ORDERAB LES Performing Organization Address [facility] de Phone Number [facility] * Fibrinogen (12/08/2013 12:23 AM EDT) Fibrinogen 235 175 - 450 mg/dL [facility] Blood specimen (specimen) 12/08/2013 12:23 AM EDT 12/08/2013 12:28 AM EDT Narrative Resulting Agency Comment Spec In Lab Romulo Ramires MD HEMATOLOGY ORDERAB LES Performing Organization Address City/State/[facility] Co de Phone Number [facility] * APTT (12/08/2013 12:23 AM EDT) Partial Thromboplastin Time 32 25 - 35 sec CERNER MILLENNIUM Comment: Recommended therapeutic PTT range for full dose unfractionated heparin is 80-114 seconds. Blood specimen (specimen) 12/08/2013 12:23 AM EDT 12/08/2013 12:28 AM EDT Narrative Resulting Agency Comment Spec In Lab Romulo Ramires MD HEMATOLOGY ORDERAB LES Performing Organization Address [facility] de Phone Number [facility] * (ABNORMAL) Prothrombin Time (12/08/2013 12:23 AM EDT) Prothrombin Time 15.4(H) 12.0 - 15.0 sec CERNER MILLENNIUM Comment: [facility] Transfusion Committee Guidelines: INR less than 2.0, PTT less than OR equal to 43.5 seconds, or Fibrinogen greater than or equal to 100 mg/dl indicate adequate procoagulant activity for hemostasis in patients without underlying bleeding disorders. International Normalization Ratio 1.2(H) 0.9 - 1.1 [facility] Blood specimen (specimen) 12/08/2013 12:23 AM EDT 12/08/2013 12:28 AM EDT Narrative Resulting Agency Comment Spec In Lab Romulo Ramires MD HEMATOLOGY ORDERAB LES Performing Organization Address [facility] Phone Number XOCHITL WHITAKER * (ABNORMAL) CK (12/08/2013 12:23 AM EDT) Creatine Kinase 1668(H) 0 - 200 unit/L [facility] Blood specimen (specimen) 12/08/2013 12:23 AM EDT 12/08/2013 12:28 AM EDT Narrative Resulting Agency Comment Spec In Lab Romulo Ramires MD CHEMISTRY ORDERABL ES Performing Organization Address [facility] de Phone Number XOCHITL WHITAKER * (ABNORMAL) Basic Metabolic Panel (non-fasting) (12/08/2013 12:23 AM EDT) Glucose 126 60 - 199 mg/dL [facility] Comment:Diabetes: >=200 mg/d L plus symptoms Blood Urea Nitrogen 8(L) 10 - 20 mg/dL CERNER MILLENNIUM Creatinine 0.74(L) 0.80 - 1.50 mg/dL [facility] MILLENNIUM Comment: Please note that the pediatric reference intervals supplied above were not validated at [facility]. Results from pediatric patients should be interpreted [...] Lab Romulo Ramires MD CHEMISTRY ORDERABL ES [facility] * (ABNORMAL) BLOOD GAS 2 VENOUS (12/08/2013 12:17 AM EDT) pH, Venous 7.40 CERNER MILLENNIUM PCO2, Venous 41 mmHg CERNER MILLENNIUM PO2, Venous 39 mmHg CERNER MILLENNIUM Bicarbonate, Venous 25.0 mmol/L CERNER MILLENNIUM Base Excess, Venous 0.2 mmol/L [facility]ERN[facility] MILLENNIUM Hgb Blood Gas 7.5(L) gm/dL [facility]ERNER MILLENNIUM Comment: Total Hemoglobin (in gm/dL) ?Based on [facility] Hematology ranges: ?Age ?Reference Range Less than [...] l) mmol/L CERNER MILLENNIUM Comment: Noted by percussion instrument repairer. Please note: Patients with WBC >100,000 may [...] Comment: Total Hemoglobin (in gm/dL) ?Based on [facility] Hematology ranges: ?Age ?Reference Range Less than [...] Elkins MD CHEMISTRY ORDERABLES Performing Organization Address [facility] Co de Phone Number [facility] * (ABNORMAL) Beta 2 Transferrin Body Fluid Pleural fluid (12/07/2013 9:28 PM EDT) [facility] Beta-2 Trans Bf (NOVEMBER) Positive( A) [facility] Comment: -- REFERENCE VALUE -- Negative, no beta-2 transferrin (spinal fluid) detected. Test Performed by: [place] [address] Station Cook: Cameron Hansen III, M.D. Body fluid specimen (specimen) 12/07/2013 9:28 PM EDT 12/08/2013 12:16 PM EDT Narrative Resulting Agency Comment Spec In Lab Romulo Ramires MD LAB SEND OUT ORDER SOSA Performing Organization Address [facility] Co de Phone Number [facility] * HCV Quant Fei (12/07/2013 9:26 PM EDT) [facility] HCV Viral Load <43 IU/mL [facility] HCV Viral Load Result: < 43 [...] This assay is being performed in the [facility] Molecular Pathology Laboratory. Leo Foster, Ph.D. Director, Molecular Pathology [facility] Comment: [VERIFIED DATE]12.09.13 Verified By:Jamila Lyons (Electronic Signature) Blood specimen (specimen) 12/07/2013 9:26 PM EDT 12/07/2013 9:41 PM EDT Narrative Resulting Agency Comment Spec In Lab Romulo Ramires MD HEMATOLOGY ORDERAB LES Performing Organization Address [facility] Co de Phone Number [facility]ER MILLENNIUM * (ABNORMAL) Hepatitis C Antibody (12/07/2013 9:26 PM EDT) Hepatitis C Antibody Positive(A ) Negative CERNER MILLENNIUM Blood specimen (specimen) 12/07/2013 9:26 PM EDT 12/07/2013 9:41 PM EDT Narrative Resulting Agency Comment Spec In Lab Romulo Ramires MD CHEMISTRY ORDERABL ES Performing Organization Address [facility] Co de Phone Number CERNER MILLENNIUM * (ABNORMAL) BLOOD GAS 2 VENOUS (12/07/2013 6:47 PM EDT) pH, Venous 7.34 CERNER MILLENNIUM PCO2, Venous 46 mmHg CERNER MILLENNIUM PO2, Venous 34 mmHg CERNER MILLENNIUM Bicarbonate, Venous 24.1 mmol/L CERNER MILLENNIUM Base Excess, Venous -1.8 mmol/L CERNER MILLENNIUM Hgb Blood Gas 8.6(L) gm/dL CERNER MILLENNIUM Comment: Total Hemoglobin (in gm/dL) ?Based on [facility] Hematology ranges: ?Age ?Reference Range Less than [...] Comment: Total Hemoglobin (in gm/dL) ?Based on [facility] Hematology ranges: ?Age ?Reference Range Less than [...] CARE TEST ORDERABLES CERNER MILLENNIUM * XR abdomen 1 view (12/07/2013 5:59 [...] Anatomical Region Laterality Modality Chest N/A Radiographic Kahty ging 12/07/2013 5:58 PM EDT Narrative 12/07/2013 [...] MD HEMATOLOGY ORDERAB LES Performing Organization Address [facility] de Phone Number [facility] * Thrombin time (12/07/2013 5:28 PM EDT) Thrombin Time 16 15 - 20 sec [facility] Blood specimen (specimen) 12/07/2013 5:28 PM EDT 12/07/2013 5:37 PM EDT Narrative Resulting Agency Comment Spec In Lab Romulo Ramires MD HEMATOLOGY ORDERAB LES Performing Organization Address [facility] Phone Number [facility] * Fibrinogen (12/07/2013 5:28 PM EDT) Fibrinogen 197 175 - 450 mg/dL [facility] Blood specimen (specimen) 12/07/2013 5:28 PM EDT 12/07/2013 5:37 PM EDT Narrative Resulting Agency Comment Spec In Lab Romulo Ramires MD HEMATOLOGY ORDERAB LES Performing Organization Address [facility] de Phone Number [facility] * APTT (12/07/2013 5:28 PM EDT) Partial Thromboplastin Time 31 25 - 35 sec [facility] MILLENNIUM Comment: Recommended therapeutic PTT range for full dose unfractionated heparin is 80-114 seconds. Blood specimen (specimen) 12/07/2013 5:28 PM EDT 12/07/2013 5:37 PM EDT Narrative Resulting Agency Comment Spec In Lab Romulo Ramires MD HEMATOLOGY ORDERAB LES Performing Organization Address City/[facility] de Phone Number [facility] * (ABNORMAL) Prothrombin Time (12/07/2013 5:28 PM EDT) Prothrombin Time 15.2(H) 12.0 - 15.0 sec CERNER MILLENNIUM Comment: [facility] Transfusion Committee Guidelines: INR less than 2.0, [...] MD HEMATOLOGY ORDERAB LES Performing Organization Address [facility] de Phone Number [facility] * (ABNORMAL) Lactate, whole blood, send to lab (12/07/2013 5:28 PM EDT) Lactate WB 2.3(H) 0.5 - 2.2 mmol/L CERNER MILLENNIUM Blood specimen (specimen) 12/07/2013 5:28 PM EDT 12/07/2013 5:35 PM EDT Narrative Resulting Agency Comment Spec In Lab Romulo Ramires MD CHEMISTRY ORDERABL ES Performing Organization Address [facility] de Phone Number [facility] * (ABNORMAL) Hemogram (12/07/2013 5:28 PM EDT) [...] MD HEMATOLOGY ORDERAB LES Performing Organization Address [facility]/ZIP Co de Phone Number [facility] MILLENNIUM * (ABNORMAL) CK (12/07/2013 5:28 PM EDT) Creatine Kinase 2547(H) 0 - 200 unit/L [facility] Comment:result rechecked-NM Blood specimen (specimen) 12/07/2013 5:28 PM EDT 12/07/2013 5:37 PM EDT Narrative Resulting Agency Comment Spec In Lab Romulo Ramires MD CHEMISTRY ORDERABL ES Performing Organization Address [facility] Co de Phone Number [facility] MILLENNIUM * (ABNORMAL) Basic Metabolic Panel (non-fasting) (12/07/2013 5:28 PM EDT) Glucose 130 60 - 199 mg/dL [facility] MILLENNIUM Comment:Diabetes: >=200 mg/d L plus symptoms Blood Urea Nitrogen 10 10 - 20 mg/dL [facility] Creatinine 0.76(L) 0.80 - 1.50 mg/dL CERNER MILLENNIUM Comment: Please note that the pediatric reference intervals supplied above were not validated at [facility]. Results from pediatric patients should be interpreted [...] MD CHEMISTRY ORDERABL ES [facility]ERHELENA [facility]BYI[facility] * POCT Glucose (12/07/2013 5:26 PM EDT) Glucose, POC 145 60 - 199 mg/dL CERNER MILLENNIUM Comment: Supplemental ranges: <110 mg/dL before meals <200 mg/dL all other times of the day Blood specimen (specimen) 12/07/2013 5:26 PM EDT 12/07/2013 5:26 PM EDT Romulo Ramires MD POINT OF CARE TEST ORDERABLES Performing Organization Address [facility] Co de Phone Number XOCHITL WHITAKER * Urine culture Indwelling Catheter Urine (12/07/2013 5:14 PM EDT) Urine Culture ? Patient Name: CIRILO PONCE ?Ordered By: ROMULO RAMIRES ? MR#: [id number] ?LOC: ??OR ? /Sex: ?? 6 (28 years), ? Male ? PROCEDURE: Urine Culture ?SOURCE: [facility] ? COLLECTED: 12/07/2013 17:14 ? STARTED: 12/07/2013 18:36 ? FINAL REPORT ? Final Report ? Verified: 16:03 ? No growth (Less than 1,000 cfu/ml). ? ____ XOCHITL WHITAKER Urine specimen obtained via indwelling urinary catheter (specimen) 12/07/2013 5:14 PM EDT 12/07/2013 6:36 PM EDT Narrative Resulting Agency Comment Spec In Lab Romulo Ramires MD MICROBIOLOGY - GEN ERAL ORDERABLES Performing Organization Address City/State/[facility] Co de Phone Number XOCHITL WHITAKER * (ABNORMAL) BLOOD GAS 2 ARTERIAL (12/07/2013 3:17 PM EDT) [facility] pH, Arterial 7.37 CERNER MILLENNIUM PCO2, Arterial 43 mmHg CERNE R MILLENNIUM PO2, Arterial 121(H) mmHg CERNER MILLENNIUM Bicarbonate, Arterial 24.1 mmol/L CERNER MILLENNIUM Base Excess, Arterial -1.3 mmol/L CERNER MILLENNIUM Hgb Blood Gas 8.7(L) gm/dL CERNER MILLENNIUM Comment: Total Hemoglobin (in gm/dL) ?Based on [facility] Hematology ranges: ?Age ?Reference Range Less than [...] Comment: Total Hemoglobin (in gm/dL) ?Based on [facility] Hematology ranges: ?Age ?Reference Range Less than [...] Arterial 7.27(Criti sally) CERNER MILLENNIUM Comment:Noted by percussion instrument repairer. PCO2, Arterial 55(Critica l) mmHg CERNER MILLENNIUM Comment:Noted by percussion instrument repairer. PO2, Arterial 179(H) mmHg CERNER MILLENNIUM Bicarbonate, Arterial 24.8 mmol/L CERNER MILLENNIUM Base Excess, Arterial -2.0 mmol/L CERNER MILLENNIUM Hgb Blood Gas 8.5(L) gm/dL CERNER MILLENNIUM Comment: Total Hemoglobin (in gm/dL) ?Based on [facility] Hematology ranges: ?Age ?Reference Range Less than [...] OF CARE TEST ORDERABLES Performing Organization Address [facility] Co de Phone Number [facility] Molecular [facility]PRES[facility]ENTER[facility] * (ABNORMAL) Fibrinogen (12/07/2013 11:34 AM EDT) Fibrinogen 157(L) 175 - 450 mg/dL [facility] Comment:Called by: raji, Read back by: Salena Medina, Date/Time:12/07/13 12:31. Blood specimen (specimen) 12/07/2013 11:34 AM EDT 12/07/2013 12:12 PM EDT Narrative Resulting Agency Comment Spec In Lab Romulo Ramires MD HEMATOLOGY ORDERAB LES Performing Organization Address [facility] Co de Phone Number [facility] Molecular SensingENNIUM * (ABNORMAL) APTT (12/07/2013 11:34 AM EDT) Partial Thromboplastin Time 55(H) 25 - 35 sec [facility] Comment: Recommended therapeutic PTT range for full dose unfractionated heparin is 80-114 seconds. Blood specimen (specimen) 12/07/2013 11:34 AM EDT 12/07/2013 12:12 PM EDT Narrative Resulting Agency Comment Spec In Lab Romulo Ramires MD HEMATOLOGY ORDERAB LES Performing Organization Address [facility] Co de Phone Number [facility] * (ABNORMAL) Prothrombin Time (12/07/2013 11:34 AM EDT) Prothrombin Time 17.2(H) 12.0 - 15.0 sec CERNER MILLENNIUM Comment: [facility] Transfusion Committee Guidelines: INR less than 2.0, [...] MD HEMATOLOGY ORDERAB LES Performing Organization Address [facility] Co de Phone Number CERHELENA WHITAKER * (ABNORMAL) Hemogram (12/07/2013 11:34 AM EDT) [...] Comment: Total Hemoglobin (in gm/dL) ?Based on [facility] Hematology ranges: ?Age ?Reference Range Less than [...] OF CARE TEST ORDERABLES Performing Organization Address [facility] de Phone Number XOCHITL SHE[facility]BYI[facility] * Prepare RBC (12/07/2013 10:25 AM EDT) Dispensed? Yes CERNER JULIUSENNIUM Blood specimen (specimen) 12/07/2013 10:25 AM EDT 12/07/2013 10:22 AM EDT Be Aldana MD BLOOD BANK PRODUCT O RDERABLES Performing Organization Address City/[facility] Co de Phone Number CERHELENA MADRIDENNIUM * Scan, Peripheral Blood (12/07/2013 9:56 AM EDT) Plat estimate Normal CERNER MILLENNIUM RBC Morphology Normal CERNE R MILLENNIUM Blood specimen (specimen) 12/07/2013 9:56 AM EDT 12/07/2013 10:04 AM EDT Narrative Resulting Agency Comment Spec In Lab Romulo Ramires MD HEMATOLOGY ORDERAB LES [facility] * Fibrinogen (12/07/2013 9:56 AM EDT) Fibrinogen 122 175 - 450 mg/dL CERNER MILLENNIUM Comment: Called by: raji, Read back by: Karissa Frye, Date/Time:12/07/13 10:28. Corrected from 122 mg/dL [NA] on 12/07/13 10:29 by Reji Solis Blood specimen (specimen) 12/07/2013 9:56 AM EDT 12/07/2013 10:04 AM EDT Narrative Resulting Agency Comment Spec In Lab Romulo Ramires MD HEMATOLOGY

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
--- OUTSIDE RECORDS SUMMARY | 2024-05-25 11:27 | XMS_ITS | Encounter Summary ---
Author Organization [facility] [place] [address] Care Team Providers Care Golf Club Repairer Name Role Phone None Primary Care Provider Unavailabl e Encounter Details Date Type Department Care Team (Late st Contact Info) Description 12/07/2013 Orders Only [place] [address] José Zarate III, MD [facility] [place] [address] Social History Tobacco Use Types Packs/Day Years [...] on filedocumented in this encounter Care Teams Golf Club Repairer Relationship Specialty Start Date End Date None None PCP - General 12/07/13 07/10/14 documented as of this encounter
--- OUTSIDE RECORDS SUMMARY | 2024-05-25 11:27 | XMS_ITS | Encounter Summary ---
Author Organization [facility] Address [address] [place] [address] Care Team Providers Care Brine Process Operator Name Role Phone Unknown, Provider Primary Care Provider Unava ilable Encounter Details Date Type Department Care Team (Late st Contact Info) Description 08/14/2021 Lab Requisition [facility] Pathology & Laboratory Medicine - [address] [address] Outr Resulting Lab, Provider Social History Tobacco Use Types Packs/Day Years Used Date Smoking Tobacco: Never Assessed Sex and Gender Information Value Date Recorded Sex Assigned at Not on file Legal Sex Male 18:08 EST Gender Identity Not on file Sexual Orientation Not on file documented as of this encounter Plan of Treatment Not on file documented as of this encounter Procedures Procedure Name Priority Date/Time Associated Diagnosis Comments HCV RNA DETECT QUANT Routine 08/13/2021 14:30 EST documented in this encounter Results * HCV RNA DETECT QUANT (08/13/2021 14:30 EST) HCV RNA Qualitative Undetected Undetected 08/15/2021 11:54 EST [facility] Blood VENOUS BLOOD / Unknown 08/13/2021 14:30 EST 08/15/2021 8:30 EST Narrative [facility] - 08/15/2021 11:54 EST New platform in use 02/04/2021 The quantification range of this assay is 15 IU/mL to 100,000,000 IU/mL. Testing was performed using the Clifford HCV test ([employer] with the clifford [id number] System. us Provider Outr Resulting Lab CHEMISTRY & BLOOD GA S ORDERABLES Final Result [facility] [address] [place] [address] documented in this encounter Visit Diagnoses Not on filedocumented in this encounter Care Teams Brine Process Operator Relationship Specialty Start Date End Date Unknown, Provider, PCP - General 05/17/15 documented as of this encounter
--- OUTSIDE RECORDS SUMMARY | 2024-05-25 11:27 | XMS_ITS | Encounter Summary ---
Author Organization [facility] Address [facility] [place] [address] Care Team Providers Care Supervising Producer Name Role Phone None Primary Care Provider Unavailabl e Encounter Details Date Type Department Care Team (Late st Contact Info) Description 12/07/2013 10:58 AM EDT - 12/07/2013 4:26 PM EDT Surgery [place] [address] Be Aldana MD [facility] [place] [address] @BYPASS GRAFT, BRACHIAL-ULNAR OR RADIAL W\VEIN (VASC) (WRVU 24.13) Social History Tobacco Use Types Packs/Day Years [...] to the Walk-in Clinic of your local [facility] at [facility] Locations and times of Walk-in Clinic hours are: [place]: Thursday - Thursday, 9am - 12pm [place]: Thursday, Thursday, , 2pm - 5pm Thursday, 9am - 12pm Thursday, 9am - 12pm [place]: Thursday, 1pm - 4pm [place]: Thursday, , Thursday, 9am - 11am Thursday, [...] emergency room, or call 911 Call the [facility] crisis line at [phone], or call the [facility] crisis line at [phone] Helpful websites for additional information: National Institutes of Mental Health (NIMH) http://www.nimh.nih.gov [place] Psychiatric Association http://www.healthyminds.org/letstalkfacts.cfm National [place] on Mental Illness www.gail.org or www.namivt.org or www.naminh.org for local sites Substance Use Treatment Resources for [place]: Methadone Clinics in [facility] Behavioral Health Services: [place], [place] - [place], [place] - [place], [place] - [place] [facility] [place], [place] [facility] [employer] [place], [place], [place], [place] Intensive outpatient programs: Quitting Time ([facility]) [place], [place] DayOne ([facility]) [place], [place] Starting Now ([place]) [place], [place] Inpatient rehabilitation programs: [place], [place], [place], [place], [place] / [place], [place], [place] * Patient Instructions* Deepti Hooker MD [...] may be used if needed and are tkbe-jhf-opgvryk (OTC) medications available at most local pharmacies. Prunes or prune juice, taken daily, can also be helpful for constipation treatment or p revention and are available at most [facility]. You are being discharged on some new [...] or concerns. Your surgeon may not be Head Mechanic, especially during the night or on weekends, so be ready to describe yourself and your surgery when you call. * Attachments The following attachments cannot be sent through Care Everywhere. * ADJUSTMENT DISORDER (SURINAMESE) documented in this encounter Medications at Time [...] been offered an acute rehab bed at [facility] for today. Please call Dr. Chavarria at [phone]. Please call Nursing Report to [phone], ask for senior infrastructure architect. Info to accompany patient: Copies of Medication Administration Records and IV sheets for past two weeks. [facility] arranged for a 9am transport. Ambulance will need: Medicare ambulance form completed and signed (MD or CRC) Copy of patient demographics [place] or [place] Out of Hospital DNR/DNI order, if active Patient will be discharged to: [address] [address] Plan: Stenotype Operator will be available to the patient and CRC for further assistance. Ana Villagran RN Pager [phone] * Quirino Mackay - 01/04/2014 4:26 PM EDT Traffic Maintenance Officer Encounter Note Patient Name: Cirilo Ponce : [id number] MR#: [id number] Admit Date: 12/07/2013 9:04 AM Hospital Day 28 days Visited with Pt. In response to a request from pt. Clergy to visit. Pt. Has given permission for Chainstitch Pants Outseamerjanice Jacobo to be given his room number, and to be allowed to visit and/or call. Quirino Mackay 01/04/2014 * Leonor Marsh RN - 01/04/2014 4:03 PM EDT OFFICE OF CARE MANAGEMENT CLINICAL PROJECT MANAGEMENT PROFESSOR PROGRESS NOTE e-DH reviewed. Report received from trauma service. Pt. Continues to be medically ready for transfer to rehab. When Bed offered. Met with patient at bedside to inform him of bed offer at [facility] tomorrow; grandmother visiting from [place]. [...] is a 28 y.o. male admitted to [facility] on 12/07/2013 by Kristen Lopez III,* s/p [...] right forearm Patient is currently residing on [facility]. PT referral received. Interval History: no acute events, medically stable for discharge, awaiting rehab Precautions/Special Considerations: [place] J collar, activity as tolerated, high fall [...] minutes CHRISTEN DURHAM PT, DPT 01/04/2014 Pager: [phone] Physical Therapy Rehabilitation Department * Camryn Li, [...] painful with attempts to isolate muscles to sales floor manager something (opening containers, pinching with thumb and [...] 1. Pt will increase hand function to sales floor manager adaptive utensil. 2. Pt will demonstrate good [...] Total timed interventions: 40 minutes TE-F Pager: [phone] Camryn Li OT Occupational Therapy Rehabilitation Department [...] timed interventions: 40 minutes COGx2; SCHMx1 Pager: [phone] GASPER HU/Brian Occupational Therapy Rehabilitation Department * Susan Durham, PT - 01/03/2014 3:30 PM EDT Physical Therapy Note Visit: #9 Patient profile: Cirilo Ponce is a 28 y.o. male admitted to [facility] on 12/07/2013 by Kristen Lopez III,* s/p [...] right forearm Patient is currently residing on [facility]. PT referral received. Interval History: no acute events, medically stable for discharge, awaiting rehab Precautions/Special Considerations: [place] J collar, activity as tolerated, high fall [...] minutes CHRISTEN DURHAM PT, DPT 01/03/2014 Pager: [phone] Physical Therapy Rehabilitation Department * Monique Escobar [...] Total timed interventions: 46 minutes TEFx3 Pager: [phone] GASPER HU/Brian Occupational Therapy Rehabilitation Department * Kanika Casper, RD - 01/02/2014 3:34 PM EDT Nutrition [...] a week. He likes chocolate milk shakes (YARDING AND FOLDING MACHINE OPERATOR made him one and hedrank most of it). Currently, his tube feed order is giving him 1200 mL. Initially decreased him vd6810 mL, but he needs to extra kcal [...] is a 28 y.o. male admitted to [facility] on 12/07/2013 by Kristen Lopez III,* s/p [...] right forearm Patient is currently residing on [facility]. PT referral received. Interval History: no acute events, medically stable for discharge, awaiting rehab Precautions/Special Considerations: [place] J collar, activity as tolerated, high fall [...] 91 minutes Total timed interventions: 46 minutes TETrudyF SUSAN DURHAM PT, DPT 01/02/2014 Pager: [phone] Physical Therapy Rehabilitation Department * Monique Escobar [...] Quirino Mackay - 01/01/2014 5:38 PM EDT Traffic Maintenance Officer Encounter Note Patient Name: Criilo Ponce : [id number] MR#: [id number] Admit Date: 12/07/2013 9:04 AM Hospital Day [...] Intake/Output Summary (Last 24 hours) at 01/01/14 09 Last data filed at 01/01/14 0651 Gross [...] Total timed interventions: 42 minutes TEFx3 Pager: [phone] GASPER HU/Brian Occupational Therapy Rehabilitation Department * Felisa Sandoval, PT - 12/30/2013 1:20 PM EDT Physical Therapy Note Visit: #7 Patient profile: Cirilo Ponce is a 28 y.o. male admitted to [facility] on 12/07/[address] Zarate, Kristen F [...] 23 minutes CHRISTEN Sandoval PT, MSPT Pager [phone] Inpatient Physical Therapy * Madhavi Rodriguez RN - 12/30/2013 9:36 AM EDT Office of Care Management/Clinical Bolt Cutter (CRC)/Discharge Planning Note CRC Madhavi Rodriguez RN (pager [phone]) covering for CRC Jignesh Valdovinos RN (pager [phone]) Patient: Cirilo Ponce : 1985 (28 y.o.) Home: [facility] [address] LOS: 23 days Addendum: Transfer packet is [...] OT sessions. Patient has been declined by [facility] ([place], [place]) for they reason that are unable to meet his needs, and [facility] ([place], [place]) continues to review. Ultimately, patient is to be transferred to [facility] ([place], [place]), but they need at least 2 weeks from yesterday (12/29) to arrange the RN/PT/OT services and equipment needs in their infirmary. ?? Identified patient/family concerns r/t discharge: Patient prefers to go to [facility] rather than rehab at [facility]. ?? Baseline functional status/mobility: Independent ?? Current functional status/mobility: Awaiting PT and OT evaluations ?? Admission status: 12/07/13 IPI Order to Admit is appropriate and signed by attending provider Dr.Kenneth Ramires. ?? Anticipated discharge date: Tuesday 01/02 ?? Anticipated discharge place: Rehab ?? Transportation at discharge: [facility] ambulance transportation medically necessary at discharge [...] 10:57 PM EDT Assumed patient care from [id number]. Patient A&O x 3, lungs coarse, productive [...] Received Call from Dr Keyanna Elliott - Quality Controllerfinancial sales manager of [place] [employer]- ( cell # [phone])- she was checking on Cirilo's condition and discharge planning Advised that he has been having difficulty participating with therapy program, depression and angerover being shot by police- discussed his beng declined by both [facility]---discussed he was medically ready to leave [facility]- SNF is next level of care She has request referral to SNF- while she works on getting appropriate PT/OT/nursing services and D[facility] [place](-therapy services come from [facility])- she hasrequested at least 2 weeks to work on these needs. Spoke with Cirilo about above- states no one told him what he needed to do and that he was denied @ rehab I'm not going to any infirmary @ [facility]- Iive got t to talk with my mother - I need a traffic personnel supervisor Advised patient that The ball is in your court- he is the only one that can work with PT/OT and prove he can meet the admission criteria- plan for PT session 11:30 Thursday P_ patient will be followed by covering CRC pager # [phone] * Felisa Sandoval, PT - 12/29/2013 2:36 PM EDT Physical Therapy Attempted to see pt per POC to progress with functional mobility as tolerated, in conjunction with skilled OT assessment. Pt adamantly opposed to any skilled rx at this time. Will continue to follow and progress as tolerated. Felisa Sandoval PT, MSPT Pager [phone] Inpatient Physical Therapy * Ana Caldera - [...] next BMP. Nutrition to follow. Ana Caldera, Laboratory Immunologist 12/29/13 * Monique Escobar MD - 12/29/2013 [...] 7:32 AM EDT Assumed care of Pt [id number].Pt agreeable to turn and change position at [...] in place over right shoulder. PEDRO SOW, MYRON * Demario Lopez MSW - 12/28/2013 2:46 PM EDT Social Work Note - Discharge Planning Continue to follow progress of patient. Spoke with [facility], [facility] Transportation Engineering Technician, Gallo Nicole ([phone]). Explained to Mr. Nicole that Cirilo is medically stable and we are referring him to [place] [facility], and we specifically need to understand whatthe senior care plan is for Cirilo once he has [...] center he will be brought immediately to [facility]ci on his escape charges.They are aware he will be in a wheelchair on discharge - he states they have facilities in [facility] that can handle inmates in wheelchairs. He made it clear that Cirilo will not be allowed to leave any rehab center. He also advised that he is not aware of the plan from the state police regarding these new allegations. I have been unable to reach investigating officer from [facility] - Det. Sgt.Daja Perez. Social work will continue to follow and assist with care coordination and discharge planning. ANTONIA Salas, [facility] Trauma Foreign Agent Pager [phone] * Braulio Edgar OTA - 12/28/2013 1:55 [...] when appropriate. Susan Durham PT, DPT Pager #[phone] * Ching Magallon APRN - 12/28/2013 11:51 [...] Acute Care Surgery Department of General Surgery, [facility] * Monique Escobar MD - 12/28/2013 5:04 [...] 4:02 AM EDT Assumed care of Pt [id number]. Pt upset to be woken at 0215 for VS'S and repositioning. Pt consentedto have his position shifted in bed and was medicated with oxycodone 45mg po at 0221. Care clustered during the night. * Robby Marquez RN - 12/27/2013 11:47 PM EDT Assumed patient care from [phone]. Patient A&O x 3, lungs coarse, productive [...] rectus Compartment syndrome right forearm Precautions/Special Considerations: [place] J collar, high fall risk, full code, R radial injury no ROM precautions, Interval History: decannulated, currently resides on [address] [place] S: It's so unfair. O: Patient seen [...] injury, recommended he have conversations with his garment manufacturing supervisor and family who may have details to [...] with PT Total timed interventions: 30 minutes [facility] Pager: [phone] GASPER HU/Brian Occupational Therapy Rehabilitation Department * Rosario Valdovinos RN - 12/27/2013 2:39 PM EDT Case reviewed- will ask RS to make referral to [facility]- patient is medically ready * Demario Lopez MSW - 12/27/2013 1:50 PM EDT Social Work Note - Healthcare Planning Continue to follow progress of patient. Met with Cirilo and his mother today. Cirilo was quite irritable due to ongoing nausea issues. His mother has spoken with an garment manufacturing supervisor and Cirilo signed a power of garment manufacturing supervisor form so that she can handle his legal affairs on his behalf. He has been referred to [facility] and [facility] for ongoing rehab needs - awaiting acceptance. If he is accepted, the Department [facility]rections will need to be notified - his booking officer is Cem Jorgensen at [phone]. Social work will continue to follow and provide ongoing support, and will be available to assist trauma team with care coordination and discharge planning. ANTONIA Salas, [facility] Trauma Foreign Agent Pager [phone] * Herminio Susan A, PT - 12/27/2013 1:40 PM EDT Physical Therapy Note Visit: #6 Patient profile: Cirilo Ponce is a 28 y.o. male admitted to [facility] on 12/07/[address] Zarate, Kristen Tuttle [...] right forearm Patient is currently residing on [facility]. PT referral received. Interval History: transferred to [facility], decannulated Precautions/Special Considerations: [place] J collar, activity as tolerated, high fall [...] social situation ?? Overwhelmed about injuries and senior care effects ?? Frustrated and depressed ?? Communicating, [...] minutes CHRISTEN DURHAM PT, DPT 12/27/2013 Pager: [phone] Physical Therapy Rehabilitation Department * Melia Boles [...] for removal. Melia Boles M.D. PGY-2 Pager [phone] * Yane Angela P - 12/27/2013 8:20 AM EDT Progress Note-Otolaryngology [...] PE, A/P as documented. * Braulio Edgar, DISSOLVER OPERATOR - 12/26/2013 3:53 PM EDT Occupational Therapy [...] rectus Compartment syndrome right forearm Precautions/Special Considerations: [place] J collar, high fall risk, full code, [...] injury, recommended he have conversations with his garment manufacturing supervisor and family who may have details to [...] Total timed interventions: 31 minutes SCHMx2 Pager: [phone] GASPER HU/Brian Occupational Therapy Rehabilitation Department * Kanika Casper, JOSIE - 12/26/2013 3:42 PM EDT Follow-up Tube [...] Diet upgraded today to thin liquids per STAFFING ACCOUNT MANAGER. Patient has a poor appetite, seems [...] Therapy Note Visit: #5 Patient profile: Cirilo Pnoce is a 28 y.o. male admitted to [facility] on 12/07/2013 by Kristen Lopez III,* s/p [...] right forearm Patient is currently residing on [facility]. PT referral received. Interval History: transferred to [facility], decannulated Precautions/Special Considerations: [place] J collar, activity as tolerated, high fall [...] social situation ?? Overwhelmed about injuries and long term care pharmacist effects ?? Frustrated and depressed ?? Communicating, [...] minutes HETAL DURHAM PT, DPT 12/26/2013 Pager: [phone] Physical Therapy Rehabilitation Department * Ching Magallon, CARBON CAPTURE POWER PLANT MANAGER - 12/26/2013 12:16 PM EDT Division of [...] Acute Care Surgery Department of General Surgery, [facility] * Madelin Kearney, STAFFING ACCOUNT MANAGER - 12/26/2013 11:55 AM EDT Speech-Language [...] with plan of treatment. Madelin Kearney MS, CCC-STAFFING ACCOUNT MANAGER Inpatient Rehabilitation Medicine pager:# [phone] * Rubio Plunkett, REINFORCED IRONWORKER - 12/26/2013 11:50 AM EDT Received patient [...] Continue ASA daily. Cale Young MD, Pager [phone] Section of Vascular Surgery, PGY1 * Rosario [...] as first choice since she lives in [place] Case discussed with BABBITTER P- will contact RS with above referral [...] promote a bowel routine. * Babar Hamilton, REINFORCED IRONWORKER - 12/25/2013 6:11 PM EDT Mr. Ponce remains with capped trach. NC off this morning sleeping Sats 95%. * Quirino Mackay - 12/25/2013 3:17 PM EDT Traffic Maintenance Officer Encounter Note Patient Name: Cirilo Ponce : [id number] MR#: [id number] Admit Date: 12/07/2013 9:04 AM Hospital Day 18 days Narrative: Visited to introduce and assess acceptance of Traffic Maintenance Officer services. Traffic Maintenance Officer services accepted. Assessment: Assessment deferred (insufficient information). [...] minimumof two midnights or is on the [facility] inpatient only procedure list (status C) due [...] EDT O: [facility] See doc flowsheets for physical assessment. A: [...] One bottle coagneg staph from [facility], remainder no growth to date. Injuries: [...] floor NAYLA REGAN MD * Cale Milton, STAFFING ACCOUNT MANAGER - 12/23/2013 3:59 PM EDT Speech-Language [...] thin liquid via spoon and cup ?? Catlett thickened liquid via spoon and straw (single [...] Glover, Speech Pathology Student Inpatient Rehabilitation Pager #[phone] Cale Milton MS, [facility]-STAFFING ACCOUNT MANAGER Inpatient Rehabilitation Medicine Pager:#[phone] * Henry Golden MD - 12/23/2013 3:52 [...] GOLDEN MD 12/23/2013 Acute Pain Service Pager: [phone] * Braulio Edgar OTA - 12/23/2013 3:29 [...] rectus Compartment syndrome right forearm Precautions/Special Considerations: [place] J collar, bedrest, HOB to 90, high [...] Total timed interventions: 40 minutes TEFx3 Pager: [phone] GASPER HU/Brian Occupational Therapy Rehabilitation Department * Susan Durham, PT - 12/23/2013 3:13 PM EDT Physical Therapy Note Visit: #5 Patient profile: Cirilo Ponce is a 28 y.o. male admitted to [facility] on 12/07/[address] Morgan, Bro Mendez [...] forearm [facility] received. Interval History: trach downsized and capped Precautions/Special Considerations: [place] J collar, activity as tolerated, high fall [...] minutes Total timed interventions: 30 minutes SUSAN DURHAM, PT, DPT 12/23/2013 Pager: [phone] Physical Therapy Rehabilitation Department * Rosario Valdovinos, RN - 12/23/2013 2:38 PM EDT Chart [...] reoriented pt to location of hospital, [place], [place], c/o intermittent pain medicated per SEP,#6 shijennifer remained cuffed and capped, PT/OT assisted pt [...] wean back to NC. [facility] * Nayla Regan - 12/23/2013 10:30 [...] One bottle coagneg staph from [facility], remainder no growth. Cultures from 12/22 [...] Connelly MD - 12/23/2013 6:56 AM EDT [facility] Otolaryngology - Head & Neck Surgery Inpatient Progress Note Patient Name: Cirilo Ponce : [id number] MR#: [id number] Hospital Day: 17 ID: Cirilo Ponce, 28 [...] -- -- -- 43* Recent Labs Basename 12/23/130 12/22/1331412/21/13 0345 NA 140 135 132* K 4.1 [...] Benigno Can - 12/22/2013 7:30 PM EDT Traffic Maintenance Officer Encounter Note Patient Name: Cirilo Ponce : [id number] MR#: [id number] Admit Date: 12/07/2013 9:04 AM Hospital Day 15 days Narrative: Follow-up visit for continued assessment and support. Pt indicated he was very tired. Assessment: Traffic Maintenance Officer services accepted. Intervention and Outcome: Provided pastoral [...] no evidence of a compartment syndrome Manager Finance right arm but no fine movement in [...] TIM WATTS MD 12/22/2013 * Madelin Kearney, STAFFING ACCOUNT MANAGER - 12/22/2013 3:36 PM EDT Speech-Language Pathology [...] allowing safe trial of PO as appropriate. STAFFING ACCOUNT MANAGER will continue to follow. Care will be covered by STAFFING ACCOUNT MANAGER Cale Milton ([phone]) tomorrow, and this clinician to resume care on Thursday. P: Continue Speech Pathology treatment / monitoring 3-5x/week while hospitalized. Pt./Family are in agreement with plan of treatment. Madelin Kearney MS, [facility]-STAFFING ACCOUNT MANAGER Inpatient Rehabilitation Medicine pager:# [phone] * Charlette Gupta RN - 12/22/2013 2:20 [...] (VASC) performed by Be Aldana MD at [facility] OR ??? X-ray interp, thoracic aortogram single plane 12/07/2013 AORTOGRAPHY, THORACIC, BY SERIALOGRAPHY, RADIOLOGICAL S & I performed by Be Aldana MD at [facility] OR ??? Angiography extremity, unilateral; interpretation only 12/07/2013 ANGIOGRAPHY, EXTREMITY, UNILATERAL, S & I performed by Be Aldana MD at [facility] OR ??? Artery bypass graft 12/07/2013 @BYPASS GRAFT, AXILLARY-BRACHIAL W\VEIN CONDUIT performed by Be Aldana MD at [facility] OR ??? Tracheostomy, planned 12/07/2013 TRACHEOSTOMY, PLANNED performed by Braulio Abbott MD at [facility] OR ??? Layr clos wnd face, facial 5.1-7.5 cm 12/07/2013 REPAIR INTERMEDIATE WOUND, 5.1 TO 7.5CM, FACE performed by Braulio Abbott MD at [facility] OR ??? Debridement, skin, sub-q tissue, muscle 12/07/2013 DEBRIDEMENT SKIN, SUBCU, MUSCLE, HEAD/NECK performed by Braulio Abbott MD at [facility] OR ??? Closed treat mandible fx+dental fix 12/07/2013 CLOSED TREATMENT, MANDIBULAR FX W/ FIXATION performed by Braulio Abbott MD at [facility] OR ??? Debridement, skin, sub-q tissue 12/08/2013 DEBRIDEMENT SKIN AND SUBCU, UPPER EXTREMITY performed by Be Aldana MD at [facility] OR By report, no movement has been [...] visitors of the above Mireya POLA Magallon, REYNA Trauma Division, Section of Trauma and Acute Care Surgery Department of General Surgery, [facility] * Nayla Regan - 12/22/2013 5:13 AM [...] One bottle coagneg staph from [facility], remainder no growth. Cultures from 12/22 [...] Benigno Can - 12/21/2013 7:40 PM EDT Traffic Maintenance Officer Encounter Note Patient Name: Cirilo Ponce : [id number] MR#: [id number] Admit Date: 12/07/2013 9:04 AM Hospital Day [...] rectus Compartment syndrome right forearm Precautions/Special Considerations: [place] J collar, bedrest, HOB to 90, high [...] Total timed interventions: 47 minutes TEFx3 Pager: [phone] GASPER HU/Brian Occupational Therapy Rehabilitation Department * Susan Durham, PT - 12/21/2013 2:24 PM EDT Physical Therapy Note Visit: #4 Patient profile: Cirilo Ponce is a 28 y.o. male admitted to [facility] on 12/07/2013 by Bro Rosales MD s/p [...] History: cleared 90 degree films Precautions/Special Considerations: [place] J collar, activity as tolerated, high fall [...] wrapped ?? Bed to chair: dependent via [facility], A of 3, assist with line and tubing management ?? Patient was left in chair positioned with pillows under all extremities to elevate. TAB's in place. BP stable. STAFFING ACCOUNT MANAGER going in to see patient ?? [...] minutes SUSAN DURHAM PT, DPT 12/21/2013 Pager: [phone] Physical Therapy Rehabilitation Department * Tim Watts [...] 99 6/11 8.7 26 303 132/3.8 18/0.54 IS PATIENT [...] TIM WATTS MD 12/21/2013 * Madelin Kearney, STAFFING ACCOUNT MANAGER - 12/21/2013 10:56 AM EDT Speech-Language [...] for capping at that time PMV with STAFFING ACCOUNT MANAGER only Pt will benefit from intensive Speech Pathology services in d/c location S: Pt minimally alert immediately following PT/OT session. Unable to respond to most orientation questions. Pt accurately responded when asked where he was from, [facility]. PT/OT reporting Pt able to answer all [...] Slight back pressure noted in 1/4 trials. Passy-Cary Trial: PMV able to be placed for [...] Inconsistent alertness presents barrier for safe swallow, STAFFING ACCOUNT MANAGER will continue to assess as appropriate. 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 Education: Attempted to educate Pt regarding role of STAFFING ACCOUNT MANAGER. Collaborated with PT/OT. Reported results of [...] Glover, Speech Pathology Student Inpatient Rehabilitation Pager #[phone] Madelin Kearney MS, [facility]-STAFFING ACCOUNT MANAGER Inpatient Rehabilitation Medicine Pager:#[phone] * Shena Connelly MD - 12/21/2013 9:13 AM EDT [facility] [place]ol[place]ology - Head & Neck Surgery Inpatient Progress Note Patient Name: Cirilo Ponce : [id number] MR#: [id number] Hospital Day: 15 ID: Cirilo Ponce, 28 [...] -- Recent Labs Basename 12/21/1334412/20/13 0415 12/19/13 0512/18/132007 NA 132* 135 137 136 [...] Follow-up Tube Feeding Evaluation-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 MILLENNIUM Comment: Please note that the pediatric reference intervals supplied above were not validated at [facility]. Results from pediatric patients should be interpreted [...] the following links into your internet browser. [email or web address] Blood specimen (specimen) 12/22/2013 3:15 AM EDT 12/22/2013 3:21 AM EDT Narrative Resulting Agency Comment Spec In Lab Bro Morgan MD CHEMISTRY ORDERABLES [facility] * Blood culture (12/21/2013 10:50 PM EDT) Blood Culture ? Patient Name: CIRILO PONCE ?Ordered By: BRO MORGAN ? MR#: [id number] ?LOC: ??3WST ? /Sex: ??1985 (28 years), [...] PONCE ?Ordered By: BRO MORGAN ? MR#: [id number] ?LOC: ??3WST ? /Sex: ??1985 (28 years), [...] PONCE ?Ordered By: BRO MORGAN ? MR#: [id number] ?LOC: ??ICUS ? /Sex: ?? 6 (28 years), ? Male ? PROCEDURE: Urine Culture ?SOURCE: U ICa ? COLLECTED: 12/21/2013 22:24 ? STARTED: 12/21/2013 22:45 ? FINAL REPORT ? Final Report ? Verified: 15:02 ? No growth (Less than 1,000 cfu/ml). ? ____ CERNER MILLENNIUM Urine specimen obtained via indwelling urinary catheter (specimen) 12/21/2013 10:24 PM EDT 12/21/2013 10:45 PM EDT Narrative Resulting Agency Comment Spec In Lab Bro Morgan MD MICROBIOLOGY - GENER AL ORDERABLES XOCHITL WHITAKER * XR chest PA [...] Cirilo Olivas MD HEMATOLOGY ORDERABLE S CERNER JLUIUSENNIUM * (ABNORMAL) Hemogram (12/21/2013 3:45 AM EDT) [...] MILLENNIUM * (ABNORMAL) Basic Metabolic Panel (non-fasting) (12/21/2013 3:45 AM EDT) Glucose 117 60 - 199 mg/dL CERNER MILLENNIUM Comment:Diabetes: >=200 mg/d L plus symptoms Blood Urea Nitrogen 18 10 - 20 mg/dL CERNER MILLENNIUM Creatinine 0.54(L) 0.80 - 1.50 mg/dL CERNER MILLENNIUM Comment: Please note that the pediatric reference intervals supplied above were not validated at [facility]. Results from pediatric patients should be interpreted [...] the following links into your internet browser. [email or web address] Blood specimen (specimen) 12/21/2013 3:45 AM EDT 12/21/2013 3:48 AM EDT Narrative Resulting Agency Comment Spec In Lab Bro Morgan MD CHEMISTRY ORDERABLES Performing Organization Address [facility] Co de Phone Number [email or web address] * (ABNORMAL) APTT (12/21/2013 12:10 AM EDT) Partial Thromboplastin Time 43(H) 25 - 35 sec [email or web address] Comment: Recommended therapeutic PTT range for full dose unfractionated heparin is 80-114 seconds. Blood specimen (specimen) 12/21/2013 12:10 AM EDT 12/21/2013 12:14 AM EDT Narrative Resulting Agency Comment Spec In Lab Bro Morgan MD HEMATOLOGY ORDERABLE S Performing Organization Address [facility] [place] de Phone Number [email or web address] * XR spine thoracic 2 views (12/20/2013 [...] Text Report Department: Vascular Surgery Lab Patient: [id number] (CIRILO PONCE) CPT Code: 12038 ICD-9: 451.19 Referring Physician: CIRILO OLIVAS Indication: [...] Cirilo Olivas MD HEMATOLOGY ORDERABLE S CERHELENA SHELBYIUM * (ABNORMAL) Hemogram (12/20/2013 4:15 AM EDT) [...] Metabolic Panel (non-fasting) (12/20/2013 4:15 AM EDT) [facility] Glucose 99 60 - 199 mg/dL CERNER MILLENNIUM Comment:Diabetes: >=200 mg/d L plus symptoms Blood Urea Nitrogen 16 10 - 20 mg/dL CERNER MILLENNIUM Creatinine 0.48(L) 0.80 - 1.50 mg/dL CERNER MILLENNIUM Comment: Please note that the pediatric reference intervals supplied above were not validated at [facility]. Results from pediatric patients should be interpreted [...] the following links into your internet browser. [email or web address] Blood specimen (specimen) 12/20/2013 4:15 AM EDT 12/20/2013 4:25 AM EDT Narrative Resulting Agency Comment Spec In Lab Bro Morgan MD CHEMISTRY ORDERABLES XOCHITL [employer] * XR chest PA or AP- 1 [...] Text Report Department: Vascular Surgery Lab Patient: [id number] (CIRILO PONCE) CPT Code: 73020 ICD-9: 959.8 Referring Physician: CIRILO OLIVAS Indication: [...] ORDERAB LES CERHELENA MADRIDENNIUM * (ABNORMAL) Hemogram (12/19/2013 5:26 AM EDT) [...] Metabolic Panel (non-fasting) (12/19/2013 5:26 AM EDT) [facility] Glucose 107 60 - 199 mg/dL CERNER MILLENNIUM Comment:Diabetes: >=200 mg/d L plus symptoms Blood Urea Nitrogen 16 10 - 20 mg/dL CERNER MILLENNIUM Creatinine 0.56(L) 0.80 - 1.50 mg/dL CERNER MILLENNIUM Comment: Please note that the pediatric reference intervals supplied above were not validated at [facility]. Results from pediatric patients should be interpreted [...] the following links into your internet browser. [email or web address] Blood specimen (specimen) 12/19/2013 5:26 AM EDT 12/19/2013 5:34 AM EDT Narrative Resulting Agency Comment Spec In Lab Romulo Ramires MD CHEMISTRY ORDERABL ES Performing Organization Address [facility] Co de Phone Number XOCHITL MADRIDTIGISTIUM * (ABNORMAL) Prothrombin Time (12/19/2013 5:26 AM EDT) Prothrombin Time 15.1(H) 12.0 - 15.0 sec CERNER MILLENNIUM Comment: [facility] Transfusion Committee Guidelines: INR less than 2.0, PTT less than OR equal to 43.5 seconds, or Fibrinogen greater than or equal to 100 mg/dl indicate adequate procoagulant activity for hemostasis in patients without underlying bleeding disorders. International Normalization Ratio 1.2(H) 0.9 - 1.1 CERHELENA MILLENNIUM Blood specimen (specimen) 12/19/2013 5:26 AM EDT 12/19/2013 5:34 AM EDT Narrative Resulting Agency Comment Spec In Lab Romulo Ramires MD HEMATOLOGY ORDERAB LES MARBINHELENA JULIUSTIGISTIUM * (ABNORMAL) Differential, Automated (12/18/2013 8:08 PM [...] ORDERAB LES XOCHITL MADRIDENNIUM * (ABNORMAL) Hemogram (12/18/2013 8:08 PM EDT) [...] MD HEMATOLOGY ORDERAB LES Performing Organization Address [facility] [place] de Phone Number XOCHITL WHITAKER * Vancomycin, trough (12/18/2013 8:08 PM EDT) Vancomycin, Trough 15.1 mg/L C EMILIA SHELBYIUM Comment: Therapeutic range for complicated infections such [...] Olivas MD CHEMISTRY ORDERABLES Performing Organization Address [facility] [place] de Phone Number [facility]L [facility] * (ABNORMAL) Basic Metabolic Panel (non-fasting) (12/18/2013 8:08 PM EDT) Glucose 100 60 - 199 mg/dL CERNER MILLENNIUM Comment:Diabetes: >=200 mg/d L plus symptoms Blood Urea Nitrogen 14 10 - 20 mg/dL CERNER MILLENNIUM Creatinine 0.57(L) 0.80 - 1.50 mg/dL CERNER MILLENNIUM Comment: Please note that the pediatric reference intervals supplied above were not validated at [facility]. Results from pediatric patients should be interpreted [...] the following links into your internet browser. [email or web address] Blood specimen (specimen) 12/18/2013 8:08 PM EDT [...] ORDERAB LES XOCHITL MADRIDENNIUM * (ABNORMAL) Hemogram (12/18/2013 4:02 AM [...] Lab Romulo Ramires MD [facility]ATOLOGY [facility]ES [facility] * (ABNORMAL) Basic Metabolic Panel (non-fasting) (12/18/2013 4:02 AM EDT) [facility] Glucose 108 60 - 199 mg/dL [facility] M[facility]ENNIUM Comment:Diabetes: >=200 mg/d L plus symptoms Blood Urea Nitrogen 11 10 - 20 mg/dL CERNER MILLENNIUM Creatinine 0.63(L) 0.80 - 1.50 mg/dL CERNER MILLENNIUM Comment: Please note that the pediatric reference intervals supplied above were not validated at [facility]. Results from pediatric patients should be interpreted [...] the following links into your internet browser. [email or web address] Blood specimen (specimen) 12/18/2013 4:02 AM EDT 12/18/2013 4:11 AM EDT Narrative Resulting Agency Comment Spec In Lab Romulo Ramires MD CHEMISTRY ORDERABL ES XOCHITL WHITAKER * (ABNORMAL) Prothrombin Time (12/18/2013 4:02 AM EDT) Prothrombin Time 15.7(H) 12.0 - 15.0 sec CERNER MILLENNIUM Comment: [facility] Transfusion Committee Guidelines: INR less than 2.0, [...] MD HEMATOLOGY ORDERAB LES Performing Organization Address [facility] [place] de Phone Number CERHELENA MADRIDENNIUM * Blood culture (12/17/2013 8:50 PM EDT) Blood Culture ? Patient Name: CIRILO PONCE ?Ordered By: CIRILO OLIVAS ? MR#: [id number] ?LOC: ??ICUS ? /Sex: ??1985 (28 years), ? Male ? PROCEDURE: Blood Culture ?SOURCE: Blood ? COLLECTED: 12/17/2013 20:50 ?FREE TEXT SOURCE: L HAND ? STARTED: 12/17/2013 21:13 ? FINAL REPORT ? Final Report ? Verified:2013 23:01 ? No growth at 5 days. ? PRELIMINARY REPORT ? Preliminary Report ? Verified:2013 23:01 ? No growth at 4 days. ? CERNER MILLENNIUM Blood specimen (specimen) 12/17/2013 8:50 PM EDT 12/17/2013 9:13 PM EDT Comment:L HAND Narrative Resulting Agency Comment Spec In Lab Cirilo Olivas MD MICROBIOLOGY - BLOOD ORDERABLES Performing Organization Address [facility] Co de Phone Number CERNER MILLENNIUM * Blood culture (12/17/2013 8:45 PM EDT) Blood Culture ? Patient Name: CIRILO PONCE ?Ordered By: CIRILO OLIVAS ? MR#: [id number] ?LOC: ??ICUS ? /Sex: ??1985 (28 years), [...] ? Patient Name: CIRILO PONCE ?Ordered By: BRENDONKELLYIC Keyanna ? MR#: [id number] ?LOC: ??ICUS ? /Sex: ?? 6 (28 [...] Urine Dipstick Cloudy(A) Clear CERNER MILLENNIUM Specific [place] Urine Automated 1.018 1.002 - 1.030 CERNER [...] ORDERAB LES CERHELENA MADRIDENNIUM * (ABNORMAL) Hemogram (12/17/2013 5:00 PM EDT) [...] Romulo Ramires MD HEMATOLOGY ORDERAB LES [facility] JUL[facility] MARYVALEIUM * (ABNORMAL) Basic Metabolic Panel (non-fasting) (12/17/2013 5:00 PM EDT) [facility] Glucose 104 60 - 199 mg/dL CERNER MILLENNIUM Comment:Diabetes: >=200 mg/d L plus symptoms Blood Urea Nitrogen 12 10 - 20 mg/dL CERNER MILLENNIUM Creatinine 0.61(L) 0.80 - 1.50 mg/dL CERNER MILLENNIUM Comment: Please note that the pediatric reference intervals supplied above were not validated at [facility]. Results from pediatric patients should be interpreted [...] the following links into your internet browser. [email or web address] Blood specimen (specimen) 12/17/2013 5:00 PM EDT 12/17/2013 5:06 PM EDT Narrative Resulting Agency Comment Spec In Lab Romulo Ramires MD CHEMISTRY ORDERABL ES XOCHITL WHITAKER * EKG 12 Lead (12/17/2013 7:22 AM EDT) Ventricular rate 74 BPM MUSE SYSTEM Atrial Rate 74 BPM MUSE SYSTEM P-R Interval 148 ms MUSE SYSTEM QRS Duration 88 ms MUSE SYSTEM Q-T Interval 426 ms MUSE SYSTEM QTC Calculated (Bezet) 472 ms MUSE SYSTEM Calculated P Keavy 47 degrees MUSE SYSTEM Calculated R Keavy 62 degrees MUSE SYSTEM Calculated T Keavy 23 degrees MUSE SYSTEM INTERPRETATION Normal sinus rhythm Normal ECG No previous ECGs available Confirmed by Bradley Basilio MD ([id number]) on 12/17/2013 1:26:14 PM MUSE SYSTEM 12/17/2013 7:22 AM EDT 12/17/2013 1:26 PM EDT Cirilo Olivas MD ECG ORDERABLES MUSE SYSTEM * Percutaneous Gastrostomy (12/17/2013 6:38 [...] MD HEMATOLOGY ORDERAB LES Performing Organization Address City/[facility] Co de Phone Number CERHELENA MADRIDENNIUM * (ABNORMAL) Hemogram (12/17/2013 3:30 AM EDT) [...] MD HEMATOLOGY ORDERAB LES Performing Organization Address City/[facility]/ZIP Co de Phone Number CERHELENA SHELBYIUM * (ABNORMAL) Basic Metabolic Panel (non-fasting) (12/17/2013 3:30 AM EDT) Glucose 96 60 - 199 mg/dL CERNER MILLENNIUM Comment:Diabetes: >=200 mg/d L plus symptoms Blood Urea Nitrogen 13 10 - 20 mg/dL CERNER MILLENNIUM Creatinine 0.61(L) 0.80 - 1.50 mg/dL CERNER MILLENNIUM Comment: Please note that the pediatric reference intervals supplied above were not validated at [facility]. Results from pediatric patients should be interpreted [...] the following links into your internet browser. [email or web address] Blood specimen (specimen) 12/17/2013 3:30 AM EDT 12/17/2013 3:37 AM EDT Narrative Resulting Agency Comment Spec In Lab Romulo Ramires MD CHEMISTRY ORDERABL ES [facility]HN[facility] * (ABNORMAL) Prothrombin Time (12/17/2013 3:30 AM EDT) Prothrombin Time 15.4(H) 12.0 - 15.0 sec CERNER MILLENNIUM Comment: [facility] Transfusion Committee Guidelines: INR less than 2.0, [...] MD HEMATOLOGY ORDERAB LES CERNER MILLENNIUM * Scan, Peripheral Blood (12/16/2013 [...] Metabolic Panel (non-fasting) (12/16/2013 3:40 PM EDT) [facility] Glucose 95 60 - 199 mg/dL CERNER MILLENNIUM Comment:Diabetes: >=200 mg/d L plus symptoms Blood Urea Nitrogen 15 10 - 20 mg/dL CERNER MILLENNIUM Creatinine 0.52(L) 0.80 - 1.50 mg/dL CERNER MILLENNIUM Comment: Please note that the pediatric reference intervals supplied above were not validated at [facility]. Results from pediatric patients should be interpreted [...] the following links into your internet browser. [email or web address] Blood specimen (specimen) 12/16/2013 3:40 PM EDT 12/16/2013 3:46 PM EDT Narrative Resulting Agency Comment Spec In Lab Romulo Ramires MD CHEMISTRY ORDERABL ES Performing Organization Address City/State/ZIP Co id Phone Number XOCHITL [facility] * Echocardiogram Transthoracic(Leb) (12/16/2013 3:31 PM EDT) EF 61 HEARTLAB SYSTEM Anatomical Region Laterality Modality Other 12/16/2013 Narrative 12/16/2013 3:48 PM EDT Amended Report Procedure: ? Transthoracic Echocardiogram Patient: ? DAVID Briceño ? (Age): 1985(28) Med Rec#: ?[id number] ? Sex: ?M ? Site Loc: [facility] ? Ht / Wt: ??190(cm)/124.4(k Pt. Loc: ? Adult Floor ?BSA: ?2.56 Study Date: ?12/16/2013 ? Pt. Type: Inpatient Tape: ? Referring: Cirilo Olivas MD Referring: KAYLEEN Hoop Coiler: Virginia Granados Hoop Coiler 2: Cristopher Mays ([id number]) Interpreting Fellow: Cristopher Mays ([id number]) Diagnosis:CPT Code(s): ??Echo Full (41988), ??Spectral Doppler (38241), Color Doppler (95209), ??Saline Contrast (000), Indication(s): ??Hypoxia Rhythm: HR [...] ? Mid-Inferior ?Normal ? Mid-Inferoseptal ?Normal ? [place]-Septal ? Normal ? [place]-Anterior ? Normal ? [place]-Lateral ?Normal ? [place]-Inferior ? Normal ? [place]-Tip ?Normal ? Chambers ?Value ?Units (Range) ? [...] 12/16/2013 15:48:29 Images reviewed and interpretation verified [facility] Cardiac Ultrasound Laboratory Procedure Note Wiliam Wang MD - 12/16/2013 Amended Report Procedure: Transthoracic Echocardiogram Patient: DAVID LAM(Age): 1985(28) Med Rec#: [id number] Sex: M Site Loc: [facility] Ht / Wt: 190(cm)/124.4(k Pt. Loc: Adult Floor BSA: 2.56 Study Date: 12/16/2013 Pt. Type: Inpatient Tape: Referring: Cirilo Olivas MD Referring: HOLLANDROBERTR Hoop Coiler: Virginia Granados Hoop Coiler 2: Cristopher Mays ([id number]) Interpreting Fellow: Cristopher Mays ([id number]) Diagnosis:CPT Code(s): Echo Full (74603), Spectral Doppler (49286), Color Doppler (17024), Saline Contrast (000), Indication(s): Hypoxia Rhythm: HR [...] Normal Mid-Posterolateral Normal Mid-Inferior Normal Mid-Inferoseptal Normal [place]-Septal Normal [place]-Anterior Normal [place]-Lateral Normal [place]-Inferior Normal [place]-Tip Normal Chambers Value Units (Range) EF Bi-p [...] 12/16/2013 15:48:29 Images reviewed and interpretation verified [facility] Cardiac Ultrasound Laboratory Cirilo Olivas MD ECHO ORDERABLES * Vancomycin, trough (12/16/2013 3:56 AM EDT) Vancomycin, Trough 12.2 mg/L Pablo NIETO [facility] Comment: Therapeutic range for complicated [...] Olivas MD CHEMISTRY ORDERABLES Performing Organization Address [facility] Co de Phone Number CERHELENA MADRIDENNIUM * Prothrombin Time (12/16/2013 3:56 AM EDT) Prothrombin Time 14.7 12.0 - 15.0 sec CERNER MILLENNIUM Comment: [facility] Transfusion Committee Guidelines: INR less than 2.0, [...] MD HEMATOLOGY ORDERAB LES Performing Organization Address [facility] Co de Phone Number CERHELENA MADRIDENNIUM * (ABNORMAL) Differential, Automated (12/16/2013 12:15 [...] ORDERAB LES CERNER JULIUSENNIUM * (ABNORMAL) Hemogram (12/16/2013 12:15 [...] intervals supplied above were not validated at [facility]. Results from pediatric patients should be interpreted [...] the following links into your internet browser. [email or web address] Blood specimen (specimen) 12/16/2013 12:15 AM EDT 12/16/2013 12:21 AM EDT Narrative Resulting Agency Comment Spec In Lab Romulo Ramires MD CHEMISTRY ORDERABL ES XOCHITL MADRIDWebee * XR chest PA or AP- 1 [...] LES CERNER MILLENNIUM * (ABNORMAL) Hemogram (12/15/2013 11:55 AM EDT) [...] Narrative Resulting Agency Comment Spec In Lab Roumlo Ramires MD HEMATOLOGY ORDERAB LES CERNER MILLENNIUM * (ABNORMAL) Basic Metabolic Panel (non-fasting) (12/15/2013 11:55 AM EDT) Glucose 120 60 - 199 mg/dL CERNER MILLENNIUM Comment:Diabetes: >=200 mg/d L plus symptoms Blood Urea Nitrogen 17 10 - 20 mg/dL CERNER MILLENNIUM Creatinine 0.55(L) 0.80 - 1.50 mg/dL CERNER MILLENNIUM Comment: Please note that the pediatric reference intervals supplied above were not validated at [facility]. Results from pediatric patients should be interpreted [...] the following links into your internet browser. [email or web address] Blood specimen (specimen) 12/15/2013 11:55 AM EDT [...] Prothrombin Time 15.0 12.0 - 15.0 sec XOCHITL PodPosterTIGISTIUM Comment: [facility] Transfusion Committee Guidelines: INR less than 2.0, PTT less than OR equal to 43.5 seconds, or Fibrinogen greater than or equal to 100 mg/dl indicate adequate procoagulant activity for hemostasis in patients without underlying bleeding disorders. International Normalization Ratio 1.1 0.9 - 1.1 XOCHITL WHITAKER Blood specimen (specimen) 12/15/2013 6:30 AM EDT 12/15/2013 6:40 AM EDT Narrative Resulting Agency Comment Spec In Lab Romulo Ramires MD HEMATOLOGY ORDERAB LES CERNER JULIUSENNIUM * Antibody screen (12/15/2013 1:05 AM EDT) Ab Screen Interp Negative CERNER JULIUSENNIUM Expires at [id number] on: [id number] CERNER MILLENNIUM Blood specimen (specimen) 12/15/2013 1:05 AM EDT 12/15/2013 1:05 AM EDT Narrative Resulting Agency Comment Spec In Lab Cirilo Olivas MD BLOOD BANK LAB ORDER SOSA Performing Organization Address City/[facility]/ZIP Co de Phone Number CERHELENA MADRIDENNIUM * ABO/Rh Typing (12/15/2013 1:05 AM EDT) ABORH Type O Pos CERNER MILLENNIUM Blood specimen (specimen) 12/15/2013 1:05 AM EDT 12/15/2013 1:05 AM EDT Narrative Resulting Agency Comment Spec In Lab Cirilo Olivas MD BLOOD BANK LAB ORDER SOSA Performing Organization Address [facility]/ZIP Co de Phone Number CERHELENA MADRIDENNIUM * Prepare RBC (12/15/2013 12:35 AM EDT) Dispensed? Yes CERNER JULIUSENNIUM Blood specimen (specimen) 12/15/2013 12:35 AM EDT 12/15/2013 12:34 AM EDT Cirilo Olivas MD BLOOD BANK PRODUCT O RDERABLES Performing Organization Address [facility]/ZIP Co de Phone Number CERNER JULIUSENNIUM [...] LES CERNER MILLENNIUM * (ABNORMAL) Differential, Automated (12/15/2013 12:05 AM [...] ORDERAB LES XOCHITL MADRIDENNIUM * (ABNORMAL) Hemogram (12/15/2013 12:05 AM [...] Romulo Ramires MD HEMATOLOGY ORDERAB LES CERHELENA WHITAKER * (ABNORMAL) Basic Metabolic Panel (non-fasting) (12/15/2013 12:05 AM EDT) Glucose 99 60 - 199 mg/dL CERNER MILLENNIUM Comment:Diabetes: >=200 mg/d L plus symptoms Blood Urea Nitrogen 18 10 - 20 mg/dL CERNER MILLENNIUM Creatinine 0.55(L) 0.80 - 1.50 mg/dL CERNER MILLENNIUM Comment: Please note that the pediatric reference intervals supplied above were not validated at [facility]. Results from pediatric patients should be interpreted [...] MD HEMATOLOGY ORDERAB LES XOCHITL SHELBYIUM * Vancomycin, trough (12/14/2013 12:30 PM EDT) Pathologist [facility] Vancomycin, Trough 10.0 mg/L C ERNER MILLENNIUM [...] In Lab Cirilo Olivas MD CHEMISTRY ORDERABLES CERHELENA SHELBYIUM * (ABNORMAL) Basic Metabolic Panel (non-fasting) (12/14/2013 12:30 PM EDT) [facility] Glucose 96 60 - 199 mg/dL CERNER MILLENNIUM Comment:Diabetes: >=200 mg/d L plus symptoms Blood Urea Nitrogen 15 10 - 20 mg/dL CERNER MILLENNIUM Creatinine 0.61(L) 0.80 - 1.50 mg/dL CERNER MILLENNIUM Comment: Please note that the pediatric reference intervals supplied above were not validated at [facility]. Results from pediatric patients should be interpreted [...] MD CHEMISTRY ORDERABL ES Performing Organization Address [facility] de Phone Number XOCHITL WHITAKER * Beta 2 Transferrin Body Fluid Pleural fluid (12/14/2013 8:48 AM EDT) Beta-2 Trans Bf (MAY) Negative CERNER JULIUSENNIUM Comment: -- REFERENCE VALUE -- Negative, no beta-2 transferrin (spinal fluid) detected. Test Performed by: [place] [address] [employer]arnish Supervisor: Cameron Hansen III, M.D. Body fluid specimen (specimen) 12/14/2013 8:48 AM EDT 12/14/2013 10:22 AM EDT Narrative Resulting Agency Comment Spec In Lab Cirilo Olivas MD LAB SEND OUT ORDERAB LES Performing Organization Address [facility] [place] de Phone Number XOCHITL WHITAKER * Blood culture (12/14/2013 12:35 AM EDT) Blood Culture ? Patient Name: KELLY PONCEIC Keyanna ?Ordered By: CIRILO OLIVAS ? MR#: [id number] ?LOC: ??ICUS ? /Sex: ??1985 (28 years), [...] days. ? XOCHITL MILLENNIUM Blood specimen (specimen) 12/14/2013 12:35 AM EDT 12/14/2013 2:10 AM EDT Comment:#2 CENTRAL LINE Narrative Resulting Agency Comment Spec In Lab Cirilo Olivas MD MICROBIOLOGY - BLOOD ORDERABLES XOCHITL WHITAKER * Blood culture (12/14/2013 12:30 AM EDT) Blood Culture ? Patient Name: CIRILO PONCE ?Ordered By: CIRILO OLIVAS ? MR#: [id number] ?LOC: ??ICUS ? /Sex: ??1985 (28 years), ? Male ? PROCEDURE: Blood Culture ?SOURCE: Blood ? COLLECTED: 12/14/2013 00:30 ?FREE TEXT SOURCE: #1 la ? STARTED: 12/14/2013 02:10 ? FINAL REPORT ? Final Report ? Verified:2013 07:01 ? No growth at 5 days. ? PRELIMINARY REPORT ? Preliminary Report ? Verified:2013 07:01 ? No growth at 4 days. ? CERNER MILLENNIUM Blood specimen (specimen) 12/14/2013 12:30 AM EDT 12/14/2013 2:09 AM EDT Comment:#1 LA Narrative Resulting Agency Comment Spec In Lab Cirilo Olivas MD MICROBIOLOGY - BLOOD ORDERABLES CERNER MILLENNIUM * Scan, Peripheral Blood (12/14/2013 12:20 AM EDT) Pathologist [facility] Plat estimate Normal CERNER MILLENNIUM RBC Morphology [...] (non-fasting) (12/14/2013 12:20 AM EDT) Pathologist [facility] Glucose 104 60 - 199 mg/dL CERNER MILLENNIUM Comment:Diabetes: >=200 mg/d L plus symptoms Blood Urea Nitrogen 18 10 - 20 mg/dL CERNER MILLENNIUM Creatinine 0.68(L) 0.80 - 1.50 mg/dL CERNER MILLENNIUM Comment: Please note that the pediatric reference intervals supplied above were not validated at [facility]. Results from pediatric patients should be interpreted [...] MD CHEMISTRY ORDERABL ES Performing Organization Address [facility] [place] de Phone Number ScaylIUM * (ABNORMAL) Prothrombin Time (12/14/2013 12:20 AM EDT) Prothrombin Time 15.4(H) 12.0 - 15.0 sec CERNER MILLENNIUM Comment: [facility] Transfusion Committee Guidelines: INR less than 2.0, [...] MD HEMATOLOGY ORDERAB LES Performing Organization Address [facility]/ZIP Co de Phone Number CERHELENA Branded OnlineIUM * CSF Cell Count (12/13/2013 6:41 PM [...] AND STOO LS ORDERABLES Performing Organization Address [facility] Co de Phone Number CERNER MILLENNIUM * CSF DESC 1 (12/13/2013 6:41 PM EDT) Tube Num CSF #1 1 CERNER MILLENNIUM Color, CSF [place] CERNER MILLENNIUM Appearance, CSF Hazy Clear CERNER MILLENNIUM Total Vol, CSF 4.0 mL CERNE R MILLENNIUM Cerebrospinal fluid specimen (specimen) 12/13/2013 6:41 PM EDT 12/13/2013 6:57 PM EDT Narrative Resulting Agency Comment Spec In Lab Cirilo Olivas MD BODY FLUIDS AND STOO LS ORDERABLES Performing Organization Address [facility] [place] de Phone Number CERNER MILLENNIUM * CSF Culture (12/13/2013 6:41 PM EDT) Central Nervous System Culture ? Patient Name: CIRILO PONCE ?Ordered By: KELLY OLIVASIC Keyanna ? MR#: [id number] ?LOC: ??ICUS ? /Sex: ??1985 (28 years), [...] 07:37 ? No growth to date. ? [facility] Cerebrospinal fluid specimen (specimen) 12/13/2013 6:41 PM EDT 12/13/2013 7:13 PM EDT Narrative Resulting Agency Comment Spec In Lab Cirilo Olivas MD MICROBIOLOGY - GENER AL ORDERABLES Performing Organization Address [facility] [place] de Phone Number [facility] * Glucose Level CSF (12/13/2013 6:40 PM EDT) Glucose, CSF 55 mg/dL [facility] Comment:CSF at equilibrium e quals approximately 60-80% of plasma glucose. Cerebrospinal fluid specimen (specimen) 12/13/2013 6:40 PM EDT 12/13/2013 6:56 PM EDT Narrative Resulting Agency Comment Spec In Lab Cirilo Olivas MD BODY FLUIDS AND STOO LS ORDERABLES Performing Organization Address [facility] [place] de Phone Number [facility] * (ABNORMAL) Protein Level CSF (12/13/2013 6:40 PM EDT) Protein, CSF 380(H) 15 - 45 mg/dL [facility] Comment: RBC CT= 6604 If CSF red cells are due to traumatic tap, the measured CSF Total Protein will be increased by approximately 1 mg/dL for every 1000 RBC/UL, assuming normal serum protein, hematocrit and peripheral RBC Xanthochromia Slight XOCHITL WHITAKER Cerebrospinal fluid specimen (specimen) 12/13/2013 6:40 PM EDT 12/13/2013 6:56 PM EDT Narrative Resulting Agency Comment Spec In Lab Cirilo Olivas MD BODY FLUIDS AND STOO LS ORDERABLES XOCHITL WHITAKER * XR chest PA [...] Metabolic Panel (non-fasting) (12/13/2013 11:38 AM EDT) Glucose 95 60 - 199 mg/dL CERNER MILLENNIUM Comment:Diabetes: >=200 mg/d L plus symptoms Blood Urea Nitrogen 19 10 - 20 mg/dL CERNER MILLENNIUM Creatinine 0.60(L) 0.80 - 1.50 mg/dL CERNER MILLENNIUM Comment: Please note that the pediatric reference intervals supplied above were not validated at [facility]. Results from pediatric patients should be interpreted [...] Lab Romulo Ramires MD CHEMISTRY ORDERABL ES [facility] * IR all drainage procedures (12/13/2013 11:33 [...] ?? Limited US RIGHT pleural space ?? [id number] ?? Indication: Worsening respiratory status, increasing O2 requirements on vent with small apical PTX ?? Technique: ?? Limited US of RIGHT pleural space shows no significant pleural fluid. ?? Procedure Note Cirilo Wilcox MD - 12/15/2013 VIR Procedure Note Limited US RIGHT pleural space A#[id number] Indication: Worsening respiratory status, increasing O2 requirements [...] Glucose, POC 110 60 - 199 mg/dL [facility] Comment: Supplemental ranges: <110 mg/dL before meals <200 mg/dL all other times of the day Blood specimen (specimen) 12/13/2013 7:46 AM EDT 12/13/2013 7:46 AM EDT Romulo Ramires MD POINT OF CARE TEST ORDERABLES XOCHITL SHELBYIUM * (ABNORMAL) Differential, Automated (12/13/2013 2:14 AM [...] MD HEMATOLOGY ORDERAB LES Performing Organization Address [facility] Co de Phone Number CERNER MILLENNIUM * (ABNORMAL) Hemogram (12/13/2013 2:14 AM EDT) Pathologist [facility] White Blood Cell 9.6 4.0 - 10.0 [...] MD HEMATOLOGY ORDERAB LES Performing Organization Address [facility]/ZIP Co de Phone Number CERNER MILLENNIUM * (ABNORMAL) Basic Metabolic Panel (non-fasting) (12/13/2013 2:14 AM EDT) Pathologist [facility] Glucose 109 60 - 199 mg/dL CERNER MILLENNIUM Comment:Diabetes: >=200 mg/d L plus symptoms Blood Urea Nitrogen 20 10 - 20 mg/dL CERNER MILLENNIUM Creatinine 0.63(L) 0.80 - 1.50 mg/dL CERNER MILLENNIUM Comment: Please note that the pediatric reference intervals supplied above were not validated at [facility]. Results from pediatric patients should be interpreted [...] MD CHEMISTRY ORDERABL ES XOCHITL SHELBYIUM * Prothrombin Time (12/13/2013 2:14 AM EDT) Prothrombin Time 15.0 12.0 - 15.0 sec CERNER MILLENNIUM Comment: [facility] Transfusion Committee Guidelines: INR less than 2.0, PTT less than OR equal to 43.5 seconds, or Fibrinogen greater than or equal to 100 mg/dl indicate adequate procoagulant activity for hemostasis in patients without underlying bleeding disorders. International Normalization Ratio 1.1 0.9 - 1.1 XOCHITL WHITAKER Blood specimen (specimen) 12/13/2013 2:14 AM EDT 12/13/2013 2:14 AM EDT Narrative Resulting Agency Comment Spec In Lab Romulo Ramires MD HEMATOLOGY ORDERAB LES XOCHITL WHITAKER * Lower Respiratory Culture Other (12/12/2013 11:58 PM EDT) Lower Respiratory Culture ? Patient Name: CIRILO PONCE ?Ordered By: CIRILO OLIVAS ? MR#: [id number] ?LOC: ??ICUS ? /Sex: ??1985 (28 years), ? Male ? PROCEDURE: Lower Respiratory Culture ?SOURCE: Other ? COLLECTED: 12/12/2013 23:58 ?FREE TEXT SOURCE: Mini-BAL ??12/13 Spoke to nurse-specimen too muc ? STARTED: 12/13/2013 07:22 ? oid for mini-BAL-to run routine culture-[facility] ? STAINS / PREPARATIONS ? Gram [...] silvia ? Patient: CIRILO PONCE ? MR#: [id number] ? SUSCEPTIBILITY RESULTS ? Enterobacter cloacae ? [...] MD MICROBIOLOGY - GENER AL ORDERABLES XOCHITL MADRIDENNIUM * Blood culture (12/12/2013 11:55 PM EDT) Blood Culture ? Patient Name: CIRILO PONCE ?Ordered By: CIRILO OLIVAS ? MR#: [id number] ?LOC: ??ICUS ? /Sex: ??1985 (28 years), [...] days. ? XOCHITL MADRIDENNIUM Blood specimen (specimen) STRUCTURE OF RIGHT FOOT / Unknown 12/12/2013 11:55 PM EDT 12/13/2013 12:30 AM EDT Narrative Resulting Agency Comment Spec In Lab Cirilo Olivas MD MICROBIOLOGY - BLOOD ORDERABLES XOCHITL SHELBYIUM * Blood culture (12/12/2013 11:45 PM EDT) Blood Culture ? Patient Name: CIRILO PONCE ?Ordered By: CIRILO OLIVAS ? MR#: [id number] ?LOC: ??ICUS ? /Sex: ??1985 (28 years), [...] Metabolic Panel (non-fasting) (12/12/2013 2:00 PM EDT) [facility] Glucose 113 60 - 199 mg/dL CERNER MILLENNIUM Comment:Diabetes: >=200 mg/d L plus symptoms Blood Urea Nitrogen 18 10 - 20 mg/dL CERNER MILLENNIUM Creatinine 0.67(L) 0.80 - 1.50 mg/dL CERNER MILLENNIUM Comment: Please note that the pediatric reference intervals supplied above were not validated at [facility]. Results from pediatric patients should be interpreted [...] Comment: Total Hemoglobin (in gm/dL) ?Based on [facility] Hematology ranges: ?Age ?Reference Range Less than [...] OF CARE TEST ORDERABLES XOCHITL WHITAKER * Blood culture (12/12/2013 12:15 PM EDT) Blood Culture ? Patient Name: CIRILO PONCE ?Ordered By: ROMULO RAMIRES ? MR#: [id number] ?LOC: ??ICUS ? /Sex: ??1985 (28 years), [...] Culture set cannot be interpreted. ? XOCHITL SHELBYIUM Blood specimen (specimen) CENTRAL VENOUS CATHETER / Unknown 12/12/2013 12:15 PM EDT 12/12/2013 1:17 PM EDT Comment:#2 RIGHT Narrative Resulting Agency Comment Spec In Lab Romulo Ramires MD MICROBIOLOGY - BLO OD ORDERABLES XOCHITL WHITAKER * Blood culture (12/12/2013 12:15 PM EDT) Blood Culture ? Patient Name: CIRILO PONCE ?Ordered By: ROMULO RAMIRES ? MR#: [id number] ?LOC: ??ICUS ? /Sex: ??1985 (28 years), [...] days. ? XOCHITL MILLENNIUM Blood specimen (specimen) STRUCTURE OF LEFT FOREARM / Unknown 12/12/2013 12:15 PM EDT 12/12/2013 1:17 PM EDT Comment:#1 Narrative Resulting Agency Comment Spec In Lab Romulo Ramires MD MICROBIOLOGY - BLO OD ORDERABLES XOCHITL WHITAKER * Urine culture Indwelling Catheter Urine (12/12/2013 11:39 AM EDT) Urine Culture ? Patient Name: CIRILO PONCE ?Ordered By: ROMULO RAMIRES ? MR#: [id number] ?LOC: ??ICUS ? /Sex: ?? 6 (28 years), ? Male ? PROCEDURE: Urine Culture ?SOURCE: U ICa ? COLLECTED: 12/12/2013 11:39 ? STARTED: 12/12/2013 [...] Text Report Department: Vascular Surgery Lab Patient: [id number] (CIRILO PONCE) CPT Code: 29427 ICD-9: 959.8 Referring Physician: ROMULO RAMIRES Indication: [...] MD VASCULAR ORDERABLE S Performing Organization Address [facility] Co de Phone Number VASCUBASE * POCT Glucose (12/12/2013 8:26 AM EDT) Glucose, POC 137 60 - 199 mg/dL [facility] Comment: Supplemental ranges: <110 mg/dL before meals <200 mg/dL all other times of the day Blood specimen (specimen) 12/12/2013 8:26 AM EDT 12/12/2013 8:26 AM EDT Romulo Ramires MD POINT OF CARE TEST ORDERABLES Performing Organization Address [facility] de Phone Number MARBINHELENA Branded OnlineIUM * Beta 2 Transferrin Body Fluid Pleural fluid (12/12/2013 8:13 AM EDT) Beta-2 Trans Bf (NOVEMBER) Negative [facility] Comment: -- REFERENCE VALUE -- Negative, no beta-2 transferrin (spinal fluid) detected. Test Performed by: [facility] - [address] [address] [place] Supervisor: Cameron Hansen III, M.D. Body fluid specimen (specimen) 12/12/2013 8:13 AM EDT 12/12/2013 9:28 AM EDT Narrative Resulting Agency Comment Spec In Lab Romulo Ramires MD LAB SEND OUT ORDER SOSA Performing Organization Address [facility] Co de Phone Number XOCHITL WHITAKER [...] Comment: Total Hemoglobin (in gm/dL) ?Based on [facility] Hematology ranges: ?Age ?Reference Range Less than [...] CERNER MILLENNIUM * (ABNORMAL) Hemogram (12/12/2013 2:00 AM EDT) [...] Metabolic Panel (non-fasting) (12/12/2013 2:00 AM EDT) Glucose 104 60 - 199 mg/dL CERNER MILLENNIUM Comment:Diabetes: >=200 mg/d L plus symptoms Blood Urea Nitrogen 18 10 - 20 mg/dL CERNER MILLENNIUM Creatinine 0.59(L) 0.80 - 1.50 mg/dL CERNER MILLENNIUM Comment: Please note that the pediatric reference intervals supplied above were not validated at [facility]. Results from pediatric patients should be interpreted [...] MD CHEMISTRY ORDERABL ES Performing Organization Address [facility] [place] de Phone Number XOCHITL SHELBYIUM * Prothrombin Time (12/12/2013 2:00 AM EDT) Prothrombin Time 14.9 12.0 - 15.0 sec CERNER MILLENNIUM Comment: [facility] Transfusion Committee Guidelines: INR less than 2.0, [...] MD HEMATOLOGY ORDERAB LES Performing Organization Address [facility] [place] de Phone Number XOCHITL SHELBYIUM * (ABNORMAL) [...] Metabolic Panel (non-fasting) (12/11/2013 2:00 PM EDT) Glucose 97 60 - 199 mg/dL CERNER MILLENNIUM Comment:Diabetes: >=200 mg/d L plus symptoms Blood Urea Nitrogen 15 10 - 20 mg/dL CERNER MILLENNIUM Creatinine 0.60(L) 0.80 - 1.50 mg/dL CERNER MILLENNIUM Comment: Please note that the pediatric reference intervals supplied above were not validated at [facility]. Results from pediatric patients should be interpreted [...] is intubated, ETT appropriate. Romulo Ramires MD IMG CT ORDERABLES * (ABNORMAL) Differential, Automated (12/11/2013 [...] HEMATOLOGY ORDERAB LES CERNER MILLENNIUM * Potassium (12/11/2013 7:10 AM [...] MD CHEMISTRY ORDERABL ES XOCHITL WHITAKER * (ABNORMAL) Differential, Automated (12/11/2013 1:15 AM [...] LES CERNER MILLENNIUM * (ABNORMAL) Hemogram (12/11/2013 1:15 AM EDT) [...] Metabolic Panel (non-fasting) (12/11/2013 1:15 AM EDT) [facility] Glucose 117 60 - 199 mg/dL CERNER MILLENNIUM Comment:Diabetes: >=200 mg/d L plus symptoms Blood Urea Nitrogen 14 10 - 20 mg/dL CERNER MILLENNIUM Creatinine 0.66(L) 0.80 - 1.50 mg/dL CERNER MILLENNIUM Comment: Please note that the pediatric reference intervals supplied above were not validated at [facility]. Results from pediatric patients should be interpreted [...] MD CHEMISTRY ORDERABL ES CERNER MILLENNIUM * Prothrombin Time (12/11/2013 1:15 AM EDT) Prothrombin Time 14.2 12.0 - 15.0 sec CERNER MILLENNIUM Comment: [facility] Transfusion Committee Guidelines: INR less than 2.0, [...] MD HEMATOLOGY ORDERAB LES Performing Organization Address [facility] Phone Number CERNER MILLENNIUM * (ABNORMAL) Hepatic Function Panel (12/10/2013 7:50 [...] MD CHEMISTRY ORDERABL ES Performing Organization Address [facility] Co de Phone Number CERNER MILLENNIUM * Lactate Dehydrogenase (12/10/2013 7:50 PM EDT) Lactate Dehydrogenase 149 110 - 220 unit/L CERNER MILLENNIUM Blood specimen (specimen) 12/10/2013 7:50 PM EDT 12/10/2013 8:05 PM EDT Narrative Resulting Agency Comment Spec In Lab Romulo Ramires MD CHEMISTRY ORDERABL ES Performing Organization Address [facility] Phone Number XOCHITL MAD[facility]IDVAL[facility]WISE [facility] MARYVALEIUM * (ABNORMAL) Haptoglobin (12/10/2013 7:50 PM EDT) Haptoglobin 302(H) 30 - 200 mg/dL CERNER MILLENNIUM Comment: Haptoglobin concentrations in newborns is low to undetectable; however, adult concentrations are usually attained by 4 months of age. ??No sex-related differences for haptoglobin have been detected. Blood specimen (specimen) 12/10/2013 7:50 PM EDT 12/10/2013 8:05 PM EDT Narrative Resulting Agency Comment Spec In Lab Romulo aRmires MD CHEMISTRY ORDERABL ES Performing Organization Address [facility] Phone Number XOCHITL MADRIDENNIUM * Thrombin time (12/10/2013 7:50 PM EDT) Thrombin Time 16 15 - 20 sec CERHELENA MILLENNIUM Blood specimen (specimen) 12/10/2013 7:50 PM EDT 12/10/2013 8:05 PM EDT Narrative Resulting Agency Comment Spec In Lab Romulo Ramires MD HEMATOLOGY ORDERAB LES Performing Organization Address [facility] de Phone Number XOCHITL MADRIDENNIUM * (ABNORMAL) Fibrinogen (12/10/2013 7:50 PM EDT) Fibrinogen 591(H) 175 - 450 mg/dL CERNER MILLENNIUM Blood specimen (specimen) 12/10/2013 7:50 PM EDT 12/10/2013 8:05 PM EDT Narrative Resulting Agency Comment Spec In Lab Romulo Ramires MD HEMATOLOGY ORDERAB LES Performing Organization Address [facility] [place] de Phone Number CERHELENA SHELBYIUM * APTT (12/10/2013 7:50 PM EDT) Partial Thromboplastin Time 30 25 - 35 sec CERNER MILLENNIUM Comment: Recommended therapeutic PTT range for full dose unfractionated heparin is 80-114 seconds. Blood specimen (specimen) 12/10/2013 7:50 PM EDT 12/10/2013 8:05 PM EDT Narrative Resulting Agency Comment Spec In Lab Romulo Ramires MD HEMATOLOGY ORDERAB LES Performing Organization Address [facility] [place] de Phone Number XOCHITL SHELBYIUM * Prothrombin Time (12/10/2013 7:50 PM EDT) Prothrombin Time 14.3 12.0 - 15.0 sec CERNER MILLENNIUM Comment: [facility] Transfusion Committee Guidelines: INR less than 2.0, PTT less than OR equal to 43.5 seconds, or Fibrinogen greater than or equal to 100 mg/dl indicate adequate procoagulant activity for hemostasis in patients without underlying bleeding disorders. International Normalization Ratio 1.1 0.9 - 1.1 CERHELENA MADRIDENNIUM Blood specimen (specimen) 12/10/2013 7:50 PM EDT 12/10/2013 8:05 PM EDT Narrative Resulting Agency Comment Spec In Lab Romulo Ramires MD HEMATOLOGY ORDERAB LES Performing Organization Address [facility] de Phone Number CERHELENA SHELBYIUM * (ABNORMAL) Differential, Automated (12/10/2013 7:20 PM [...] LES CERHELENA SHELBYIUM * (ABNORMAL) Hemogram (12/10/2013 7:20 PM EDT) [...] LES CERNER MILLENNIUM * (ABNORMAL) Hemogram (12/10/2013 6:15 PM EDT) [...] MD HEMATOLOGY ORDERAB LES Performing Organization Address City/[facility]/ZIP Co de Phone Number CERHELENA MADRIDENNIUM * XR abdomen 1 view (12/10/2013 [...] Metabolic Panel (non-fasting) (12/10/2013 10:05 AM EDT) [facility] Glucose 125 60 - 199 mg/dL CERNER MILLENNIUM Comment:Diabetes: >=200 mg/d L plus symptoms Blood Urea Nitrogen 14 10 - 20 mg/dL CERNER MILLENNIUM Creatinine 0.71(L) 0.80 - 1.50 mg/dL CERNER MILLENNIUM Comment: Please note that the pediatric reference intervals supplied above were not validated at [facility]. Results from pediatric patients should be interpreted [...] MD CHEMISTRY ORDERABL ES Performing Organization Address [facility] [place] de Phone Number MARBINHELENA JULIUSTIGISTIUM * Potassium (12/10/2013 4:45 AM EDT) Potassium 4.3 3.5 - 5.0 mmol/L XOCHITL JULIUSTIGISTIUM Comment: Please note: ??Patients with WBC >100,000 [...] MD CHEMISTRY ORDERABL ES Performing Organization Address [facility] Co de Phone Number MARBINHELENA SHELBYIUM * (ABNORMAL) Differential, Automated (12/10/2013 4:15 AM [...] LES CERHELENA SHELBYIUM * (ABNORMAL) Hemogram (12/10/2013 4:15 AM EDT) White Blood Cell 9.0 4.0 - 10.0 x10(3)/mc L CERNER MILLENNIUM Red Blood Cell 2.54(L) 4.63 - 6.08 x10(6)/mc L CERNER MILLENNIUM Hemoglobin 7.5(L) 13.7 - 17.5 gm/dL CERNER MILLENNIUM Hematocrit 22.2(L) 40.0 - 51.0 % CERNER MILLENNIUM Mean Cell Volume 87.4 79.0 - 92.0 fL CERNER MILLENNIUM Mean Cell Hemoglobin 29.5 25.6 - 32.2 pg XOCHITL MADRIDENNIUM Mean Cell Hemoglobin Concentration 33.8 32.0 - 36.5 gm/dL [facility] JULIUSENNIUM Platelet 87(L) 145 - 370 x10(3)/mc L [facility] JUL[facility] RDW Standard Deviation 44.7 35.0 - 46.0 fL CERHELENA MADRIDENNIUM RDW coefficient of variation 13.9 10.9 - 14.4 % [facility] JUL[facility] Mean Platelet Volume 11.0 9.0 - 12.0 fL [facility] JULIUSEN[facility]UM Blood specimen (specimen) 12/10/2013 4:15 AM EDT 12/10/2013 4:35 AM EDT Narrative Resulting Agency Comment Spec In Lab Romulo Ramires MD HEMATOLOGY ORDERAB LES Performing Organization Address City/[facility]/ZIP Co de Phone Number [facility] JULIANNE * Transfuse RBC (12/10/2013 3:31 AM EDT) Romulo Ramires MD NURSING TREATMENT ORDERABLES - BLOOD ADMIN * Transfuse RBC (12/10/2013 3:31 AM EDT) Romulo Ramires MD NURSING TREATMENT ORDERABLES - BLOOD ADMIN * Prepare RBC (12/10/2013 1:50 AM EDT) Dispensed? Yes XOCHITL WHITAKER Blood specimen (specimen) 12/10/2013 1:50 AM EDT 12/10/2013 1:46 AM EDT Romulo Ramires MD BLOOD BANK PRODUCT ORDERABLES [facility] * (ABNORMAL) Differential, Automated (12/10/2013 1:25 AM EDT) Neutrophil % 75.4(H) 34.0 - 71.0 % [facility] Neutrophil Absolute 5.79 1.50 - 6.30 x10(3)/mc L [facility] Lymph % 16.0(L) 19.0 - 53.0 % [facility] Lymphocytes Abs 1.2 1.0 - 3.6 x10(3)/mc [...] LES CERHELENA MADRIDENNIUM * (ABNORMAL) Hemogram (12/10/2013 1:25 AM EDT) White Blood Cell 7.7 4.0 - 10.0 x10(3)/mc L CERNER MILLENNIUM Red Blood Cell 2.18(L) 4.63 - 6.08 x10(6)/mc L CERNER MILLENNIUM Hemoglobin 6.5(L) 13.7 - 17.5 gm/dL CERNER MILLENNIUM Hematocrit 19.0(L) 40.0 - 51.0 % CERNER MILLENNIUM Mean Cell Volume 87.2 79.0 - 92.0 fL CERNER MILLENNIUM Mean Cell Hemoglobin 29.8 25.6 - 32.2 pg [facility] MILLENNIUM Mean Cell Hemoglobin Concentration 34.2 32.0 - 36.5 gm/dL [facility] Platelet 73(L) 145 - 370 x10(3)/mc L [facility] MILLENNIUM RDW Standard Deviation 44.5 35.0 - 46.0 fL [facility] MILLENNIUM RDW coefficient of variation 13.9 10.9 - 14.4 % [facility] MILLENNIUM Mean Platelet Volume 10.7 9.0 - 12.0 fL [facility] Blood specimen (specimen) 12/10/2013 1:25 AM EDT 12/10/2013 1:28 AM EDT Narrative Resulting Agency Comment Spec In Lab Romulo Ramires MD HEMATOLOGY ORDERAB LES Performing Organization Address [facility] [place] de Phone Number [facility] * Potassium (12/10/2013 1:25 AM EDT) Potassium 3.8 3.5 - 5.0 mmol/L [facility] Comment: Please note: ??Patients with WBC >100,000 [...] MD CHEMISTRY ORDERABL ES Performing Organization Address [facility] [place] de Phone Number [facility] * APTT (12/10/2013 1:25 AM EDT) Partial Thromboplastin Time 30 25 - 35 sec [facility] Comment: Recommended therapeutic PTT range for full dose unfractionated heparin is 80-114 seconds. Blood specimen (specimen) 12/10/2013 1:25 AM EDT 12/10/2013 1:28 AM EDT Narrative Resulting Agency Comment Spec In Lab Romulo Ramires MD HEMATOLOGY ORDERAB LES Performing Organization Address [facility] Co de Phone Number [facility] * Thrombin time (12/10/2013 1:25 AM EDT) Thrombin Time 15 15 - 20 sec [facility] AFSANEHIUM Blood specimen (specimen) 12/10/2013 1:25 AM EDT 12/10/2013 1:28 AM EDT Narrative Resulting Agency Comment Spec In Lab Romulo Ramires MD HEMATOLOGY ORDERAB LES Performing Organization Address [facility] Co de Phone Number [facility] * Prothrombin Time (12/10/2013 1:25 AM EDT) Prothrombin Time 14.4 12.0 - 15.0 sec [facility] MARYVALEIUM Comment: [facility] Transfusion Committee Guidelines: INR less than 2.0, PTT less than OR equal to 43.5 seconds, or Fibrinogen greater than or equal to 100 mg/dl indicate adequate procoagulant activity for hemostasis in patients without underlying bleeding disorders. International Normalization Ratio 1.1 0.9 - 1.1 [facility] Blood specimen (specimen) 12/10/2013 1:25 AM EDT 12/10/2013 1:28 AM EDT Narrative Resulting Agency Comment Spec In Lab Romulo Ramires MD HEMATOLOGY ORDERAB LES Performing Organization Address [facility] Co de Phone Number [facility] * Transfuse RBC (12/09/2013 11:53 PM EDT) Romulo Ramires MD NURSING TREATMENT ORDERABLES - BLOOD ADMIN * Transfuse RBC (12/09/2013 11:53 PM EDT) Romulo Ramires MD NURSING TREATMENT ORDERABLES - BLOOD ADMIN * Prepare RBC (12/09/2013 10:25 PM EDT) Dispensed? Yes [facility] MARYVALEIUM Blood specimen (specimen) 12/09/2013 10:25 PM EDT 12/09/2013 10:22 PM EDT Romulo Ramires MD BLOOD BANK PRODUCT ORDERABLES CERHELENA MADRIDENNIUM * (ABNORMAL) Hemogram (12/09/2013 8:45 PM EDT) [...] MD HEMATOLOGY ORDERAB LES XOCHITL SHELBYIUM * Lavender Tube HOLD (12/09/2013 8:45 PM EDT) Lavender Hold Sample in lab. CERNER MILLENNIUM Blood specimen (specimen) 12/09/2013 8:45 PM EDT 12/09/2013 8:54 PM EDT Romulo Ramires MD HEMATOLOGY ORDERAB LES XOCHITL SHELBYIUM * (ABNORMAL) Basic Metabolic Panel (non-fasting) (12/09/2013 8:45 PM EDT) [facility] Glucose 117 60 - 199 mg/dL CERNER MILLENNIUM Comment:Diabetes: >=200 mg/d L plus symptoms Blood Urea Nitrogen 9(L) 10 - 20 mg/dL CERNER MILLENNIUM Creatinine 0.60(L) 0.80 - 1.50 mg/dL CERNER MILLENNIUM Comment: Please note that the pediatric reference intervals supplied above were not validated at [facility]. Results from pediatric patients should be interpreted [...] MD CHEMISTRY ORDERABL ES Performing Organization Address [facility] Co de Phone Number CERHELENA MADRIDENNIUM * Transfusion Reaction Interp (12/09/2013 3:40 PM [...] BANK LAB ORDER SOSA Performing Organization Address [facility] Co de Phone Number CERNER MILLENNIUM * (ABNORMAL) Hemoglobin and Hematocrit, blood (12/09/2013 3:40 PM EDT) Hemoglobin 6.8(L) 13.7 - 17.5 gm/dL CERNER MILLENNIUM Hematocrit 19.7(L) 40.0 - 51.0 % CERNER MILLENNIUM Blood specimen (specimen) 12/09/2013 3:40 PM EDT 12/09/2013 3:49 PM EDT Narrative Resulting Agency Comment Spec In Lab Romulo Ramires MD HEMATOLOGY ORDERAB LES Performing Organization Address [facility]/ZIP Co de Phone Number CERNER MILLENNIUM [...] Urine Dipstick Hazy(A) Clear CERNER MILLENNIUM Specific [place] Urine Automated >1.035(H) 1.002 - 1.030 CERNER MILLENNIUM Color, Urine Dipstick [place] Yellow CERNER MILLENNIUM RBC, Urine 7(H) 0 - 3 /HPF CERNER MILLENNIUM WBC, Urine 1 0 - 3 /HPF CERNER MILLENNIUM Bacteria, Urine Many /HPF CERN ER MILLENNIUM Squamous Epithelial Cells, Urine <1 <=4 /HPF CERNER MILLENNIUM Urine specimen (specimen) 12/09/2013 3:28 PM EDT 12/09/2013 4:11 PM EDT Narrative Resulting Agency Comment Spec In Lab Monique Escobar MD URINE ORDERABLES CERNER MILLENNIUM * Lower Respiratory Culture Tracheal Aspirate (12/09/2013 1:54 PM EDT) Lower Respiratory Culture ? Patient Name: CIRILO PONCE ?Ordered By: ROMULO RAMIRES ? MR#: [id number] ?LOC: ??ICUS ? /Sex: ??1985 (28 years), [...] PONCE ?Ordered By: ROMULO RAMIRES ? MR#: [id number] ?LOC: ??ICUS ? /Sex: ??1985 (28 years), ? Male ? PROCEDURE: Blood Culture ?SOURCE: Blood ? COLLECTED: 12/09/2013 12:55 ? BODY SITE: Left Antecubital ? STARTED: 12/09/2013 13:15 ?FREE TEXT SOURCE: 1 ? FINAL REPORT ? Final Report ? Verified:2013 15:02 ? No growth at 5 days. ? PRELIMINARY REPORT ? Preliminary Report ? Verified:2013 15:01 ? No growth at 4 days. ? CERHELENA MADRIDENNIUM Blood specimen (specimen) ANTECUBITAL REGION STRUCTURE / Unknown 12/09/2013 12:55 PM EDT 12/09/2013 1:15 PM EDT Comment:1 Narrative Resulting Agency Comment Spec In Lab Romulo Ramires MD MICROBIOLOGY - BLO OD ORDERABLES XOCHITL SHELBYIUM * Green Tube HOLD (12/09/2013 12:47 PM EDT) Green Hold Sample in lab. XOCHITL MADRIDENNIUM Blood specimen (specimen) 12/09/2013 12:47 PM EDT 12/09/2013 12:48 PM EDT Romulo Ramires MD CHEMISTRY ORDERABL ES Performing Organization Address City/[facility]/ZIP Co de Phone Number XOCHITL SHELBYIUM * (ABNORMAL) Differential, Automated (12/09/2013 12:47 PM [...] of variation 14.3 10.9 - 14.4 % XOCHITL WHITAKER Mean Platelet Volume 10.6 9.0 - 12.0 fL XOCHITL WHITAKER Blood specimen (specimen) 12/09/2013 12:47 PM EDT 12/09/2013 12:47 PM EDT Narrative Resulting Agency Comment Spec In Lab Romulo Ramires MD HEMATOLOGY ORDERAB LES XOCHITL WHITAKER * Urine culture Indwelling Catheter Urine (12/09/2013 12:21 PM EDT) Urine Culture ? Patient Name: CIRILO PONCE ?Ordered By: ROMULO RAMIRES ? MR#: [id number] ?LOC: ??ICUS ? /Sex: ??[birth year] (28 years), ? Male ? PROCEDURE: Urine Culture ?SOURCE: U [facility] ? COLLECTED: 12/09/2013 12:21 ? STARTED: 12/09/2013 12:58 ? FINAL REPORT ? Final Report ? Verified: 07:49 ? No growth (Less than 1,000 cfu/ml). ? ____ XOCHITL WHITAKER Urine specimen obtained via indwelling urinary catheter (specimen) 12/09/2013 12:21 PM EDT 12/09/2013 12:58 PM EDT Narrative Resulting Agency Comment Spec In Lab Romulo Ramires MD MICROBIOLOGY - GEN ERAL ORDERABLES Performing Organization Address [facility] Co de Phone Number [facility] * POCT Glucose (12/09/2013 12:02 PM EDT) Glucose, POC 117 60 - 199 mg/dL [facility] Comment: Supplemental ranges: <110 mg/dL before meals <200 mg/dL all other times of the day Blood specimen (specimen) 12/09/2013 12:02 PM EDT 12/09/2013 12:02 PM EDT Romulo Ramires MD POINT OF CARE TEST ORDERABLES Performing Organization Address [facility] Phone Number [facility] * Prepare RBC (12/09/2013 6:40 AM EDT) Dispensed? Yes [facility] Blood specimen (specimen) 12/09/2013 6:40 AM EDT 12/09/2013 6:37 AM EDT Romulo Ramires MD BLOOD BANK PRODUCT ORDERABLES Performing Organization Address [facility] [place] de Phone Number [facility] * APTT (12/09/2013 6:07 AM EDT) Partial Thromboplastin Time 34 25 - 35 sec [facility] Comment: Recommended therapeutic PTT range for full dose unfractionated heparin is 80-114 seconds. Blood specimen (specimen) 12/09/2013 6:07 AM EDT 12/09/2013 6:13 AM EDT Narrative Resulting Agency Comment Spec In Lab Romulo Ramires MD HEMATOLOGY ORDERAB LES Performing Organization Address [facility] Co de Phone Number [facility] * (ABNORMAL) Prothrombin Time (12/09/2013 6:07 AM EDT) Prothrombin Time 15.5(H) 12.0 - 15.0 sec CERNER MILLENNIUM Comment: [facility] Transfusion Committee Guidelines: INR less than 2.0, PTT less than OR equal to 43.5 seconds, or Fibrinogen greater than or equal to 100 mg/dl indicate adequate procoagulant activity for hemostasis in patients without underlying bleeding disorders. International Normalization Ratio 1.2(H) 0.9 - 1.1 CERNER MILLENNIUM Blood specimen (specimen) 12/09/2013 6:07 AM EDT 12/09/2013 6:13 AM EDT Narrative Resulting Agency Comment Spec In Lab Romulo Ramires MD HEMATOLOGY ORDERAB LES CERNER MILLENNIUM * (ABNORMAL) Differential, Automated (12/09/2013 6:07 AM [...] Romulo Ramires MD HEMATOLOGY ORDERAB LES CERHELENA MILLENNIUM * Lactate, whole blood, send to lab (12/09/2013 6:07 AM EDT) Lactate WB 1.0 0.5 - 2.2 mmol/L [facility] Blood specimen (specimen) 12/09/2013 6:07 AM EDT 12/09/2013 6:13 AM EDT Narrative Resulting Agency Comment Spec In Lab Romulo Ramires MD CHEMISTRY ORDERABL ES Performing Organization Address City/[facility] Co de Phone Number [facility] * (ABNORMAL) Fibrinogen (12/09/2013 6:07 AM EDT) Pathologist [facility] Fibrinogen 487(H) 175 - 450 mg/dL [facility] Blood specimen (specimen) 12/09/2013 6:07 AM EDT 12/09/2013 6:13 AM EDT Narrative Resulting Agency Comment Spec In Lab Romulo Ramires MD HEMATOLOGY ORDERAB LES Performing Organization Address City/[facility] Co de Phone Number [facility] * Thrombin time (12/09/2013 6:07 AM EDT) [facility] Thrombin Time 15 15 - 20 sec [facility] Blood specimen (specimen) 12/09/2013 6:07 AM EDT 12/09/2013 6:13 AM EDT Narrative Resulting Agency Comment Spec In Lab Romulo Ramires MD HEMATOLOGY ORDERAB LES Performing Organization Address City/[facility]/ZIP Co de Phone Number [facility] * (ABNORMAL) Basic Metabolic Panel (non-fasting) (12/09/2013 6:07 AM EDT) Pathologist [facility] Glucose 122 60 - 199 mg/dL [facility] Comment:Diabetes: >=200 mg/d L plus symptoms Blood Urea Nitrogen 8(L) 10 - 20 mg/dL [facility] Creatinine 0.82 0.80 - 1.50 mg/dL CERNER MILLENNIUM Comment: Please note that the pediatric reference intervals supplied above were not validated at [facility]. Results from pediatric patients should be interpreted [...] CHEMISTRY ORDERABL ES CERHELENA MADRIDENNIUM * (ABNORMAL) CK (12/09/2013 6:07 AM EDT) [...] Comment: Total Hemoglobin (in gm/dL) ?Based on [facility] Hematology ranges: ?Age ?Reference Range Less than [...] l) mmol/L CERNER MILLENNIUM Comment: Noted by supervisor instrument repair. Please note: Patients with WBC >100,000 may [...] OF CARE TEST ORDERABLES Performing Organization Address [facility] [place] de Phone Number [facility] MARY[facility]EI[facility] * APTT (12/09/2013 12:00 AM EDT) Partial Thromboplastin Time 34 25 - 35 sec CERNER MILLENNIUM Comment: Recommended therapeutic PTT range for full dose unfractionated heparin is 80-114 seconds. Blood specimen (specimen) 12/09/2013 12/09/2013 12:07 AM EDT Narrative Resulting Agency Comment Spec In Lab Romulo Ramires MD HEMATOLOGY ORDERAB LES Performing Organization Address [facility] Co de Phone Number [facility] MILLENNIUM * (ABNORMAL) Prothrombin Time (12/09/2013 12:00 AM EDT) Prothrombin Time 15.7(H) 12.0 - 15.0 sec CERNER MILLENNIUM Comment: [facility] Transfusion Committee Guidelines: INR less than 2.0, [...] LES CERNER MILLENNIUM * (ABNORMAL) Differential, Automated (12/09/2013 12:00 AM [...] LES CERNER MILLENNIUM * (ABNORMAL) Hemogram (12/09/2013 12:00 AM EDT) [...] HEMATOLOGY ORDERAB LES CERNER MILLENNIUM * (ABNORMAL) CK (12/09/2013 12:00 AM EDT) Creatine Kinase 732(H) 0 - 200 unit/L CERNER MILLENNIUM Blood specimen (specimen) 12/09/2013 12/09/2013 12:07 AM EDT Narrative Resulting Agency Comment Spec In Lab Romulo Ramires MD CHEMISTRY ORDERABL ES CERNER MILLENNIUM * (ABNORMAL) Basic Metabolic Panel (non-fasting) (12/09/2013 12:00 AM EDT) [facility] Signature Glucose 112 60 - 199 mg/dL CERNER MILLENNIUM Comment:Diabetes: >=200 mg/d L plus symptoms Blood Urea Nitrogen 8(L) 10 - 20 mg/dL CERNER MILLENNIUM Creatinine 0.80 0.80 - 1.50 mg/dL CERNER MILLENNIUM Comment: Please note that the pediatric reference intervals supplied above were not validated at [facility]. Results from pediatric patients should be interpreted [...] MD CHEMISTRY ORDERABL ES Performing Organization Address [facility] [place] de Phone Number CERNER MILLENNIUM * Thrombin time (12/09/2013 12:00 AM EDT) Thrombin Time 15 15 - 20 sec CERNER MILLENNIUM Blood specimen (specimen) 12/09/2013 12/09/2013 12:07 AM EDT Narrative Resulting Agency Comment Spec In Lab Romulo Ramires MD HEMATOLOGY ORDERAB LES Performing Organization Address [facility] Co de Phone Number CERNER MILLENNIUM * Fibrinogen (12/09/2013 12:00 AM EDT) Fibrinogen 443 175 - 450 mg/dL CERNER MILLENNIUM Blood specimen (specimen) 12/09/2013 12/09/2013 12:07 AM EDT Narrative Resulting Agency Comment Spec In Lab Romulo Ramires MD HEMATOLOGY ORDERAB LES Performing Organization Address [facility] [place] de Phone Number CERNER MILLENNIUM * (ABNORMAL) BLOOD GAS 2 ARTERIAL (12/08/2013 6:30 PM EDT) pH, Arterial 7.48(H) CERNER MILLENNIUM PCO2, Arterial 40 mmHg CERNE R MILLENNIUM PO2, Arterial 63(L) mmHg CERNER MILLENNIUM Bicarbonate, Arterial 28.8(H) mmol/L CERNER MILLENNIUM Base Excess, Arterial 5.2(H) mmol/L CERNER MILLENNIUM Hgb Blood Gas 7.6(L) gm/dL CERNER MILLENNIUM Comment: Total Hemoglobin (in gm/dL) ?Based on [facility] Hematology ranges: ?Age ?Reference Range Less than [...] CARE TEST ORDERABLES XOCHITL WHITAKER * XR chest PA [...] * (ABNORMAL) CK (12/08/2013 5:30 PM EDT) Creatine Kinase 850(H) 0 - 200 unit/L [facility] Blood specimen (specimen) 12/08/2013 5:30 PM EDT 12/08/2013 5:54 PM EDT Narrative Resulting Agency Comment Spec In Lab Romulo Ramires MD CHEMISTRY ORDERABL ES Performing Organization Address [facility] Co de Phone Number [facility] * (ABNORMAL) Prothrombin Time (12/08/2013 5:30 PM EDT) Prothrombin Time 16.2(H) 12.0 - 15.0 sec CERHELENA MILLENNIUM Comment: [facility] Transfusion Committee Guidelines: INR less than 2.0, PTT less than OR equal to 43.5 seconds, or Fibrinogen greater than or equal to 100 mg/dl indicate adequate procoagulant activity for hemostasis in patients without underlying bleeding disorders. International Normalization Ratio 1.3(H) 0.9 - 1.1 CERHELENA MILLENNIUM Blood specimen (specimen) 12/08/2013 5:30 PM EDT 12/08/2013 5:54 PM EDT Narrative Resulting Agency Comment Spec In Lab Romulo Ramires MD HEMATOLOGY ORDERAB LES Performing Organization Address [facility]/ZIP Co de Phone Number [facility] * APTT (12/08/2013 5:30 PM EDT) Partial Thromboplastin Time 34 25 - 35 sec CERHELENA MILLENNIUM Comment: Recommended therapeutic PTT range for full dose unfractionated heparin is 80-114 seconds. Blood specimen (specimen) 12/08/2013 5:30 PM EDT 12/08/2013 5:54 PM EDT Narrative Resulting Agency Comment Spec In Lab Romulo Ramires MD HEMATOLOGY ORDERAB LES [facility] * (ABNORMAL) Differential, Automated (12/08/2013 5:30 PM [...] LES CERHELENA MADRIDENNIUM * (ABNORMAL) Hemogram (12/08/2013 5:30 PM EDT) [...] MD HEMATOLOGY ORDERAB LES Performing Organization Address City/[facility] Co de Phone Number CERHELENA MADRIDENNIUM * Fibrinogen (12/08/2013 5:30 PM EDT) Pathologist [facility] Fibrinogen 402 175 - 450 mg/dL CERNER MILLENNIUM Blood specimen (specimen) 12/08/2013 5:30 PM EDT 12/08/2013 5:54 PM EDT Narrative Resulting Agency Comment Spec In Lab Romulo Ramires MD HEMATOLOGY ORDERAB LES [facility] * Thrombin time (12/08/2013 5:30 PM EDT) Thrombin Time 15 15 - 20 sec CERNER MILLENNIUM Blood specimen (specimen) 12/08/2013 5:30 [...] intervals supplied above were not validated at [facility]. Results from pediatric patients should be interpreted [...] the following links into your internet browser. http://www.Releadp.nih.gov/lab-evaluation.shtml http://www.kidney.org/professionals/ Blood specimen (specimen) 12/08/2013 5:30 PM EDT 12/08/2013 5:54 PM EDT Narrative Resulting Agency Comment Spec In Lab Romulo Ramires MD CHEMISTRY ORDERABL ES Performing Organization Address [facility] de Phone Number XOCHITL WHITAKER * Lactate, whole blood, send to lab (12/08/2013 5:30 PM EDT) Lactate WB 0.9 0.5 - 2.2 mmol/L XOCHITL WHITAKER Blood specimen (specimen) 12/08/2013 5:30 PM EDT 12/08/2013 5:57 PM EDT Narrative Resulting Agency Comment Spec In Lab Romulo Ramires MD CHEMISTRY ORDERABL ES Performing Organization Address [facility] de Phone Number XOCHITL WHITAKER * (ABNORMAL) Beta 2 Transferrin Body Fluid Other (12/08/2013 1:25 PM EDT) Beta-2 Trans Bf (NOVEMBER) Positive( A) CERNER MILLENNIUM Comment: -- REFERENCE VALUE -- Negative, no beta-2 transferrin (spinal fluid) detected. Test Performed by: [place] [address] [employer] Supervisor: Cameron Hansen III, M.D. Body fluid specimen (specimen) 12/08/2013 1:25 PM EDT 12/08/2013 3:53 PM EDT Narrative Resulting Agency Comment Spec In Lab Romulo Ramires MD LAB SEND OUT ORDER SOSA Performing Organization Address [facility] Co de Phone Number XOCHITL WHITAKER [...] again back into the stomach. Findings Preliminary type disk quality control supervisor views of the chest and abdomen reveals [...] again back into the stomach. Findings Preliminary type disk quality control supervisor views of the chest and abdomen reveals [...] * (ABNORMAL) Magnesium (12/08/2013 10:54 AM EDT) Pathologist [facility] Magnesium 0.62(L) 0.69 - 1.07 mmol/L CERNER [...] LES CERNER MILLENNIUM * (ABNORMAL) Hemogram (12/08/2013 10:54 AM EDT) [...] MD HEMATOLOGY ORDERAB LES Performing Organization Address City/[facility]/ZIP Co de Phone Number [facility] * Thrombin time (12/08/2013 10:54 AM EDT) Thrombin Time 15 15 - 20 sec [facility] Blood specimen (specimen) 12/08/2013 10:54 AM EDT 12/08/2013 10:55 AM EDT Narrative Resulting Agency Comment Spec In Lab Romulo Ramires MD HEMATOLOGY ORDERAB LES Performing Organization Address [facility] [place] de Phone Number [facility] * Fibrinogen (12/08/2013 10:54 AM EDT) Fibrinogen 374 175 - 450 mg/dL [facility] Blood specimen (specimen) 12/08/2013 10:54 AM EDT 12/08/2013 10:55 AM EDT Narrative Resulting Agency Comment Spec In Lab Romulo Ramires MD HEMATOLOGY ORDERAB LES Performing Organization Address [facility] Co de Phone Number [facility] * APTT (12/08/2013 10:54 AM EDT) Partial Thromboplastin Time 35 25 - 35 sec [facility] Comment: Recommended therapeutic PTT range for full dose unfractionated heparin is 80-114 seconds. Blood specimen (specimen) 12/08/2013 10:54 AM EDT 12/08/2013 10:55 AM EDT Narrative Resulting Agency Comment Spec In Lab Romulo Ramires MD HEMATOLOGY ORDERAB LES [facility] * (ABNORMAL) Prothrombin Time (12/08/2013 10:54 AM EDT) Prothrombin Time 16.3(H) 12.0 - 15.0 sec CERNER MILLENNIUM Comment: [facility] Transfusion Committee Guidelines: INR less than 2.0, [...] MD HEMATOLOGY ORDERAB LES Performing Organization Address [facility] Co de Phone Number [facility] MILLENNIUM * (ABNORMAL) CK (12/08/2013 10:54 AM EDT) Creatine Kinase 1034(H) 0 - 200 unit/L [facility] MILLENNIUM Blood specimen (specimen) 12/08/2013 10:54 AM EDT 12/08/2013 10:55 AM EDT Narrative Resulting Agency Comment Spec In Lab Romulo Ramires MD CHEMISTRY ORDERABL ES Performing Organization Address [facility] Phone Number [facility] MILLENNIUM * (ABNORMAL) Basic Metabolic Panel (non-fasting) (12/08/2013 10:54 AM EDT) Pathologist [facility] Glucose 129 60 - 199 mg/dL CERNER MILLENNIUM Comment:Diabetes: >=200 mg/d L plus symptoms Blood Urea Nitrogen 7(L) 10 - 20 mg/dL [facility] MILL[facility]UM Creatinine 0.81 0.80 - 1.50 mg/dL CERNER MILLENNIUM Comment: Please note that the pediatric reference intervals supplied above were not validated at [facility]. Results from pediatric patients should be interpreted in conjunction to the patient's age, height and muscle mass. Sodium 139 135 - 145 mmol/L [facility] MILLENNIUM Potassium 3.3(L) 3.5 - 5.0 mmol/L [...] Comment: Total Hemoglobin (in gm/dL) ?Based on [facility] Hematology ranges: ?Age ?Reference Range Less than [...] OF CARE TEST ORDERABLES Performing Organization Address [facility] de Phone Number CERNER MILLENNIUM * (ABNORMAL) Hepatic Function Panel [...] MD CHEMISTRY ORDERABL ES Performing Organization Address [facility] de Phone Number CERNER MILLENNIUM * (ABNORMAL) BLOOD GAS 2 ARTERIAL (12/08/2013 9:20 AM EDT) pH, Arterial 7.48(H) CERNER MILLENNIUM PCO2, Arterial 41 mmHg CERNE R MILLENNIUM PO2, Arterial 74(L) mmHg CERNER MILLENNIUM Bicarbonate, Arterial 30.0(H) mmol/L CERNER MILLENNIUM Base Excess, Arterial 6.5(H) mmol/L CERNER MILLENNIUM Hgb Blood Gas 7.9(L) gm/dL CERNER MILLENNIUM Comment: Total Hemoglobin (in gm/dL) ?Based on [facility] Hematology ranges: ?Age ?Reference Range Less than [...] L plus symptoms. FIO2 Art 40 % XOCHITL MILLENNIUM PF Ratio Art 185 [facility]ERHELENA MADRIDENNI[facility] Temp Art 37.6 Celsius [facility] Blood specimen (specimen) 12/08/2013 9:20 AM EDT 12/08/2013 9:20 AM EDT Romulo Ramires MD POINT OF CARE TEST ORDERABLES [facility] WHITAKER * CT head & cervical spine WO [...] is a comminuted fracture of the right [id number], transverse process, spinous process and inferior articulating [...] is a comminuted fracture of the right [id number], transverse process, spinous process and inferior articulating [...] is a comminuted fracture of the right [id number], transverse process, spinous process and inferior articulating [...] DVT, Bilat legs (12/08/2013 8:02 AM EDT) [facility] VB Text Report Department: Vascular Surgery Lab Patient: [id number] (CIRILO PONCE) CPT Code: 95999 ICD-9: 959.8 Referring Physician: ROMULO RAMIRES Indication: [...] ORDERAB LES [facility] * (ABNORMAL) Hemogram (12/08/2013 6:16 AM EDT) [...] MD HEMATOLOGY ORDERAB LES Performing Organization Address City/[facility] Co de Phone Number [facility] * Thrombin time (12/08/2013 6:16 AM EDT) Thrombin Time 16 15 - 20 sec [facility] Blood specimen (specimen) 12/08/2013 6:16 AM EDT 12/08/2013 6:20 AM EDT Narrative Resulting Agency Comment Spec In Lab Romulo Ramires MD HEMATOLOGY ORDERAB LES [facility] * Fibrinogen (12/08/2013 6:16 AM EDT) Fibrinogen 322 175 - 450 mg/dL [facility] JULIUSENNIUM Blood specimen (specimen) 12/08/2013 6:16 AM EDT 12/08/2013 6:20 AM EDT Narrative Resulting Agency Comment Spec In Lab Romulo Ramires MD HEMATOLOGY ORDERAB LES Performing Organization Address City/[facility] de Phone Number XOCHITL WHITAKER * APTT (12/08/2013 6:16 AM EDT) Partial Thromboplastin Time 33 25 - 35 sec [facility] MILLENNIUM Comment: Recommended therapeutic PTT range for full dose unfractionated heparin is 80-114 seconds. Blood specimen (specimen) 12/08/2013 6:16 AM EDT 12/08/2013 6:20 AM EDT Narrative Resulting Agency Comment Spec In Lab Romulo Ramires MD HEMATOLOGY ORDERAB LES Performing Organization Address [facility] [place] de Phone Number [facility] * (ABNORMAL) Prothrombin Time (12/08/2013 6:16 AM EDT) Prothrombin Time 16.1(H) 12.0 - 15.0 sec [facility]ERHELENA MADRIDENNIUM Comment: [facility] Transfusion Committee Guidelines: INR less than 2.0, PTT less than OR equal to 43.5 seconds, or Fibrinogen greater than or equal to 100 mg/dl indicate adequate procoagulant activity for hemostasis in patients without underlying bleeding disorders. International Normalization Ratio 1.2(H) 0.9 - 1.1 [facility]ER[facility] MILLENNI[facility] Blood specimen (specimen) 12/08/2013 6:16 AM EDT 12/08/2013 6:20 AM EDT Narrative Resulting Agency Comment Spec In Lab Romulo Ramires MD HEMATOLOGY ORDERAB LES Performing Organization Address [facility] de Phone Number [facility] * (ABNORMAL) CK (12/08/2013 6:16 AM EDT) Creatine Kinase 1164(H) 0 - 200 unit/L [facility] M[facility] Blood specimen (specimen) 12/08/2013 6:16 AM EDT 12/08/2013 6:20 AM EDT Narrative Resulting Agency Comment Spec In Lab Romulo Ramires MD CHEMISTRY ORDERABL ES Performing Organization Address [facility]/State/ZIP Co de Phone Number CERNER MILLENNIUM * (ABNORMAL) Basic Metabolic Panel (non-fasting) (12/08/2013 6:16 AM EDT) [facility] Signature Glucose 121 60 - 199 mg/dL CERNER MILLENNIUM Comment:Diabetes: >=200 mg/d L plus symptoms Blood Urea Nitrogen 8(L) 10 - 20 mg/dL CERNER MILLENNIUM Creatinine 0.75(L) 0.80 - 1.50 mg/dL CERNER MILLENNIUM Comment: Please note that the pediatric reference intervals supplied above were not validated at [facility]. Results from pediatric patients should be interpreted [...] Comment: Total Hemoglobin (in gm/dL) ?Based on [facility] Hematology ranges: ?Age ?Reference Range Less than [...] Comment: Total Hemoglobin (in gm/dL) ?Based on [facility] Hematology ranges: ?Age ?Reference Range Less than [...] LES XOCHITL MADRIDENNIUM * Thrombin time (12/08/2013 12:23 AM EDT) Thrombin Time 15 15 - 20 sec CERNER MILLENNIUM Blood specimen (specimen) 12/08/2013 12:23 AM EDT 12/08/2013 12:28 AM EDT Narrative Resulting Agency Comment Spec In Lab Romulo Ramires MD HEMATOLOGY ORDERAB LES [facility] * Fibrinogen (12/08/2013 12:23 AM EDT) Fibrinogen 235 175 - 450 mg/dL [facility] MILLENNIUM Blood specimen (specimen) 12/08/2013 12:23 AM EDT 12/08/2013 12:28 AM EDT Narrative Resulting Agency Comment Spec In Lab Romulo Ramires MD HEMATOLOGY ORDERAB LES Performing Organization Address [facility] Co de Phone Number [facility] * APTT (12/08/2013 12:23 AM EDT) Partial Thromboplastin Time 32 25 - 35 sec [facility] Comment: Recommended therapeutic PTT range for full dose unfractionated heparin is 80-114 seconds. Blood specimen (specimen) 12/08/2013 12:23 AM EDT 12/08/2013 12:28 AM EDT Narrative Resulting Agency Comment Spec In Lab Romulo Ramires MD HEMATOLOGY ORDERAB LES Performing Organization Address [facility] Co de Phone Number [facility] * (ABNORMAL) Prothrombin Time (12/08/2013 12:23 AM EDT) Prothrombin Time 15.4(H) 12.0 - 15.0 sec [facility] MILLENNIUM Comment: [facility] Transfusion Committee Guidelines: INR less than 2.0, [...] HEMATOLOGY ORDERAB LES CERNER MILLENNIUM * (ABNORMAL) CK (12/08/2013 12:23 AM EDT) Creatine Kinase 1668(H) 0 - 200 unit/L CERNER MILLENNIUM Blood specimen (specimen) 12/08/2013 12:23 AM EDT 12/08/2013 12:28 AM EDT Narrative Resulting Agency Comment Spec In Lab Romulo Ramires MD CHEMISTRY ORDERABL ES Performing Organization Address [facility] Co de Phone Number CERNER MILLENNIUM * (ABNORMAL) Basic Metabolic Panel (non-fasting) (12/08/2013 12:23 AM EDT) Glucose 126 60 - 199 mg/dL CERNER MILLENNIUM Comment:Diabetes: >=200 mg/d L plus symptoms Blood Urea Nitrogen 8(L) 10 - 20 mg/dL CERN[facility] MILLENNIUM Creatinine 0.74(L) 0.80 - 1.50 mg/dL CERNER MILLENNIUM Comment: Please note that the pediatric reference intervals supplied above were not validated at [facility]. Results from pediatric patients should be interpreted [...] Comment: Total Hemoglobin (in gm/dL) ?Based on [facility] Hematology ranges: ?Age ?Reference Range Less than [...] l) mmol/L CERNER MILLENNIUM Comment: Noted by supervisor instrument repair. Please note: Patients with WBC >100,000 may [...] Comment: Total Hemoglobin (in gm/dL) ?Based on [facility] Hematology ranges: ?Age ?Reference Range Less than [...] In Lab Julio Elkins MD CHEMISTRY ORDERABLES [facility] * (ABNORMAL) Beta 2 Transferrin Body Fluid Pleural fluid (12/07/2013 9:28 PM EDT) Beta-2 Trans Bf (NOVEMBER) Positive( A) CERNER MILLENNIUM Comment: -- REFERENCE VALUE -- Negative, no beta-2 transferrin (spinal fluid) detected. Test Performed by: [facility] [place] [address] Varnish Supervisor: Cameron Hansen III, M.D. Body fluid specimen (specimen) 12/07/2013 9:28 PM EDT 12/08/2013 12:16 PM EDT Narrative Resulting Agency Comment Spec In Lab Romulo Ramires MD LAB SEND OUT ORDER SOSA CERHELENA SHELBYIUM * HCV Quant Fei (12/07/2013 9:26 PM EDT) [facility] HCV Viral Load <43 IU/mL [facility] HCV Viral Load Result: < 43 [...] This assay is being performed in the [facility] Molecular Pathology Laboratory. Leo Foster, Ph.D. Director, Molecular Pathology [facility] Comment: [VERIFIED DATE]12.09.13 Verified By:Jamila Lyons (Electronic Signature) Blood specimen (specimen) 12/07/2013 9:26 PM EDT 12/07/2013 9:41 PM EDT Narrative Resulting Agency Comment Spec In Lab Romulo Ramires MD HEMATOLOGY ORDERAB LES [facility] * (ABNORMAL) Hepatitis C Antibody (12/07/2013 9:26 PM EDT) [facility] Hepatitis C Antibody Positive(A ) Negative [facility] Blood specimen (specimen) 12/07/2013 9:26 PM EDT 12/07/2013 9:41 PM EDT Narrative Resulting Agency Comment Spec In Lab Romulo Ramires MD CHEMISTRY ORDERABL ES [facility] * (ABNORMAL) BLOOD GAS 2 VENOUS (12/07/2013 6:47 PM EDT) [facility] pH, Venous 7.34 CERNER MILLENNIUM PCO2, Venous 46 mmHg CERNER MILLENNIUM PO2, Venous 34 mmHg CERNER MILLENNIUM Bicarbonate, Venous 24.1 mmol/L CERNER MILLENNIUM Base Excess, Venous -1.8 mmol/L CERNER MILLENNIUM Hgb Blood Gas 8.6(L) gm/dL CERNER MILLENNIUM Comment: Total Hemoglobin (in gm/dL) ?Based on [facility] Hematology ranges: ?Age ?Reference Range Less than [...] Comment: Total Hemoglobin (in gm/dL) ?Based on [facility] Hematology ranges: ?Age ?Reference Range Less than [...] MD HEMATOLOGY ORDERAB LES Performing Organization Address City/[facility] Co de Phone Number CERHELENA MADRIDENNIUM * Thrombin time (12/07/2013 5:28 PM EDT) Thrombin Time 16 15 - 20 sec CERNER MILLENNIUM Blood specimen (specimen) 12/07/2013 5:28 PM EDT 12/07/2013 5:37 PM EDT Narrative Resulting Agency Comment Spec In Lab Romulo Ramires MD HEMATOLOGY ORDERAB LES [facility] MILLENNI[facility] * Fibrinogen (12/07/2013 5:28 PM EDT) Fibrinogen 197 175 - 450 mg/dL C[facility] MILLENNIUM Blood specimen (specimen) 12/07/2013 5:28 PM EDT 12/07/2013 5:37 PM EDT Narrative Resulting Agency Comment Spec In Lab Romulo Ramires MD HEMATOLOGY ORDERAB LES Performing Organization Address [facility] Co de Phone Number [facility] * APTT (12/07/2013 5:28 PM EDT) Partial Thromboplastin Time 31 25 - 35 sec [facility] MADRIDENNIUM Comment: Recommended therapeutic PTT range for full dose unfractionated heparin is 80-114 seconds. Blood specimen (specimen) 12/07/2013 5:28 PM EDT 12/07/2013 5:37 PM EDT Narrative Resulting Agency Comment Spec In Lab Romulo Ramires MD HEMATOLOGY ORDERAB LES Performing Organization Address [facility] Phone Number [facility]BY[facility] * (ABNORMAL) Prothrombin Time (12/07/2013 5:28 PM EDT) Prothrombin Time 15.2(H) 12.0 - 15.0 sec [facility]IT[facility] SHELBYIUM Comment: [facility] Transfusion Committee Guidelines: INR less than 2.0, PTT less than OR equal to 43.5 seconds, or Fibrinogen greater than or equal to 100 mg/dl indicate adequate procoagulant activity for hemostasis in patients without underlying bleeding disorders. International Normalization Ratio 1.2(H) 0.9 - 1.1 [facility]BY[facility] Blood specimen (specimen) 12/07/2013 5:28 PM EDT 12/07/2013 5:37 PM EDT Narrative Resulting Agency Comment Spec In Lab Romulo Ramires MD HEMATOLOGY ORDERAB LES Performing Organization Address [facility] Co de Phone Number XOCHITL WHITAKER * (ABNORMAL) Lactate, whole blood, send to lab (12/07/2013 5:28 PM EDT) Lactate WB 2.3(H) 0.5 - 2.2 mmol/L CERNER MILLENNIUM Blood specimen (specimen) 12/07/2013 5:28 PM EDT 12/07/2013 5:35 PM EDT Narrative Resulting Agency Comment Spec In Lab Romulo Ramires MD CHEMISTRY ORDERABL ES Performing Organization Address [facility] Co de Phone Number CERNER MILLENNIUM [...] MD HEMATOLOGY ORDERAB LES Performing Organization Address [facility]/State/ZIP Co de Phone Number CERNER MILLENNIUM * (ABNORMAL) CK (12/07/2013 5:28 PM EDT) Creatine Kinase 2547(H) 0 - 200 unit/L CERNER MILLENNIUM Comment:result rechecked-NM Blood specimen (specimen) 12/07/2013 [...] intervals supplied above were not validated at [facility]. Results from pediatric patients should be interpreted [...] MD CHEMISTRY ORDERABL ES Performing Organization Address [facility] Co de Phone Number [facility] * POCT Glucose (12/07/2013 5:26 PM EDT) Glucose, POC 145 60 - 199 mg/dL [facility] Comment: Supplemental ranges: <110 mg/dL before meals <200 mg/dL all other times of the day Blood specimen (specimen) 12/07/2013 5:26 PM EDT 12/07/2013 5:26 PM EDT Romulo Ramires MD POINT OF CARE TEST ORDERABLES Performing Organization Address [facility] de Phone Number [facility] * Urine culture Indwelling Catheter Urine (12/07/2013 5:14 PM EDT) Urine Culture ? Patient Name: CIRILO PONCE ?Ordered By: ROMULO RAMIRES ? MR#: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
--- OUTSIDE RECORDS SUMMARY | 2024-05-25 11:27 | XMS_ITS | Encounter Summary ---
Author Organization [facility] [place] [address] Care Team Providers Care Audit Reviewer Name Role Phone None Primary Care Provider Unavailabl e Encounter Details Date Type Department Care Team (Late st Contact Info) Description 12/07/2013 Orders Only [place] [address] Butch aWlker MD [facility] [place] [address] Social History Tobacco Use Types Packs/Day Years [...] on filedocumented in this encounter Care Teams Audit Reviewer Relationship Specialty Start Date End Date None None PCP - General 12/07/13 07/10/14 documented as of this encounter
--- OUTSIDE RECORDS SUMMARY | 2024-05-25 11:27 | XMS_ITS | Clinical Summary ---
Author Organization [facility] Address [address] [place] [address] Care Team Providers Care Life Insurance Sales Name Role Phone Unknown, Provider MD Primary Care Provider Unava ilable Social History Tobacco Use Types Packs/Day Years Used Date Smoking Tobacco: Never Assessed Sex and Gender Information Value Date Recorded Sex Assigned at Not on file Legal Sex Male 18:08 EST Gender Identity Not on file Sexual Orientation Not on file Plan of Treatment Health Maintenance Due Date Last Done Comments Hepatitis B Vaccine (1 of - + 3-dose series) 06/04 COVID-19 Vaccine ( season) 2024 Hepatitis C Screen Completed 08/13/2021 Procedures Procedure Name Priority Date/Time Associated Diagnosis Comments HCV RNA DETECT QUANT Routine 08/13/2021 14:30 EST from Last 3 Months or Most Recently Relevant to Health Maintenance Results * HCV RNA DETECT QUANT (08/13/2021 14:30 EST) HCV RNA Qualitative Undetected Undetected 08/15/2021 11:54 EST [facility] Blood VENOUS BLOOD / Unknown 08/13/2021 14:30 EST 08/15/2021 8:30 EST Narrative [facility] - 08/15/2021 11:54 EST New platform in use 02/04/2021 The quantification range of this assay is 15 IU/mL to 100,000,000 IU/mL. Testing was performed using the Clifford HCV test ([employer] with the clifford 6800 System. us Provider Outr Resulting Lab CHEMISTRY & BLOOD GA S ORDERABLES Final Result [facility] [address] [place] [address] from Last 3 Months or Most Recently Relevant to Health Maintenance Care Teams Life Insurance Sales Relationship Specialty Start Date End Date Unknown, Provider, PCP - General 05/17/15
--- OUTSIDE RECORDS SUMMARY | 2024-05-25 11:27 | XMS_ITS | Referral Summary ---
Author Organization [facility] Address [address] [place] [address] Care Team Providers Care Stemhole Borer Name Role Phone Unknown, Provider MD Primary Care Provider Unava ilable Social History Tobacco Use Types Packs/Day Years Used Date Smoking Tobacco: Never Assessed Sex and Gender Information Value Date Recorded Sex Assigned at Not on file Legal Sex Male 18:08 EST Gender Identity Not on file Sexual Orientation Not on file Plan of Treatment Not on file Procedures Procedure Name Priority Date/Time Associated Diagnosis Comments HCV RNA DETECT QUANT Routine 08/13/2021 14:30 EST from Last 3 Months or Most Recently Relevant to Health Maintenance Results * HCV RNA DETECT QUANT (08/13/2021 14:30 EST) HCV RNA Qualitative Undetected Undetected 08/15/2021 11:54 EST [facility] Blood VENOUS BLOOD / Unknown 08/13/2021 14:30 EST 08/15/2021 8:30 EST Narrative [facility] - 08/15/2021 11:54 EST New platform in use 02/04/2021 The quantification range of this assay is 15 IU/mL to 100,000,000 IU/mL. Testing was performed using the Clifford HCV test ([employer] with the clifford 6800 System. us Provider Outr Resulting Lab CHEMISTRY & BLOOD GA S ORDERABLES Final Result [facility] [address] [place] [address] from Last 3 Months or Most Recently Relevant to Health Maintenance Care Teams Stemhole Borer Relationship Specialty Start Date End Date Unknown, Provider, PCP - General 05/17/15
--- OUTSIDE RECORDS SUMMARY | 2024-05-25 11:27 | XMS_ITS | Encounter Summary ---
Author Organization [facility] [place] [address] Care Team Providers Care Auto Locator Name Role Phone None Primary Care Provider Unavailabl e Encounter Details Date Type Department Care Team (Late st Contact Info) Description 12/07/2013 Orders [place] [address] José Zarate III, MD [facility] [place] [address] Social History Tobacco Use Types Packs/Day Years [...] on filedocumented in this encounter Care Teams Auto Locator Relationship Specialty Start Date End Date None None PCP - General 12/07/13 07/10/14 documented as of this encounter
--- OUTSIDE RECORDS SUMMARY | 2024-05-25 11:27 | XMS_ITS | Encounter Summary ---
Author Organization [facility] Address [address] [place] [address] Care Team Providers Care Prescription Benefit Specialist Name Role Phone Unknown, Provider Primary Care Provider Unava ilable Encounter Details Date Type Department Care Team (Late st Contact Info) Description 02/02/2023 Lab Requisition [facility] Pathology & Laboratory Medicine - [facility] [address] [place] [address] Theo Mendoza, [facility] [address] [place] [address] [place] [id number] Urinary tract infection, site not specified Social History Tobacco Use Types Packs/Day Years [...] Procedure Name Priority Date/Time Associated Diagnosis Comments ORGANISM IDENTIFICATION AND SUSCEPTIBILITY Today 01/28/2023 11:30 EDT Urinary tract infection, site not specified documented in this encounter Results * (ABNORMAL) ORGANISM IDENTIFICATION AND SUSCEPTIBILITY (01/28/2023 11:30 EDT) Organism ID Enterobacter cloacae complex(A) VITEK SUSCEPTIBILITY 3 8:18 EDT [facility] Comment: This organism has a high likelihood of having inducible amp-C beta-lactamase production. Aminopenicillins (amoxicillin, ampicillin), piperacillin-tazobactam, 1st, 2nd, and 3rd generation cephalosporins (ceftazidime, ceftriaxone, and cefpodoxime), and aztreonam should be avoided regardless of in vitro susceptibility. Organism (organism) URINE / Unknown 01/28/2023 11:30 EDT 02/02/2023 17:27 EDT Narrative Organism Antibiotic Method Susceptibility Enterobacter cloacae complex Cefepime VITEK SUSCEPTIBILITY <=1 ug/mL: Susceptible Enterobacter cloacae complex Ciprofloxacin VITEK SUSCEPTIBILITY <=0.25 ug/mL: Susceptible Enterobacter cloacae complex Ertapenem VITEK SUSCEPTIBILITY <=0.5 ug/mL: Susceptible Enterobacter cloacae complex Meropenem VITEK SUSCEPTIBILITY <=0.25 ug/mL: Susceptible Enterobacter cloacae complex Nitrofurantoin VITEK SUSCEPTIBILITY 32 ug/mL: Susceptible Enterobacter cloacae complex Trimethoprim-Sulfameth oxazole VITEK SUSCEPTIBILITY <=20 ug/mL: Susceptible Theo Mendoza RPA MICROBIOLOGY - GENERAL OR DERABLES Final Result [facility] [address] [place] [address] documented in this encounter Visit Diagnoses Diagnosis Urinary tract infection, site not specified documented in this encounter Care Teams Prescription Benefit Specialist Relationship Specialty Start Date End Date Unknown, Provider, PCP - General 05/17/15 documented as of this encounter
[2024-05-25 14:28] LABS: Bilirubin Negative (Negative); Blood Negative (Negative); Clarity Cloudy (Clear); Glucose Negative (Negative); Ketones Negative (Negative); Leukocyte Esterase Trace (Negative); Nitrite Negative (Negative); Specific Gravity 1.015 (1.005-1.025); pH 7.5 (5-8)
[2024-05-25 14:39] LABS: Bacteria Many HPF (Negative); C & S Indicated? Yes; Casts Negative LPF (Negative); Crystals Negative HPF (Negative); Epithelial Cells Few HPF (Negative); Mucus Negative (Negative); RBC Negative HPF (0-2); WBC 0-2 HPF (0-5)
[2024-05-25 14:46] LABS: HCT 47.1 % (40.0-50.0); MCH 28.7 pg (27.0-33.0); MCHC 31.8 % (32.0-36.0); MCV 90 fL (80-95); Platelet Count 218 10^3/uL (130-400); RBC 5.22 10^6/uL (4.36-5.78); RDW 13.6 % (11.8-14.1); RDW-SD 45.1 fL; WBC 7.55 10^3/uL (4.4-10.8)
[2024-05-25 15:09] LABS: Hemoglobin A1C 5.4 % (<5.7)
[2024-05-25 15:25] LABS: BUN 10 mg/dL (7-18); CREATININE 0.8 mg/dL (0.70-1.30); Calcium 9.6 mg/dL (8.5-10.1); Glucose 124 mg/dL (74-106)
[2024-05-25 15:26] LABS: ALT 35 U/L (16-63); AST 19 U/L (15-37); Albumin 3.9 g/dL (3.4-5.0); Alkaline Phosphatase 98 U/L (46-116); Anion Gap 8.5 mmol/L (3-11); Bilirubin, Total 1.89 mg/dL (0.2-1.0); CO2 29.5 mmol/L (21.0-32.0); Calculated LDL 129 mg/dL (<100); Chloride 104 mmol/L (98-107); Cholesterol 197 mg/dL (<200); HDL Cholesterol 42 mg/dL (40-60); Potassium 4.1 mmol/L (3.5-5.1); Sodium 142 mmol/L (136-145); Total Protein 7.3 g/dL (6.4-8.2); Triglyceride 133 mg/dL (<150)
== END 2024-05-25 11:12 | disposition home or self-care (01) ==
LOC: NCHCN 11:11
PROVIDERS: PCP Physician Assistant; Visit Provider Physician Assistant
DX: I10 Essential (primary) hypertension (principal); R73.09 Other abnormal glucose; R82.998 Other abnormal findings in urine
CPT/HCPCS: 80053; 80061; 85027; 87077; 81003; 81015; 83036; 87086; 87186

== ENCOUNTER 2024-11-03 17:12 | Outpatient (REF) | payer MEDICAID, SELFPAY | END 2024-11-03 17:13 | disposition home or self-care (01) | LOC: NCHCN 17:12 | PROVIDERS: PCP Physician Assistant; Visit Provider Physician Assistant | DX: R82.90 Unspecified abnormal findings in urine (principal) | CPT/HCPCS: 87077; 87086; 87186 ==

== ENCOUNTER 2024-12-30 15:13 | Outpatient (REF) | payer MEDICAID, SELFPAY ==
[2024-12-30 15:47] LABS: Bilirubin Negative (Negative); Blood Negative (Negative); Clarity Sl Cloudy (Clear); Glucose Negative (Negative); Ketones Negative (Negative); Leukocyte Esterase Trace (Negative); Nitrite Negative (Negative); pH 7.5 (5-8)
[2024-12-30 15:57] LABS: Bacteria Moderate HPF (Negative); C & S Indicated? Yes; Casts Negative LPF (Negative); Crystals Moderate Amorphous HPF (Negative); Epithelial Cells Rare HPF (Negative); Mucus Negative (Negative)
[2024-12-30 16:38] LABS: COMMENT (LAB VIEW ONLY) 117.27 mg/dL; Microalb ug/mg Crea 11.7 ug/mg Cr
== END 2024-12-30 15:14 | disposition home or self-care (01) ==
LOC: NCHCN 15:13
PROVIDERS: PCP Physician Assistant; Visit Provider Physician Assistant
DX: I10 Essential (primary) hypertension (principal); R39.9 Unspecified symptoms and signs involving the genitourinary system
CPT/HCPCS: 87077; 81003; 81015; 82043; 82570; 87086; 87186

== ENCOUNTER 2025-03-03 16:26 | Outpatient (REF) | payer MEDICAID, SELFPAY ==
[2025-03-03 21:22] LABS: Glucose Negative (Negative)
== END 2025-03-03 16:27 | disposition home or self-care (01) ==
LOC: NCHCN 16:26
PROVIDERS: PCP Physician Assistant; Visit Provider Physician Assistant
DX: R39.9 Unspecified symptoms and signs involving the genitourinary system (principal)
CPT/HCPCS: 81003

== ENCOUNTER 2025-06-21 15:08 | Outpatient (REF) | payer MEDICAID, SELFPAY | END 2025-06-21 15:09 | disposition home or self-care (01) | LOC: NCHCN 15:08 | PROVIDERS: PCP Physician Assistant; Visit Provider Physician Assistant | DX: N31.9 Neuromuscular dysfunction of bladder, unspecified (principal) | CPT/HCPCS: 87077; 87086; 87186 ==